=== PATIENT | female | born 1960 | race Caucasian/White ===

== ENCOUNTER 2017-03-23 20:26 | Emergency (ER) | payer MEDICARE, OTHER ==
[2017-03-23 23:05] LABS: Bilirubin Negative (Negative); Blood, Urine Large (Negative); Glucose, Urine (Dipstick) Negative (Negative); Ketone, Urine Negative (Negative); Nitrite Negative (Negative); Protein, Urine (Dipstick) > or equal to 300 mg/dL (Neg-Trace); Urobilinogen 0.2 mg/dL (0.2-1.0)
[2017-03-23 23:08] LABS: Bacteria/HPF Rare-Few HPF (None Seen); Hyaline Casts/LPF 4-6 HYALINE CAST LPF (0-3 Hyaline)
[2017-03-23] MEDS ORDERED: Ciprofloxacin 500 MG TAB ONE (23:39)
== END 2017-03-23 23:46 | disposition home or self-care (01) ==
LOC: ERS 20:26
DX: N39.0 Urinary tract infection, site not specified (principal); E11.40 Type 2 diabetes mellitus with diabetic neuropathy, unspecified; I25.10 Atherosclerotic heart disease of native coronary artery without angina pectoris; I11.0 Hypertensive heart disease with heart failure; I50.9 Heart failure, unspecified; J44.9 Chronic obstructive pulmonary disease, unspecified; F32.9 Major depressive disorder, single episode, unspecified; F17.210 Nicotine dependence, cigarettes, uncomplicated; I25.2 Old myocardial infarction; Z79.899 Other long term (current) drug therapy; Z86.73 Personal history of transient ischemic attack (TIA), and cerebral infarction without residual deficits; Z79.4 Long term (current) use of insulin
CPT/HCPCS: 81003; 81015; 87086; 94760

== ENCOUNTER 2017-04-16 19:21 | Observation (INO) | payer MEDICARE, MEDICAID ==
[2017-04-16 19:55] LABS: #Basophils 0.1 thou/uL (0.0-0.2); #Eosinphils 0.2 thou/uL (0.0-0.7); #Lymphocytes 1.8 thou/uL (1.20-3.40); #Monocytes 0.6 thou/uL (0.11-0.59); #Neutrophils 7.4 thou/uL (1.40-6.50); %Basophils 0.8 % (0.0-1.0); %Eosinophils 2.3 % (0.0-10.0); %Lymphocytes 17.8 % (21.0-51.0); Hematocrit 38.9 % (36.0-47.0); Mean Platelet Volume 7.8 fL (7.4-10.4); Red Blood Cell (RBC) Count 4.17 mill/uL (4.20-5.40); White Blood Cell (WBC) Count 10.1 thou/uL (4.8-10.8)
[2017-04-16 20:02] LABS: PTT 32.1 SEC (22.9-36.1); Prothrombin Time 13.4 SEC (12.0-14.7)
[2017-04-16 20:11] LABS: ALT (SGPT) 18 U/L (8-55); AST (SGOT) 16 U/L (5-34); Alkaline Phosphatase 68 U/L (40-150); Anion Gap 15 mmol/L (10-20); BUN (Urea Nitrogen) 13 mg/dL (9.8-20.1); Calc. Creatinine Clearance 0 mL/min (70-130); Calcium 9.3 mg/dL (7.8-10.44); Carbon Dioxide 24 mmol/L (22-29); Chloride 103 mmol/L (98-107); Estimated GFR-MDRD 58; Globulin 3.4 g/dL (2.4-3.5); Lipase 6 U/L (8-78)
[2017-04-16 20:16] LABS: Troponin I Less than 0.010 ng/mL (< 0.028)
[2017-04-16] MEDS ORDERED: Nitroglycerin 2% Ointment 1 INCH/1 GM Packet ONE (20:29)
[2017-04-16] MEDS ORDERED: Morphine 10 MG/ML VIAL ONE (20:29)
--- NOTE | 2017-04-16 20:34 | RAD ---
UPRIGHT PORTABLE CHEST ONE VIEW: History: 57-year-old female with chest pain for two hours. Comparison: 03-06-17 FINDINGS: Monitor leads overlie the chest. Heart size is within normal limits. The lungs are clear of acute pr ocess. IMPRESSION: No acute intrathoracic disease. POS: [facility]
[2017-04-16 23:52] LABS: Troponin I Less than 0.010 ng/mL (< 0.028)
[2017-04-17] MEDS ORDERED: Ondansetron HCl/PF 4 MG/2 ML Vial IVP PRN (00:16)
[2017-04-17] MEDS ORDERED: Ondansetron ODT 4 MG TAB SL PRN (00:16)
[2017-04-17] MEDS ORDERED: Acetaminophen 325 MG TAB PO PRN (00:16)
[2017-04-17] MEDS ORDERED: HYDROcodone/Acetaminophen 5/325 mg Tablet PO PRN ×2 (01:02)
[2017-04-17] MEDS ORDERED: Nitroglycerin 0.4 MG TAB (25 Tab Bottle) SL PRN (01:03)
[2017-04-17] MEDS ORDERED: tiZANidine HCl 4 MG TAB PO PRN (01:08)
[2017-04-17] MEDS ORDERED: Amlodipine 10 MG TAB PO SCH ×2 (01:45→09:00)
[2017-04-17] MEDS ORDERED: Gabapentin 400 MG CAP PO SCH ×2 (01:45→09:00)
[2017-04-17] MEDS ORDERED: Pravastatin Sodium 40 MG TAB PO SCH ×2 (01:45→09:00)
[2017-04-17] MEDS ORDERED: Lorazepam 1 MG TAB PO SCH ×2 (01:45→09:00)
[2017-04-17] MEDS ORDERED: Metoprolol Tartrate 25 MG TAB PO SCH ×2 (01:45→09:00)
[2017-04-17 02:48] LABS: Troponin I Less than 0.010 ng/mL (< 0.028)
[2017-04-17] MEDS ORDERED: Dextrose 5% in Water 1,000 ML IV PRN (04:15)
[2017-04-17] MEDS ORDERED: Dextrose 50% Abboject 50 ML SYRINGE SLOW IVP PRN (04:15)
[2017-04-17] MEDS ORDERED: HumaLOG 300 UNITS/3 ML VIAL SC PRN ×2 (04:15)
[2017-04-17] MEDS ORDERED: Levothyroxine Sodium 125 MCG TAB PO SCH (06:00)
[2017-04-17] MEDS ORDERED: Nitroglycerin 2% Ointment 1 INCH/1 GM Packet TOP SCH (06:00)
[2017-04-17] MEDS ORDERED: Mometasone/Formoterol 120 PUFF INHALER INH SCH (06:30)
[2017-04-17] MEDS ORDERED: HYDROcodone/Acetaminophen 10/325 mg Tablet PO PRN (07:38)
[2017-04-17] MEDS ORDERED: Ondansetron ODT 4 MG TAB PO PRN (07:38)
[2017-04-17] MEDS ORDERED: Promethazine HCl 25 MG/ML VIAL IM/IV PRN (07:46)
[2017-04-17] MEDS ORDERED: HumaLOG 300 UNITS/3 ML VIAL SC SCH (08:00)
[2017-04-17 08:39] VITALS: BP 137/60; TEMP 97.6
[2017-04-17] MEDS ORDERED: FLU VACC QS2017-18 36 mo. & older 0.5 ML SYRINGE IM ONE (09:00)
[2017-04-17] MEDS ORDERED: Baclofen 10 MG TAB PO SCH (09:00)
[2017-04-17] MEDS ORDERED: Nitroglycerin 0.4mg/Hour PATCH TD SCH (09:00)
[2017-04-17] MEDS ORDERED: Insulin Detemir 100 UNITS/ML 40 UNITS in Pre-Filled Syringe 1 EACH SC SCH ×2 (09:00→21:00)
--- NOTE | 2017-04-17 09:41 | HP ---
PRIMARY CARE PHYSICIAN: Dr. Valdemar Adames, though she has not really seen him. CHIEF COMPLAINT: Chest pain. HISTORY OF PRESENT ILLNESS: This is a 57-year-old white female with an extensive past medical histo ry of coronary artery disease and severe COPD who has actually been on hospice for the last 6 months , but had been transitioned off of it per her report. She was in her baseline state of health at [facility], which includes chronic shortness of breath on home oxygen and chronic nausea when she developed severe left-sided sternum chest pain, feeling like that there was a large rock sitting on her there. This was present for a couple of hours before she came into the emergency room last night. She di d take multiple doses of nitroglycerin at home and was given aspirin on the way to the emergency [facility]. In the ER, she was given morphine 10 mg IV in the emergency room along with Nitro-Bid transderma l and has had complete resolution of her chest pain; however, she did developed severe nausea and vo miting ever since the dose of morphine in the emergency room and she has vomited continuously on the floor even after the dose of Zofran. Otherwise, patient is back to her baseline state of health. PAST MEDICAL HISTORY: 1. Coronary artery disease. 2. Hypertension. 3. Hyperlipidemia. 4. Viera's esophagitis. 5. Peripheral neuropathy. 6. Diabetes mellitus type 2, insulin-dependent. 7. Chronic obstructive pulmonary disease. 8. Hypothyroidism. 9. Congestive heart failure. PAST SURGICAL HISTORY: Angiography multiple times with 2 stents placed in the past. ALLERGIES: She is allergic to SULFA and NSAIDs. FAMILY HISTORY: Positive for heart disease and diabetes. SOCIAL HISTORY: Patient smokes 1/4 pack a day and has smoked for more than 30 years, drinks occasio nal alcohol, no illicit drugs. She is disabled, is a and has 2 children. MEDICATIONS: 1. Tizanidine 4 mg 3 times a day as needed. 2. Humalog 30 units subcutaneously t.i.d. with meals. 3. Advair Diskus 250/50 two inhalations twice a day. 4. Baclofen 10 mg daily. 5. Lantus 70 units subcutaneously twice a day. 6. Hydrocodone 10/325 mg 2 tablets every 6 hours as needed for pain. 7. Gabapentin 1600 mg twice a day. 8. Metoprolol tartrate 25 mg twice a day. 9. Levothyroxine 125 mcg daily. 10. Lorazepam 1 mg twice a day. 11. Pravastatin 40 mg twice a day. 12. Nitroglycerin spray every 5 minutes as needed. 13. Amlodipine 10 mg twice a day. 14. Seroquel 100 mg at night. 15. Zofran ODT 4 mg every 6 hours as needed for nausea and vomiting. 16. Omeprazole 40 mg daily. 17. Nitroglycerin patch 0.4 mg transdermal daily. REVIEW OF SYSTEMS: Constitutional: No fevers, no chills, no weight changes. Eyes: No double visi on or blurred vision. ENT: No congestion, drainage or sore throat. Cardiovascular: See HPI. No palpitations or racing heart. Pulmonary: Chronic cough and shortness of breath. Gastrointestinal: See HPI. No diarrhea or constipation. Genitourinary: No dysuria or hematuria. Musculoskeletal: No muscle aches or joint pains. Neurologic: No numbness, tingling or focal weak ness besides her chronic peripheral neuropathy, numbness in her lower extremities. Skin: No rashes or other lesions. PHYSICAL EXAMINATION: VITAL SIGNS: Blood pressure 137/60, temperature 97.6, pulse 76, respirations 18-24, O2 saturation 9 4% on room air. GENERAL: This is a well-developed, obese white female who is in moderate distress from recurrent vo miting and vomited is a yellowish green without any blood in it. HEENT: Eyes: Pupils are equal, round, and reactive to light. Oropharynx clear without lesions, er ythema or exudate. NECK: Supple, no lymphadenopathy, no thyroid nodules or enlargement, no JVD. HEART: Regular rate and rhythm, no murmurs, rubs or gallops. LUNGS: Bilateral mild occasional wheezing and some coarse breath sounds bilaterally, but decent air movement throughout. ABDOMEN: Soft, nontender to palpation, normoactive bowel sounds, no organomegaly. EXTREMITIES: She has 3+ pitting edema in bilateral lower extremities, moves all extremities with go od strength. SKIN: No rashes or other lesions noted. NEUROLOGIC: She has no facial droop. She has intact deep tendon reflexes throughout and strength i s normal bilaterally. LABORATORY DATA AND IMAGING: CBC within normal limits. Coagulation profile normal. CMP is normal except for glucose of 151, her lipase was negative at 6. Troponins negative x3. Chest x-ray: I di d review the chest x-ray done in the emergency room along with the radiologist's report. There is n o acute cardiopulmonary process visualized and has a normal heart border. EKG: I did review the EK G done in the emergency room, it does show normal sinus rhythm with a right bundle branch block. ASSESSMENT AND PLAN: 1. Chest pain with known coronary artery disease. Chest pain is now resolved. Cardiac marker sets are all negative. This is possibly angina versus pulmonary in origin. Given the patient's history of being on hospice, I did talk with her about her and desires concerning workup for this versus co ntinuing on outpatient hospice. She said that she has actually had stopped being on hospice and wou ld like this worked up. As a result, we will have Cardiology come and evaluate her. She states she has had adverse reaction to a stress test in the past, so we will not attempt and at this time, she may need either inpatient or outpatient follow up angiography. For now, we will continue her on as pirin and nitroglycerin and we will control her blood pressure. 2. Hypertension. We will continue home medications and will monitor closely. 3. Chronic nausea now with vomiting after morphine administration. This is likely related to diabe tic gastroparesis. We will give her some Phenergan and avoid further opiates during this hospitaliz ation. 4. Diabetes mellitus type 2, insulin-dependent. The patient is currently n.p.o., so we will cut he r Lantus to 40 units twice a day and will put her on a sliding scale and we will monitor her blood s ugars q.a.c. and at bedtime. 5. Chronic obstructive pulmonary disease. We will resume patient's home oxygen and give her nebs a s needed. 6. Gastrointestinal prophylaxis. Put the patient on Pepcid while she is in the hospital. 7. Deep venous thrombosis prophylaxis. We will put the patient on prophylactic dose of Lovenox. 8. CODE STATUS: The patient is a do not resuscitate.
--- NOTE | 2017-04-17 13:52 | PDOC.EVN ---
Event Note - Event Note Event Note: Patient decided to leave AMA due to not wanting to use the emesis basin. Nursing warned her about risks involved in leaving AMA. Patient had left the floor by the time I arrived to speak with her.
--- NOTE | 2017-04-21 15:46 | EKG ---
Test Reason : STAT Blood Pressure : / mmHG Vent. Rate : 071 BPM Atrial Rate : 071 BPM P-R Int : 222 ms QRS Dur : 142 ms QT Int : 468 ms P-R-T Axes : 060 052 003 degrees QTc Int : 508 ms Sinus rhythm with 1st degree A-V block Right bundle branch block Abnormal ECG When compared with ECG of 16-MAY-2016 14:45, Right bundle branch block is now Present Confirmed by DR. Sarath REY ([id number]) on 04/21/2017 3:46:22 PM Referred By: [facility] Confirmed By:DR. Sarath REY
== END 2017-04-17 09:50 | disposition left against medical advice (07) ==
LOC: ERS 19:21 → 2SW 22:45
PROVIDERS: ADMIT Internal Medicine; ATTEND Internal Medicine
DX: R07.89 Other chest pain (principal); I25.10 Atherosclerotic heart disease of native coronary artery without angina pectoris; E78.5 Hyperlipidemia, unspecified; E11.42 Type 2 diabetes mellitus with diabetic polyneuropathy; I11.0 Hypertensive heart disease with heart failure; I50.9 Heart failure, unspecified; J44.9 Chronic obstructive pulmonary disease, unspecified; E03.9 Hypothyroidism, unspecified; F17.210 Nicotine dependence, cigarettes, uncomplicated; Z88.2 Allergy status to sulfonamides; Z88.6 Allergy status to analgesic agent; Z95.5 Presence of coronary angioplasty implant and graft; Z79.4 Long term (current) use of insulin; Z79.899 Other long term (current) drug therapy; Z98.890 Other specified postprocedural states
CPT/HCPCS: 71010; 80053; 82553; 82962; 83690; 84484 ×3; 85025; 85610; 85730; 93005 ×2; 94760; 96374; 99285; G0378; 36415; 36416; 93010; J1815; J2270; Q0162

== ENCOUNTER 2017-05-03 14:37 | Emergency (ER) | payer MEDICARE, MEDICAID ==
[2017-05-03] MEDS ORDERED: Nitroglycerin 0.4 MG TAB (25 Tab Bottle) ONE (15:05)
[2017-05-03 15:23] LABS: #Basophils 0.1 thou/uL (0.0-0.2); #Eosinphils 0.2 thou/uL (0.0-0.7); #Lymphocytes 1.5 thou/uL (1.20-3.40); #Monocytes 0.6 thou/uL (0.11-0.59); #Neutrophils 7.9 thou/uL (1.40-6.50); %Basophils 0.6 % (0.0-1.0); %Eosinophils 2.3 % (0.0-10.0); %Lymphocytes 14.9 % (21.0-51.0); %Monocytes 5.4 % (0.0-10.0); Hematocrit 38.7 % (36.0-47.0); Mean Platelet Volume 7.6 fL (7.4-10.4); Red Blood Cell (RBC) Count 4.23 mill/uL (4.20-5.40); White Blood Cell (WBC) Count 10.2 thou/uL (4.8-10.8)
[2017-05-03 15:47] LABS: Troponin I Less than 0.010 ng/mL (< 0.028)
[2017-05-03 15:49] LABS: ALT (SGPT) 16 U/L (8-55); AST (SGOT) 14 U/L (5-34); Alkaline Phosphatase 73 U/L (40-150); Anion Gap 13 mmol/L (10-20); BUN (Urea Nitrogen) 11 mg/dL (9.8-20.1); Bilirubin, Total 0.8 mg/dL (0.2-1.2); Calc. Creatinine Clearance 0 mL/min (70-130); Calcium 9.4 mg/dL (7.8-10.44); Carbon Dioxide 27 mmol/L (22-29); Chloride 102 mmol/L (98-107); Estimated GFR-MDRD 63; Globulin 3.1 g/dL (2.4-3.5); Lipase 8 U/L (8-78); Protein, Total 6.7 g/dL (6.0-8.3)
--- NOTE | 2017-05-03 17:11 | RAD ---
PORTABLE UPRIGHT FRONTAL CHEST RADIOGRAPH 05/03/17 COMPARISON: 04/16/17 HISTORY: Cough, shortness of breath and hypoxia. FINDINGS: There is increased linear interstitial density noted bilaterally, stable. No pneumothorax or pleural fluid. No lobar consolidation or alveolar edema. IMPRESSION: Perihilar and medial basilar interstitial prominence, nonspecific and unchanged. POS: [facility]
== END 2017-05-03 17:15 | disposition home or self-care (01) ==
LOC: ERS 14:37
DX: R07.89 Other chest pain (principal); I11.0 Hypertensive heart disease with heart failure; I50.9 Heart failure, unspecified; I25.2 Old myocardial infarction; I25.10 Atherosclerotic heart disease of native coronary artery without angina pectoris; E11.40 Type 2 diabetes mellitus with diabetic neuropathy, unspecified; I69.354 Hemiplegia and hemiparesis following cerebral infarction affecting left non-dominant side; J44.9 Chronic obstructive pulmonary disease, unspecified; F32.9 Major depressive disorder, single episode, unspecified; F17.210 Nicotine dependence, cigarettes, uncomplicated; Z85.118 Personal history of other malignant neoplasm of bronchus and lung; Z92.21 Personal history of antineoplastic chemotherapy; Z92.3 Personal history of irradiation; Z79.899 Other long term (current) drug therapy; Z79.4 Long term (current) use of insulin
CPT/HCPCS: 71010; 80053; 82553; 83690; 83880; 84484; 85025; 93005

== ENCOUNTER 2017-06-10 15:57 | Emergency (ER) | payer MEDICARE, MEDICAID ==
[2017-06-10] MEDS ORDERED: Lidocaine Viscous Sol 2% 15 ml UD Cup ONE (16:46)
[2017-06-10] MEDS ORDERED: Lidocaine 2% Jelly 5 ML TUBE ONE ×2 (16:47→17:33)
[2017-06-10] MEDS ORDERED: Bisacodyl 10 MG SUPP ONE (17:02)
[2017-06-10] MEDS ORDERED: Magnesium Citrate 300 ML BOT ONE (17:41)
== END 2017-06-10 18:20 | disposition home or self-care (01) ==
LOC: ERS 15:57
DX: K59.00 Constipation, unspecified (principal); E11.40 Type 2 diabetes mellitus with diabetic neuropathy, unspecified; I11.0 Hypertensive heart disease with heart failure; I50.9 Heart failure, unspecified; I25.2 Old myocardial infarction; J44.9 Chronic obstructive pulmonary disease, unspecified; F32.9 Major depressive disorder, single episode, unspecified; F17.210 Nicotine dependence, cigarettes, uncomplicated; Z79.899 Other long term (current) drug therapy; Z79.4 Long term (current) use of insulin
CPT/HCPCS: 99406

== ENCOUNTER 2017-07-13 15:22 | Inpatient (IN) | payer MEDICARE, MEDICAID ==
[~2017-07-13 15:22] MED LIST: ISOVUE-370 76%-LOCM 1 ML ONE
[2017-07-13] MEDS ORDERED: Ondansetron HCl/PF 4 MG/2 ML Vial ONE (16:33)
[2017-07-13 17:11] LABS: #Basophils 0.1 thou/uL (0.0-0.2); #Eosinphils 0.4 thou/uL (0.0-0.7); #Lymphocytes 1.6 thou/uL (1.20-3.40); #Monocytes 0.6 thou/uL (0.11-0.59); #Neutrophils 7.4 thou/uL (1.40-6.50); %Basophils 0.7 % (0.0-1.0); %Eosinophils 3.6 % (0.0-10.0); %Lymphocytes 15.7 % (21.0-51.0); %Monocytes 6.3 % (0.0-10.0); %Neutrophils 73.7 % (42.0-75.0); Hemoglobin 14.3 g/dL (12.0-16.0); Mean Corpuscular HGB CONC 34.8 g/dL (32.0-36.0); Mean Corpuscular Hemoglobin 30.5 pg (27.0-31.0); Mean Corpuscular Volume 87.6 fl (81.0-99.0); Mean Platelet Volume 8.3 fL (7.4-10.4); Platelet Count 220 thou/uL (130-400); RBC Distribution Width 12.9 % (11.5-14.5); Red Blood Cell (RBC) Count 4.68 mill/uL (4.20-5.40)
[2017-07-13 17:34] LABS: ALT (SGPT) 17 U/L (8-55); AST (SGOT) 15 U/L (5-34); Albumin 3.8 g/dL (3.5-5.0); Alkaline Phosphatase 73 U/L (40-150); Anion Gap 15 mmol/L (10-20); BUN (Urea Nitrogen) 13 mg/dL (9.8-20.1); Bilirubin, Total 1.1 mg/dL (0.2-1.2); Calc. Creatinine Clearance 0 mL/min (70-130); Calcium 9.3 mg/dL (7.8-10.44); Carbon Dioxide 26 mmol/L (22-29); Chloride 100 mmol/L (98-107); Estimated GFR-MDRD 53; Globulin 3.1 g/dL (2.4-3.5); Glucose 137 mg/dL (70-105); Lipase 14 U/L (8-78); Potassium 3.8 mmol/L (3.5-5.1); Protein, Total 6.9 g/dL (6.0-8.3); Sodium 137 mmol/L (136-145)
[2017-07-13 17:38] LABS: CKMB 3.8 ng/mL (0-6.6); Troponin I Less than 0.010 ng/mL (< 0.028)
[2017-07-13] MEDS ORDERED: Nitroglycerin 2% Ointment 1 INCH/1 GM Packet ONE (18:21)
--- NOTE | 2017-07-13 19:03 | RAD ---
PORTABLE CHEST 07/13/17 PROVIDED CLINICAL HISTORY: Chest pain. FINDINGS: Evaluation is limited by patient body habitus. Increased density at the right lung base could be on t he basis of superimposed tissues or infiltrate. Cardiac silhouette remains enlarged. No pleural fluid or pneumothorax is definitely apparent. IMPRESSION: Limited study with possible right basilar air space disease. Followup is recommended. POS: [facility]
[2017-07-13] MEDS ORDERED: Acetaminophen 325 MG TAB PO PRN ×2 (20:45→21:53)
[2017-07-13] MEDS ORDERED: Ondansetron ODT 4 MG TAB SL PRN (20:45)
[2017-07-13] MEDS ORDERED: Ondansetron HCl/PF 4 MG/2 ML Vial IVP PRN ×2 (20:45→21:53)
[2017-07-13] MEDS ORDERED: HYDROcodone/Acetaminophen 5/325 mg Tablet PO PRN ×3 (20:45→21:53)
--- NOTE | 2017-07-13 20:49 | CT ---
CT PULMONARY ANGIOGRAM WITH IV CONTRAST AND 3D MIP RECONSTRUCTIONS 07/13/17 PROVIDED CLINICAL HISTORY: Cough, shortness of breath. FINDINGS: Comparison is made with the examination dated 10/23/15. The heart, pericardium and great vessels demonstrate an unremarkable CT appearance with the exception of vascular calcifications including coronary calcium. There is no evidence for central or segmental pulmonary embolus. There are moderate right and small left pleural effusions. There is adjacent passive atelectasis at e ach lung base. Lungs appear otherwise clear. Airway appears patent and of normal caliber. No evidence for thoracic lymph node enlargement. No evidence for pneumothorax. The visualized portions of the upper abdomen demonstrate no acute abnormality. IMPRESSION: 1. No evidence for central or segmental pulmonary embolus. 2. Moderate right and small left pleural effusions with adjacent passive atelectasis. POS: [facility]
[2017-07-13] MEDS ORDERED: Diabetic Tussin 200 MG/10 ML UDCUP PO PRN (21:53)
[2017-07-13] MEDS ORDERED: Nitroglycerin 0.4 MG TAB (25 Tab Bottle) SL PRN (21:53)
[2017-07-13] MEDS ORDERED: Dextrose 5% in Water 1,000 ML IV PRN (21:53)
[2017-07-13] MEDS ORDERED: Loratadine 10 MG TAB PO PRN (21:53)
[2017-07-13] MEDS ORDERED: HumaLOG 300 UNITS/3 ML VIAL SC PRN (21:53)
[2017-07-13] MEDS ORDERED: Milk Of Magnesia 30 ML UDCUP PO PRN (21:53)
[2017-07-13] MEDS ORDERED: Artificial Tears 18 DROP/0.9 ML EA EYE PRN (21:53)
[2017-07-13] MEDS ORDERED: Eucerin (Mineral Oil/Petrolatum,White) 30 gm Jar TOP PRN (21:53)
[2017-07-13] MEDS ORDERED: Ondansetron ODT 4 MG TAB PO PRN (21:53)
[2017-07-13] MEDS ORDERED: Meclizine HCl 25 MG TAB PO PRN (21:53)
[2017-07-13] MEDS ORDERED: Chloraseptic Spray 180 ml Bottle PO PRN (21:53)
[2017-07-13] MEDS ORDERED: hydrALAZINE 20 MG/ML VIAL SLOW IVP PRN (21:53)
[2017-07-13] MEDS ORDERED: Mag-Al 1200 mg/1200 mg/30 ML UDCUP PO PRN (21:53)
[2017-07-13] MEDS ORDERED: Zolpidem Tartrate 5 MG TAB PO PRN (21:53)
[2017-07-13] MEDS ORDERED: HYDROcodone/Acetaminophen 10/325 mg Tablet PO PRN (21:53)
[2017-07-13] MEDS ORDERED: Dextrose 50% Abboject 50 ML SYRINGE SLOW IVP PRN (21:53)
[2017-07-13] MEDS ORDERED: Diphenoxylate HCl/Atropine Tablet PO PRN (21:53)
[2017-07-13] MEDS ORDERED: Loperamide HCl 2 MG CAP PO PRN (21:53)
[2017-07-13] MEDS ORDERED: Sodium Chloride 0.65% Nasal 44 ML BOT EA NARE PRN (21:53)
[2017-07-13] MEDS ORDERED: Senokot 8.6 MG TAB PO PRN (21:53)
[2017-07-13] MEDS ORDERED: Baclofen 10 MG TAB PO SCH (22:15)
[2017-07-13] MEDS ORDERED: tiZANidine HCl 4 MG TAB PO SCH (22:30)
[2017-07-13] MEDS ORDERED: Metoprolol Tartrate 25 MG TAB PO SCH (22:30)
[2017-07-13] MEDS ORDERED: Gabapentin 400 MG CAP PO SCH (22:30)
[2017-07-13] MEDS ORDERED: hydrOXYzine 25 MG TAB PO SCH (22:30)
[2017-07-13] MEDS ORDERED: Insulin Detemir 100 UNITS/ML 70 UNITS in Pre-Filled Syringe 1 EACH SC SCH (22:30)
[2017-07-13] MEDS ORDERED: Pravastatin Sodium 40 MG TAB PO SCH (22:30)
[2017-07-13] MEDS ORDERED: Lisinopril 20 MG TAB PO SCH (22:30)
[2017-07-13 22:52] VITALS: BMI 43.9
--- NOTE | 2017-07-13 23:10 | HP ---
PRIMARY CARE PHYSICIAN: Dr. Valdemar Adames. REASON FOR ADMISSION: Acute on chronic hypoxic respiratory failure, chronic obstructive pulmonary disease, and CHF exacerbation. HISTORY OF PRESENT ILLNESS: A 57-year-old female who has multiple medical problems who came to emergency room with complaint of increasing shortness of breath. Patient reports that she is sick since Blue. She was experiencing cough and each time, she has a productive cough of yellowish sputum without any blood. She has increasing shortness of breath. Patient reports that she was given a course of antibiotic by her primary care physician with azithromycin without any significant relief. She did not get rid of upper respiratory symptoms. She reports she has nasal congestion, cough, shortness of breath, chest wall pain associated with cough, headache, body ache. She was also experiencing increasing shortness of breath, wheezing. She noticed increasing bilateral lower extremity edema. She was not able to lie down flat. She was having dyspnea on exertion. Her routine capacity was decreasing. She was trying all her nebulizer treatment, inhalers without any significant relief and that is why she came to the emergency room for evaluation. In the emergency room, this patient was appeared to be slightly hypoxic and she was wheezing in all over her lung field. She had a slightly elevated D-dimer and that is why CT angio was done which showed moderate right and small left pleural effusion and atelectasis. She also had a slightly elevated BNP and there was concern of both CHF and COPD exacerbation. Number simmons, patient was appeared to be stable and that is why she was kept here on the telemetry floor for observation. REVIEW OF SYSTEMS: The following complete review of systems was negative, unless otherwise mentioned in the HPI or below: Constitutional: Weight loss or gain, ability to conduct usual activities. Skin: Rash, itching. Eyes: Double vision, pain. ENT/Mouth: Nose bleeding, neck stiffness, pain, tenderness. Cardiovascular: Palpitations, dyspnea on exertion, orthopnea. Respiratory: Shortness of breath, wheezing, cough, hemoptysis, fever or night sweats. Gastrointestinal: Poor appetite, abdominal pain, heartburn, nausea, vomiting, constipation, or diarrhea. Genitourinary: Urgency, frequency, dysuria, nocturia. Musculoskeletal: Pain, swelling. Neurologic/Psychiatric: Anxiety, depression. Allergy/Immunologic: Skin rash, bleeding tendency. Please see my HPI for pertinent positives and negatives. All other review of systems reviewed and negative except as mentioned in the HPI. ALLERGIES: SULFA DRUGS. CURRENT HOME MEDICATIONS: Amlodipine 10 mg p.o. b.i.d., baclofen 10 mg p.o. at bedtime, Tessalon 100 mg p.o. b.i.d., Lomotil 2 tablets p.o. q.i.d. p.r.n., Advair 2 inhalations b.i.d., Lasix 40 mg p.o. b.i.d., gabapentin 1600 mg p.o. b.i.d., Humalog insulin 30 units subcu t.i.d. and 30 units at bedtime, [place] 10 one tablet q.4 hourly p.r.n., Atarax 25 mg p.o. b.i.d., Lantus 70 units subcutaneously b.i.d., DuoNeb twice daily, Synthroid 25 mcg p.o. daily, lisinopril 40 mg p.o. b.i.d., Ativan 1 mg p.o. daily, Antivert 25 mg p.o. b.i.d. p.r.n., metformin 500 mg p.o. daily, Lopressor 25 mg p.o. b.i.d., nitroglycerin patch daily p.r.n., nitroglycerin p.r.n., omeprazole 40 mg p.o. daily, Zofran 4 mg q.6. hourly p.r.n., pravastatin 40 mg p.o. b.i.d., prochlorperazine 10 mg p.o. b.i.d., Seroquel 100 mg p.o. at bedtime, Spiriva 18 mcg inhalation b.i.d., Zanaflex 4 mg p.o. at bedtime. PAST MEDICAL HISTORY: Coronary artery disease with a stent, hypertension, diabetes type 2 on insulin, dyslipidemia, Viera's esophagitis, peripheral neuropathy due to diabetes, COPD, chronic respiratory failure on home oxygen, hypothyroidism, chronic diastolic congestive heart failure, morbid obesity, gastroesophageal reflux disease, history of lung cancer treated with chemotherapy and radiation, history of cerebrovascular accident. PAST SURGICAL HISTORY: Cardiac catheterization with 2 stents placement, carpal tunnel repair, tubal ligation. PAST PSYCHIATRIC HISTORY: Anxiety and depression. SOCIAL HISTORY: Patient is still smoking about half pack per day. She smoked more than 30 years in her life. She drinks alcohol socially. She denies any other illicit drug abuse. She lives at home. She has home oxygen. She uses oxygen via nasal cannula 2-3 liters at home. FAMILY HISTORY: Diabetes, hypertension, heart disease runs among several family members. PHYSICAL EXAMINATION: VITAL SIGNS: On arrival, blood pressure 145/74, pulse 74, respiratory rate 18, temperature 98.2, saturation 93% on room air, weight 120 kilograms. GENERAL: Patient is currently alert, awake, no obvious acute distress. HEENT: Normocephalic, atraumatic. Eyes: Pupils round, reactive to light. Extraocular muscles intact. ENT: Oropharynx within normal limits. Moist mucous membranes. No pharyngeal erythema, no exudates. NECK: Supple, no JVD, no thyromegaly, no carotid bruit. LUNGS: Bilateral diffuse wheezing and rhonchi heard. No rales noted. Air entry reduced on both bases. CARDIAC: S1, S2 regular, systolic murmur present. No gallop, no rub. ABDOMEN: Morbid obesity limiting examination. Patient does have vague epigastric discomfort. No Eason's sign, no suprapubic tenderness. No peritoneal signs, no distention. Bowel sounds present, no organomegaly. BACK: Unremarkable, no CVA tenderness. EXTREMITIES: Upper extremity, passive movement of all joints are normal. Lower extremity, bilateral +3 pitting edema noted. SKIN: No skin rash. HEMATOLOGICAL: No lymphadenopathy. PSYCHIATRIC: Normal affect. NEUROLOGIC: Nonfocal examination. SIGNIFICANT LABS: Chest x-ray showing pleural effusion. CT angio showing bilateral pleural effusion, moderate right effusion and small left pleural effusion and atelectasis, no evidence of PE. CBC: WBC 10.0, hemoglobin 14.3, platelet 220. D-dimer 1.11. BMP shows sodium 137, potassium 3.8, chloride 100 , carbon dioxide 26, BUN 13, creatinine 1.06, glucose 137, calcium 9.3. LFT: AST 15, ALT 17, alkaline phosphatase 73, albumin 3.8, lipase 14. CK-MB 3.8, troponin I less than 0.010. BNP 159.7. ASSESSMENT AND PLAN: 1. Acute on chronic respiratory failure with hypoxia, likely due to underlying chronic obstructive pulmonary disease and congestive heart failure exacerbation. We will monitor oxygen saturation while in hospital and continue oxygen to keep saturation above 92%. 2. Chronic obstructive pulmonary disease exacerbation. The patient has bilateral wheezing and she has ongoing smoking history. At this point, the patient will be treated with DuoNeb every 4 hourly, Dulera 2 puffs inhalation b.i.d., empiric antibiotic therapy with Levaquin and Mucinex 600 mg twice daily. We will avoid steroids at this point because of her diabetes history. 3. Acute on chronic congestive heart failure exacerbation, likely diastolic. We will confirm EF with echocardiography during this admission. We will give her Lasix 40 mg IV b.i.d. We will also prescribe Zaroxolyn 5 mg p.o. daily. This patient has classic signs of congestive heart failure. She has pleural effusion. She has bilateral lower extremity pitting edema as well as elevated BNP. 4. Hypertension. Currently, not well controlled. We will resume amlodipine 10 mg p.o. daily, Lasix 40 mg IV b.i.d., Zaroxolyn 5 mg p.o. daily, lisinopril 40 mg p.o. b.i.d., Lopressor 25 mg p.o. b.i.d. We will adjust blood pressure medication during this admission. 5. Tobacco abuse disorder. Smoking cessation counseling given. We will offer nicotine patch if needed. 6. Diabetes type 2. We will resume Humalog insulin as per sliding scale per protocol. The patient is taking Humalog 30 units subcutaneously t.i.d. and bedtime which we will continue as per home dosage. We will also continue Lantus 70 units subcu b.i.d. along with metformin 500 mg p.o. daily. We will monitor Accu-Cheks. 7. Dyslipidemia. Continue pravastatin 40 mg p.o. b.i.d. 8. Gastroesophageal reflux disease with a history of Viera's esophagus. Continue Protonix 40 mg p.o. daily. 9. Anxiety and depression. Continue Seroquel 100 mg p.o. at bedtime, lorazepam 1 mg p.o. daily. 10. Hypothyroidism. We will continue Synthroid 25 mcg p.o. daily. 11. Morbid obesity. Dietary education given, weight loss education given. Healthy lifestyle measures discussed with the patient. 12. Deep venous thrombosis prophylaxis with Lovenox 40 mg subcu daily. 13. Gastrointestinal prophylaxis, Protonix 40 mg p.o. daily. CODE STATUS: The patient is FULL CODE. Patient does not have any surrogate decision maker. DISPOSITION AND PLAN: At this point, we are suspecting that this patient, though her number looks normal, but looking at her condition, she may need more than 2 midnights and that is why we will keep her as a full admission rather than observation and I doubt this patient will get better in hours. Plan of care discussed with the patient in detail. MTDD
[2017-07-14 05:11] LABS: #Eosinphils 0.2 thou/uL (0.0-0.7); #Lymphocytes 1.2 thou/uL (1.20-3.40); #Monocytes 0.5 thou/uL (0.11-0.59); #Neutrophils 6.3 thou/uL (1.40-6.50); %Basophils 0.5 % (0.0-1.0); %Eosinophils 2.6 % (0.0-10.0); %Lymphocytes 14.8 % (21.0-51.0); %Monocytes 5.9 % (0.0-10.0); %Neutrophils 76.3 % (42.0-75.0); Hemoglobin 11.9 g/dL (12.0-16.0); Mean Corpuscular Volume 88.3 fl (81.0-99.0); Mean Platelet Volume 8.2 fL (7.4-10.4); Platelet Count 176 thou/uL (130-400); Red Blood Cell (RBC) Count 3.95 mill/uL (4.20-5.40); White Blood Cell (WBC) Count 8.2 thou/uL (4.8-10.8)
[2017-07-14 05:24] LABS: ALT (SGPT) 14 U/L (8-55); AST (SGOT) 11 U/L (5-34); Albumin 3.2 g/dL (3.5-5.0); Alkaline Phosphatase 60 U/L (40-150); Anion Gap 12 mmol/L (10-20); BUN (Urea Nitrogen) 13 mg/dL (9.8-20.1); Bilirubin, Total 0.6 mg/dL (0.2-1.2); Calc. Creatinine Clearance 108 mL/min (70-130); Calcium 8.6 mg/dL (7.8-10.44); Carbon Dioxide 27 mmol/L (22-29); Chloride 101 mmol/L (98-107); Estimated GFR-MDRD 50; Globulin 2.6 g/dL (2.4-3.5); Glucose 218 mg/dL (70-105); Potassium 3.8 mmol/L (3.5-5.1); Protein, Total 5.8 g/dL (6.0-8.3); Sodium 136 mmol/L (136-145); Uric Acid 9.3 mg/dL (2.6-6.0)
[2017-07-14] MEDS: Furosemide 40 MG/4 ML VIAL SLOW IVP SCH ×2 (06:10→14:27)
[2017-07-14] MEDS: Levothyroxine Sodium 25 MCG TAB PO SCH (06:10)
[2017-07-14] MEDS ORDERED: Lorazepam 1 MG TAB PO SCH (09:00)
[2017-07-14] MEDS ORDERED: Gabapentin 400 MG CAP PO SCH (09:00)
[2017-07-14] MEDS ORDERED: hydrOXYzine 25 MG TAB PO SCH (09:00)
[2017-07-14] MEDS ORDERED: FLU VACC QS2017-18 36 mo. & older 0.5 ML SYRINGE IM ONE (09:00)
[2017-07-14] MEDS ORDERED: Non-Formulary Item 1 EACH (Insulin Glargine,Hum.Rec.Anlog 70 UNIT) SQ SCH (09:00)
[2017-07-14] MEDS ORDERED: Lisinopril 20 MG TAB PO SCH (09:00)
[2017-07-14] MEDS: Enoxaparin Sodium 40 MG/0.4 ML SYRINGE SC SCH (09:58)
[2017-07-14] MEDS: Metolazone 5 MG TAB PO SCH (09:58)
[2017-07-14] MEDS: metFORMIN 500 MG TAB PO SCH (09:58)
[2017-07-14] MEDS: Amlodipine 10 MG TAB PO SCH (09:58)
[2017-07-14] MEDS: HumaLOG 300 UNITS/3 ML VIAL SC SCH ×4 (09:58→20:01)
[2017-07-14] MEDS: guaiFENesin ER 600 MG TAB PO SCH ×2 (09:59→20:00)
[2017-07-14] MEDS: Pravastatin Sodium 40 MG TAB PO SCH ×2 (10:00→20:00)
[2017-07-14] MEDS: Metoprolol Tartrate 25 MG TAB PO SCH ×2 (10:00→20:00)
[2017-07-14] MEDS: Insulin Detemir 100 UNITS/ML 70 UNITS in Pre-Filled Syringe 1 EACH SC SCH ×2 (10:02→20:01)
[2017-07-14] MEDS: Mometasone/Formoterol 120 PUFF INHALER INH SCH ×2 (11:21→18:38)
--- NOTE | 2017-07-14 14:49 | PDOC.PN ---
- Subjective Encounter Start Date: 07/14/17 Encounter Start Time: 10:15 Subjective: breathing better, a bit lethargic from meds and disturbed sleep - Objective Resuscitation Status: Resuscitation Status FULL:Full Resuscitation MAR Reviewed: Yes Vital Signs & Weight: Vital Signs (12 hours) Temp Pulse Pulse Pulse Resp BP BP 07/14/17 12:18 98.1 F 66 20 07/14/17 11:21 57 L 16 07/14/17 11:12 07/14/17 11:09 57 L 16 07/14/17 10:11 58 L 64 134/84 144/77 H 07/14/17 08:10 98.8 F 59 L 20 07/14/17 08:05 98.8 F 59 L 20 07/14/17 04:00 98.6 F 82 20 BP Pulse Ox Pulse Ox Pulse Ox 07/14/17 12:18 149/69 H 94 L 07/14/17 11:21 07/14/17 11:12 95 07/14/17 11:09 07/14/17 10:11 93 L 96 07/14/17 08:10 92 L 07/14/17 08:05 136/69 92 L 07/14/17 04:00 133/70 93 L Weight Weight 269 lb I&O: 07/13/17 07/14/17 07/15/17 06:59 06:59 06:59 Intake Total 240 Balance 240 Result Diagrams: 07/14/17 04:29 07/14/17 04:29 Additional Labs: Accuchecks 07/14/17 07/14/17 07/13/17 11:42 06:29 20:51 POC Glucose 134 H 230 H 183 H Phys Exam - Physical Examination HEENT: PERRLA, moist MMs Neck: no JVD, supple Respiratory: no wheezing, no rales Cardiovascular: RRR, no significant murmur Gastrointestinal: soft, non-tender, positive bowel sounds Musculoskeletal: no edema, pulses present Neurological: non-focal, moves all 4 limbs Psychiatric: A&O x 3 Dx/Plan (1) COPD with exacerbation Code(s): J44.1 - CHRONIC OBSTRUCTIVE PULMONARY DISEASE W (ACUTE) EXACERBATION Status: Acute (2) Acute exacerbation of CHF (congestive heart failure) Code(s): I50.9 - HEART FAILURE, UNSPECIFIED Status: Acute Qualifiers: Congestive heart failure type: diastolic Qualified Code(s): I50.33 - Acute on chronic diastolic (congestive) heart failure (3) DM type 2 (diabetes mellitus, type 2) Status: Chronic Qualifiers: Diabetes mellitus complication status: with neurologic complications Diabetes mellitus complication detail: with polyneuropathy Diabetes mellitus termite treater helper insulin use: with skilled nursing use Qualified Code(s): E11.42 - Type 2 diabetes mellitus with diabetic polyneuropathy; Z79.4 - termination clerk (current) use of insulin; Z79.4 - termination clerk (current) use of insulin; Z79.4 - shelter ( current) use of insulin; Z79.4 - shelter (current) use of insulin (4) CAD (coronary artery disease) Code(s): I25.10 - ATHSCL HEART DISEASE OF [place] CORONARY ARTERY W/O ANG PCTRS Status: Chronic Qualifiers: Coronary Disease-Associated Artery/Lesion type: [place] artery [place] vs. transplanted heart: [place] heart Associated angina: without angina Qualified Code(s): I25.10 - Atherosclerotic heart disease of [place] coronary artery without angina pectoris (5) GERD (gastroesophageal reflux disease) Code(s): K21.9 - GASTRO-ESOPHAGEAL REFLUX DISEASE WITHOUT ESOPHAGITIS Status: Chronic (6) Hypertension Code(s): I10 - ESSENTIAL (PRIMARY) HYPERTENSION Status: Chronic Qualifiers: Hypertension type: essential hypertension (7) Morbid obesity with BMI of 40.0-44.9, adult Code(s): E66.01 - MORBID (SEVERE) OBESITY DUE TO EXCESS CALORIES; Z68.41 - BODY MASS INDEX (BMI) 40.0-44.9, ADULT Status: Chronic - Plan is on lasix and metolazone -: echo for lv function -: nebs, empiric levaquin, no steroids -: is on very high dose insulins with metformin -: dc baclofen, norco and other sedatives for now, tx to med floor * . Review of Systems - Medications/Allergies Allergies/Adverse Reactions: Allergies Allergy/AdvReac Type Severity Reaction Status Date / Time Sulfa (Sulfonamide Allergy PT NOT Verified 07/13/17 22:25 Antibiotics) SURE OF REACTION STATED HAPPENED CHILD Medications: Current Medications Acetaminophen (Tylenol) 650 mg PO Q4H PRN PRN Reason: Headache/Fever or Pain Al Hydroxide/Mg Hydroxide (Maalox) 30 ml PO Q6H PRN PRN Reason: Heartburn or Indigestion Albuterol/Ipratropium (Duoneb) 3 ml NEB [id number] [facility] Last Admin: 07/14/17 14:46 Dose: 3 ml Amlodipine Besylate (Norvasc) 10 mg PO DAILY [facility] Last Admin: 07/14/17 09:58 Dose: 10 mg Artificial Tears (Tears Naturale) 0 drop EA EYE PRN PRN PRN Reason: Dry Eyes Benzonatate (Tessalon) 100 mg PO Q4H PRN PRN Reason: Cough Dextrose/Water (Dextrose 50%) 25 gm SLOW IVP PRN PRN PRN Reason: Hypoglycemia Diphenoxylate HCl/Atropine (Lomotil) 2 tab PO QID PRN PRN Reason: Diarrhea/Loose Stools Enoxaparin Sodium (Lovenox) 40 mg SC 0900 [facility] Last Admin: 07/14/17 09:58 Dose: 40 mg Furosemide (Lasix) 40 mg SLOW IVP 0600,1400 [facility] Last Admin: 07/14/17 14:27 Dose: 40 mg Glucagon (Glucagon) 1 mg IM PRN PRN PRN Reason: Hypoglycemia Guaifenesin (Robitussin Sf) 200 mg PO Q4H PRN PRN Reason: Cough Guaifenesin (Mucinex) 600 mg PO Q12HR [facility] Last Admin: 07/14/17 09:59 Dose: 600 mg Hydralazine HCl (Apresoline) 10 mg SLOW IVP Q4H PRN PRN Reason: Systolic BP > 180 Dextrose/Water (D5w) 1,000 mls @ 0 mls/hr IV .Q0M PRN; As Directed PRN Reason: Hypoglycemia Levofloxacin 750 mg/ Device 150 mls @ 100 mls/hr IVPB Q24HR [facility] Last Admin: 07/13/17 23:09 Dose: 150 mls Insulin Detemir 70 units/ (Miscellaneous Medication) 0.7 mls @ 0 mls/hr SC BID [facility] Last Admin: 07/14/17 10:02 Dose: 0.7 mls Insulin Human Lispro (Humalog) 0 units SC .MODERATE SLIDING SC PRN PRN Reason: Moderate Correctional Scale Insulin Human Lispro (Humalog) 0 units SC .BEDTIME SLIDING SC PRN PRN Reason: Bedtime Correctional Scale Insulin Human Lispro (Humalog) 30 units SC HS [facility] Insulin Human Lispro (Humalog) 30 units SC T[facility] Last Admin: 07/14/17 12:26 Dose: 30 unit Levothyroxine Sodium (Synthroid) 25 mcg PO 0600 [facility] Last Admin: 07/14/17 06:10 Dose: 25 mcg Loperamide HCl (Imodium) 2 mg PO PRN PRN PRN Reason: Diarrhea/Loose Stools Loratadine (Claritin) 10 mg PO DAILYPRN PRN PRN Reason: Sinus Symptoms Magnesium Hydroxide (Milk Of Magnesium) 30 ml PO DAILYPRN PRN PRN Reason: Constipation Meclizine HCl (Antivert) 25 mg PO BID PRN PRN Reason: Dizziness Metformin HCl (Glucophage) 500 mg PO QAM-[facility] Last Admin: 07/14/17 09:58 Dose: Not Given Metolazone (Zaroxolyn) 5 mg PO 0830 [facility] Last Admin: 07/14/17 09:58 Dose: 5 mg Metoprolol Tartrate (Lopressor) 25 mg PO BID [facility] Last Admin: 07/14/17 10:00 Dose: 25 mg Mineral Oil/White Petrolatum (Eucerin Cream) 0 gm TOP BIDPRN PRN PRN Reason: Dry Skin Mometasone Furoate/Formoterol Fumar (Dulera 200 Mcg/5 Mcg Inhaler) 2 puff INH BID-RT [facility] Last Admin: 07/14/17 11:21 Dose: 2 puff Nitroglycerin (Nitrostat) 0.4 mg SL Q5MIN PRN PRN Reason: Chest Pain Ondansetron HCl (Zofran Odt) 4 mg PO Q6H PRN PRN Reason: Nausea/Vomiting Ondansetron HCl (Zofran) 4 mg IVP Q6H PRN PRN Reason: Nausea/Vomiting Pantoprazole Sodium (Protonix) 40 mg PO DAILY [facility] Last Admin: 07/14/17 10:00 Dose: 40 mg Phenol (Chloraseptic [place] 180 Ml Bot) 0 ml PO PRN PRN PRN Reason: Sore Throat Pravastatin Sodium (Pravachol) 40 mg PO BID [facility] Last Admin: 07/14/17 10:00 Dose: 40 mg Quetiapine Fumarate (Seroquel) 100 mg PO [facility] Senna (Senokot) 2 tab PO HSPRN PRN PRN Reason: Constipation Sodium Chloride ([place] Nasal [place] 0.65%) 0 ml EA NARE QIDPRN PRN PRN Reason: Nasal Congestion Tizanidine HCl (Zanaflex) 4 mg PO HS [facility] Zolpidem Tartrate (Ambien) 5 mg PO HSPRN PRN PRN Reason: Insomnia
[2017-07-14] MEDS: HYDROcodone/Acetaminophen 5/325 mg Tablet PO PRN (19:45)
[2017-07-14] MEDS: tiZANidine HCl 4 MG TAB PO SCH (20:01)
[2017-07-14] MEDS ORDERED: Gabapentin 300 MG CAP PO SCH (21:00)
[2017-07-14] MEDS ORDERED: Baclofen 10 MG TAB PO SCH (21:00)
[2017-07-14] MEDS: Gabapentin 400 MG CAP PO SCH (21:11)
[2017-07-14] MEDS: Baclofen 10 MG TAB PO SCH (21:11)
[2017-07-14] MEDS: Ondansetron ODT 4 MG TAB PO PRN (21:11)
[2017-07-15] MEDS: Mometasone/Formoterol 120 PUFF INHALER INH SCH ×2 (05:42→18:18)
[2017-07-15] MEDS: Furosemide 40 MG/4 ML VIAL SLOW IVP SCH ×2 (05:53→14:12)
[2017-07-15] MEDS: Levothyroxine Sodium 25 MCG TAB PO SCH (05:53)
[2017-07-15] MEDS: Metolazone 5 MG TAB PO SCH (08:25)
[2017-07-15] MEDS: Amlodipine 10 MG TAB PO SCH (08:26)
[2017-07-15] MEDS: Metoprolol Tartrate 25 MG TAB PO SCH ×2 (08:26→20:12)
[2017-07-15] MEDS: Gabapentin 400 MG CAP PO SCH ×2 (08:26→21:08)
[2017-07-15] MEDS: Pravastatin Sodium 40 MG TAB PO SCH ×2 (08:27→21:07)
[2017-07-15] MEDS: guaiFENesin ER 600 MG TAB PO SCH ×2 (08:27→21:07)
[2017-07-15] MEDS: metFORMIN 500 MG TAB PO SCH (08:27)
[2017-07-15] MEDS: Enoxaparin Sodium 40 MG/0.4 ML SYRINGE SC SCH (08:28)
[2017-07-15] MEDS: Insulin Detemir 100 UNITS/ML 70 UNITS in Pre-Filled Syringe 1 EACH SC SCH ×2 (08:28→20:15)
[2017-07-15] MEDS: HumaLOG 300 UNITS/3 ML VIAL SC SCH ×4 (08:29→20:15)
[2017-07-15] MEDS: HYDROcodone/Acetaminophen 5/325 mg Tablet PO PRN (08:35)
--- NOTE | 2017-07-15 11:08 | PDOC.PN ---
- Subjective Encounter Start Date: 07/15/17 Encounter Start Time: 08:20 Subjective: breathing better, is sitting on bed -: slept better last night - Objective Resuscitation Status: Resuscitation Status FULL:Full Resuscitation MAR Reviewed: Yes Vital Signs & Weight: Vital Signs (12 hours) Temp Pulse Resp BP BP Pulse Ox 07/15/17 09:31 69 16 95 07/15/17 08:26 67 133/76 07/15/17 08:05 98 F 67 16 93 L 07/15/17 07:35 98 F 67 16 133/76 93 L 07/15/17 05:42 68 18 94 L 07/15/17 05:38 68 18 94 L 07/15/17 04:00 98.4 F 70 20 156/75 H 92 L 07/15/17 02:27 16 07/15/17 00:00 98.6 F 71 20 102/68 92 L 07/14/17 23:32 71 16 94 L Weight Weight 271 lb 3 oz I&O: 07/14/17 07/15/17 07/16/17 06:59 06:59 06:59 Intake Total 240 870 Balance 240 870 Result Diagrams: 07/14/17 04:29 07/14/17 04:29 Additional Labs: Accuchecks 07/15/17 07/14/17 07/14/17 04:50 19:35 16:01 POC Glucose 177 H 97 77 07/14/17 11:42 POC Glucose 134 H Phys Exam - Physical Examination HEENT: PERRLA, moist MMs Neck: no JVD, supple Respiratory: no wheezing, no rales rhonchi+ Cardiovascular: RRR, no significant murmur Gastrointestinal: soft, non-tender, positive bowel sounds Musculoskeletal: pulses present, edema present Neurological: non-focal, moves all 4 limbs Psychiatric: A&O x 3 Dx/Plan (1) COPD with exacerbation Code(s): J44.1 - CHRONIC OBSTRUCTIVE PULMONARY DISEASE W (ACUTE) EXACERBATION Status: Acute (2) Acute exacerbation of CHF (congestive heart failure) Code(s): I50.9 - HEART FAILURE, UNSPECIFIED Status: Acute Qualifiers: Congestive heart failure type: diastolic Qualified Code(s): I50.33 - Acute on chronic diastolic (congestive) heart failure (3) DM type 2 (diabetes mellitus, type 2) Status: Chronic Qualifiers: Diabetes mellitus complication status: with neurologic complications Diabetes mellitus complication detail: with polyneuropathy Diabetes mellitus nursing home insulin use: with hvac sheet metal installer use Qualified Code(s): E11.42 - Type 2 diabetes mellitus with diabetic polyneuropathy; Z79.4 - air table operator (current) use of insulin; Z79.4 - air table operator (current) use of insulin; Z79.4 - air table operator ( current) use of insulin; Z79.4 - custodial (current) use of insulin (4) CAD (coronary artery disease) Code(s): I25.10 - ATHSCL HEART DISEASE OF [place] CORONARY ARTERY W/O ANG PCTRS Status: Chronic Qualifiers: Coronary Disease-Associated Artery/Lesion type: [place] artery [place] vs. transplanted heart: [place] heart Associated angina: without angina Qualified Code(s): I25.10 - Atherosclerotic heart disease of [place] coronary artery without angina pectoris (5) GERD (gastroesophageal reflux disease) Code(s): K21.9 - GASTRO-ESOPHAGEAL REFLUX DISEASE WITHOUT ESOPHAGITIS Status: Chronic (6) Hypertension Code(s): I10 - ESSENTIAL (PRIMARY) HYPERTENSION Status: Chronic Qualifiers: Hypertension type: essential hypertension (7) Morbid obesity with BMI of 40.0-44.9, adult Code(s): E66.01 - [place]BID (SEVERE) OBESITY DUE TO EXCESS CALORIES; Z68.41 - BODY MASS INDEX (BMI) 40.0-44.9, ADULT Status: Chronic - Plan is on iv lasix q12h, watch for electrolytes -: on levaquin, nebs -: is back of baclofen with pain meds, watch for resp depression/lethargy -: to ambulate in hallway with rw, oob to chair, [place] to LE edema -: will need another 24hrs of iv diuresis * . Review of Systems - Medications/Allergies Allergies/Adverse Reactions: Allergies Allergy/AdvReac Type Severity Reaction Status Date / Time Sulfa (Sulfonamide Allergy PT NOT Verified 07/13/17 22:25 Antibiotics) SURE OF REACTION STATED HAPPENED CHILD Medications: Current Medications Acetaminophen (Tylenol) 650 mg PO Q4H PRN PRN Reason: Headache/Fever or Pain Hydrocodone Bitart/Acetaminophen ([place] 5/325) 1 tab PO Q4H PRN PRN Reason: Pain Last Admin: 07/15/17 08:35 Dose: 1 tab Al Hydroxide/Mg Hydroxide (Maalox) 30 ml PO Q6H PRN PRN Reason: Heartburn or Indigestion Albuterol/Ipratropium (Duoneb) 3 ml NEB [id number] [facility] Last Admin: 07/15/17 09:31 Dose: 3 ml Amlodipine Besylate (Norvasc) 10 mg PO DAILY [facility] Last Admin: 07/15/17 08:26 Dose: 10 mg Artificial Tears (Tears Naturale) 0 drop EA EYE PRN PRN PRN Reason: Dry Eyes Baclofen (Lioresal) 10 mg PO HS [facility] Last Admin: 07/14/17 21:11 Dose: 10 mg Benzonatate (Tessalon) 100 mg PO Q4H PRN PRN Reason: Cough Dextrose/Water (Dextrose 50%) 25 gm SLOW IVP PRN PRN PRN Reason: Hypoglycemia Diphenoxylate HCl/Atropine (Lomotil) 2 tab PO QID PRN PRN Reason: Diarrhea/Loose Stools Enoxaparin Sodium (Lovenox) 40 mg SC 0900 [facility] Last Admin: 07/15/17 08:28 Dose: 40 mg Furosemide (Lasix) 40 mg SLOW IVP 0600,1400 [facility] Last Admin: 07/15/17 05:53 Dose: 40 mg Gabapentin (Neurontin) 1,600 mg PO BID [facility] Last Admin: 07/15/17 08:26 Dose: 1,600 mg Glucagon (Glucagon) 1 mg IM PRN PRN PRN Reason: Hypoglycemia Guaifenesin (Robitussin Sf) 200 mg PO Q4H PRN PRN Reason: Cough Guaifenesin (Mucinex) 600 mg PO Q12HR [facility] Last Admin: 07/15/17 08:27 Dose: 600 mg Hydralazine HCl (Apresoline) 10 mg SLOW IVP Q4H PRN PRN Reason: Systolic BP > 180 Dextrose/Water (D5w) 1,000 mls @ 0 mls/hr IV .Q0M PRN; As Directed PRN Reason: Hypoglycemia Levofloxacin 750 mg/ Device 150 mls @ 100 mls/hr IVPB Q24HR [facility] Last Admin: 07/14/17 23:10 Dose: 150 mls Insulin Detemir 70 units/ (Miscellaneous Medication) 0.7 mls @ 0 mls/hr SC BID [facility] Last Admin: 07/15/17 08:28 Dose: 0.7 mls Insulin Human Lispro (Humalog) 0 units SC .MODERATE SLIDING SC PRN PRN Reason: Moderate Correctional Scale Insulin Human Lispro (Humalog) 0 units SC .BEDTIME SLIDING SC PRN PRN Reason: Bedtime Correctional Scale Insulin Human Lispro (Humalog) [address] [facility] Last Admin: 07/14/17 20:01 Dose: Not Given Insulin Human Lispro (Humalog) 30 units SC TID[facility] Last Admin: 07/15/17 08:29 Dose: 30 unit Levothyroxine Sodium (Synthroid) 25 mcg PO 0600 [facility] Last Admin: 07/15/17 05:53 Dose: 25 mcg Loperamide HCl (Imodium) 2 mg PO PRN PRN PRN Reason: Diarrhea/Loose Stools Loratadine (Claritin) 10 mg PO DAILYPRN PRN PRN Reason: Sinus Symptoms Magnesium Hydroxide (Milk Of Magnesium) 30 ml PO DAILYPRN PRN PRN Reason: Constipation Meclizine HCl (Antivert) 25 mg PO BID PRN PRN Reason: Dizziness Metformin HCl (Glucophage) 500 mg PO QAM-[facility] Last Admin: 07/15/17 08:27 Dose: Not Given Metolazone (Zaroxolyn) 5 mg PO 0830 [facility] Last Admin: 07/15/17 08:25 Dose: 5 mg Metoprolol Tartrate (Lopressor) 25 mg PO BID [facility] Last Admin: 07/15/17 08:26 Dose: 25 mg Mineral Oil/White Petrolatum (Eucerin Cream) 0 gm TOP BIDPRN PRN PRN Reason: Dry Skin Mometasone Furoate/Formoterol Fumar (Dulera 200 Mcg/5 Mcg Inhaler) 2 puff INH BID-RT [facility] Last Admin: 07/15/17 05:42 Dose: 2 puff Nitroglycerin (Nitrostat) 0.4 mg SL Q5MIN PRN PRN Reason: Chest Pain Ondansetron HCl (Zofran Odt) 4 mg PO Q6H PRN PRN Reason: Nausea/Vomiting Last Admin: 07/14/17 21:11 Dose: 4 mg Ondansetron HCl (Zofran) 4 mg IVP Q6H PRN PRN Reason: Nausea/Vomiting Pantoprazole Sodium (Protonix) 40 mg PO DAILY [facility] Last Admin: 07/15/17 08:25 Dose: 40 mg Phenol (Chloraseptic [place] 180 Ml Bot) 0 ml PO PRN PRN PRN Reason: Sore Throat Pravastatin Sodium (Pravachol) 40 mg PO BID [facility] Last Admin: 07/15/17 08:27 Dose: 40 mg Quetiapine Fumarate (Seroquel) 100 mg PO HS [facility] Last Admin: 07/14/17 20:01 Dose: 100 mg Senna (Senokot) 2 tab PO HSPRN PRN PRN Reason: Constipation Sodium Chloride ([place] Nasal [place] 0.65%) 0 ml EA NARE QIDPRN PRN PRN Reason: Nasal Congestion Tizanidine HCl (Zanaflex) [address] [facility] Last Admin: 07/14/17 20:01 Dose: 4 mg
[2017-07-15] MEDS: Baclofen 10 MG TAB PO SCH (21:07)
[2017-07-15] MEDS: tiZANidine HCl 4 MG TAB PO SCH (21:07)
[2017-07-16] MEDS: Levothyroxine Sodium 25 MCG TAB PO SCH (05:49)
[2017-07-16] MEDS: Furosemide 40 MG/4 ML VIAL SLOW IVP SCH (05:49)
[2017-07-16] MEDS: Mometasone/Formoterol 120 PUFF INHALER INH SCH ×2 (05:53→18:55)
[2017-07-16] MEDS: Gabapentin 400 MG CAP PO SCH ×2 (07:49→20:09)
[2017-07-16] MEDS: Metolazone 5 MG TAB PO SCH (07:49)
[2017-07-16] MEDS: guaiFENesin ER 600 MG TAB PO SCH ×2 (07:50→20:09)
[2017-07-16] MEDS: Pravastatin Sodium 40 MG TAB PO SCH ×2 (07:50→20:09)
[2017-07-16] MEDS: Metoprolol Tartrate 25 MG TAB PO SCH ×2 (07:50→20:09)
[2017-07-16] MEDS: metFORMIN 500 MG TAB PO SCH (07:51)
[2017-07-16] MEDS: Amlodipine 10 MG TAB PO SCH (07:51)
[2017-07-16] MEDS: Insulin Detemir 100 UNITS/ML 70 UNITS in Pre-Filled Syringe 1 EACH SC SCH ×3 (07:52→20:10)
[2017-07-16] MEDS: HumaLOG 300 UNITS/3 ML VIAL SC SCH ×4 (07:52→20:09)
[2017-07-16] MEDS: Enoxaparin Sodium 40 MG/0.4 ML SYRINGE SC SCH (07:52)
[2017-07-16] MEDS: HYDROcodone/Acetaminophen 5/325 mg Tablet PO PRN ×3 (08:32→20:14)
--- NOTE | 2017-07-16 10:07 | PDOC.PN ---
- Subjective Encounter Start Date: 07/16/17 Encounter Start Time: 10:05 Subjective: still sob, coughing. long hx lung disease and has ci -: ontinued to smoke - Objective Resuscitation Status: Resuscitation Status FULL:Full Resuscitation MAR Reviewed: Yes Vital Signs & Weight: Vital Signs (12 hours) Temp Pulse Resp BP BP Pulse Ox 07/16/17 09:44 68 14 94 L 07/16/17 07:58 98.5 F 69 18 93 L 07/16/17 07:51 69 126/69 07/16/17 07:21 98.5 F 68 16 126/69 93 L 07/16/17 05:53 69 14 93 L 07/16/17 05:50 69 14 93 L 07/16/17 02:43 12 07/15/17 22:30 68 12 92 L Weight Weight 270 lb 9 oz I&O: 07/15/17 07/16/17 07/17/17 06:59 06:59 06:59 Intake Total 870 1680 Output Total 800 Balance 870 880 Result Diagrams: 07/14/17 04:29 07/14/17 04:29 Additional Labs: Accuchecks 07/16/17 07/15/17 07/15/17 04:30 20:05 18:01 POC Glucose 145 H 123 H 79 07/15/17 07/15/17 07/15/17 16:09 15:32 11:36 POC Glucose 79 56 L* 102 Phys Exam - Physical Examination Constitutional: NAD Neck: no JVD decreaesed BS. wheezes, rhonchi bilat lower lung esparza Gastrointestinal: soft, non-tender, positive bowel sounds Musculoskeletal: edema present Dx/Plan (1) DM type 2 (diabetes mellitus, type 2) Status: Chronic Qualifiers: Diabetes mellitus complication status: with neurologic complications Diabetes mellitus complication detail: with polyneuropathy Diabetes mellitus snf insulin use: with tracer clerk use Qualified Code(s): E11.42 - Type 2 diabetes mellitus with diabetic polyneuropathy; Z79.4 - [facility] (current) use of insulin; Z79.4 - cement finisher (current) use of insulin; Z79.4 - [facility] ( current) use of insulin; Z79.4 - cement finisher (current) use of insulin (2) Morbid obesity with BMI of 40.0-44.9, adult Code(s): E66.01 - [place] (SEVERE) OBESITY DUE TO EXCESS CALORIES; Z68.41 - BODY MASS INDEX (BMI) 40.0-44.9, ADULT Status: Chronic (3) COPD with exacerbation Code(s): J44.1 - CHRONIC OBSTRUCTIVE PULMONARY DISEASE W (ACUTE) EXACERBATION Status: Acute (4) CAD (coronary artery disease) Code(s): I25.10 - ATHSCL HEART DISEASE OF [place] CORONARY ARTERY W/O ANG PCTRS Status: Chronic Qualifiers: Coronary Disease-Associated Artery/Lesion type: [place] artery [place] vs. transplanted heart: [place] heart Associated angina: without angina Qualified Code(s): I25.10 - Atherosclerotic heart disease of [place] coronary artery without angina pectoris (5) GERD (gastroesophageal reflux disease) Code(s): K21.9 - GASTRO-ESOPHAGEAL REFLUX DISEASE WITHOUT ESOPHAGITIS Status: Chronic (6) Hypertension Code(s): I10 - ESSENTIAL (PRIMARY) HYPERTENSION Status: Chronic Qualifiers: Hypertension type: essential hypertension Qualified Code(s): I10 - Essential (primary) hypertension - Plan cont nebs, levaquin, O2 , etc. rpt cxr -: cont accu/ss/ long acting insulin * .
--- NOTE | 2017-07-16 12:20 | RAD ---
CHEST 2 VIEWS: Date: 07/16/17 HISTORY: Pneumonia. COMPARISON: Chest 1 view dated 07/13/17. FINDINGS: Right lower lobe air space opacity is present. Small effusion. There is also left basilar air space o pacity. No pneumothorax. Cardiac silhouette is similar appearing. IMPRESSION: Bibasilar air space opacity concerning for infection, as well as a small right pleural effusion. The radiograph underestimates the size of the pleural effusion. POS: [facility]
[2017-07-16] MEDS: Furosemide 40 MG TAB PO SCH (13:52)
[2017-07-16] MEDS: tiZANidine HCl 4 MG TAB PO SCH (20:09)
[2017-07-16] MEDS: Baclofen 10 MG TAB PO SCH (20:09)
[2017-07-17] MEDS: Furosemide 40 MG TAB PO SCH ×2 (05:19→13:15)
[2017-07-17] MEDS: Levothyroxine Sodium 25 MCG TAB PO SCH (05:19)
[2017-07-17] MEDS: HYDROcodone/Acetaminophen 5/325 mg Tablet PO PRN ×3 (05:21→20:38)
[2017-07-17] MEDS: Mometasone/Formoterol 120 PUFF INHALER INH SCH ×2 (06:35→22:29)
[2017-07-17] MEDS: HumaLOG 300 UNITS/3 ML VIAL SC SCH ×4 (08:04→22:26)
[2017-07-17] MEDS: Insulin Detemir 100 UNITS/ML 70 UNITS in Pre-Filled Syringe 1 EACH SC SCH ×2 (08:05→22:26)
[2017-07-17] MEDS: metFORMIN 500 MG TAB PO SCH (08:05)
[2017-07-17] MEDS: Enoxaparin Sodium 40 MG/0.4 ML SYRINGE SC SCH (08:06)
[2017-07-17] MEDS: Gabapentin 400 MG CAP PO SCH ×2 (08:06→20:33)
[2017-07-17] MEDS: guaiFENesin ER 600 MG TAB PO SCH ×2 (08:07→20:33)
[2017-07-17] MEDS: Metoprolol Tartrate 25 MG TAB PO SCH ×2 (08:07→20:34)
[2017-07-17] MEDS: Amlodipine 10 MG TAB PO SCH (08:07)
[2017-07-17] MEDS: Pravastatin Sodium 40 MG TAB PO SCH ×2 (08:07→20:34)
[2017-07-17] MEDS: Metolazone 5 MG TAB PO SCH (09:12)
[2017-07-17] MEDS: Ondansetron ODT 4 MG TAB PO PRN (10:02)
--- NOTE | 2017-07-17 11:25 | PDOC.PN ---
- Subjective Encounter Start Date: 07/17/17 Encounter Start Time: 11:23 Subjective: still tight in chest - Objective Resuscitation Status: Resuscitation Status FULL:Full Resuscitation MAR Reviewed: Yes Vital Signs & Weight: Vital Signs (12 hours) Temp Pulse Resp BP BP Pulse Ox 07/17/17 11:00 97.6 F 70 16 136/78 93 L 07/17/17 10:05 65 16 93 L 07/17/17 08:07 78 130/72 07/17/17 02:27 16 Weight Weight 272 lb 8 oz I&O: 07/16/17 07/17/17 07/18/17 06:59 06:59 06:59 Intake Total 1680 1820 180 Output Total 800 400 Balance 880 1420 180 Result Diagrams: 07/14/17 04:29 07/14/17 04:29 Additional Labs: Accuchecks 07/17/17 07/16/17 07/16/17 04:56 20:01 16:31 POC Glucose 194 H 167 H 109 07/16/17 11:56 POC Glucose 203 H Phys Exam - Physical Examination exp wheezes, poor BS Cardiovascular: RRR, no significant murmur Gastrointestinal: soft, non-tender, positive bowel sounds Musculoskeletal: edema present Dx/Plan (1) DM type 2 (diabetes mellitus, type 2) Status: Chronic Qualifiers: Diabetes mellitus complication status: with neurologic complications Diabetes mellitus complication detail: with polyneuropathy Diabetes mellitus ocean transportation intermediary insulin use: with [facility] use Qualified Code(s): E11.42 - Type 2 diabetes mellitus with diabetic polyneuropathy; Z79.4 - technician terminal and repeater (current) use of insulin; Z79.4 - longterm (current) use of insulin; Z79.4 - technician terminal and repeater ( current) use of insulin; Z79.4 - longterm (current) use of insulin (2) Morbid obesity with BMI of 40.0-44.9, adult Code(s): E66.01 - [place] (SEVERE) OBESITY DUE TO EXCESS CALORIES; Z68.41 - BODY MASS INDEX (BMI) 40.0-44.9, ADULT Status: Chronic (3) COPD with exacerbation Code(s): J44.1 - CHRONIC OBSTRUCTIVE PULMONARY DISEASE W (ACUTE) EXACERBATION Status: Acute (4) CAD (coronary artery disease) Code(s): I25.10 - ATHSCL HEART DISEASE OF [place] CORONARY ARTERY W/O ANG PCTRS Status: Chronic Qualifiers: Coronary Disease-Associated Artery/Lesion type: [place] artery [place] vs. transplanted heart: [place] heart Associated angina: without angina Qualified Code(s): I25.10 - Atherosclerotic heart disease of [place] coronary artery without angina pectoris (5) GERD (gastroesophageal reflux disease) Code(s): K21.9 - GASTRO-ESOPHAGEAL REFLUX DISEASE WITHOUT ESOPHAGITIS Status: Chronic (6) Hypertension Code(s): I10 - ESSENTIAL (PRIMARY) HYPERTENSION Status: Chronic Qualifiers: Hypertension type: essential hypertension Qualified Code(s): I10 - Essential (primary) hypertension - Plan cont iv antibx,steroids, freq nebs -: cont accu/ss/long acting insulin -: again discussed her ongoing tobacco abuse and prognosis * .
[2017-07-17] MEDS: tiZANidine HCl 4 MG TAB PO SCH (20:33)
[2017-07-17] MEDS: Baclofen 10 MG TAB PO SCH (20:33)
[2017-07-18] MEDS: Furosemide 40 MG TAB PO SCH ×2 (05:46→13:09)
[2017-07-18] MEDS: Levothyroxine Sodium 25 MCG TAB PO SCH (05:46)
[2017-07-18] MEDS: HYDROcodone/Acetaminophen 5/325 mg Tablet PO PRN ×2 (05:53→20:30)
[2017-07-18] MEDS: Mometasone/Formoterol 120 PUFF INHALER INH SCH ×2 (06:38→18:40)
[2017-07-18] MEDS: HumaLOG 300 UNITS/3 ML VIAL SC SCH ×4 (07:14→20:32)
[2017-07-18] MEDS: Metolazone 5 MG TAB PO SCH (09:11)
[2017-07-18] MEDS: Enoxaparin Sodium 40 MG/0.4 ML SYRINGE SC SCH (09:13)
[2017-07-18] MEDS: metFORMIN 500 MG TAB PO SCH (09:13)
[2017-07-18] MEDS: Metoprolol Tartrate 25 MG TAB PO SCH ×2 (09:14→20:30)
[2017-07-18] MEDS: guaiFENesin ER 600 MG TAB PO SCH ×2 (09:14→20:30)
[2017-07-18] MEDS: Gabapentin 400 MG CAP PO SCH ×2 (09:14→20:29)
[2017-07-18] MEDS: Pravastatin Sodium 40 MG TAB PO SCH ×2 (09:14→20:30)
[2017-07-18] MEDS: Amlodipine 10 MG TAB PO SCH (09:14)
--- NOTE | 2017-07-18 10:24 | PDOC.PN ---
- Subjective Encounter Start Date: 07/18/17 Encounter Start Time: 10:20 Subjective: states she is weak, needs help to BR. staff states she walked to elevator -: yesterday - Objective Resuscitation Status: Resuscitation Status FULL:Full Resuscitation MAR Reviewed: Yes Vital Signs & Weight: Vital Signs (12 hours) Temp Pulse Resp BP BP Pulse Ox 07/18/17 10:06 79 20 07/18/17 09:14 75 151/78 H 07/18/17 08:00 98.2 F 77 20 151/78 H 94 L 07/18/17 06:36 75 18 94 L 07/18/17 04:49 159/71 H 07/18/17 02:06 63 20 93 L Weight Weight 272 lb 8 oz I&O: 07/17/17 07/18/17 07/19/17 06:59 06:59 06:59 Intake Total 1820 1590 240 Output Total 400 Balance 1420 1590 240 Result Diagrams: 07/14/17 04:29 07/14/17 04:29 Additional Labs: Accuchecks 07/18/17 07/17/17 07/17/17 05:01 20:00 15:56 POC Glucose 120 H 98 80 07/17/17 10:32 POC Glucose 195 H Phys Exam - Physical Examination Constitutional: NAD Neck: no JVD Respiratory: clear to auscultation bilateral Cardiovascular: RRR, no significant murmur Gastrointestinal: soft, non-tender, positive bowel sounds Musculoskeletal: edema present Dx/Plan (1) DM type 2 (diabetes mellitus, type 2) Status: Chronic Qualifiers: Diabetes mellitus complication status: with neurologic complications Diabetes mellitus complication detail: with polyneuropathy Diabetes mellitus termite exterminator insulin use: with termite exterminator use Qualified Code(s): E11.42 - Type 2 diabetes mellitus with diabetic polyneuropathy; Z79.4 - terminal worker (current) use of insulin; Z79.4 - [facility] (current) use of insulin; Z79.4 - terminal worker ( current) use of insulin; Z79.4 - [facility] (current) use of insulin (2) Morbid obesity with BMI of 40.0-44.9, adult Code(s): E66.01 - MORBID (SEVERE) OBESITY DUE TO EXCESS CALORIES; Z68.41 - BODY MASS INDEX (BMI) 40.0-44.9, ADULT Status: Chronic (3) COPD with exacerbation Code(s): J44.1 - CHRONIC OBSTRUCTIVE PULMONARY DISEASE W (ACUTE) EXACERBATION Status: Acute (4) CAD (coronary artery disease) Code(s): I25.10 - ATHSCL HEART DISEASE OF [place] CORONARY ARTERY W/O ANG PCTRS Status: Chronic Qualifiers: Coronary Disease-Associated Artery/Lesion type: [place] artery [place] vs. transplanted heart: [place] heart Associated angina: without angina Qualified Code(s): I25.10 - Atherosclerotic heart disease of [place] coronary artery without angina pectoris (5) GERD (gastroesophageal reflux disease) Code(s): K21.9 - GASTRO-ESOPHAGEAL REFLUX DISEASE WITHOUT ESOPHAGITIS Status: Chronic (6) Hypertension Code(s): I10 - ESSENTIAL (PRIMARY) HYPERTENSION Status: Chronic Qualifiers: Hypertension type: essential hypertension Qualified Code(s): I10 - Essential (primary) hypertension - Plan marked clinical improvement. rpt cxr,cbc, bmp * .
[2017-07-18 10:52] LABS: #Eosinphils 0.1 thou/uL (0.0-0.7); #Monocytes 0.4 thou/uL (0.11-0.59); #Neutrophils 5.9 thou/uL (1.40-6.50); %Basophils 0.2 % (0.0-1.0); %Monocytes 5.3 % (0.0-10.0); %Neutrophils 78.6 % (42.0-75.0); Hemoglobin 13.2 g/dL (12.0-16.0); Mean Corpuscular HGB CONC 33.7 g/dL (32.0-36.0); Mean Corpuscular Hemoglobin 30.2 pg (27.0-31.0); Mean Corpuscular Volume 89.5 fl (81.0-99.0); Mean Platelet Volume 8.5 fL (7.4-10.4); Platelet Count 181 thou/uL (130-400); RBC Distribution Width 12.9 % (11.5-14.5); Red Blood Cell (RBC) Count 4.39 mill/uL (4.20-5.40); White Blood Cell (WBC) Count 7.5 thou/uL (4.8-10.8)
[2017-07-18] MEDS: Insulin Detemir 100 UNITS/ML 70 UNITS in Pre-Filled Syringe 1 EACH SC SCH ×2 (11:06→20:32)
--- NOTE | 2017-07-18 11:13 | RAD ---
TWO VIEW CHEST SERIES: Comparison: 07-16-17 Indication: Pneumonia follow up. FINDINGS: Patchy right basilar opacity has progressed. There is slight progression in small volume right pleura l fluid as well. Left basilar atelectasis is seen. IMPRESSION: Patchy opacity in the right lung base and mild progression of a small right pleural effusion. Finding s favor pneumonia with parapneumonic effusion. Follow up to resolution recommended. POS: [facility]
[2017-07-18 11:34] LABS: Anion Gap 16 mmol/L (10-20); BUN (Urea Nitrogen) 17 mg/dL (9.8-20.1); Calc. Creatinine Clearance 85 mL/min (70-130); Calcium 9.7 mg/dL (7.8-10.44); Carbon Dioxide 30 mmol/L (22-29); Chloride 95 mmol/L (98-107); Estimated GFR-MDRD 38; Glucose 241 mg/dL (70-105); Sodium 137 mmol/L (136-145)
[2017-07-18] MEDS: Baclofen 10 MG TAB PO SCH (20:28)
[2017-07-18] MEDS: tiZANidine HCl 4 MG TAB PO SCH (20:30)
[2017-07-19] MEDS: Furosemide 40 MG TAB PO SCH (04:24)
[2017-07-19] MEDS: Levothyroxine Sodium 25 MCG TAB PO SCH (04:24)
[2017-07-19] MEDS: HumaLOG 300 UNITS/3 ML VIAL SC PRN (04:26)
[2017-07-19] MEDS: Mometasone/Formoterol 120 PUFF INHALER INH SCH ×2 (07:15→18:51)
[2017-07-19] MEDS: HumaLOG 300 UNITS/3 ML VIAL SC SCH ×4 (09:16→20:49)
[2017-07-19] MEDS: Sodium Chloride 0.9% 500 ML IV SCH ×3 (09:18→10:30)
[2017-07-19] MEDS: Amlodipine 10 MG TAB PO SCH (09:31)
[2017-07-19] MEDS: Enoxaparin Sodium 40 MG/0.4 ML SYRINGE SC SCH (09:31)
[2017-07-19] MEDS: Metolazone 5 MG TAB PO SCH (09:31)
[2017-07-19] MEDS: Metoprolol Tartrate 25 MG TAB PO SCH ×2 (09:32→20:49)
[2017-07-19] MEDS: Gabapentin 400 MG CAP PO SCH ×2 (09:32→20:48)
[2017-07-19] MEDS: Insulin Detemir 100 UNITS/ML 70 UNITS in Pre-Filled Syringe 1 EACH SC SCH ×2 (09:32→20:50)
[2017-07-19] MEDS: guaiFENesin ER 600 MG TAB PO SCH ×2 (09:32→20:49)
[2017-07-19] MEDS: Pravastatin Sodium 40 MG TAB PO SCH ×2 (09:33→20:49)
[2017-07-19] MEDS: HYDROcodone/Acetaminophen 5/325 mg Tablet PO PRN ×2 (09:40→15:03)
[2017-07-19] MEDS: metFORMIN 500 MG TAB PO SCH (09:42)
--- NOTE | 2017-07-19 14:16 | PDOC.PN ---
- Subjective Encounter Start Date: 07/19/17 Encounter Start Time: 14:25 Subjective: No acute events overnight -: Feels better today - Objective Resuscitation Status: Resuscitation Status FULL:Full Resuscitation MAR Reviewed: Yes Vital Signs & Weight: Vital Signs (12 hours) Temp Pulse Resp BP Pulse Ox 07/19/17 09:31 70 07/19/17 08:00 97.9 F 70 16 93 L 07/19/17 07:44 97.9 F 70 16 127/68 93 L 07/19/17 07:15 68 16 94 L 07/19/17 07:13 68 16 94 L 07/19/17 04:05 60 18 94 L Weight Weight 255 lb 12.8 oz I&O: 07/18/17 07/19/17 07/20/17 06:59 06:59 06:59 Intake Total 1590 1220 480 Balance 1590 1220 480 Result Diagrams: 07/18/17 10:37 07/18/17 10:37 Additional Labs: Accuchecks 07/19/17 07/19/17 07/18/17 11:32 04:26 19:12 POC Glucose 151 H 197 H 140 H 07/18/17 17:39 POC Glucose 115 H Phys Exam - Physical Examination Constitutional: NAD HEENT: PERRLA, moist MMs, sclera anicteric Neck: supple, full ROM Respiratory: no rales, wheezing present Cardiovascular: RRR, no significant murmur, no rub Gastrointestinal: soft, non-tender, no distention, positive bowel sounds Musculoskeletal: edema present Neurological: non-focal, moves all 4 limbs Psychiatric: normal affect, A&O x 3 Skin: no rash, normal turgor Dx/Plan (1) COPD with exacerbation Code(s): J44.1 - CHRONIC OBSTRUCTIVE PULMONARY DISEASE W (ACUTE) EXACERBATION Status: Acute Comment: Stable. Still wheezing. Uses 3L of supplemental O2 at home. Continue nebs, steroids. (2) Community acquired bacterial pneumonia Code(s): J15.9 - UNSPECIFIED BACTERIAL PNEUMONIA Status: Acute Plan: Levofloxacin, nebs. (3) Hypertension Code(s): I10 - ESSENTIAL (PRIMARY) HYPERTENSION Status: Chronic Qualifiers: Hypertension type: essential hypertension Qualified Code(s): I10 - Essential (primary) hypertension Comment: At goal. Continue current regimen (4) Diabetes type 2, uncontrolled Code(s): E11.65 - TYPE 2 DIABETES MELLITUS WITH HYPERGLYCEMIA Status: Chronic Qualifiers: Diabetes mellitus complication status: with kidney complications Diabetes mellitus penitentiary insulin use: with penitentiary use Chronic kidney disease stage: stage 2 (mild) Comment: Achieving better conrtol. Continue current regimen (5) Acute renal failure Status: Acute Qualifiers: Acute renal failure type: unspecified Qualified Code(s): N17.9 - Acute kidney failure, unspecified Comment: Worsening renal function, likely effect of diuretics. Reduce furosemide to 40 mg daily. Monitor Cr (6) CAD (coronary artery disease) Code(s): I25.10 - ATHSCL HEART DISEASE OF [place] CORONARY ARTERY W/O ANG PCTRS Status: Chronic Qualifiers: Coronary Disease-Associated Artery/Lesion type: [place] artery [place] vs. transplanted heart: [place] heart Associated angina: without angina Qualified Code(s): I25.10 - Atherosclerotic heart disease of [place] coronary artery without angina pectoris Comment: Stable. Chest pain free. (7) DM type 2 (diabetes mellitus, type 2) Status: Chronic Qualifiers: Diabetes mellitus complication status: with neurologic complications Diabetes mellitus complication detail: with polyneuropathy Diabetes mellitus penitentiary insulin use: with moth exterminator use Qualified Code(s): E11.42 - Type 2 diabetes mellitus with diabetic polyneuropathy; Z79.4 - nursing home (current) use of insulin; Z79.4 - moth exterminator (current) use of insulin; Z79.4 - nursing home ( current) use of insulin; Z79.4 - moth exterminator (current) use of insulin (8) Acute exacerbation of CHF (congestive heart failure) Code(s): I50.9 - HEART FAILURE, UNSPECIFIED Status: Acute Qualifiers: Congestive heart failure type: diastolic Qualified Code(s): I50.33 - Acute on chronic diastolic (congestive) heart failure Comment: Doing well on PO diuretics. Reduce Lasix to daily from BID 2/2 REDD - Plan * .
[2017-07-19] MEDS ORDERED: predniSONE 20 MG TAB PO SCH (14:30)
[2017-07-19] MEDS: predniSONE 20 MG TAB PO SCH (15:03)
[2017-07-19] MEDS: Baclofen 10 MG TAB PO SCH (20:47)
[2017-07-19] MEDS: tiZANidine HCl 4 MG TAB PO SCH (20:48)
[2017-07-19] MEDS: Ondansetron ODT 4 MG TAB PO PRN (21:39)
[2017-07-19] MEDS: Benzonatate 100 MG CAP PO PRN (22:43)
[2017-07-20 04:32] LABS: #Lymphocytes 0.6 thou/uL (1.20-3.40); #Monocytes 0.3 thou/uL (0.11-0.59); #Neutrophils 9.6 thou/uL (1.40-6.50); %Basophils 0.2 % (0.0-1.0); %Eosinophils 0.1 % (0.0-10.0); %Lymphocytes 5.4 % (21.0-51.0); %Monocytes 2.7 % (0.0-10.0); %Neutrophils 91.6 % (42.0-75.0); Hemoglobin 12.6 g/dL (12.0-16.0); Mean Corpuscular HGB CONC 34.2 g/dL (32.0-36.0); Mean Corpuscular Hemoglobin 30.1 pg (27.0-31.0); Mean Corpuscular Volume 88.2 fl (81.0-99.0); Mean Platelet Volume 8.8 fL (7.4-10.4); Platelet Count 227 thou/uL (130-400); RBC Distribution Width 12.7 % (11.5-14.5); Red Blood Cell (RBC) Count 4.18 mill/uL (4.20-5.40); White Blood Cell (WBC) Count 10.4 thou/uL (4.8-10.8)
[2017-07-20 04:38] LABS: Anion Gap 15 mmol/L (10-20); BUN (Urea Nitrogen) 23 mg/dL (9.8-20.1); Calc. Creatinine Clearance 72 mL/min (70-130); Calcium 9.4 mg/dL (7.8-10.44); Carbon Dioxide 33 mmol/L (22-29); Chloride 91 mmol/L (98-107); Estimated GFR-MDRD 34; Glucose 302 mg/dL (70-105); Potassium 4.2 mmol/L (3.5-5.1); Sodium 135 mmol/L (136-145)
[2017-07-20] MEDS: Levothyroxine Sodium 25 MCG TAB PO SCH (04:58)
[2017-07-20] MEDS: HumaLOG 300 UNITS/3 ML VIAL SC PRN (05:00)
[2017-07-20] MEDS: Benzonatate 100 MG CAP PO PRN (05:01)
[2017-07-20] MEDS ORDERED: Furosemide 40 MG TAB PO SCH (07:30)
[2017-07-20] MEDS: Mometasone/Formoterol 120 PUFF INHALER INH SCH ×2 (07:39→19:26)
[2017-07-20] MEDS: Gabapentin 400 MG CAP PO SCH ×2 (08:26→21:54)
[2017-07-20] MEDS: Insulin Detemir 100 UNITS/ML 70 UNITS in Pre-Filled Syringe 1 EACH SC SCH ×2 (08:27→21:57)
[2017-07-20] MEDS: guaiFENesin ER 600 MG TAB PO SCH ×2 (08:28→21:55)
[2017-07-20] MEDS: Metolazone 5 MG TAB PO SCH (08:28)
[2017-07-20] MEDS: metFORMIN 500 MG TAB PO SCH (08:29)
[2017-07-20] MEDS: Amlodipine 10 MG TAB PO SCH (08:29)
[2017-07-20] MEDS: Metoprolol Tartrate 25 MG TAB PO SCH ×2 (08:29→21:55)
[2017-07-20] MEDS: Pravastatin Sodium 40 MG TAB PO SCH ×2 (08:29→21:54)
[2017-07-20] MEDS: HumaLOG 300 UNITS/3 ML VIAL SC SCH ×4 (08:30→22:11)
[2017-07-20] MEDS: Enoxaparin Sodium 40 MG/0.4 ML SYRINGE SC SCH (08:33)
--- NOTE | 2017-07-20 12:24 | PDOC.PN ---
- Subjective Encounter Start Date: 07/20/17 Encounter Start Time: 12:28 Subjective: No new complaints. -: No acute events overnight. - Objective Resuscitation Status: Resuscitation Status FULL:Full Resuscitation MAR Reviewed: Yes Vital Signs & Weight: Vital Signs (12 hours) Temp Pulse Resp BP Pulse Ox 07/20/17 08:29 78 07/20/17 08:00 98.2 F 78 16 135/76 92 L 07/20/17 07:39 80 16 07/20/17 07:26 93 L 07/20/17 07:25 80 16 07/20/17 04:00 98.3 F Weight Weight 254 lb I&O: 07/19/17 07/20/17 07/21/17 06:59 06:59 06:59 Intake Total 1220 1920 Balance 1220 1920 Result Diagrams: 07/20/17 03:31 07/20/17 03:31 Additional Labs: Accuchecks 07/20/17 07/20/17 07/19/17 11:58 04:58 20:04 POC Glucose 188 H 311 H 104 07/19/17 16:32 POC Glucose 76 Phys Exam - Physical Examination Constitutional: NAD HEENT: PERRLA, moist MMs, sclera anicteric Neck: supple, full ROM Respiratory: no rales, no rhonchi, wheezing present (minimal), clear to auscultation bilateral Cardiovascular: RRR, no significant murmur, no rub Gastrointestinal: soft, non-tender, no distention, positive bowel sounds Musculoskeletal: pulses present, edema present (trace) Neurological: non-focal, moves all 4 limbs Psychiatric: normal affect, A&O x 3 Skin: no rash, normal turgor Dx/Plan (1) Acute renal failure Status: Acute Qualifiers: Acute renal failure type: unspecified Qualified Code(s): N17.9 - Acute kidney failure, unspecified Comment: Worsening renal function, likely effect of diuretics and metformin. Hold lasix, discontinue metformin. Monitor Cr. WIll discharge once renal function shows improvememt. (2) COPD with exacerbation Code(s): J44.1 - CHRONIC OBSTRUCTIVE PULMONARY DISEASE W (ACUTE) EXACERBATION Status: Resolved Comment: Uses 3L of supplemental O2 at home. Continue nebs, steroids. (3) Community acquired bacterial pneumonia Code(s): J15.9 - UNSPECIFIED BACTERIAL PNEUMONIA Status: Acute Comment: IMproving. COntinue Levofloxacin. (4) Hypertension Code(s): I10 - ESSENTIAL (PRIMARY) HYPERTENSION Status: Chronic Qualifiers: Hypertension type: essential hypertension Qualified Code(s): I10 - Essential (primary) hypertension Comment: At goal. Continue current regimen (5) Diabetes type 2, uncontrolled Code(s): E11.65 - TYPE 2 DIABETES MELLITUS WITH HYPERGLYCEMIA Status: Chronic Qualifiers: Diabetes mellitus complication status: with kidney complications Diabetes mellitus senior biostatistician insulin use: with [facility] use Chronic kidney disease stage: stage 2 (mild) Comment: Achieving better control. Continue insulin regimen. Hold metformin. (6) CAD (coronary artery disease) Code(s): I25.10 - ATHSCL HEART DISEASE OF [place] CORONARY ARTERY W/O ANG PCTRS Status: Chronic Qualifiers: Coronary Disease-Associated Artery/Lesion type: [place] artery [place] vs. transplanted heart: [place] heart Associated angina: without angina Qualified Code(s): I25.10 - Atherosclerotic heart disease of [place] coronary artery without angina pectoris Plan: Continue home meds. Comment: Stable. Chest pain free. (7) Acute exacerbation of CHF (congestive heart failure) Code(s): I50.9 - HEART FAILURE, UNSPECIFIED Status: Acute Qualifiers: Congestive heart failure type: diastolic Qualified Code(s): I50.33 - Acute on chronic diastolic (congestive) heart failure Comment: Not in acute exacerbation. Lasix being held 2/2 acute renal failure. - Plan cont current plan of care, continue antibiotics, respiratory therapy, DVT proph w/lovenox * .
[2017-07-20] MEDS: predniSONE 20 MG TAB PO SCH (16:56)
[2017-07-20] MEDS: tiZANidine HCl 4 MG TAB PO SCH (21:54)
[2017-07-20] MEDS: Baclofen 10 MG TAB PO SCH (21:55)
[2017-07-20] MEDS: HYDROcodone/Acetaminophen 5/325 mg Tablet PO PRN (22:00)
[2017-07-21 04:21] LABS: #Lymphocytes 0.7 thou/uL (1.20-3.40); #Monocytes 0.4 thou/uL (0.11-0.59); #Neutrophils 9.1 thou/uL (1.40-6.50); %Basophils 0.1 % (0.0-1.0); %Eosinophils 0.2 % (0.0-10.0); %Lymphocytes 7.1 % (21.0-51.0); %Monocytes 3.7 % (0.0-10.0); %Neutrophils 88.9 % (42.0-75.0); Hemoglobin 12.6 g/dL (12.0-16.0); Mean Corpuscular HGB CONC 33.4 g/dL (32.0-36.0); Mean Corpuscular Hemoglobin 29.7 pg (27.0-31.0); Mean Corpuscular Volume 88.8 fl (81.0-99.0); Mean Platelet Volume 8.7 fL (7.4-10.4); Platelet Count 232 thou/uL (130-400); RBC Distribution Width 12.7 % (11.5-14.5); Red Blood Cell (RBC) Count 4.23 mill/uL (4.20-5.40); White Blood Cell (WBC) Count 10.3 thou/uL (4.8-10.8)
[2017-07-21 04:36] LABS: Anion Gap 15 mmol/L (10-20); BUN (Urea Nitrogen) 31 mg/dL (9.8-20.1); Calc. Creatinine Clearance 67 mL/min (70-130); Calcium 9.5 mg/dL (7.8-10.44); Carbon Dioxide 33 mmol/L (22-29); Chloride 91 mmol/L (98-107); Estimated GFR-MDRD 32; Glucose 319 mg/dL (70-105); Potassium 4.4 mmol/L (3.5-5.1); Sodium 135 mmol/L (136-145)
[2017-07-21] MEDS: Levothyroxine Sodium 25 MCG TAB PO SCH (06:34)
[2017-07-21] MEDS: HumaLOG 300 UNITS/3 ML VIAL SC PRN (06:34)
[2017-07-21] MEDS: Mometasone/Formoterol 120 PUFF INHALER INH SCH (07:17)
[2017-07-21 07:48] VITALS: BP 170/81; TEMP 98.5
[2017-07-21] MEDS: HumaLOG 300 UNITS/3 ML VIAL SC SCH ×2 (07:54→11:36)
[2017-07-21] MEDS: Insulin Detemir 100 UNITS/ML 70 UNITS in Pre-Filled Syringe 1 EACH SC SCH (07:55)
[2017-07-21] MEDS: Gabapentin 400 MG CAP PO SCH (07:55)
[2017-07-21] MEDS: Amlodipine 10 MG TAB PO SCH (07:56)
[2017-07-21] MEDS: Metoprolol Tartrate 25 MG TAB PO SCH (07:57)
[2017-07-21] MEDS: guaiFENesin ER 600 MG TAB PO SCH (07:57)
[2017-07-21] MEDS: Pravastatin Sodium 40 MG TAB PO SCH (07:57)
[2017-07-21] MEDS: HYDROcodone/Acetaminophen 5/325 mg Tablet PO PRN (08:03)
[2017-07-21] MEDS: Enoxaparin Sodium 40 MG/0.4 ML SYRINGE SC SCH (09:24)
--- NOTE | 2017-07-21 11:22 | PQF ---
DARSHAN RIVAS, ALAN HILLS MD [id number] [id number] CLINICAL DOCUMENTATION IMPROVEMENT CLARIFICATION FORM: ICD-10 Updated PLEASE DO AN ADDENDUM TO THE PROGRESS NOTE WITH ANY DOCUMENTATION UPDATES OR ADDITIONS AND CARRY THROUGH TO DC SUMMARY. THANK YOU. DATE: 07-21-17 ATTN: DR. ARRINGTON Please exercise your independent, professional judgment in responding to the clarification form. Clinical indicators are provided on the bottom of this form for your review PNEUMONIA [ ] Present on admission: [ ] Yes [ ] No [ ] Unable to determine [ x] Other diagnosis: ___no pna Coding guidelines require hospitals to identify whether a diagnosis was present on admission (POA) or not. To accurately assign the appropriate POA indicator, this information must be clearly documented within the medical record. CLINICAL INDICATORS - SIGNS / SYMPTOMS / LABS Documentation of: 07-19 PN: COMMUNITY ACQUIRED BACTERIAL PNA 07-20 PN: COMMUNITY ACQUIRED BACTERIAL PNA 07-13 CXR: LIMITED STUDY W/ POSSIBLE RIGHT BASILAR AIR SPACE DX 07-13 CHEST CTX: MODERATE RIGHT AND SMALL LEFT PLEURAL EFFUSION W/ ADJACENT PASSIVE ATELECTASIS 07-16 CXR: BIBASILAR AIR SPACE OPACITY CONCERNING FOR INFECTION, WELL SMALL RIGHT PLEURAL EFFUSION. 07-18 CXR: PATCHY OPACITY IN RIGHT LUNG BASE AND MILD PROGRESSION OF SMALL RIGHT PLEURAL EFFUSION. FINDINGS FAVOR PNA W/PARAPNEUMONIC EFFUSION RISK FACTORS: H&P: SOB SINCE MACARIO COUGH/PRODUCTIVE YELLOWISH SPUTUM ACUTE ON CHRONIC CHF/ COPD TREATMENT: LEVAQUIN IV 07-13 TO 07-18 LEVAQUIN PO 07-19 TO 2-1 NEBS Q 6HRS THANK YOU, MARIA ALEJANDRA (This form is maintained as a part of the permanent medical record) 2014 [employer]. All Rights Reserved Maria Alejandra Kiser RN, BS [email or web address] [employer] [facility]
--- NOTE | 2017-07-21 14:08 | PDOC.PN ---
- Subjective Encounter Start Date: 07/21/17 Encounter Start Time: 10:25 Subjective: is amb in room, no sob - Objective Resuscitation Status: Resuscitation Status FULL:Full Resuscitation MAR Reviewed: Yes Vital Signs & Weight: Vital Signs (12 hours) Temp Pulse Resp BP BP Pulse Ox 07/21/17 07:47 98.5 F 77 16 170/81 H 92 L 07/21/17 07:09 98 F 82 16 07/21/17 04:00 82 16 161/81 H Weight Weight 251 lb 11.2 oz I&O: 07/20/17 07/21/17 07/22/17 06:59 06:59 06:59 Intake Total 1920 1000 Balance 1920 1000 Result Diagrams: 07/21/17 03:45 07/21/17 03:45 Additional Labs: Accuchecks 07/21/17 07/21/17 07/20/17 11:09 04:39 20:42 POC Glucose 258 H 331 H 146 H Phys Exam - Physical Examination HEENT: PERRLA, sclera anicteric Neck: no JVD, supple Respiratory: no wheezing, no rales Cardiovascular: RRR, no significant murmur Gastrointestinal: soft, non-tender, positive bowel sounds Musculoskeletal: no edema, pulses present Neurological: non-focal, moves all 4 limbs Psychiatric: A&O x 3 Dx/Plan (1) COPD with exacerbation Code(s): J44.1 - CHRONIC OBSTRUCTIVE PULMONARY DISEASE W (ACUTE) EXACERBATION Status: Acute Comment: Uses 3L of supplemental O2 at home. Continue nebs, steroids. (2) Acute exacerbation of CHF (congestive heart failure) Code(s): I50.9 - HEART FAILURE, UNSPECIFIED Status: Resolved Qualifiers: Congestive heart failure type: diastolic Qualified Code(s): I50.33 - Acute on chronic diastolic (congestive) heart failure (3) DM type 2 (diabetes mellitus, type 2) Status: Chronic Qualifiers: Diabetes mellitus complication status: with neurologic complications Diabetes mellitus complication detail: with polyneuropathy Diabetes mellitus olive packer insulin use: with olive packer use Qualified Code(s): E11.42 - Type 2 diabetes mellitus with diabetic polyneuropathy; Z79.4 - automobile radio repairer (current) use of insulin; Z79.4 - automobile radio repairer (current) use of insulin; Z79.4 - [facility] ( current) use of insulin; Z79.4 - automobile radio repairer (current) use of insulin (4) CAD (coronary artery disease) Code(s): I25.10 - ATHSCL HEART DISEASE OF [place] CORONARY ARTERY W/O ANG PCTRS Status: Chronic Qualifiers: Coronary Disease-Associated Artery/Lesion type: [place] artery [place] vs. transplanted heart: [place] heart Associated angina: without angina Qualified Code(s): I25.10 - Atherosclerotic heart disease of [place] coronary artery without angina pectoris Comment: Stable. Chest pain free. (5) GERD (gastroesophageal reflux disease) Code(s): K21.9 - GASTRO-ESOPHAGEAL REFLUX DISEASE WITHOUT ESOPHAGITIS Status: Chronic (6) Hypertension Code(s): I10 - ESSENTIAL (PRIMARY) HYPERTENSION Status: Chronic Qualifiers: Hypertension type: essential hypertension Qualified Code(s): I10 - Essential (primary) hypertension Comment: At goal. Continue current regimen (7) Morbid obesity with BMI of 40.0-44.9, adult Code(s): E66.01 - MORBID (SEVERE) OBESITY DUE TO EXCESS CALORIES; Z68.41 - BODY MASS INDEX (BMI) 40.0-44.9, ADULT Status: Chronic - Plan hemostable -: dc pt home -: tapering prednisone -: no zain/arb due to mic * .
--- NOTE | 2017-07-21 21:46 | DIS ---
DATE OF ADMISSION: 07/13/2017 DATE OF DISCHARGE: 07/21/2017 DISCHARGE DISPOSITION: To home. PRIMARY DISCHARGE DIAGNOSES: Acute chronic obstructive pulmonary disease exacerbation, resolving; acute congestive heart failure exacerbation with diastolic dysfunction, resolved; acute kidney injury due to diuresis, stabilizing; diabetes mellitus type 2; obesity; hypertension; gastroesophageal reflux disease; and coronary artery disease. PROCEDURES DONE DURING HOSPITALIZATION: Echo with 2D Doppler done showed ejection fraction of 55% to 60%, there was moderate concentric LVH seen. CT angio chest done on the day of admission showed no evidence of PE, moderate right and small left pleural effusions with adjacent passive atelectasis were seen. Discharge H and H 12 and 37, platelet count 232. Discharge BUN and creatinine is 31 and 1.6. Had a BNP of 159. DISCHARGE MEDICATIONS: Norvasc 10 mg p.o. twice daily, baclofen 10 mg p.o. at bedtime, Advair Diskus daily 2 puffs, Lasix 40 mg daily, gabapentin 1600 mg p.o. twice daily, Humalog 30 units subcutaneously 3 times daily before meals, Lantus 70 units subcutaneously twice daily, DuoNebs q.6 hourly p.r.n., Levaquin 500 mg p.o. daily for another 3 days, levothyroxine 25 mcg p.o. daily, metformin 500 mg p.o. daily, Lopressor 25 mg twice daily, omeprazole 20 mg daily , Pravachol 40 mg daily, prednisone tapering dose to continue at 5 mg daily for another 5 days and to discontinue, Compazine 10 mg p.o. twice daily, Seroquel 100 mg p.o. at bedtime, Spiriva inhaler daily, tizanidine 4 mg p.o. at bedtime. ALLERGIES: Allergic to SULFA. DISCHARGE PLAN: The patient to follow up with primary care physician in 1 week. BRIEF COURSE DURING HOSPITALIZATION: The patient initially came to ER with complaints of shortness of breath. She was initially suspected to have both acute on chronic obstructive pulmonary disease and congestive heart failure exacerbation with diastolic dysfunction. The patient was on gentle diuresis along with IV steroids and nebulizers. She was empirically placed on Levaquin. The patient's creatinine started to go up with her being on Lasix and Zaroxolyn, which were both held then on. She is ambulating in the room prior to discharge. The patient's steroid is rapidly tapered at the time of discharge. She is also on very high doses of insulins and has been advised to check her fingerstick glucose twice daily and record on a sheet of paper to follow up with primary care physician. No zain or arb's were given on discharge due to mic. A total of 35 minutes was spent on discharge plan. Please see a face to face documentation for the day of discharge on [facility]. NICK
--- NOTE | 2017-07-22 14:20 | EKG ---
Test Reason : Blood Pressure : / mmHG Vent. Rate : 064 BPM Atrial Rate : 064 BPM P-R Int : 212 ms QRS Dur : 136 ms QT Int : 482 ms P-R-T Axes : 039 041 -04 degrees QTc Int : 497 ms Sinus rhythm with 1st degree A-V block Right bundle branch block Abnormal ECG Confirmed by INOCENTE WILLINGHAM, SHEILA ([id number]), book or script editor CASI VASQUEZ ([id number]) on 07/22/2017 2:20:08 PM Referred By: YUMIKO Confirmed By:SHEILA BROWER MD
== END 2017-07-21 12:52 | disposition home health service (06) | DRG 291 ==
LOC: ERS 15:22 → OBSVTOIN 20:36 → 2SW 20:36 → 2NO 23:36 → T4-A 07-14 18:00
PROVIDERS: ADMIT Emergency Medicine; ATTEND Emergency Medicine
DX: I13.0 Hypertensive heart and chronic kidney disease with heart failure and stage 1 through stage 4 chronic kidney disease, or unspecified chronic kidney disease (principal); J96.21 Acute and chronic respiratory failure with hypoxia; N17.9 Acute kidney failure, unspecified; I50.33 Acute on chronic diastolic (congestive) heart failure; J44.1 Chronic obstructive pulmonary disease with (acute) exacerbation; J98.11 Atelectasis; Z68.41 Body mass index [BMI] 40.0-44.9, adult; E11.22 Type 2 diabetes mellitus with diabetic chronic kidney disease; E11.42 Type 2 diabetes mellitus with diabetic polyneuropathy; E66.01 Morbid (severe) obesity due to excess calories; K21.9 Gastro-esophageal reflux disease without esophagitis; I25.10 Atherosclerotic heart disease of native coronary artery without angina pectoris; Z86.73 Personal history of transient ischemic attack (TIA), and cerebral infarction without residual deficits; F17.210 Nicotine dependence, cigarettes, uncomplicated; E78.5 Hyperlipidemia, unspecified; K22.70 Barrett's esophagus without dysplasia; F41.8 Other specified anxiety disorders; E03.9 Hypothyroidism, unspecified; Z99.81 Dependence on supplemental oxygen; Z79.4 Long term (current) use of insulin; Z85.118 Personal history of other malignant neoplasm of bronchus and lung; Z98.51 Tubal ligation status; I25.2 Old myocardial infarction; N18.2 Chronic kidney disease, stage 2 (mild)
CPT/HCPCS: 36415; 36416; 71045; 71046; 71275; 80048; 80053; 82553; 83690; 83880; 84484; 84550; 85025; 85379; 90471; 90682; 90732; 93005; 93306; 93798; 94640; 94664; 94760; 96374; A4216; G0008; G0009; J1650; J1815; J1940; J1956; J2405; J7506; J7620; Q0162; Q2036

== ENCOUNTER 2017-08-30 11:07 | Emergency (ER) | payer MEDICARE, MEDICAID ==
[2017-08-30] MEDS ORDERED: Albuterol Sulfate 2.5 mg/0.5 ml Neb ONE (11:34)
[2017-08-30] MEDS ORDERED: Albuterol Sulfate 2.5 mg/3 ml Neb ONE (11:35)
[2017-08-30] MEDS ORDERED: methylPREDNISolone Sod Succ/PF 125 MG/2 ML VIAL ONE (11:36)
[2017-08-30 11:56] LABS: #Eosinphils 0.2 thou/uL (0.0-0.7); #Lymphocytes 1.3 thou/uL (1.20-3.40); #Monocytes 0.5 thou/uL (0.11-0.59); #Neutrophils 7.9 thou/uL (1.40-6.50); %Basophils 0.3 % (0.0-1.0); %Eosinophils 2.4 % (0.0-10.0); %Lymphocytes 12.7 % (21.0-51.0); %Monocytes 5.3 % (0.0-10.0); %Neutrophils 79.3 % (42.0-75.0); Hemoglobin 12.8 g/dL (12.0-16.0); Mean Corpuscular HGB CONC 33.1 g/dL (32.0-36.0); Mean Corpuscular Hemoglobin 29.2 pg (27.0-31.0); Mean Corpuscular Volume 88.3 fl (81.0-99.0); Mean Platelet Volume 8.4 fL (7.4-10.4); Platelet Count 214 thou/uL (130-400); RBC Distribution Width 13.4 % (11.5-14.5); Red Blood Cell (RBC) Count 4.37 mill/uL (4.20-5.40)
[2017-08-30 12:22] LABS: CKMB 4.7 ng/mL (0-6.6); Troponin I Less than 0.010 ng/mL (< 0.028)
[2017-08-30 12:24] LABS: ALT (SGPT) 22 U/L (8-55); AST (SGOT) 20 U/L (5-34); Albumin 3.5 g/dL (3.5-5.0); Alkaline Phosphatase 76 U/L (40-150); Anion Gap 15 mmol/L (10-20); BUN (Urea Nitrogen) 27 mg/dL (9.8-20.1); Bilirubin, Total 0.6 mg/dL (0.2-1.2); Calc. Creatinine Clearance 0 mL/min (70-130); Calcium 9.1 mg/dL (7.8-10.44); Carbon Dioxide 23 mmol/L (22-29); Chloride 101 mmol/L (98-107); Estimated GFR-MDRD 50; Globulin 3.4 g/dL (2.4-3.5); Glucose 273 mg/dL (70-105); Lipase 20 U/L (8-78); Magnesium 2.4 mg/dL (1.6-2.6); Potassium 4.6 mmol/L (3.5-5.1); Protein, Total 6.9 g/dL (6.0-8.3); Sodium 134 mmol/L (136-145)
--- NOTE | 2017-08-30 13:31 | RAD ---
PA AND LATERAL CHEST: History: Cough. FINDINGS/IMPRESSION: Comparison is made with exam of 07-18-17. The heart size is normal. The lungs are well expanded without lobar consolidation, pneumothoraces or pleural effusions. Mild residual infiltrate is seen in the right medial lung base. POS: [facility]
[2017-08-30] MEDS ORDERED: ISOVUE-370 76%-LOCM 1 ML ONE (16:33)
--- NOTE | 2017-08-30 18:48 | CT ---
CT PULMONARY ANGIO OF CHEST WITH CONTRAST: 08/30/17 Multiple axial tomograms obtained through the chest following pulmonary angio protocol with multiplan ar reconstructions and 3D postprocessing. HISTORY: Nausea, vomiting. Shortness of breath. Discharge from hospital two weeks ago for treatment of pneumon ia. FINDINGS: Pulmonary arteries have suboptimal opacification. The opacification is adequate to assess the proxima l pulmonary arteries to the segmental level. No evidence of pulmonary embolus identified. The lungs show no evidence of focal infiltrate. Tiny right effusion. Mild bibasilar atelectasis. Medi astinum unremarkable. Mild cardiomegaly. IMPRESSION: 1. No evidence of pulmonary embolus. 2. No evidence of lung infiltrate. Tiny right effusion and mild atelectasis. POS: [facility]
== END 2017-08-30 18:35 | disposition home or self-care (01) ==
LOC: ERS 11:07
DX: J45.901 Unspecified asthma with (acute) exacerbation (principal); I25.10 Atherosclerotic heart disease of native coronary artery without angina pectoris; I25.2 Old myocardial infarction; I11.0 Hypertensive heart disease with heart failure; I50.9 Heart failure, unspecified; E11.40 Type 2 diabetes mellitus with diabetic neuropathy, unspecified; Z86.73 Personal history of transient ischemic attack (TIA), and cerebral infarction without residual deficits; F32.9 Major depressive disorder, single episode, unspecified; F17.210 Nicotine dependence, cigarettes, uncomplicated; Z79.899 Other long term (current) drug therapy; Z79.4 Long term (current) use of insulin
CPT/HCPCS: 71046; 71275; 80053; 82553; 83690; 83735; 83880; 84484; 85025; 85379; 93005; 94644; 96374; 99406; J2930; J7611; J7620

== ENCOUNTER 2017-08-31 01:16 | Emergency (ER) | payer MEDICARE, OTHER ==
[2017-08-31] MEDS ORDERED: Insulin Regular 300 UNITS/3 ML VIAL ONE ×2 (01:53→07:25)
[2017-08-31 02:37] LABS: Anion Gap 19 mmol/L (10-20); BUN (Urea Nitrogen) 35 mg/dL (9.8-20.1); Calc. Creatinine Clearance 0 mL/min (70-130); Calcium 9.5 mg/dL (7.8-10.44); Carbon Dioxide 20 mmol/L (22-29); Chloride 95 mmol/L (98-107); Estimated GFR-MDRD 32; Glucose 698 mg/dL (70-105); Potassium 5.4 mmol/L (3.5-5.1); Sodium 129 mmol/L (136-145)
[2017-08-31 04:35] LABS: Anion Gap 17 mmol/L (10-20); BUN (Urea Nitrogen) 34 mg/dL (9.8-20.1); Calc. Creatinine Clearance 0 mL/min (70-130); Carbon Dioxide 19 mmol/L (22-29); Chloride 98 mmol/L (98-107); Estimated GFR-MDRD 37; Sodium 129 mmol/L (136-145)
[2017-08-31 04:46] LABS: Glucose 555 mg/dL (70-105)
[2017-08-31 07:01] LABS: Anion Gap 17 mmol/L (10-20); BUN (Urea Nitrogen) 35 mg/dL (9.8-20.1); Calc. Creatinine Clearance 0 mL/min (70-130); Carbon Dioxide 20 mmol/L (22-29); Chloride 98 mmol/L (98-107); Estimated GFR-MDRD 36; Glucose 514 mg/dL (70-105); Sodium 130 mmol/L (136-145)
== END 2017-08-31 09:11 | disposition home or self-care (01) ==
LOC: ERS 01:16
DX: E11.65 Type 2 diabetes mellitus with hyperglycemia (principal); E11.40 Type 2 diabetes mellitus with diabetic neuropathy, unspecified; I11.0 Hypertensive heart disease with heart failure; I50.9 Heart failure, unspecified; I25.2 Old myocardial infarction; J44.9 Chronic obstructive pulmonary disease, unspecified; Z71.6 Tobacco abuse counseling; F17.210 Nicotine dependence, cigarettes, uncomplicated; Z79.899 Other long term (current) drug therapy; Z79.4 Long term (current) use of insulin
CPT/HCPCS: 36415; 36416; 80048; 94640; 96361; 96374; 96376; 99406; J1815; J7620

== ENCOUNTER 2017-09-27 19:44 | Emergency (ER) | payer MEDICARE, MEDICAID ==
[2017-09-27 21:49] LABS: #Eosinphils 0.3 thou/uL (0.0-0.7); #Lymphocytes 1.6 thou/uL (1.20-3.40); #Monocytes 0.6 thou/uL (0.11-0.59); #Neutrophils 6.4 thou/uL (1.40-6.50); %Basophils 0.5 % (0.0-1.0); %Eosinophils 3.3 % (0.0-10.0); %Lymphocytes 17.8 % (21.0-51.0); %Monocytes 6.5 % (0.0-10.0); Hemoglobin 13.3 g/dL (12.0-16.0); Mean Corpuscular HGB CONC 33.8 g/dL (32.0-36.0); Mean Corpuscular Hemoglobin 29.5 pg (27.0-31.0); Mean Corpuscular Volume 87.4 fl (81.0-99.0); Mean Platelet Volume 7.9 fL (7.4-10.4); Platelet Count 209 thou/uL (130-400); RBC Distribution Width 13.6 % (11.5-14.5); White Blood Cell (WBC) Count 8.9 thou/uL (4.8-10.8)
[2017-09-27 22:06] LABS: ALT (SGPT) 16 U/L (8-55); AST (SGOT) 17 U/L (5-34); Albumin 3.7 g/dL (3.5-5.0); Alkaline Phosphatase 66 U/L (40-150); Anion Gap 13 mmol/L (10-20); BUN (Urea Nitrogen) 21 mg/dL (9.8-20.1); Bilirubin, Total 0.8 mg/dL (0.2-1.2); Calc. Creatinine Clearance 0 mL/min (70-130); Calcium 9.1 mg/dL (7.8-10.44); Carbon Dioxide 27 mmol/L (22-29); Chloride 102 mmol/L (98-107); Estimated GFR-MDRD 53; Globulin 2.8 g/dL (2.4-3.5); Glucose 140 mg/dL (70-105); Potassium 3.6 mmol/L (3.5-5.1); Protein, Total 6.5 g/dL (6.0-8.3); Sodium 138 mmol/L (136-145)
[2017-09-27] MEDS ORDERED: Furosemide 40 MG/4 ML VIAL ONE (22:09)
[2017-09-27] MEDS ORDERED: Nitroglycerin 2% Ointment 1 INCH/1 GM Packet ONE (22:09)
--- NOTE | 2017-09-27 22:10 | RAD ---
FRONTAL VIEW CHEST: 09/27/17 COMPARISON: 08/30/17 CLINICAL HISTORY: Dyspnea. FINDINGS: There are patchy opacities of the inferior lung zones, more notable on the right. Cardiac silhouette and pulmonary vasculature are prominent. Pleural based density seen at the inferior right hemithorax. IMPRESSION: Findings which most likely relate to pulmonary edema. Superimposed pneumonia of the right lower lung zone not excluded. There is probable, associated right pleural fluid. Recommend continued imaging fol lowup. POS: [facility]
[2017-09-27] MEDS ORDERED: Albuterol Sulfate 2.5 mg/3 ml Neb ONE (22:16)
== END 2017-09-27 23:56 | disposition home or self-care (01) ==
LOC: ERS 19:44
DX: J44.9 Chronic obstructive pulmonary disease, unspecified (principal); R60.0 Localized edema; I25.10 Atherosclerotic heart disease of native coronary artery without angina pectoris; I25.2 Old myocardial infarction; E11.40 Type 2 diabetes mellitus with diabetic neuropathy, unspecified; F17.210 Nicotine dependence, cigarettes, uncomplicated; I11.0 Hypertensive heart disease with heart failure; I50.9 Heart failure, unspecified; Z86.73 Personal history of transient ischemic attack (TIA), and cerebral infarction without residual deficits
CPT/HCPCS: 71045; 80053; 83880; 85025; 93005; 94644; 96374; J1940; J7611

== ENCOUNTER 2017-10-04 16:29 | Inpatient (IN) | payer MEDICARE, MEDICAID ==
[2017-10-04 17:07] LABS: Bilirubin Negative (Negative); Blood, Urine Large (Negative); Clarity CLOUDY (Clear); Glucose, Urine (Dipstick) Negative (Negative); Leukocyte Small (Negative); Nitrite Negative (Negative); Protein, Urine (Dipstick) 300 mg/dL (Neg-Trace); Specific Gravity, Urine 1.011 (1.002-1.036); pH, Urine 6.5 (5.0-9.0)
[2017-10-04 17:09] LABS: Bacteria/HPF None Seen HPF (None Seen); Hyaline Casts/LPF 7-10 HYALINE CAST LPF (0-3 Hyaline); Pathc Cast-AUWi Flag 2.03 (0-2.49); RBC/HPF GREATER THAN 50-TNTC HPF (0-3); Squamous Epithelial 0-3 HPF (0-3)
[2017-10-04 18:58] LABS: #Basophils 0.1 thou/uL (0.0-0.2); #Eosinphils 0.3 thou/uL (0.0-0.7); #Lymphocytes 1.6 thou/uL (1.20-3.40); #Monocytes 0.6 thou/uL (0.11-0.59); %Basophils 0.5 % (0.0-1.0); %Eosinophils 2.6 % (0.0-10.0); %Lymphocytes 15.6 % (21.0-51.0); %Monocytes 5.6 % (0.0-10.0); %Neutrophils 75.7 % (42.0-75.0); Hemoglobin 14.5 g/dL (12.0-16.0); Mean Corpuscular HGB CONC 34.2 g/dL (32.0-36.0); Mean Corpuscular Hemoglobin 29.8 pg (27.0-31.0); Mean Platelet Volume 7.7 fL (7.4-10.4); Platelet Count 206 thou/uL (130-400); RBC Distribution Width 13.6 % (11.5-14.5); Red Blood Cell (RBC) Count 4.86 mill/uL (4.20-5.40); White Blood Cell (WBC) Count 10.5 thou/uL (4.8-10.8)
--- NOTE | 2017-10-04 19:14 | RAD ---
AP VIEW OF THE CHEST: 10/04/17 INDICATION: Emergency exam, shortness of breath. COMPARISON: Prior exam dated 09/27/17. FINDINGS: There is patchy air space opacity in the right lower lobe and there are slightly more prominent than a prior dated 09/27/17. The left lung is clear. No acute osseous abnormality identified,. IMPRESSION: Worsening air space opacity of the right lower lobe may reflect worsening pneumonia. Recommend correl ation. Recommend radiographic followup to resolution. POS: [facility]
[2017-10-04 19:20] LABS: ALT (SGPT) 12 U/L (8-55); AST (SGOT) 16 U/L (5-34); Albumin 3.8 g/dL (3.5-5.0); Alkaline Phosphatase 68 U/L (40-150); Anion Gap 14 mmol/L (10-20); BUN (Urea Nitrogen) 14 mg/dL (9.8-20.1); Bilirubin, Total 0.9 mg/dL (0.2-1.2); Calc. Creatinine Clearance 0 mL/min (70-130); Calcium 8.8 mg/dL (7.8-10.44); Carbon Dioxide 27 mmol/L (22-29); Chloride 103 mmol/L (98-107); Estimated GFR-MDRD 54; Globulin 2.5 g/dL (2.4-3.5); Glucose 143 mg/dL (70-105); Magnesium 2.3 mg/dL (1.6-2.6); Potassium 3.7 mmol/L (3.5-5.1); Protein, Total 6.3 g/dL (6.0-8.3); Sodium 140 mmol/L (136-145)
[2017-10-04 19:25] LABS: CKMB 2.2 ng/mL (0-6.6); Troponin I Less than 0.010 ng/mL (< 0.028)
[2017-10-04] MEDS ORDERED: Azithromycin 500 MG VIAL ONE (20:56)
[2017-10-05] MEDS ORDERED: Ondansetron HCl/PF 4 MG/2 ML Vial IVP PRN (00:14)
[2017-10-05] MEDS ORDERED: Ondansetron ODT 4 MG TAB SL PRN (00:14)
[2017-10-05] MEDS ORDERED: Acetaminophen 325 MG TAB PO PRN ×2 (00:14→00:57)
[2017-10-05] MEDS ORDERED: Milk Of Magnesia 30 ML UDCUP PO PRN (00:57)
[2017-10-05] MEDS ORDERED: Calcium Carbonate 500 MG ChewTAB PO PRN (00:57)
[2017-10-05] MEDS ORDERED: Dextrose 50% Abboject 50 ML SYRINGE SLOW IVP PRN (00:57)
[2017-10-05] MEDS ORDERED: Insulin Regular 300 UNITS/3 ML VIAL SC PRN ×2 (00:57)
[2017-10-05] MEDS ORDERED: Dextrose 5% in Water 1,000 ML IV PRN (00:57)
[2017-10-05] MEDS ORDERED: Senokot 8.6 MG TAB PO PRN (00:57)
[2017-10-05] MEDS ORDERED: Nitroglycerin 0.4 MG TAB (25 Tab Bottle) PO PRN (01:00)
[2017-10-05] MEDS ORDERED: hydrALAZINE 20 MG/ML VIAL SLOW IVP PRN (01:04)
--- NOTE | 2017-10-05 01:09 | PDOC.PN ---
- Subjective Encounter Start Date: 09/26/17 Encounter Start Time: 22:00 Patient seen and examined on 10/04 - Objective Resuscitation Status: Resuscitation Status FULL:Full Resuscitation MAR Reviewed: Yes Result Diagrams: 10/04/17 18:53 10/04/17 18:53 Additional Labs: Accuchecks 10/04/17 22:55 POC Glucose 125 H Radiology Reviewed by me: Yes (CXR - Pneumonia) EKG Reviewed by me: Yes (SR) Phys Exam - Physical Examination Pt in mild resp distress HEENT: PERRLA, moist MMs, sclera anicteric Neck: no nodes, supple ?JVD elevated Respiratory: no wheezing Rales at Right base, Scat rhonchi, Symmetrical, Accessory muscle use Cardiovascular: RRR, no rub no heaves/pulsation Gastrointestinal: soft, non-tender, no distention, positive bowel sounds Musculoskeletal: pulses present, edema present (4+ B/L) Neurological: non-focal, normal sensation, moves all 4 limbs Psychiatric: A&O x 3 Skin: no rash Dx/Plan - Plan * Please see H&P Review of Systems - Review of Systems Constitutional: negative: fever, chills, sweats, weakness, malaise, other Eyes: negative: Pain, Vision Change, Conjunctivae Inflammation, Eyelid Inflammation, Redness, Other ENT: negative: Ear Pain, Ear Discharge, Nose Pain, Nose Discharge, Nose Congestion, Mouth Pain, Mouth Swelling, Throat Pain, Throat Swelling, Other Respiratory: SOB with Excertion. negative: Cough, Dry, Shortness of Breath, Hemoptysis, Pleuritic Pain, Sputum, Wheezing Cardiovascular: edema. negative: chest pain, palpitations, orthopnea, paroxysmal nocturnal dyspnea, light headedness, other Gastrointestinal: negative: Nausea, Vomiting, Abdominal Pain, Diarrhea, Constipation, Melena, Hematochezia, Other Genitourinary: Other (valdez from home). negative: Dysuria, Frequency, Incontinence, Hematuria, Retention Musculoskeletal: negative: Neck Pain, Shoulder Pain, Arm Pain, Back Pain, Hand Pain, Leg Pain, Foot Pain, Other Skin: negative: Rash, Lesions, Jamie, Bruising, Other Neurological: negative: Weakness, Numbness, Incoordination, Change in Speech, Confusion, Seizures, Other - Medications/Allergies Allergies/Adverse Reactions: Allergies Allergy/AdvReac Type Severity Reaction Status Date / Time Sulfa (Sulfonamide Allergy PT NOT Verified 07/13/17 22:25 Antibiotics) SURE OF REACTION STATED HAPPENED CHILD Medications: Current Medications Acetaminophen (Tylenol) 650 mg PO Q4H PRN PRN Reason: Headache/Fever or Pain Aspirin (Ecotrin) 81 mg PO DAILY VALE Calcium Carbonate (Tums) 1,000 mg PO Q4H PRN PRN Reason: Heartburn or Indigestion Dextrose/Water (Dextrose 50%) 25 gm SLOW IVP PRN PRN PRN Reason: Hypoglycemia Docusate Sodium (Colace) 100 mg PO BID VALE Enoxaparin Sodium (Lovenox) 40 mg SC 0900 VALE Famotidine (Pepcid) 20 mg PO BID VALE Furosemide (Lasix) 40 mg SLOW IVP Q8H VALE Glucagon (Glucagon) 1 mg IM PRN PRN PRN Reason: Hypoglycemia Dextrose/Water (D5w) 1,000 mls @ 0 mls/hr IV .Q0M PRN; As Directed PRN Reason: Hypoglycemia Insulin Human Regular (Humulin R) 0 units SC .BEDTIME SLIDING SC PRN PRN Reason: Bedtime Correctional Scale Insulin Human Regular (Humulin R) 0 units SC .AGGRESSIVE SLIDING PRN PRN Reason: Aggressive Sliding Scale Magnesium Hydroxide (Milk Of Magnesium) 30 ml PO DAILYPRN PRN PRN Reason: Constipation Nitroglycerin (Nitrostat) 0.4 mg PO Q5MIN PRN PRN Reason: Chest Pain Ondansetron HCl (Zofran) 4 mg IVP Q6H PRN PRN Reason: Nausea/Vomiting Stop: 10/05/17 09:26 Ondansetron HCl (Zofran Odt) 4 mg SL Q6H PRN PRN Reason: Nausea/Vomiting Stop: 10/05/17 09:26 Potassium Chloride (K-Dur) 20 meq PO BID-WM VALE Senna (Senokot) 2 tab PO HSPRN PRN PRN Reason: Constipation Sodium Chloride (Flush - Normal Saline) 10 ml IVF Q12HR VALE Sodium Chloride (Flush - Normal Saline) 10 ml IVF PRN PRN PRN Reason: Saline Flush
--- NOTE | 2017-10-05 01:24 | HP ---
DATE OF ADMISSION: 10/04/2017 The patient was seen and examined on 10/04/2017. PRIMARY CARE PHYSICIAN: Valdemar Adames M.D. CHIEF COMPLAINT: Shortness of breath with worsening bilateral lower extremity swelling of two weeks' duration. HISTORY OF PRESENT ILLNESS: The patient is a 57-year-old female with chronic diastolic heart failure, diabetes mellitus type 2, hypertension, and chronic obstructive pulmonary disease, presented to the emergency room with shortness of breath. The patient is currently followed by [facility]. She has indwelling Smith catheter that was placed for accurate input and output monitoring. Despite this, the patient has gained approximately 30 pounds over the last month or so per patient report. The patient denies any excessive fluid intake. She also had shortness of breath on mild exertion. She also has persistent cough that is more or less nonproductive. She denies any chest pain , palpitations, lightheadedness, dizziness, or syncope. No recent immobilization, travel reported. In the emergency room, initial vital signs showed temperature 98.1, respiration of 24, pulse rate of 76 with blood pressure of 135/56 with O2 saturation 93% on room air. Her EKG showed sinus rhythm with right bundle branch block. Chest x- ray showed pulmonary vascular congestion with possible pneumonia in the right lower lobe. She received Rocephin, azithromycin, DuoNebs in the emergency room. A 40 mg IV Lasix was ordered. I am unable to find whether this dose was administered or not. PAST MEDICAL HISTORY: 1. Chronic obstructive pulmonary disease. 2. Chronic diastolic heart failure. 3. Coronary artery disease, status post stent placement. 4. Hypertension. 5. Diabetes mellitus type 2. 6. Dyslipidemia. 7. Viera's esophagus. 8. Diabetic neuropathy. 9. Morbid obesity. 10. Gastroesophageal reflux disease. 11. History of lung cancer treated with chemotherapy and radiation. 12. History of cerebrovascular accident. 13. Anxiety. 14. Depression. 15. Chronic respiratory failure on home oxygen. PAST SURGICAL HISTORY: 1. Tubal ligation. 2. Carpal tunnel repair. 3. Cardiac catheterization with stent placement. ALLERGIES: The patient is allergic to SULFA. CURRENT HOME MEDICATIONS: The patient does not remember any of her home medications. She states that she takes Lasix 80 mg twice a day. SOCIAL HISTORY: The patient currently lives at home, has chronic indwelling Smith catheter. She is currently on home oxygen 2 to 3 liters. She continues to smoke up to half pack a day on the daily basis. She drinks alcohol socially. Denies any drug use. FAMILY HISTORY: Positive for diabetes, hypertension, and heart disease in several family members. REVIEW OF SYSTEMS: The following complete review of systems was negative, unless otherwise mentioned in the HPI or below: Constitutional: Weight loss or gain, ability to conduct usual activities. Skin: Rash, itching. Eyes: Double vision, pain. ENT/Mouth: Nose bleeding, neck stiffness, pain, tenderness. Cardiovascular: Palpitations, dyspnea on exertion, orthopnea. Respiratory: Shortness of breath, wheezing, cough, hemoptysis, fever or night sweats. Gastrointestinal: Poor appetite, abdominal pain, heartburn, nausea, vomiting, constipation, or diarrhea. Genitourinary: Urgency, frequency, dysuria, nocturia. Musculoskeletal: Pain, swelling. Neurologic/Psychiatric: Anxiety, depression. Allergy/Immunologic: Skin rash, bleeding tendency. PHYSICAL EXAMINATION: Please refer to my progress note. LABORATORY FINDINGS: Please refer to my progress note. IMPRESSION: 1. Acute on chronic diastolic heart failure exacerbation. 2. Community-acquired pneumonia, suspected pneumococcal. 3. Chronic obstructive pulmonary disease. 4. Hypertension. 5. Ongoing tobacco abuse. 6. Diabetes mellitus type 2. 7. Dyslipidemia. 8. Gastroesophageal reflux disease with Viera's esophagus. 9. Anxiety and depression. 10. Hypothyroidism. 11. Morbid obesity. 12. Chronic respiratory failure, on home oxygen. 13. Elevated troponins due to demand ischemia. 14. Chronic kidney disease stage 3. 15. Chronic indwelling Smith catheter that was placed by home health care for accurate input and output. 16. Hypertensive heart disease. PLAN: The patient will be monitored on the telemetry unit. The patient will require 2 to 3 days for stabilization. We will continue diuretics along with antibiotics. Blood cultures have been sent. Nebulizer treatment as needed. We will add fluid restriction. Her troponins were negative. We will monitor electrolytes closely. Plan of care was discussed with the patient in detail, she stated understanding. NICK
[2017-10-05] MEDS: Furosemide 40 MG/4 ML VIAL SLOW IVP SCH ×2 (02:11→11:05)
[2017-10-05 05:14] LABS: #Eosinphils 0.3 thou/uL (0.0-0.7); #Lymphocytes 1.3 thou/uL (1.20-3.40); #Monocytes 0.5 thou/uL (0.11-0.59); #Neutrophils 7.7 thou/uL (1.40-6.50); %Basophils 0.4 % (0.0-1.0); %Eosinophils 2.6 % (0.0-10.0); %Lymphocytes 13.3 % (21.0-51.0); %Monocytes 5.1 % (0.0-10.0); %Neutrophils 78.6 % (42.0-75.0); Hemoglobin 13.3 g/dL (12.0-16.0); Mean Corpuscular HGB CONC 34.1 g/dL (32.0-36.0); Mean Corpuscular Hemoglobin 29.5 pg (27.0-31.0); Mean Corpuscular Volume 86.6 fl (81.0-99.0); Mean Platelet Volume 7.4 fL (7.4-10.4); Platelet Count 191 thou/uL (130-400); RBC Distribution Width 13.4 % (11.5-14.5); White Blood Cell (WBC) Count 9.8 thou/uL (4.8-10.8)
[2017-10-05 05:27] LABS: Albumin 3.5 g/dL (3.5-5.0); Anion Gap 7 mmol/L (10-20); BUN (Urea Nitrogen) 13 mg/dL (9.8-20.1); BUN/Creatinine Ratio 14.29; Calc. Creatinine Clearance 138 mL/min (70-130); Carbon Dioxide 30 mmol/L (22-29); Chloride 105 mmol/L (98-107); Estimated GFR-MDRD 63; Glucose 110 mg/dL (70-105); Magnesium 2.2 mg/dL (1.6-2.6); Phosphorus 4.1 mg/dL (2.3-4.7); Potassium 3.4 mmol/L (3.5-5.1); Sodium 139 mmol/L (136-145)
[2017-10-05] MEDS: Potassium Chloride 20 MEQ TAB PO SCH ×2 (08:41→16:47)
[2017-10-05] MEDS: Docusate 100 MG CAP PO SCH ×2 (08:56→20:40)
[2017-10-05] MEDS: Aspirin 81 mg Enteric Coated Tablet PO SCH (08:56)
[2017-10-05] MEDS: Famotidine 20 MG TAB PO SCH ×2 (08:57→20:38)
[2017-10-05] MEDS: Enoxaparin Sodium 40 MG/0.4 ML SYRINGE SC SCH ×2 (08:57→11:05)
[2017-10-05] MEDS ORDERED: Insulin Detemir 100 UNITS/ML 60 UNITS in Pre-Filled Syringe 1 EACH SC SCH (11:45)
[2017-10-05] MEDS ORDERED: Gabapentin 400 MG CAP PO SCH ×2 (12:30→21:00)
[2017-10-05] MEDS ORDERED: Amlodipine 10 MG TAB PO SCH ×2 (12:30→21:00)
[2017-10-05] MEDS ORDERED: Metoprolol Tartrate 25 MG TAB PO SCH ×2 (12:30→21:00)
--- NOTE | 2017-10-05 14:12 | PQF ---
DATE: 10-05-17 ATTN: DR. BROOKLYNN VARGAS Please exercise your independent, professional judgment in responding to the clarification form. Clinical indicators are provided on the bottom of this form for your review Please check appropriate box(s): [ ] UTI please specify if due to or related to (as applicable): [ ] Indwelling catheter [ ] Unable to determine etiology [ x ] Contaminated urine specimen without UTI [ ] Other diagnosis [ ] Unable to determine In addition, please specify: Present on Admission (POA): [ x ] Yes [ ] No [ ] Unable to determine For continuity of documentation, please document condition throughout progress notes and discharge summary. Thank You. CLINICAL INDICATORS - SIGNS / SYMPTOMS / LABS ER DIAGNOSIS: PNEUMONIA, CHF EXACERBATION, UTI URINE: 10-04-17: URINE PROTEIN: 300 H URINE BLOOD: LARGE H UR LEUKOCYTE ESTERASE: SMALL H URINE RBC: GREATER THAN 50 TNTC H URINE WBC: 11-20 H HYALINE CASTS: 7-10 HYALINE CAST H RISK FACTORS: H&P: CHRONIC INDWELLING MEIER CATHETER THAT WAS PLACED BY HOME HEALTH CARE FOR ACCURATE INPUT AND OUTPUT. TREATMENT: (MAR) ZITHROMAX, (ER) ROCEPHIN/AZITHROMYCIN (This form is maintained as a part of the permanent medical record) 2014 [employer]. All Rights Reserved [email or web address] Office: [phone] [facility]
[2017-10-05] MEDS: HYDROcodone/Acetaminophen 10/325 mg Tablet PO PRN (16:50)
[2017-10-05] MEDS ORDERED: Nitroglycerin 0.4mg/Hour PATCH TD PRN (17:03)
[2017-10-05] MEDS ORDERED: HYDROcodone/Acetaminophen 10/325 mg Tablet PO PRN (17:03)
--- NOTE | 2017-10-05 17:06 | PDOC.PN ---
- Subjective Encounter Start Date: 10/05/17 Encounter Start Time: 16:45 Subjective: f/u for dyspnea of unclear etiology thought to be pneumonia. Receiving -: Zithromax and Rocephin but no fever and leukocytosis. Last PNA in 03/05 -: current on Flu/Pneumo vax. Weight up since 08/06 while on Prednisone. - Objective Resuscitation Status: Resuscitation Status FULL:Full Resuscitation MAR Reviewed: Yes Vital Signs & Weight: Vital Signs (12 hours) Temp Pulse Resp BP BP Pulse Ox 10/05/17 12:43 73 163/73 H 10/05/17 11:50 98.0 F 75 18 194/91 H 92 L 10/05/17 08:40 98.0 F 73 18 93 L 10/05/17 08:00 98.0 F 73 18 177/79 H 93 L Weight Admit Weight 285 lb Weight 284 lb 1.6 oz I&O: 10/04/17 10/05/17 10/06/17 06:59 06:59 06:59 Intake Total 150 1000 Output Total 1250 1200 Balance -1100 -200 Result Diagrams: 10/05/17 05:01 10/05/17 05:01 Additional Labs: Accuchecks 10/05/17 10/05/17 10/05/17 10:41 06:22 02:00 POC Glucose 129 H 104 122 H 10/04/17 22:55 POC Glucose 125 H Microbiology 10/04/17 19:40 Venous blood - Left Arm Blood Culture - Preliminary Specimen has been received and culture in progress. No Growth to date. 10/04/17 18:53 Venous blood - Left Arm Blood Culture - Preliminary Specimen has been received and culture in progress. No Growth to date. 10/04/17 16:55 Urine valdez catheter Urine Culture - Preliminary NO GROWTH AT 12 HOURS Laboratory Tests 10/04/17 10/04/17 10/05/17 18:53 18:53 05:01 Potassium 3.7 Creatinine 1.05 Estimated GFR (MDRD) 54 Phosphorus 4.1 Magnesium 2.2 B-Natriuretic Peptide 76.4 Radiology Reviewed by me: Yes (PCXR - ? RLL assymmetric edema vs infiltrate) EKG Reviewed by me: Yes (Tele - SR) Phys Exam - Physical Examination Constitutional: NAD alert, responsive HEENT: PERRLA, moist MMs, sclera anicteric, oral pharynx no lesions Neck: no nodes, no JVD, supple scatttered coarse sounds, exp wheezes diminished in bases distant heart sounds Cardiovascular: RRR, no significant murmur, no rub, gallop obese Gastrointestinal: soft, non-tender, no distention, positive bowel sounds bilat LE edema, appears chronic Musculoskeletal: pulses present Neurological: non-focal, normal sensation, moves all 4 limbs Psychiatric: normal affect, A&O x 3 Skin: no rash, normal turgor, cap refill <2 seconds Deviation from normal: Valdez catheter with merari urine Dx/Plan (1) Dyspnea Code(s): R06.00 - DYSPNEA, UNSPECIFIED Status: Chronic Comment: Multifactorial with ? component of Pneumonia, continue supportive mgmt, Duonebs , O2 prn (2) Community acquired pneumonia Code(s): J18.9 - PNEUMONIA, UNSPECIFIED ORGANISM Status: Acute Qualifiers: Laterality: right Lung location: lower lobe of lung Qualified Code(s): J18.1 - Lobar pneumonia, unspecified organism Comment: Suspected, continue Zithromax and Rocephin and monitor clinical response, Duonebs, Pneumovax current (3) Lower extremity edema Code(s): R60.0 - LOCALIZED EDEMA Status: Chronic Comment: Suspect secondary to Norvasc, d/c Norvasc, no current evidence of CHF exacerbation (4) Diabetes type 2, uncontrolled Code(s): E11.65 - TYPE 2 DIABETES MELLITUS WITH HYPERGLYCEMIA Status: Chronic Qualifiers: Diabetes mellitus half-way insulin use: with half-way use Diabetes mellitus complication status: with kidney complications Chronic kidney disease stage: stage 2 (mild) Comment: Detemir 60u sc BID, ISS, ADA (5) Hypertension Code(s): I10 - ESSENTIAL (PRIMARY) HYPERTENSION Status: Chronic Qualifiers: Hypertension type: essential hypertension Qualified Code(s): I10 - Essential (primary) hypertension Comment: Resume home BP regimen, d/c Norvasc, start Hydralazine 25mg TID (6) Morbid obesity with BMI of 40.0-44.9, adult Code(s): E66.01 - MORBID (SEVERE) OBESITY DUE TO EXCESS CALORIES; Z68.41 - BODY MASS INDEX (BMI) 40.0-44.9, ADULT Status: Chronic Comment: Dietitian consult - Plan continue antibiotics, PT/OT, social services specialist, out of bed/ambulate Stable overall -: Continue Rocephin and Zithromax -: D/C Norvasc due to LE edema -: Start Hydralazine 25mg TID -: PT for functional assessment * AM lab: BMP, CBC, Mg++
[2017-10-05] MEDS ORDERED: Lorazepam 0.5 MG TAB PO SCH (17:15)
[2017-10-05] MEDS: Prochlorperazine Maleate 5 MG TAB PO SCH (20:37)
[2017-10-05] MEDS: tiZANidine HCl 4 MG TAB PO SCH (20:37)
[2017-10-05] MEDS: hydrALAZINE 25 MG TAB PO SCH (20:38)
[2017-10-05] MEDS: Ondansetron ODT 4 MG TAB PO PRN (20:38)
[2017-10-05] MEDS: Baclofen 10 MG TAB PO SCH (20:38)
[2017-10-05] MEDS: Benzonatate 100 MG CAP PO SCH (20:38)
[2017-10-05] MEDS: Metoprolol Tartrate 25 MG TAB PO SCH (20:39)
[2017-10-05] MEDS: Furosemide 40 MG TAB PO SCH (20:39)
[2017-10-05] MEDS: Gabapentin 400 MG CAP PO SCH (20:39)
[2017-10-05] MEDS: Nystatin Cream 30 GM TUBE TOP SCH (20:41)
[2017-10-05] MEDS: Insulin Detemir 100 UNITS/ML 60 UNITS in Pre-Filled Syringe 1 EACH SC SCH (20:45)
[2017-10-05] MEDS ORDERED: Benzonatate 100 MG CAP PO SCH (21:00)
[2017-10-05] MEDS ORDERED: cefTRIAXone\\ROCEPHIN 1 GM in Sterile Water 10 ML IVPB SCH (21:00)
[2017-10-05] MEDS ORDERED: Spiriva 18 MCG CAP (Box of 5 Caps) INH SCH (21:00)
[2017-10-05] MEDS ORDERED: Baclofen 10 MG TAB PO SCH (21:00)
[2017-10-05] MEDS ORDERED: tiZANidine HCl 4 MG TAB PO SCH (21:00)
[2017-10-05] MEDS ORDERED: Azithromycin 500 MG in Sodium Chloride 0.9% 250 ML 250 ML IVPB SCH (22:00)
[2017-10-06] MEDS: Levothyroxine Sodium 25 MCG TAB PO SCH (05:05)
[2017-10-06 05:26] LABS: #Basophils 0.1 thou/uL (0.0-0.2); #Eosinphils 0.2 thou/uL (0.0-0.7); #Lymphocytes 1.3 thou/uL (1.20-3.40); #Monocytes 0.5 thou/uL (0.11-0.59); #Neutrophils 4.8 thou/uL (1.40-6.50); %Eosinophils 3.5 % (0.0-10.0); %Monocytes 6.6 % (0.0-10.0); %Neutrophils 69.8 % (42.0-75.0); Hemoglobin 12.8 g/dL (12.0-16.0); Mean Corpuscular HGB CONC 33.7 g/dL (32.0-36.0); Mean Corpuscular Hemoglobin 29.4 pg (27.0-31.0); Mean Corpuscular Volume 87.1 fl (81.0-99.0); Mean Platelet Volume 7.7 fL (7.4-10.4); Platelet Count 178 thou/uL (130-400); RBC Distribution Width 13.3 % (11.5-14.5); Red Blood Cell (RBC) Count 4.34 mill/uL (4.20-5.40); White Blood Cell (WBC) Count 6.9 thou/uL (4.8-10.8)
[2017-10-06 05:41] LABS: Albumin 3.3 g/dL (3.5-5.0); Anion Gap 9 mmol/L (10-20); BUN (Urea Nitrogen) 15 mg/dL (9.8-20.1); BUN/Creatinine Ratio 15.46; Calc. Creatinine Clearance 127 mL/min (70-130); Calcium 8.7 mg/dL (7.8-10.44); Carbon Dioxide 28 mmol/L (22-29); Chloride 105 mmol/L (98-107); Estimated GFR-MDRD 59; Glucose 145 mg/dL (70-105); Magnesium 2.3 mg/dL (1.6-2.6); Phosphorus 4.1 mg/dL (2.3-4.7); Potassium 3.9 mmol/L (3.5-5.1); Sodium 138 mmol/L (136-145)
[2017-10-06] MEDS ORDERED: Levothyroxine Sodium 25 MCG TAB PO SCH (06:00)
[2017-10-06] MEDS: Enoxaparin Sodium 40 MG/0.4 ML SYRINGE SC SCH (08:08)
[2017-10-06] MEDS: Insulin Detemir 100 UNITS/ML 60 UNITS in Pre-Filled Syringe 1 EACH SC SCH ×2 (08:08→20:18)
[2017-10-06] MEDS: Gabapentin 400 MG CAP PO SCH ×2 (08:09→20:05)
[2017-10-06] MEDS: Potassium Chloride 20 MEQ TAB PO SCH ×2 (08:09→15:59)
[2017-10-06] MEDS: Atorvastatin Calcium 10 MG TAB PO SCH (08:09)
[2017-10-06] MEDS: Metoprolol Tartrate 25 MG TAB PO SCH ×2 (08:10→20:06)
[2017-10-06] MEDS: Furosemide 40 MG TAB PO SCH (08:10)
[2017-10-06] MEDS: Prochlorperazine Maleate 5 MG TAB PO SCH ×2 (08:10→20:06)
[2017-10-06] MEDS: Aspirin 81 mg Enteric Coated Tablet PO SCH (08:10)
[2017-10-06] MEDS: hydrALAZINE 25 MG TAB PO SCH ×3 (08:11→20:06)
[2017-10-06] MEDS: Famotidine 20 MG TAB PO SCH ×2 (08:11→20:05)
[2017-10-06] MEDS: Docusate 100 MG CAP PO SCH ×2 (09:10→20:06)
[2017-10-06] MEDS: Benzonatate 100 MG CAP PO SCH ×2 (09:10→20:16)
[2017-10-06] MEDS: Nystatin Cream 30 GM TUBE TOP SCH ×2 (09:12→20:07)
[2017-10-06] MEDS: Insulin Regular 300 UNITS/3 ML VIAL SC PRN ×2 (10:59→17:48)
[2017-10-06 12:12] VITALS: BMI 44.0
--- NOTE | 2017-10-06 16:48 | PDOC.PN ---
- Subjective Encounter Start Date: 10/06/17 Encounter Start Time: 16:40 Subjective: f/u for dyspnea and initially thought PNA on Zithromax and Rocephin. -: SOB improved and no fever. Swelling LE's decreased. Weight down -: 4-5lbs since admit. - Objective Resuscitation Status: Resuscitation Status FULL:Full Resuscitation MAR Reviewed: Yes Vital Signs & Weight: Vital Signs (12 hours) Temp Pulse Pulse Pulse Resp BP BP 10/06/17 16:25 98.2 F 66 16 10/06/17 15:59 68 183/77 H 10/06/17 12:00 97.4 F L 60 18 10/06/17 08:45 68 65 188/89 H 10/06/17 08:11 61 175/83 H 10/06/17 08:10 98.5 F 61 18 10/06/17 07:54 98.5 F 61 18 10/06/17 04:40 BP BP Pulse Ox Pulse Ox 10/06/17 16:25 183/77 H 94 L 10/06/17 15:59 10/06/17 12:00 170/77 H 93 L 10/06/17 08:45 188/84 H 93 L 10/06/17 08:11 10/06/17 08:10 90 L 10/06/17 07:54 175/83 H 90 L 10/06/17 04:40 92 L Weight Admit Weight 285 lb Weight 281 lb 6.4 oz I&O: 10/05/17 10/06/17 10/07/17 06:59 06:59 06:59 Intake Total 150 1260 750 Output Total 1250 2025 750 Balance -1100 -765 0 Result Diagrams: 10/06/17 05:01 10/06/17 05:01 Additional Labs: Accuchecks 10/06/17 10/06/17 10/06/17 10:48 05:43 01:15 POC Glucose 193 H 129 H 185 H 10/05/17 10/05/17 20:53 17:28 POC Glucose 155 H 132 H Microbiology 10/04/17 16:55 Urine valdez catheter Urine Culture - Final NO GROWTH AT 36 HOURS 10/04/17 19:40 Venous blood - Left Arm Blood Culture - Preliminary Specimen has been received and culture in progress. No Growth to date. 10/04/17 19:40 Venous blood - Left Arm Blood Culture - Preliminary NO GROWTH AT 48 HOURS 10/04/17 18:53 Venous blood - Left Arm Blood Culture - Preliminary Specimen has been received and culture in progress. No Growth to date. 10/04/17 18:53 Venous blood - Left Arm Blood Culture - Preliminary NO GROWTH AT 48 HOURS 10/04/17 16:55 Urine valdez catheter Urine Culture - Preliminary NO GROWTH AT 12 HOURS Laboratory Tests 10/04/17 10/04/17 10/05/17 18:53 18:53 05:01 Potassium 3.7 Creatinine 1.05 Estimated GFR (MDRD) 54 Phosphorus 4.1 Magnesium 2.2 B-Natriuretic Peptide 76.4 EKG Reviewed by me: Yes (Tele - SR) Phys Exam - Physical Examination Constitutional: NAD alert, talkative HEENT: PERRLA, moist MMs, sclera anicteric, oral pharynx no lesions Neck: no nodes, no JVD, supple diminished in bases Respiratory: no rales, no rhonchi, clear to auscultation bilateral Cardiovascular: RRR, no significant murmur, no rub, gallop Gastrointestinal: soft, non-tender, no distention, positive bowel sounds decreased edema in LE's Musculoskeletal: pulses present, edema present Neurological: non-focal, normal sensation, moves all 4 limbs Psychiatric: normal affect, A&O x 3 Skin: no rash, normal turgor, cap refill <2 seconds Deviation from normal: Valdez with merari urine Dx/Plan (1) Dyspnea Code(s): R06.00 - DYSPNEA, UNSPECIFIED Status: Chronic Comment: Multifactorial with ? component of Pneumonia, continue supportive mgmt, Duonebs , O2 prn, improved overall (2) Community acquired pneumonia Code(s): J18.9 - PNEUMONIA, UNSPECIFIED ORGANISM Status: Acute Qualifiers: Laterality: right Lung location: lower lobe of lung Qualified Code(s): J18.1 - Lobar pneumonia, unspecified organism Comment: Suspected but unclear, d/c Rocephin and Zithromax, start Omnicef 300mg BID (3) Lower extremity edema Code(s): R60.0 - LOCALIZED EDEMA Status: Chronic Comment: Suspect secondary to Norvasc, d/c Norvasc, no current evidence of CHF exacerbation (4) Diabetes type 2, uncontrolled Code(s): E11.65 - TYPE 2 DIABETES MELLITUS WITH HYPERGLYCEMIA Status: Chronic Qualifiers: Diabetes mellitus technician terminal and repeater insulin use: with shelter use Diabetes mellitus complication status: with kidney complications Chronic kidney disease stage: stage 2 (mild) Comment: Detemir 60u sc BID, ISS, ADA (5) Hypertension Code(s): I10 - ESSENTIAL (PRIMARY) HYPERTENSION Status: Chronic Qualifiers: Hypertension type: essential hypertension Qualified Code(s): I10 - Essential (primary) hypertension Comment: Resume home BP regimen, d/c Norvasc, labile, increase Hydralazine 50mg TID, continue to monitor trend, titrate to optimal response (6) Morbid obesity with BMI of 40.0-44.9, adult Code(s): E66.01 - MORBID (SEVERE) OBESITY DUE TO EXCESS CALORIES; Z68.41 - BODY MASS INDEX (BMI) 40.0-44.9, ADULT Status: Chronic Comment: Dietitian consult - Plan plan discussed w/ family, continue antibiotics, PT/OT, social science instructor, out of bed/ambulate Stable overall -: D/C Rocephin and Zithromax -: Start Omnicef 300mg BID -: Decrease Lasix 40mg BID -: Avoid Norvasc * OOB/ambulate * AM lab: BMP
[2017-10-06] MEDS ORDERED: hydrALAZINE 25 MG TAB PO SCH (18:00)
[2017-10-06] MEDS ORDERED: Furosemide 40 MG TAB PO SCH ×2 (18:00→21:00)
[2017-10-06] MEDS: Baclofen 10 MG TAB PO SCH (20:05)
[2017-10-06] MEDS: Cefdinir 300 MG CAP PO SCH (20:05)
[2017-10-06] MEDS: tiZANidine HCl 4 MG TAB PO SCH (20:16)
[2017-10-06] MEDS: HYDROcodone/Acetaminophen 10/325 mg Tablet PO PRN (20:17)
[2017-10-07] MEDS: Levothyroxine Sodium 25 MCG TAB PO SCH (04:57)
[2017-10-07 05:16] LABS: Albumin 3.4 g/dL (3.5-5.0); Anion Gap 10 mmol/L (10-20); BUN (Urea Nitrogen) 21 mg/dL (9.8-20.1); Calc. Creatinine Clearance 106 mL/min (70-130); Calcium 8.9 mg/dL (7.8-10.44); Carbon Dioxide 27 mmol/L (22-29); Chloride 105 mmol/L (98-107); Estimated GFR-MDRD 47; Glucose 197 mg/dL (70-105); Phosphorus 4.5 mg/dL (2.3-4.7); Potassium 4.1 mmol/L (3.5-5.1); Sodium 138 mmol/L (136-145)
[2017-10-07] MEDS: Insulin Regular 300 UNITS/3 ML VIAL SC PRN (06:24)
[2017-10-07] MEDS: Enoxaparin Sodium 40 MG/0.4 ML SYRINGE SC SCH (08:04)
[2017-10-07] MEDS: Prochlorperazine Maleate 5 MG TAB PO SCH ×2 (08:05→21:30)
[2017-10-07] MEDS: Nystatin Cream 30 GM TUBE TOP SCH ×2 (08:05→21:31)
[2017-10-07] MEDS: Potassium Chloride 20 MEQ TAB PO SCH ×2 (08:05→17:10)
[2017-10-07] MEDS: Gabapentin 400 MG CAP PO SCH ×2 (08:06→21:27)
[2017-10-07] MEDS: hydrALAZINE 25 MG TAB PO SCH ×3 (08:06→21:28)
[2017-10-07] MEDS: Furosemide 40 MG TAB PO SCH ×2 (08:06→21:29)
[2017-10-07] MEDS: Aspirin 81 mg Enteric Coated Tablet PO SCH (08:07)
[2017-10-07] MEDS: Atorvastatin Calcium 10 MG TAB PO SCH (08:07)
[2017-10-07] MEDS: Cefdinir 300 MG CAP PO SCH ×2 (08:07→21:28)
[2017-10-07] MEDS: Famotidine 20 MG TAB PO SCH ×2 (08:07→21:29)
[2017-10-07] MEDS: Benzonatate 100 MG CAP PO SCH ×2 (08:07→21:28)
[2017-10-07] MEDS: Metoprolol Tartrate 25 MG TAB PO SCH (08:07)
[2017-10-07] MEDS: Insulin Detemir 100 UNITS/ML 60 UNITS in Pre-Filled Syringe 1 EACH SC SCH ×2 (08:49→21:27)
[2017-10-07] MEDS: Docusate 100 MG CAP PO SCH ×2 (08:50→21:30)
--- NOTE | 2017-10-07 16:18 | PDOC.PN ---
- Subjective Encounter Start Date: 10/07/17 Encounter Start Time: 16:05 Subjective: f/u for dyspnea likely multifactorial initially felt to be PNA. Overall -: improved. LE edema persists felt to be related to Norvasc and not HF -: BP still labile. Nsg reports pt continuing to go out to smoke. - Objective Resuscitation Status: Resuscitation Status FULL:Full Resuscitation MAR Reviewed: Yes Vital Signs & Weight: Vital Signs (12 hours) Temp Pulse Resp BP BP BP Pulse Ox 10/07/17 15:37 188/88 H 10/07/17 15:17 98.1 F 66 15 174/79 H 92 L 10/07/17 15:03 67 174/79 H 10/07/17 11:41 98.2 F 67 20 129/67 93 L 10/07/17 08:10 98.7 F 66 20 94 L 10/07/17 08:06 66 173/82 H 10/07/17 07:30 98.7 F 66 20 173/82 H 94 L Weight Admit Weight 285 lb Weight 285 lb 9.6 oz I&O: 10/06/17 10/07/17 10/08/17 06:59 06:59 06:59 Intake Total 1260 1385 Output Total 2025 1550 500 Balance -769 -165 500 Result Diagrams: 10/06/17 05:01 10/07/17 04:44 Additional Labs: Accuchecks 10/07/17 10/07/17 10/06/17 11:20 05:47 21:13 POC Glucose 120 H 245 H 164 H 10/06/17 17:00 POC Glucose 173 H Microbiology 10/04/17 16:55 Urine valdez catheter Urine Culture - Final NO GROWTH AT 36 HOURS 10/04/17 19:40 Venous blood - Left Arm Blood Culture - Preliminary Specimen has been received and culture in progress. No Growth to date. 10/04/17 19:40 Venous blood - Left Arm Blood Culture - Preliminary NO GROWTH AT 48 HOURS 10/04/17 18:53 Venous blood - Left Arm Blood Culture - Preliminary Specimen has been received and culture in progress. No Growth to date. 10/04/17 18:53 Venous blood - Left Arm Blood Culture - Preliminary NO GROWTH AT 48 HOURS 10/04/17 16:55 Urine valdez catheter Urine Culture - Preliminary NO GROWTH AT 12 HOURS Laboratory Tests 10/04/17 10/04/17 10/05/17 18:53 18:53 05:01 Potassium 3.7 Creatinine 1.05 Estimated GFR (MDRD) 54 Phosphorus 4.1 Magnesium 2.2 B-Natriuretic Peptide 76.4 Phys Exam - Physical Examination Constitutional: NAD HEENT: PERRLA, moist MMs, sclera anicteric, oral pharynx no lesions Neck: no nodes, no JVD, supple diminished in bases Respiratory: no wheezing, no rales, no rhonchi Cardiovascular: RRR, no significant murmur, no rub, gallop Gastrointestinal: soft, non-tender, no distention, positive bowel sounds Musculoskeletal: pulses present, edema present Neurological: non-focal, normal sensation, moves all 4 limbs Psychiatric: normal affect, A&O x 3 Skin: no rash, normal turgor, cap refill <2 seconds Dx/Plan (1) Dyspnea Code(s): R06.00 - DYSPNEA, UNSPECIFIED Status: Chronic Comment: Multifactorial with ? component of Pneumonia, continue supportive mgmt, Duonebs , O2 prn, improved overall (2) Lower extremity edema Code(s): R60.0 - LOCALIZED EDEMA Status: Chronic Comment: Suspect secondary to Norvasc, d/c Norvasc, no current evidence of CHF exacerbation (3) Diabetes type 2, uncontrolled Code(s): E11.65 - TYPE 2 DIABETES MELLITUS WITH HYPERGLYCEMIA Status: Chronic Qualifiers: Diabetes mellitus shelter insulin use: with superintendent container terminal use Diabetes mellitus complication status: with kidney complications Chronic kidney disease stage: stage 2 (mild) Comment: Detemir 60u sc BID, ISS, ADA (4) Hypertension Code(s): I10 - ESSENTIAL (PRIMARY) HYPERTENSION Status: Chronic Qualifiers: Hypertension type: essential hypertension Qualified Code(s): I10 - Essential (primary) hypertension Comment: Resume home BP regimen, d/c Norvasc, labile, increase Hydralazine 50mg TID, continue to monitor trend, labile likely due to continued tobacco abuse, increase Metoprolol 50mg BID (5) Community acquired pneumonia Code(s): J18.9 - PNEUMONIA, UNSPECIFIED ORGANISM Status: Acute Qualifiers: Laterality: right Lung location: lower lobe of lung Qualified Code(s): J18.1 - Lobar pneumonia, unspecified organism Comment: Suspected but unclear, d/c Rocephin and Zithromax, start Omnicef 300mg BID, resolving (6) Morbid obesity with BMI of 40.0-44.9, adult Code(s): E66.01 - MORBID (SEVERE) OBESITY DUE TO EXCESS CALORIES; Z68.41 - BODY MASS INDEX (BMI) 40.0-44.9, ADULT Status: Chronic Comment: Dietitian consult (7) Tobacco abuse Code(s): Z72.0 - TOBACCO USE Status: Acute Comment: Tobacco cessation resources - Plan continue antibiotics, PT/OT, social insurance analyst, out of bed/ambulate Stable overall -: Continue Hydralazine 50mg TID -: Increase Metoprolol 50mg BID -: Continue Lasix 40mg po BID -: OOB/ambulate * Likely home in 24 * AM lab: BMP
[2017-10-07] MEDS: tiZANidine HCl 4 MG TAB PO SCH (21:28)
[2017-10-07] MEDS: Metoprolol Tartrate 50 MG TAB PO SCH (21:28)
[2017-10-07] MEDS: Baclofen 10 MG TAB PO SCH (21:29)
[2017-10-07] MEDS: Ondansetron ODT 4 MG TAB PO PRN (21:33)
[2017-10-07] MEDS: HYDROcodone/Acetaminophen 10/325 mg Tablet PO PRN (21:33)
[2017-10-08 05:47] LABS: Albumin 3.4 g/dL (3.5-5.0); Anion Gap 11 mmol/L (10-20); BUN (Urea Nitrogen) 19 mg/dL (9.8-20.1); Calc. Creatinine Clearance 119 mL/min (70-130); Carbon Dioxide 27 mmol/L (22-29); Chloride 105 mmol/L (98-107); Estimated GFR-MDRD 54; Glucose 134 mg/dL (70-105); Phosphorus 4.6 mg/dL (2.3-4.7); Potassium 4.1 mmol/L (3.5-5.1); Sodium 139 mmol/L (136-145)
[2017-10-08] MEDS: Metoprolol Tartrate 50 MG TAB PO SCH ×2 (07:49→20:41)
[2017-10-08] MEDS: hydrALAZINE 25 MG TAB PO SCH ×3 (07:49→20:41)
[2017-10-08] MEDS: Aspirin 81 mg Enteric Coated Tablet PO SCH (07:50)
[2017-10-08] MEDS: Levothyroxine Sodium 25 MCG TAB PO SCH (07:50)
[2017-10-08] MEDS: Atorvastatin Calcium 10 MG TAB PO SCH (07:50)
[2017-10-08] MEDS: Furosemide 40 MG TAB PO SCH ×2 (07:50→20:42)
[2017-10-08] MEDS: Gabapentin 400 MG CAP PO SCH ×2 (07:50→20:42)
[2017-10-08] MEDS: Cefdinir 300 MG CAP PO SCH ×2 (07:50→20:42)
[2017-10-08] MEDS: Famotidine 20 MG TAB PO SCH ×2 (07:50→20:41)
[2017-10-08] MEDS: Benzonatate 100 MG CAP PO SCH ×2 (07:50→20:42)
[2017-10-08] MEDS: Insulin Detemir 100 UNITS/ML 60 UNITS in Pre-Filled Syringe 1 EACH SC SCH ×2 (07:51→20:42)
[2017-10-08] MEDS: Enoxaparin Sodium 40 MG/0.4 ML SYRINGE SC SCH (07:51)
[2017-10-08] MEDS: Docusate 100 MG CAP PO SCH ×2 (08:00→20:43)
[2017-10-08] MEDS: Potassium Chloride 20 MEQ TAB PO SCH ×2 (08:00→15:47)
[2017-10-08] MEDS: Nystatin Cream 30 GM TUBE TOP SCH ×2 (08:00→20:43)
[2017-10-08] MEDS: Prochlorperazine Maleate 5 MG TAB PO SCH ×2 (08:52→20:43)
[2017-10-08] MEDS: HYDROcodone/Acetaminophen 10/325 mg Tablet PO PRN ×3 (08:52→20:50)
--- NOTE | 2017-10-08 15:48 | PDOC.PN ---
- Subjective Encounter Start Date: 10/08/17 Encounter Start Time: 11:15 Subjective: pt walking back to her room after smoking - Objective Resuscitation Status: Resuscitation Status FULL:Full Resuscitation Vital Signs & Weight: Vital Signs (12 hours) Temp Pulse Resp BP Pulse Ox 10/08/17 11:09 98.4 F 59 L 16 170/85 H 89 L 10/08/17 08:04 98.3 F 63 16 132/63 90 L 10/08/17 08:00 98.3 F 63 16 10/08/17 07:49 58 L 10/08/17 04:00 97.3 F L 58 L 24 H 119/87 89 L Weight Admit Weight 285 lb Weight 285 lb 9.6 oz I&O: 10/07/17 10/08/17 10/09/17 06:59 06:59 06:59 Intake Total 1385 750 200 Output Total 1550 2075 650 Balance -971 -0623 -547 Result Diagrams: 10/06/17 05:01 10/08/17 05:05 Additional Labs: Accuchecks 10/08/17 10/08/17 10/07/17 11:12 04:42 20:28 POC Glucose 141 H 150 H 123 H 10/07/17 16:45 POC Glucose 75 Phys Exam - Physical Examination HEENT: PERRLA, moist MMs, sclera anicteric, TM's clear, oral pharynx no lesions , 2+ tonsils Neck: no nodes, no JVD, supple, full ROM Respiratory: no wheezing, no rales, no rhonchi, wheezing present, clear to auscultation bilateral Cardiovascular: RRR, no significant murmur, no rub, gallop, irregular Gastrointestinal: soft, non-tender, no distention, positive bowel sounds Musculoskeletal: edema present mild to lower ext Neurological: non-focal, normal sensation, moves all 4 limbs Dx/Plan - Plan (1) Dyspnea (2) Lower extremity edema (3) Diabetes type 2, uncontrolled (4) Hypertension (5) Community acquired pneumonia (6) Morbid obesity with BMI of 40.0-44.9, adult (7) Tobacco abuse - Plan continue antibiotics, 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 Review of Systems - Review of Systems Eyes: negative: Pain, Vision Change, Conjunctivae Inflammation, Eyelid Inflammation, Redness, Other ENT: negative: Ear Pain, Ear Discharge, Nose Pain, Nose Discharge, Nose Congestion, Mouth Pain, Mouth Swelling, Throat Pain, Throat Swelling, Other Respiratory: negative: Cough, Dry, Shortness of Breath, Hemoptysis, SOB with Excertion, Pleuritic Pain, Sputum, Wheezing Cardiovascular: negative: chest pain, palpitations, orthopnea, paroxysmal nocturnal dyspnea, edema, light headedness, other Gastrointestinal: negative: Nausea, Vomiting, Abdominal Pain, Diarrhea, Constipation, Melena, Hematochezia, Other Genitourinary: negative: Dysuria, Frequency, Incontinence, Hematuria, Retention , Other - Medications/Allergies Allergies/Adverse Reactions: Allergies Allergy/AdvReac Type Severity Reaction Status Date / Time ibuprofen Allergy tongue Verified 10/05/17 01:16 swelling Sulfa (Sulfonamide Allergy PT NOT Verified 07/13/17 22:25 Antibiotics) SURE OF REACTION STATED HAPPENED CHILD Medications: Current Medications Acetaminophen (Tylenol) 650 mg PO Q4H PRN PRN Reason: Headache/Fever or Pain Hydrocodone Bitart/Acetaminophen ([place] 10/325) 1 tab PO Q4H PRN PRN Reason: Pain Last Admin: 10/08/17 15:49 Dose: 1 tab Albuterol/Ipratropium (Duoneb) 3 ml NEB [id number] PRN PRN Reason: SOB &/or Wheezing Aspirin (Ecotrin) 81 mg PO DAILY [facility] Last Admin: 10/08/17 07:50 Dose: 81 mg Atorvastatin Calcium (Lipitor) 10 mg PO DAILY [facility] Last Admin: 10/08/17 07:50 Dose: 10 mg Baclofen (Lioresal) 10 mg PO HS [facility] Last Admin: 10/07/17 21:29 Dose: 10 mg Benzonatate (Tessalon) 100 mg PO BID [facility] Last Admin: 10/08/17 07:50 Dose: 100 mg Calcium Carbonate (Tums) 1,000 mg PO Q4H PRN PRN Reason: Heartburn or Indigestion Cefdinir (Omnicef) 300 mg PO BID [facility] Last Admin: 10/08/17 07:50 Dose: 300 mg Dextrose/Water (Dextrose 50%) 25 gm SLOW IVP PRN PRN PRN Reason: Hypoglycemia Docusate Sodium (Colace) 100 mg PO BID [facility] Last Admin: 10/08/17 08:00 Dose: Not Given Enoxaparin Sodium (Lovenox) 40 mg SC 0900 [facility] Last Admin: 10/08/17 07:51 Dose: 40 mg Famotidine (Pepcid) 20 mg PO BID [facility] Last Admin: 10/08/17 07:50 Dose: 20 mg Furosemide (Lasix) 40 mg PO BID [facility] Last Admin: 10/08/17 07:50 Dose: 40 mg Gabapentin (Neurontin) 800 mg PO BID [facility] Last Admin: 10/08/17 07:50 Dose: 800 mg Glucagon (Glucagon) 1 mg IM PRN PRN PRN Reason: Hypoglycemia Hydralazine HCl (Apresoline) 10 mg SLOW IVP Q4H PRN PRN Reason: SBP Greater Than 180 Hydralazine HCl (Apresoline) 50 mg PO TID [facility] Last Admin: 10/08/17 15:47 Dose: 50 mg Dextrose/Water (D5w) 1,000 mls @ 0 mls/hr IV .Q0M PRN; As Directed PRN Reason: Hypoglycemia Insulin Detemir 60 units/ (Miscellaneous Medication) 0.6 mls @ 0 mls/hr SC BID [facility] PRN Reason: As Directed Last Admin: 10/08/17 07:51 Dose: 0.6 mls Insulin Human Regular (Humulin R) 0 units SC .BEDTIME SLIDING SC PRN PRN Reason: Bedtime Correctional Scale Insulin Human Regular (Humulin R) 0 units SC .AGGRESSIVE SLIDING PRN PRN Reason: Aggressive Sliding Scale Last Admin: 10/07/17 06:24 Dose: 2 unit Levothyroxine Sodium (Synthroid) 25 mcg PO 0600 [facility] Last Admin: 10/08/17 07:50 Dose: 25 mcg Lorazepam (Ativan) 0.5 mg PO ASDIR [facility] Magnesium Hydroxide (Milk Of Magnesium) 30 ml PO DAILYPRN PRN PRN Reason: Constipation Metoprolol Tartrate (Lopressor) 50 mg PO BID [facility] Last Admin: 10/08/17 07:49 Dose: 50 mg Nitroglycerin (Nitrostat) 0.4 mg PO Q5MIN PRN PRN Reason: Chest Pain Nitroglycerin (Nitro-Dur 0.4mg/Hr Patch) 1 patch TD DAILY PRN PRN Reason: Chest Pain Last Admin: 10/07/17 23:34 Dose: 1 patch Nystatin (Mycostatin Cream) 0 gm TOP BID [facility] Last Admin: 10/08/17 08:00 Dose: Not Given Ondansetron HCl (Zofran Odt) 4 mg PO Q6H PRN PRN Reason: Nausea/Vomiting Last Admin: 10/07/17 21:33 Dose: 4 mg Pantoprazole Sodium (Protonix) 40 mg PO DAILY [facility] Last Admin: 10/08/17 07:49 Dose: 40 mg Potassium Chloride (K-Dur) 20 meq PO BID[facility] Last Admin: 10/08/17 15:47 Dose: Not Given Prochlorperazine Maleate (Compazine) 10 mg PO BID [facility] Last Admin: 10/08/17 08:52 Dose: 10 mg Quetiapine Fumarate (Seroquel) 100 mg PO [facility] Last Admin: 10/07/17 21:30 Dose: 100 mg Senna (Senokot) 2 tab PO HSPRN PRN PRN Reason: Constipation Sodium Chloride (Flush - Normal Saline) 10 ml IVF Q12HR [facility] Last Admin: 10/08/17 08:01 Dose: Not Given Sodium Chloride (Flush - Normal Saline) 10 ml IVF PRN PRN PRN Reason: Saline Flush Last Admin: 10/05/17 02:11 Dose: 10 ml Tizanidine HCl (Zanaflex) 4 mg PO [facility] Last Admin: 10/07/17 21:28 Dose: 4 mg
[2017-10-08] MEDS: tiZANidine HCl 4 MG TAB PO SCH (20:41)
[2017-10-08] MEDS: Baclofen 10 MG TAB PO SCH (20:42)
[2017-10-09] MEDS: Levothyroxine Sodium 25 MCG TAB PO SCH (05:14)
[2017-10-09 05:22] VITALS: TEMP 98.4
[2017-10-09 07:52] VITALS: BP 132/66
[2017-10-09] MEDS: Nystatin Cream 30 GM TUBE TOP SCH (09:17)
[2017-10-09] MEDS: Insulin Detemir 100 UNITS/ML 60 UNITS in Pre-Filled Syringe 1 EACH SC SCH (09:17)
[2017-10-09] MEDS: hydrALAZINE 25 MG TAB PO SCH (09:18)
[2017-10-09] MEDS: Famotidine 20 MG TAB PO SCH (09:18)
[2017-10-09] MEDS: Metoprolol Tartrate 50 MG TAB PO SCH (09:18)
[2017-10-09] MEDS: Enoxaparin Sodium 40 MG/0.4 ML SYRINGE SC SCH (09:18)
[2017-10-09] MEDS: Cefdinir 300 MG CAP PO SCH (09:18)
[2017-10-09] MEDS: Benzonatate 100 MG CAP PO SCH (09:19)
[2017-10-09] MEDS: Furosemide 40 MG TAB PO SCH (09:19)
[2017-10-09] MEDS: Gabapentin 400 MG CAP PO SCH (09:19)
[2017-10-09] MEDS: Potassium Chloride 20 MEQ TAB PO SCH (09:19)
[2017-10-09] MEDS: Atorvastatin Calcium 10 MG TAB PO SCH (09:19)
[2017-10-09] MEDS: Aspirin 81 mg Enteric Coated Tablet PO SCH (09:19)
[2017-10-09] MEDS: Prochlorperazine Maleate 5 MG TAB PO SCH (09:19)
[2017-10-09] MEDS: Docusate 100 MG CAP PO SCH (11:18)
--- NOTE | 2017-10-09 17:44 | DIS ---
DATE OF ADMISSION: 10/05/2017 DATE OF DISCHARGE: 10/09/2017 DISCHARGE DIAGNOSES: As of the followin. Shortness of breath most likely multifactorial secondary to pneumonia versus chronic obstructive pulmonary disease exacerbation. 2. Worsening lower extremity edema. 3. Type 2 diabetes. 4. Hypertension. 5. Possible community-acquired pneumonia. 6. Morbid obesity. 7. Tobacco abuse. HOSPITAL COURSE: The patient is a 57-year-old female, who initially presented to the hospital with c omplaints of shortness of breath. The patient also stated that she had worsening lower extremity edilson ma going on for the past 2 weeks. The patient underwent a chest x-ray, which indicated pulmonary vas cular congestion and possible pneumonia of the right lower lobe. Initially, the patient was treated with IV antibiotics and diuretics. The patient's lower extremity edema continued to improve througho ut the hospital stay. The patient continued to go down to smoke. Her antibiotics IV were changed to oral. She received a total of 6 days of antibiotics. She will be discharged home. She will follow up with her PCP. She also will check a BMP since the patient is on diuretics and on potassium medic ations. The patient was advised against smoking, which she understands. However, she states that isak theodore is not ready to quit smoking as of yet. The patient had an echocardiogram in June of this year, which indicated an EF of 50% to 55% with mild to moderate tricuspid regurgitation. DISCHARGE MEDICATIONS: As of the followin. Lorazepam 0.5 mg p.o. at bedtime. 2. Tizanidine 4 mg p.o. at bedtime. 3. Spiriva 18 mcg b.i.d. 4. Seroquel 100 mg p.o. at bedtime. 5. Compazine 100 mg p.o. b.i.d. 6. Pravastatin 40 mg daily. 7. Omeprazole 40 mg daily. 8. Nitroglycerin 0.5 daily p.r.n. 9. Levothyroxine 25 mcg daily. 10. DuoNebs q.4 hours p.r.n. 11. Lantus 70 units b.i.d. 12. Humalog 30 units t.i.d. 13. Gabapentin 1600 mg p.o. b.i.d. 14. Tessalon 100 mg p.o. b.i.d. 15. Baclofen 10 mg p.o. at bedtime. 16. Hydralazine 50 mg p.o. t.i.d. 17. Senokot 2 tablets at bedtime p.r.n. 18. Potassium 20 mEq daily. 19. Metoprolol 50 mg b.i.d. 20. Lasix 40 mg p.o. b.i.d. 21. Aspirin 81 mg p.o. daily. Medication that was discontinued was Norvasc. PHYSICAL EXAMINATION: VITAL SIGNS: Temperature of 98.4, pulse 66, respiratory rate 20, oxygen saturation 94% room air, and blood pressure 135/66. GENERAL: She is awake, alert, oriented x3, does not appear in distress. CARDIOVASCULAR: S1, S2 present. No murmurs, rubs or gallops. ABDOMEN: Soft, nontender. Bowel sounds are present x2. EXTREMITIES: Lower extremity: Mild edema; however, improved. DISCHARGE INSTRUCTIONS: The patient will be discharged home. She will follow up with her PCP. She stated that she will call her PA, Asuncion, who comes to see her at home. The patient will follow up wi th her as an outpatient.
--- NOTE | 2017-10-19 16:29 | PQF ---
DARSHAN RIVAS MALIK MD [id number] [address] [place] [address] [id number] CLINICAL DOCUMENTATION CLARIFICATION FORM: POST DISCHARGE Addendum to original discharge summary date: ____ Late entry note date: __ DATE: 10/19/17 ATTN: Please exercise your independent, professional judgment in responding to the clarification form. Clinical indicators are provided on the bottom of this form for your review Please check appropriate box(s): HEART FAILURE: A. TYPE: [ ] Systolic / HFrEF [ ] Diastolic / HFpEF [ ] Combined Systolic / Diastolic B. ACUITY [ ] Acute [ ] Acute on Chronic [ ] Chronic [ ] Other diagnosis [ ] Unable to determine In addition, please specify: Present on Admission (POA): [ ] Yes [ ] No [ ] Unable to determine For continuity of documentation, please document condition throughout progress notes and discharge summary. Thank You. CLINICAL INDICATORS - SIGNS / SYMPTOMS / LABS Dyspnea, Hypoxia Peripheral edema RISKS: History of CAD/ischemic heart disease CKD Hypertension TREATMENTS: IV diuretics Oxygen Please send this to Dr Banks. Dr Banks discharged her on 10/09. I only saw her on the day of admission 10/05. NICK
--- NOTE | 2017-10-23 21:12 | PQF ---
DARSHAN RIVAS TABITHA VILLATORO [id number] [address] [place] [address] [id number] CLINICAL DOCUMENTATION CLARIFICATION FORM: POST DISCHARGE Addendum to original discharge summary date: ____ Late entry note date: __ DATE: 10/23/17 ATTN: Please exercise your independent, professional judgment in responding to the clarification form. Clinical indicators are provided on the bottom of this form for your review Please check appropriate box(s): HEART FAILURE: A. TYPE: [ ] Systolic / HFrEF [ ] Diastolic / HFpEF [ ] Combined Systolic / Diastolic B. ACUITY [ ] Acute [ ] Acute on Chronic [ ] Chronic [ ] Other diagnosis [ ] Unable to determine In addition, please specify: Present on Admission (POA): [ ] Yes [ ] No [ ] Unable to determine For continuity of documentation, please document condition throughout progress notes and discharge summary. Thank You. CLINICAL INDICATORS - SIGNS / SYMPTOMS / LABS Dyspnea, Hypoxia Orthopnea / SOB / dyspnea RISKS: CKD Hypertension TREATMENTS: IV diuretics MTDD
== END 2017-10-09 11:28 | disposition home or self-care (01) | DRG 190 ==
LOC: ERS 16:29 → 2SE 21:06 → ERS 23:39
PROVIDERS: ADMIT Internal Medicine; ATTEND Internal Medicine
DX: J44.1 Chronic obstructive pulmonary disease with (acute) exacerbation (principal); J18.9 Pneumonia, unspecified organism; J96.10 Chronic respiratory failure, unspecified whether with hypoxia or hypercapnia; I13.0 Hypertensive heart and chronic kidney disease with heart failure and stage 1 through stage 4 chronic kidney disease, or unspecified chronic kidney disease; I24.8 Other forms of acute ischemic heart disease; E11.40 Type 2 diabetes mellitus with diabetic neuropathy, unspecified; E66.01 Morbid (severe) obesity due to excess calories; Z99.81 Dependence on supplemental oxygen; F17.210 Nicotine dependence, cigarettes, uncomplicated; I34.0 Nonrheumatic mitral (valve) insufficiency; I25.10 Atherosclerotic heart disease of native coronary artery without angina pectoris; E78.5 Hyperlipidemia, unspecified; K22.70 Barrett's esophagus without dysplasia; K21.9 Gastro-esophageal reflux disease without esophagitis; Z85.118 Personal history of other malignant neoplasm of bronchus and lung; Z92.3 Personal history of irradiation; Z92.21 Personal history of antineoplastic chemotherapy; F41.9 Anxiety disorder, unspecified; F32.9 Major depressive disorder, single episode, unspecified; Z88.2 Allergy status to sulfonamides; Z79.899 Other long term (current) drug therapy; N18.3 Chronic kidney disease, stage 3 (moderate)
CPT/HCPCS: 36415; 36416; 71045; 80053; 80069; 81003; 81015; 82553; 83735; 83880; 84484; 85025; 87040; 87086; 93005; 93798; 94640; 94760; 96365; 96375; A4216; J0360; J0456; J0696; J1650; J1815; J1940; J7050; J7620; Q0162; Q0164

== ENCOUNTER 2017-10-11 16:56 | Emergency (ER) | payer MEDICARE, MEDICAID ==
[2017-10-11 18:11] LABS: #Basophils 0.1 thou/uL (0.0-0.2); #Eosinphils 0.3 thou/uL (0.0-0.7); #Lymphocytes 1.3 thou/uL (1.20-3.40); #Monocytes 0.7 thou/uL (0.11-0.59); #Neutrophils 7.5 thou/uL (1.40-6.50); %Basophils 0.5 % (0.0-1.0); %Eosinophils 2.9 % (0.0-10.0); %Lymphocytes 13.4 % (21.0-51.0); %Monocytes 7.5 % (0.0-10.0); %Neutrophils 75.7 % (42.0-75.0); Mean Corpuscular HGB CONC 33.6 g/dL (32.0-36.0); Mean Corpuscular Hemoglobin 29.1 pg (27.0-31.0); Mean Corpuscular Volume 86.8 fl (81.0-99.0); Platelet Count 199 thou/uL (130-400); RBC Distribution Width 13.4 % (11.5-14.5); Red Blood Cell (RBC) Count 4.47 mill/uL (4.20-5.40); White Blood Cell (WBC) Count 9.9 thou/uL (4.8-10.8)
--- NOTE | 2017-10-11 18:32 | RAD ---
CHEST ONE VIEW: 10/11/17 HISTORY: Pain. COMPARISON: 10/04/17. FINDINGS: Portable upright chest: Chronic changes in the lung bases. No pneumothorax. No osseous abnormalities. Stable configuration of the cardiac silhouette. IMPRESSION: No significant interval change. POS: [facility]
[2017-10-11 18:33] LABS: CKMB 2.2 ng/mL (0-6.6); Troponin I 0.027 ng/mL (< 0.028)
[2017-10-11] MEDS ORDERED: Furosemide 40 MG/4 ML VIAL ONE (18:33)
[2017-10-11 18:45] LABS: ALT (SGPT) 14 U/L (8-55); AST (SGOT) 13 U/L (5-34); Albumin 3.8 g/dL (3.5-5.0); Alkaline Phosphatase 65 U/L (40-150); Anion Gap 13 mmol/L (10-20); BUN (Urea Nitrogen) 24 mg/dL (9.8-20.1); Bilirubin, Total 0.9 mg/dL (0.2-1.2); CK (CPK) 206 U/L (29-168); Calc. Creatinine Clearance 0 mL/min (70-130); Calcium 9.2 mg/dL (7.8-10.44); Carbon Dioxide 29 mmol/L (22-29); Chloride 102 mmol/L (98-107); Estimated GFR-MDRD 58; Globulin 2.9 g/dL (2.4-3.5); Glucose 164 mg/dL (70-105); Potassium 3.6 mmol/L (3.5-5.1); Protein, Total 6.7 g/dL (6.0-8.3); Sodium 140 mmol/L (136-145)
== END 2017-10-11 20:07 | disposition home or self-care (01) ==
LOC: ERS 16:56
DX: J44.1 Chronic obstructive pulmonary disease with (acute) exacerbation (principal); R60.0 Localized edema; E11.40 Type 2 diabetes mellitus with diabetic neuropathy, unspecified; I11.0 Hypertensive heart disease with heart failure; I50.9 Heart failure, unspecified; Z86.73 Personal history of transient ischemic attack (TIA), and cerebral infarction without residual deficits; K21.9 Gastro-esophageal reflux disease without esophagitis; F17.210 Nicotine dependence, cigarettes, uncomplicated; Z79.4 Long term (current) use of insulin; Z79.899 Other long term (current) drug therapy
CPT/HCPCS: 71045; 80053; 82550; 82553; 83880; 84484; 85025; 93005; 94640; 96374; J1940; J7620

== ENCOUNTER 2017-10-18 11:11 | Emergency (ER) | payer MEDICARE, MEDICAID ==
[2017-10-18] MEDS ORDERED: ISOVUE-370 76%-LOCM 1 ML ONE (11:58)
[2017-10-18 12:41] LABS: #Basophils 0.1 thou/uL (0.0-0.2); #Eosinphils 0.3 thou/uL (0.0-0.7); #Lymphocytes 1.4 thou/uL (1.20-3.40); #Monocytes 0.8 thou/uL (0.11-0.59); #Neutrophils 9.4 thou/uL (1.40-6.50); %Basophils 0.8 % (0.0-1.0); %Eosinophils 2.9 % (0.0-10.0); %Lymphocytes 11.8 % (21.0-51.0); %Monocytes 6.8 % (0.0-10.0); %Neutrophils 77.7 % (42.0-75.0); Hemoglobin 14.8 g/dL (12.0-16.0); Mean Corpuscular HGB CONC 33.9 g/dL (32.0-36.0); Mean Corpuscular Hemoglobin 29.5 pg (27.0-31.0); Mean Platelet Volume 7.6 fL (7.4-10.4); Platelet Count 231 thou/uL (130-400); RBC Distribution Width 13.4 % (11.5-14.5); Red Blood Cell (RBC) Count 5.02 mill/uL (4.20-5.40); White Blood Cell (WBC) Count 12.1 thou/uL (4.8-10.8)
[2017-10-18 13:05] LABS: ALT (SGPT) 17 U/L (8-55); AST (SGOT) 19 U/L (5-34); Albumin 3.7 g/dL (3.5-5.0); Alkaline Phosphatase 70 U/L (40-150); Anion Gap 13 mmol/L (10-20); BUN (Urea Nitrogen) 14 mg/dL (9.8-20.1); Bilirubin, Total 1.1 mg/dL (0.2-1.2); Calc. Creatinine Clearance 0 mL/min (70-130); Calcium 8.9 mg/dL (7.8-10.44); Carbon Dioxide 27 mmol/L (22-29); Chloride 101 mmol/L (98-107); Estimated GFR-MDRD 63; Globulin 3.2 g/dL (2.4-3.5); Glucose 130 mg/dL (70-105); Protein, Total 6.9 g/dL (6.0-8.3); Sodium 137 mmol/L (136-145)
[2017-10-18 13:06] LABS: Prothrombin Time 13.8 SEC (12.0-14.7)
[2017-10-18 13:08] LABS: CKMB 3.2 ng/mL (0-6.6); Troponin I Less than 0.010 ng/mL (< 0.028)
--- NOTE | 2017-10-18 13:10 | CT ---
CT BRAIN WITHOUT CONTRAST: HISTORY: Left arm pain and headache. COMPARISON: 05/16/2016 FINDINGS: No evidence of acute infarct, hemorrhage, midline shift, or abnormal extraaxial fluid collection is s een. The ventricular size is normal, and the basilar cisterns are patent. The bony calvarium is int act. The visualized paranasal sinuses and mastoid air cells are well aerated. IMPRESSION: No CT evidence of acute intracranial process. POS: [facility]
--- NOTE | 2017-10-18 13:11 | RAD ---
PORTABLE CHEST: HISTORY: Chest pain. FINDINGS: The lungs appear clear. No infiltrate or significant effusion. Heart size is within the normal rang e. Vascular markings are normal. IMPRESSION: No acute process identified. POS: [facility]
[2017-10-18 13:52] LABS: Bilirubin Negative (Negative); Blood, Urine Moderate (Negative); Clarity CLEAR (Clear); Glucose, Urine (Dipstick) Negative (Negative); Leukocyte Negative (Negative); Nitrite Negative (Negative); Protein, Urine (Dipstick) 300 mg/dL (Neg-Trace); Specific Gravity, Urine 1.019 (1.002-1.036); Urobilinogen 0.2 mg/dL (0.2-1.0); pH, Urine 7.5 (5.0-9.0)
[2017-10-18 13:54] LABS: Bacteria/HPF None Seen HPF (None Seen); Hyaline Casts/LPF 0-3 HYALINE CAST LPF (0-3 Hyaline); Pathc Cast-AUWi Flag 0.72 (0-2.49); RBC/HPF 21-50 HPF (0-3); Squamous Epithelial 0-3 HPF (0-3); WBC/HPF 0-3 HPF (0-3)
[2017-10-18] MEDS ORDERED: Acetaminophen 500 MG TAB ONE (14:29)
--- NOTE | 2017-10-18 14:43 | CT ---
CT ANGIOGRAM HEAD: CT ANGIOGRAM NECK: CT PERFUSION: HISTORY: Left arm weakness and numbness. Left arm pain and headache. Onset 20 hours ago. COMPARISON: None. TECHNIQUE: A CT angiogram of the head and neck are performed in the axial plane. Three-dimensional reformatted images are submitted for interpretation. CT perfusion imaging is performed in the axial plane. FINDINGS: The visualized brain parenchyma demonstrates preservation of cortical robb white matter differentiati on. The bilateral ocular lenses are appropriately located. Both globes are intact. Retrobulbar fat is preserved. There is symmetric attenuation of the optic nerves and ocular rectus muscles. There is adequate aeration of the paranasal sinuses and mastoid air cells. Nonspecific mild fullness of the adenoid tonsillar soft tissue. Direct visualization should be perfo rmed on a nonemergent basis. The remainder of the aerodigestive tract is patent. No mucosal abnorma lity. Minimal fullness of the Waldeyer's ring. Midline fatty raphe of the tongue is preserved. The epiglottis has a normal caliber. Pre-epiglottic fat is preserved. There is no prevertebral soft ti ssue swelling. Varying degrees of central canal stenosis and foraminal narrowing on the basis of degenerative change . Vertebral body height is maintained. No fracture. Symmetric attenuation of the sternocleidomastoid muscles. Symmetric attenuation of the parotid and s ubmandibular glands. The thyroid gland is unremarkable. There is benign fatty replacement of the pa rotid gland. The upper mediastinum is unremarkable. Patchy, nonspecific, minimal ground glass opacity in the lung apices. CT ANGIOGRAM NECK: There is appropriate enhancement an luminal diameter of the aortic arch. The right carotid artery origin has appropriate enhancement and luminal diameter. The right innomina te artery, common carotid artery, carotid bifurcation, and internal carotid artery have appropriate e nhancement and luminal diameter. The origin of the left carotid artery has appropriate enhancement and luminal diameter. The left com mon carotid artery, carotid bifurcation, and internal carotid artery have appropriate enhancement and luminal diameter. Both cervical vertebral arteries are patent throughout their course in the neck. Both vertebral body origins are unremarkable. The left vertebral artery is slightly more prominent on the contralateral head. CT ANGIOGRAM HEAD: The distal cervical and intracranial internal carotid arteries have appropriate e nhancement and luminal diameter. Minimal atherosclerosis in both cavernous and paraclinoid segments without significant stenosis. ANTERIOR CIRCULATION: There is early trifurcation of the right M1 segment. Irregularity involving t he right M1 segment suggests mild atherosclerotic disease. A focal area of moderate atherosclerosis in the terminus of the right M1 segment is noted. No evidence of occlusion or high grade stenosis. The left M1 segment and the bilateral A2 segments are unremarkable. Symmetric MCA branches. Symmetr ic A2 segments. POSTERIOR CIRCULATION: Both intracranial vertebral arteries are unremarkable. Both PICA origins are normal. The basilar artery has overall appropriate enhancement in luminal diameter. The left and r ight P1 segments have symmetric enhancement and luminal diameter. CT PERFUSION: There is no evidence of increased mean transit time. No evidence of decreased blood f low or blood volume. No evidence of ischemia or penumbra. IMPRESSION: 1. No evidence of thrombus. 2. Atherosclerosis with mild irregularity involving the right M1 segment, and short segment, moderat e stenosis involving the distal M1 segment. 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 3. No evidence of ischemia or penumbra on the perfusion weighted images. The results of the study were discussed with Dr. Haas on 10/18/2016 at 1:17 p.m. CODE CR POS: [facility]
[2017-10-18] MEDS ORDERED: Methocarbamol 500 MG TAB PO SCH (14:45)
[2017-10-18] MEDS ORDERED: diphenhydrAMINE 50 MG/ML VIAL ONE (15:29)
[2017-10-18] MEDS ORDERED: Metoclopramide HCl 10 MG/2 ML VIAL ONE (15:29)
== END 2017-10-18 16:30 | disposition home or self-care (01) ==
LOC: ERS 11:11
DX: M79.602 Pain in left arm (principal); R51 Headache; R05 Cough; E66.9 Obesity, unspecified; I25.10 Atherosclerotic heart disease of native coronary artery without angina pectoris; I11.0 Hypertensive heart disease with heart failure; I50.9 Heart failure, unspecified; I25.2 Old myocardial infarction; E11.40 Type 2 diabetes mellitus with diabetic neuropathy, unspecified; I69.354 Hemiplegia and hemiparesis following cerebral infarction affecting left non-dominant side; J44.9 Chronic obstructive pulmonary disease, unspecified; K21.9 Gastro-esophageal reflux disease without esophagitis; F17.210 Nicotine dependence, cigarettes, uncomplicated
CPT/HCPCS: 0042T; 70450; 70496; 70498; 71045; 80053; 82550; 82553; 83880; 84484; 85025; 85610; 85730; 93005; 96374; 96375; 99285; 81003; 81015; J1200; J2765

== ENCOUNTER 2017-11-22 13:43 | Emergency (ER) | payer MEDICARE, MEDICAID ==
--- NOTE | 2017-11-22 14:41 | RAD ---
4 VIEW RIGHT ELBOW SERIES: Date: 11/22/17 INDICATION: Post-traumatic pain. FINDINGS: Enthesophyte formation at the olecranon is seen. There is no fracture, dislocation, or joint capsular distention. There is mild osteoarthritis. IMPRESSION: No acute osseous abnormality of the right elbow. POS: [facility]
== END 2017-11-22 15:10 | disposition home or self-care (01) ==
LOC: ERS 13:43
DX: S50.01XA Contusion of right elbow, initial encounter (principal); I25.10 Atherosclerotic heart disease of native coronary artery without angina pectoris; I11.0 Hypertensive heart disease with heart failure; I50.9 Heart failure, unspecified; I25.2 Old myocardial infarction; J44.9 Chronic obstructive pulmonary disease, unspecified; F17.210 Nicotine dependence, cigarettes, uncomplicated; K21.9 Gastro-esophageal reflux disease without esophagitis; Z86.73 Personal history of transient ischemic attack (TIA), and cerebral infarction without residual deficits; W01.0XXA Fall on same level from slipping, tripping and stumbling without subsequent striking against object, initial encounter

== ENCOUNTER 2018-03-31 08:40 | Inpatient (IN) | payer MEDICARE, MEDICAID ==
[2018-03-31] MEDS ORDERED: Azithromycin 500 MG VIAL ONE (10:02)
[2018-03-31] MEDS ORDERED: Furosemide 100 MG/10 ML VIAL ONE (10:02)
[2018-03-31] MEDS ORDERED: Sodium Chloride 0.9% 200 ML ONE (10:02)
[2018-03-31] MEDS ORDERED: cefTRIAXone\\ROCEPHIN 2 GM VIAL ONE (10:03)
[2018-03-31 10:06] LABS: #Basophils 0.1 thou/uL (0.0-0.2); #Eosinphils 0.3 thou/uL (0.0-0.7); #Lymphocytes 1.6 thou/uL (1.20-3.40); #Monocytes 0.6 thou/uL (0.11-0.59); #Neutrophils 8.4 thou/uL (1.40-6.50); %Basophils 0.9 % (0.0-1.0); %Eosinophils 2.6 % (0.0-10.0); %Lymphocytes 14.2 % (21.0-51.0); %Monocytes 5.8 % (0.0-10.0); %Neutrophils 76.5 % (42.0-75.0); Hemoglobin 13.5 g/dL (12.0-16.0); Mean Corpuscular HGB CONC 35.4 g/dL (32.0-36.0); Mean Corpuscular Volume 93.3 fL (78.0-98.0); Mean Platelet Volume 8.7 fL (7.4-10.4); Platelet Count 218 thou/uL (130-400); RBC Distribution Width 12.1 % (11.5-14.5)
[2018-03-31] MEDS ORDERED: predniSONE 20 MG TAB ONE ×2 (10:21→10:22)
[2018-03-31 10:24] LABS: ALT (SGPT) 28 U/L (8-55); AST (SGOT) 25 U/L (5-34); Albumin 3.6 g/dL (3.5-5.0); Alkaline Phosphatase 77 U/L (40-150); Anion Gap 17 mmol/L (10-20); BUN (Urea Nitrogen) 49 mg/dL (9.8-20.1); Bilirubin, Total 0.7 mg/dL (0.2-1.2); CK (CPK) 175 U/L (29-168); Calc. Creatinine Clearance 0 mL/min (70-130); Calcium 9.4 mg/dL (7.8-10.44); Carbon Dioxide 29 mmol/L (22-29); Chloride 93 mmol/L (98-107); Estimated GFR-MDRD 29; Globulin 3.6 g/dL (2.4-3.5); Glucose 288 mg/dL (70-105); Lipase 71 U/L (8-78); Potassium 4.5 mmol/L (3.5-5.1); Protein, Total 7.2 g/dL (6.0-8.3); Sodium 134 mmol/L (136-145)
[2018-03-31 10:29] LABS: CKMB 2.6 ng/mL (0-6.6); Troponin I Less than 0.010 ng/mL (< 0.028)
--- NOTE | 2018-03-31 11:32 | RAD ---
RIGHT KNEE 4 VIEWS: Date: 03/31/18 INDICATION: Fall with pain. FINDINGS: No significant joint capsular distention, fracture, or dislocation. There is mild degenerative change . There is a subtle region of sclerosis and subchondral lucency of the medial femoral condyle which c ould relate to a subchondral defect. Vascular calcifications present. IMPRESSION: No acute osseous abnormality of the right knee. POS: [facility]
--- NOTE | 2018-03-31 11:34 | RAD ---
FRONTAL VIEW CHEST: Date: 03/31/18 COMPARISON: 10/18/17. INDICATION: Cough with chest tightness. FINDINGS: There is prominence of the cardiac silhouette. No lobar consolidation, effusion, or pneumothorax. IMPRESSION: Stable chest with prominent cardiac silhouette. Correlate clinically. POS: [facility]
--- NOTE | 2018-03-31 11:34 | RAD ---
4 VIEW LEFT KNEE: Date: 03/31/18 INDICATION: Fall, injury, pain. FINDINGS: There is no fracture or dislocation. No significant joint capsular distention. There is vascular calc ification and mild degenerative change. IMPRESSION: No acute osseous abnormality left knee. POS: [facility]
[2018-03-31 12:56] LABS: Troponin I Less than 0.010 ng/mL (< 0.028)
[2018-03-31] MEDS ORDERED: Acetaminophen 325 MG TAB PO PRN (14:22)
[2018-03-31] MEDS ORDERED: Dextrose 5% in Water 1,000 ML IV PRN (14:22)
[2018-03-31] MEDS ORDERED: Ondansetron ODT 4 MG TAB PO PRN (14:22)
[2018-03-31] MEDS ORDERED: Dextrose 50% Abboject 50 ML SYRINGE SLOW IVP PRN (14:22)
[2018-03-31] MEDS ORDERED: hydrALAZINE 20 MG/ML VIAL SLOW IVP PRN (14:31)
--- NOTE | 2018-03-31 14:50 | HP ---
DATE OF ADMISSION: 03/31/2018 PRIMARY CARE PHYSICIAN: Valdemar Adames M.D. CHIEF COMPLAINT: Shortness of breath. HISTORY OF PRESENT ILLNESS: Patient is a 58-year-old female with COPD, chronic diastolic heart failu re, coronary artery disease, status post stent placement, who presented to the emergency room with ab ove complaints. Over the last week, patient had generalized cough with progressive worsening shortness of breath. Th e shortness of breath was worse on minimal exertion. The patient is wheelchair dependent. She is cu rrently on home oxygen. She also noticed worsening bilateral lower extremity swelling. No chest agnieszka n or palpitations reported. She has also gained 14 pounds in the last 3 days per patient report. Sh e contacted home health care, and the Lasix dose was increased. She is currently on Lasix 80 mg in t he morning, 80 in the evening, and 40 in the afternoon. Despite this, her symptoms did not improve. She denies recent immobilization travel. She felt feverish; however, denies any chills. [facility] her initial vital signs showed temperature 98.2, respirations of 20, pulse rate of 70 wi th a blood pressure of 101/67. O2 saturation was 94% on 3 liters nasal cannula. Her chest x-ray was consistent with pulmonary vascular congestion. Due to history of fall, this morning, she had knee x -rays, which were essentially negative except for degenerative joint disease. Patient denies any los s of consciousness or significant injuries from the fall. PAST MEDICAL HISTORY: 1. Chronic diastolic heart failure. 2. Chronic obstructive pulmonary disease. 3. Coronary artery disease, status post stent placement. 4. Hypertension. 5. Diabetes mellitus, type 2. 6. Dyslipidemia. 7. Diabetic neuropathy. 8. Morbid obesity with a BMI 41.7. 9. Viera's esophagus. 10. Gastroesophageal reflux disease. 11. History of lung cancer, treated with chemotherapy and radiation. 12. History of cerebrovascular accident. 13. Anxiety/depression. 14. Chronic respiratory failure, on home oxygen. 15. Tobacco dependence. PAST SURGICAL HISTORY: 1. Tubal ligation. 2. Carpal tunnel repair. 3. Cardiac catheterization with stent placement. ALLERGIES: Patient is allergic to SULFA and NSAIDs. CURRENT HOME MEDICATIONS: Family to bring accurate list of medication. She is unable to recall any of her medications. SOCIAL HISTORY: Patient currently lives at home. She is currently on home oxygen. She continues to smoke on a daily basis. No alcohol. Denies any drug use. FAMILY HISTORY: Positive for diabetes, hypertension, and heart disease in several family members. REVIEW OF SYSTEMS: The following complete review of systems was negative, unless otherwise mentioned in the HPI or below: Constitutional: Weight loss or gain, ability to conduct usual activities. Sk in: Rash, itching. Eyes: Double vision, pain. ENT/Mouth: Nose bleeding, neck stiffness, pain, te nderness. Cardiovascular: Palpitations, dyspnea on exertion, orthopnea. Respiratory: Shortness of breath, wheezing, cough, hemoptysis, fever, or night sweats. Gastrointestinal: Poor appetite, abdo rina pain, heartburn, nausea, vomiting, constipation, or diarrhea. Genitourinary: Urgency, frequen cy, dysuria, nocturia. Musculoskeletal: Pain, swelling. Neurologic/Psychiatric: Anxiety, depressi on. Allergy/Immunologic: Skin rash, bleeding tendency. PHYSICAL EXAMINATION: VITAL SIGNS: As discussed above. GENERAL: A 58-year-old female in mild respiratory distress, able to complete short phrases. HEENT: Head: Atraumatic, normocephalic. Sclerae are anicteric. Moist mucous membrane, no oral les ion. NECK: Supple, no JVD appreciated due to body habitus. LUNGS: Showed bibasilar crackles. HEART: S1 and S2 present. Regular rate and rhythm. No rubs or gallops appreciated. ABDOMEN: Soft, obese. Bowel sounds present. EXTREMITIES: A 3-4+ edema in bilateral lower extremities. No calf tenderness. SKIN: Warm and dry. LYMPH NODES: No palpable lymph nodes in the neck. PERIPHERAL VASCULAR: Radial pulses palpable bilaterally. MUSCULOSKELETAL: No significant joint swelling or tenderness. SKIN: Warm and dry. LYMPH NODES: No palpable lymph nodes in the neck. PERIPHERAL VASCULAR: Radial pulses palpable bilaterally. LABORATORY AND X-RAY FINDINGS: CBC showed WBC 11 with hemoglobin 13.5, hematocrit 38.3, platelets of 218. Chemistries showed sodium 134, potassium 4.5, chloride 93, bicarbonate 29, BUN 49, creatinine 1.78, glucose of 288. Troponin negative. BNP 32.2. Maximum BNP in the past has been in 150-160. C hest x-ray, by my review, as discussed above. EKG, by my review, showed sinus rhythm with right bund le branch block. No significant ST-T-wave changes. IMPRESSION: 1. Acute on chronic diastolic heart failure exacerbation/chronic obstructive pulmonary disease exace rbation. 2. A 14-pound weight gain in last 3 days. 3. Acute kidney injury on chronic kidney disease, stage 2. 4. Hyponatremia. 5. Generalized weakness with fall this a.m. 6. Morbid obesity with a BMI of 41.7. 7. Coronary artery disease, status post stent placement. 8. Diabetes mellitus, type 2. 9. Hypertension. 10. Dyslipidemia. 11. Gastroesophageal reflux disease. 12. History of lung cancer, treated with chemotherapy and radiation. 13. History of cerebrovascular without significant residual deficit. 14. Anxiety/depression. 15. Chronic respiratory failure, on home oxygen. 16. Tobacco dependence. The patient was counseled. PLAN: The patient will be monitored in the telemetry unit. We will continue diuretics. Daily weigh ts. Fluid restriction. Serial troponins. Nebulizer treatment. BNP is normal, probably due to morb id obesity. We will consult physical therapy or occupational therapy due to generalized weakness. E chocardiogram, in June of this year, showed ejection fraction 55%-60% with moderate concentric lef t ventricular hypertrophy, [id number] tricuspid regurgitation, and mild elevated pulmonary juan carlos ry pressure. Tobacco cessation was also emphasized. The patient will require 3-4 days for stabiliza tion. Plan of care was discussed with the patient in detail and she stated understanding.
[2018-03-31] MEDS: Furosemide 100 MG in Sodium Chloride 0.9% 100 ML IVPB SCH (15:15)
[2018-03-31] MEDS: Lorazepam 0.5 MG TAB PO PRN (15:44)
[2018-03-31 16:15] LABS: Troponin I Less than 0.010 ng/mL (< 0.028)
[2018-03-31] MEDS: tiZANidine HCl 4 MG TAB PO SCH (20:03)
[2018-03-31] MEDS: Atorvastatin Calcium 10 MG TAB PO SCH (20:03)
[2018-03-31] MEDS: Baclofen 10 MG TAB PO SCH (20:03)
[2018-03-31] MEDS: Gabapentin 400 MG CAP PO SCH (20:03)
[2018-03-31] MEDS: Metoprolol Tartrate 50 MG TAB PO SCH (20:03)
[2018-03-31] MEDS: Benzonatate 100 MG CAP PO SCH (20:03)
[2018-03-31] MEDS: Insulin Regular 300 UNITS/3 ML VIAL SC PRN (20:05)
[2018-03-31] MEDS: Nystatin Ointment 15 GM TUBE TOP SCH (20:05)
[2018-03-31] MEDS: HYDROcodone/Acetaminophen 10/325 mg Tablet PO PRN (20:08)
[2018-03-31] MEDS: Ondansetron HCl/PF 4 MG/2 ML Vial IVP PRN (20:09)
[2018-03-31] MEDS ORDERED: Insulin Glargine 50 UNITS in Pre-Filled Syringe 1 EACH SC SCH (21:00)
[2018-03-31] MEDS ORDERED: Spiriva 18 MCG CAP (Box of 5 Caps) INH SCH (21:00)
[2018-03-31] MEDS ORDERED: Metoprolol Tartrate 50 MG TAB PO SCH (21:00)
[2018-04-01] MEDS: Insulin Regular 300 UNITS/3 ML VIAL SC PRN ×5 (00:11→21:26)
[2018-04-01 00:36] LABS: Anion Gap 20 mmol/L (10-20); BUN (Urea Nitrogen) 54 mg/dL (9.8-20.1); Calc. Creatinine Clearance 54 mL/min (70-130); Calcium 8.7 mg/dL (7.8-10.44); Carbon Dioxide 27 mmol/L (22-29); Chloride 87 mmol/L (98-107); Estimated GFR-MDRD 23; Potassium 4.5 mmol/L (3.5-5.1); Sodium 129 mmol/L (136-145)
[2018-04-01 01:07] LABS: Glucose 607 mg/dL (70-105)
[2018-04-01] MEDS: Levothyroxine Sodium 25 MCG TAB PO SCH (05:56)
[2018-04-01 06:15] LABS: Anion Gap 17 mmol/L (10-20); BUN (Urea Nitrogen) 55 mg/dL (9.8-20.1); Calc. Creatinine Clearance 58 mL/min (70-130); Calcium 8.4 mg/dL (7.8-10.44); Carbon Dioxide 29 mmol/L (22-29); Chloride 89 mmol/L (98-107); Estimated GFR-MDRD 26; Glucose 476 mg/dL (70-105); Magnesium 2.3 mg/dL (1.6-2.6); Sodium 131 mmol/L (136-145)
[2018-04-01] MEDS: Baclofen 10 MG TAB PO SCH ×2 (08:32→20:37)
[2018-04-01] MEDS: Gabapentin 400 MG CAP PO SCH ×2 (08:32→20:37)
[2018-04-01] MEDS: Aspirin 81 mg Enteric Coated Tablet PO SCH (08:32)
[2018-04-01] MEDS: Benzonatate 100 MG CAP PO SCH ×2 (08:32→20:38)
[2018-04-01] MEDS: Metoprolol Tartrate 50 MG TAB PO SCH ×2 (08:33→20:38)
[2018-04-01] MEDS: tiZANidine HCl 4 MG TAB PO SCH ×2 (08:33→20:38)
[2018-04-01] MEDS: Nystatin Ointment 15 GM TUBE TOP SCH ×2 (08:34→21:33)
[2018-04-01] MEDS: HYDROcodone/Acetaminophen 10/325 mg Tablet PO PRN (08:40)
[2018-04-01] MEDS ORDERED: Insulin Glargine 50 UNITS in Pre-Filled Syringe 1 EACH SC SCH (09:00)
[2018-04-01] MEDS ORDERED: Enoxaparin Sodium 40 MG/0.4 ML SYRINGE SC SCH (09:00)
[2018-04-01] MEDS: Insulin Glargine 70 UNITS in Pre-Filled Syringe 1 EACH SC SCH ×2 (09:40→21:26)
[2018-04-01] MEDS ORDERED: Metolazone 5 MG TAB PO SCH (11:00)
--- NOTE | 2018-04-01 11:30 | ULT ---
ULTRASOUND WITH DOPPLER DUPLEX VENOUS LOWER EXTREMITY BILATERAL: CPT: 96235 ICD-10-PCS: B54D INDICATION: Edema. TECHNIQUE: Color flow Doppler, spectral waveform analysis of pulsed Doppler, and robb-scale imaging with jeni mekhi and augmentation, were used to evaluate the bilateral common femoral, femoral, popliteal, watch repair technician ior tibial, and superficial femoral, veins; and the proximal portions of the profunda femoral and gre ater saphenous, veins. FINDINGS: There is appropriate compressibility and flow within the imaged deep vein system of each lower extrem ity. IMPRESSION: No deep venous thrombosis. POS: [facility]
[2018-04-01] MEDS: Furosemide 100 MG in Sodium Chloride 0.9% 100 ML IVPB SCH (14:13)
[2018-04-01] MEDS: Atorvastatin Calcium 10 MG TAB PO SCH (20:36)
[2018-04-01] MEDS ORDERED: Senokot 8.6 MG TAB PO PRN (21:37)
--- NOTE | 2018-04-01 21:49 | PDOC.PN ---
- Subjective Encounter Start Date: 04/01/18 Encounter Start Time: 08:00 Patient seen and examined for CHF exacerbation. SOB improving. No CP. No other complaints. No overnight events - Objective Resuscitation Status: Resuscitation Status FULL:Full Resuscitation MAR Reviewed: Yes Vital Signs & Weight: Vital Signs (12 hours) Temp Pulse Pulse Pulse Resp BP BP 04/01/18 21:43 67 18 04/01/18 18:59 70 18 04/01/18 17:05 98.2 F 04/01/18 16:00 04/01/18 15:00 69 18 04/01/18 14:09 80 16 04/01/18 12:11 74 80 109/58 L 110/56 L 04/01/18 11:27 98.1 F 80 18 04/01/18 10:26 75 16 BP Pulse Ox Pulse Ox 04/01/18 21:43 96 04/01/18 18:59 97 04/01/18 17:05 04/01/18 16:00 97 04/01/18 15:00 114/66 97 04/01/18 14:09 85 L 04/01/18 12:11 90 L 04/01/18 11:27 102/51 L 89 L 04/01/18 10:26 92 L Weight Weight 265 lb 8 oz I&O: 03/31/18 04/01/18 04/02/18 06:59 06:59 06:59 Intake Total 887 1468 Output Total 680 100 Balance 207 1368 Result Diagrams: 03/31/18 09:15 04/01/18 05:15 Additional Labs: Accuchecks 04/01/18 04/01/18 04/01/18 20:33 16:44 10:26 POC Glucose 358 H 347 H 389 H 04/01/18 04/01/18 03/31/18 05:54 03:18 23:55 POC Glucose 435 H 490 H Greater than 550 H* Radiology Reviewed by me: Yes (CXR - CHF) EKG Reviewed by me: Yes (Tele SR) Phys Exam - Physical Examination Constitutional: NAD Neck: no JVD Respiratory: no wheezing, no rhonchi Bibasilar rales, Symmetrical Cardiovascular: RRR, no rub No heaves/pulsations Gastrointestinal: soft, positive bowel sounds Musculoskeletal: edema present Neurological: non-focal, moves all 4 limbs Dx/Plan - Plan PT/OT, DVT proph w/lovenox, DVT proph w/SCDs IMPRESSION: 1. Acute on chronic diastolic heart failure exacerbation/ 2. Chronic obstructive pulmonary disease exacerbation. 3. Acute kidney injury on chronic kidney disease, stage 2 - due to Cardiorenal syndrome 4. Hyponatremia. 5. Generalized weakness with fall. 6. Morbid obesity with a BMI of 41.7. 7. Coronary artery disease, status post stent placement. 8. Diabetes mellitus, type 2. 9. Hypertension. 10. Dyslipidemia. 11. Gastroesophageal reflux disease. 12. History of lung cancer, treated with chemotherapy and radiation. 13. History of cerebrovascular without significant residual deficit. 14. Anxiety/depression. 15. Chronic respiratory failure, on home oxygen. 16. Tobacco dependence/Hypothyroidism PLAN: Increase Lantus to 70 BID One dose of Metolazone Cont Lasix drip at 7.5 mg/hr Add Pulmicort AM labs Cont other meds as below Cont Metoprolol/ASA Review of Systems - Review of Systems Constitutional: negative: fever, chills, sweats, weakness, malaise, other Cardiovascular: edema. negative: chest pain, palpitations, orthopnea, paroxysmal nocturnal dyspnea, light headedness, other - Medications/Allergies Allergies/Adverse Reactions: Allergies Allergy/AdvReac Type Severity Reaction Status Date / Time ibuprofen Allergy tongue Verified 10/05/17 01:16 swelling Sulfa (Sulfonamide Allergy PT NOT Verified 07/13/17 22:25 Antibiotics) SURE OF REACTION STATED HAPPENED CHILD Medications: Current Medications Acetaminophen (Tylenol) 650 mg PO Q4H PRN PRN Reason: Headache/Fever/Mild Pain (1-3) Last Admin: 03/31/18 15:44 Dose: 650 mg Hydrocodone Bitart/Acetaminophen (Ryan 10/325) 1 tab PO Q4H PRN PRN Reason: Severe Pain (7-10) Last Admin: 04/01/18 08:40 Dose: 1 tab Albuterol/Ipratropium (Duoneb) 3 ml NEB Q2H PRN PRN Reason: WHEEZING/DYSPNEA Albuterol/Ipratropium (Duoneb) 3 ml NEB [id number] [facility] Last Admin: 04/01/18 21:43 Dose: 3 ml Aspirin (Ecotrin) 81 mg PO DAILY [facility] Last Admin: 04/01/18 08:32 Dose: 81 mg Atorvastatin Calcium (Lipitor) 10 mg PO HS [facility] Last Admin: 04/01/18 20:36 Dose: 10 mg Baclofen (Lioresal) 10 mg PO BID [facility] Last Admin: 04/01/18 20:37 Dose: 10 mg Benzonatate (Tessalon) 100 mg PO BID [facility] Last Admin: 04/01/18 20:38 Dose: 100 mg Dextrose/Water (Dextrose 50%) 25 gm SLOW IVP PRN PRN PRN Reason: Hypoglycemia Enoxaparin Sodium (Lovenox) 40 mg SC 0900 [facility] Last Admin: 04/01/18 08:33 Dose: 40 mg Gabapentin (Neurontin) 1,600 mg PO BID [facility] Last Admin: 04/01/18 20:37 Dose: 1,600 mg Glucagon (Glucagon) 1 mg IM PRN PRN PRN Reason: Hypoglycemia Hydralazine HCl (Apresoline) 10 mg SLOW IVP Q4H PRN PRN Reason: SBP Greater Than 180 Furosemide 100 mg/ Sodium (Chloride) 110 mls @ 8.25 mls/hr IVPB INF [facility] Last Admin: 04/01/18 14:13 Dose: 110 mls Dextrose/Water (D5w) 1,000 mls @ 0 mls/hr IV .Q0M PRN PRN Reason: Hypoglycemia Insulin Glargine 70 units/ (Miscellaneous Medication) 0.7 mls @ 0 mls/hr SC QAM [facility] Last Admin: 04/01/18 09:40 Dose: 0.7 mls Insulin Glargine 70 units/ (Miscellaneous Medication) 0.7 mls @ 0 mls/hr SC [facility] Last Admin: 04/01/18 21:26 Dose: 0.7 mls Insulin Human Regular (Humulin R) 0 units SC .BEDTIME SLIDING SC PRN PRN Reason: Bedtime Correctional Scale Last Admin: 04/01/18 21:26 Dose: 5 unit Insulin Human Regular (Humulin R) 0 units SC .AGGRESSIVE SLIDING PRN PRN Reason: Aggressive Sliding Scale Last Admin: 04/01/18 18:16 Dose: 11 unit Levothyroxine Sodium (Synthroid) 25 mcg PO 0600 [facility] Last Admin: 04/01/18 05:56 Dose: 25 mcg Lorazepam (Ativan) 0.5 mg PO Q8H PRN PRN Reason: Anxiety Last Admin: 03/31/18 15:44 Dose: 0.5 mg Metoprolol Tartrate (Lopressor) 50 mg PO BID [facility] Last Admin: 04/01/18 20:38 Dose: 50 mg Nystatin (Mycostatin Ointment) 0 gm TOP BID [facility] Last Admin: 04/01/18 21:33 Dose: Not Given Ondansetron HCl (Zofran Odt) 4 mg PO Q6H PRN PRN Reason: Nausea/Vomiting Ondansetron HCl (Zofran) 4 mg IVP Q6H PRN PRN Reason: Nausea/Vomiting Last Admin: 03/31/18 20:09 Dose: 4 mg Pantoprazole Sodium (Protonix) 40 mg PO DAILY [facility] Last Admin: 04/01/18 08:33 Dose: 40 mg Quetiapine Fumarate (Seroquel) 100 mg PO BID [facility] Last Admin: 04/01/18 20:38 Dose: 100 mg Senna (Senokot) 2 tab PO BIDPRN PRN PRN Reason: Constipation Tizanidine HCl (Zanaflex) 4 mg PO BID [facility] Last Admin: 04/01/18 20:38 Dose: 4 mg
[2018-04-02] MEDS: Furosemide 100 MG in Sodium Chloride 0.9% 100 ML IVPB SCH (02:32)
[2018-04-02] MEDS: Levothyroxine Sodium 25 MCG TAB PO SCH (06:00)
[2018-04-02 06:29] LABS: Anion Gap 16 mmol/L (10-20); BUN (Urea Nitrogen) 51 mg/dL (9.8-20.1); Calc. Creatinine Clearance 69 mL/min (70-130); Calcium 8.4 mg/dL (7.8-10.44); Carbon Dioxide 29 mmol/L (22-29); Chloride 94 mmol/L (98-107); Estimated GFR-MDRD 32; Glucose 278 mg/dL (70-105); Magnesium 2.5 mg/dL (1.6-2.6); Potassium 3.6 mmol/L (3.5-5.1); Sodium 135 mmol/L (136-145)
[2018-04-02] MEDS: Budesonide 0.5 MG/2 ML NEB INH SCH ×2 (07:29→19:13)
[2018-04-02] MEDS: Enoxaparin Sodium 30 MG/0.3 ML SYRINGE SC SCH (08:38)
[2018-04-02] MEDS: Aspirin 81 mg Enteric Coated Tablet PO SCH (08:38)
[2018-04-02] MEDS: Gabapentin 400 MG CAP PO SCH ×2 (08:38→20:39)
[2018-04-02] MEDS: tiZANidine HCl 4 MG TAB PO SCH ×2 (08:39→20:39)
[2018-04-02] MEDS: Benzonatate 100 MG CAP PO SCH ×2 (08:39→20:39)
[2018-04-02] MEDS: Metoprolol Tartrate 50 MG TAB PO SCH (08:40)
[2018-04-02] MEDS: HYDROcodone/Acetaminophen 10/325 mg Tablet PO PRN ×2 (08:40→20:40)
[2018-04-02] MEDS: Baclofen 10 MG TAB PO SCH ×2 (08:40→20:39)
[2018-04-02] MEDS: Insulin Glargine 70 UNITS in Pre-Filled Syringe 1 EACH SC SCH ×2 (08:42→20:41)
--- NOTE | 2018-04-02 09:33 | PDOC.PN ---
- Subjective Encounter Start Date: 04/02/18 Encounter Start Time: 09:32 Subjective: coughing and swelling - Objective Resuscitation Status: Resuscitation Status FULL:Full Resuscitation Vital Signs & Weight: Vital Signs (12 hours) Temp Pulse Resp BP BP Pulse Ox 04/02/18 08:27 98.4 F 71 19 131/60 95 04/02/18 07:30 96 04/02/18 07:29 68 16 04/02/18 04:22 98.1 F 80 15 140/65 92 L 04/02/18 02:32 77 18 91 L 04/01/18 21:43 67 18 96 Weight Weight 264 lb 9.6 oz I&O: 04/01/18 04/02/18 04/03/18 06:59 06:59 06:59 Intake Total 887 1668 Output Total 680 100 Balance 207 1568 Result Diagrams: 03/31/18 09:15 04/02/18 05:27 Additional Labs: Accuchecks 04/02/18 04/01/18 04/01/18 05:55 20:33 16:44 POC Glucose 286 H 358 H 347 H 04/01/18 03/31/18 10:26 21:14 POC Glucose 389 H Greater than 550 H* Phys Exam - Physical Examination Neck: no JVD diffuse wheezing and rhonchi Cardiovascular: RRR, no significant murmur Gastrointestinal: soft, positive bowel sounds trace edema Dx/Plan (1) CKD (chronic kidney disease) stage 3, GFR 30-59 ml/min Code(s): N18.3 - CHRONIC KIDNEY DISEASE, STAGE 3 (MODERATE) Status: Chronic (2) COPD with exacerbation Code(s): J44.1 - CHRONIC OBSTRUCTIVE PULMONARY DISEASE W (ACUTE) EXACERBATION Status: Acute Comment: Uses 3L of supplemental O2 at home. Continue nebs, steroids. (3) Tobacco abuse Code(s): Z72.0 - TOBACCO USE Status: Acute Comment: Tobacco cessation resources (4) CAD (coronary artery disease) Code(s): I25.10 - ATHSCL HEART DISEASE OF [place] CORONARY ARTERY W/O ANG PCTRS Status: Chronic Qualifiers: Coronary Disease-Associated Artery/Lesion type: [place] artery Elem vs. transplanted heart: [place] heart Associated angina: without angina Qualified Code(s): I25.10 - Atherosclerotic heart disease of [place] coronary artery without angina pectoris Comment: Stable. Chest pain free. (5) Diabetes type 2, uncontrolled Code(s): E11.65 - TYPE 2 DIABETES MELLITUS WITH HYPERGLYCEMIA Status: Chronic Comment: Detemir 60u sc BID, ISS, ADA (6) Hypertension Code(s): I10 - ESSENTIAL (PRIMARY) HYPERTENSION Status: Chronic Qualifiers: Hypertension type: essential hypertension Qualified Code(s): I10 - Essential (primary) hypertension Comment: Resume home BP regimen, d/c Norvasc, labile, increase Hydralazine 50mg TID, continue to monitor trend, labile likely due to continued tobacco abuse, increase Metoprolol 50mg BID (7) Morbid obesity with BMI of 40.0-44.9, adult Code(s): E66.01 - MORBID (SEVERE) OBESITY DUE TO EXCESS CALORIES; Z68.41 - BODY MASS INDEX (BMI) 40.0-44.9, ADULT Status: Chronic Comment: Dietitian consult - Plan cont to go outside to smoke, reeks of tobacco -: cont to eat candy while in hospital. i have explained that we are unable to -: improve her condition as lng as she cont to smoke, etc -: add po prednisone, cont nebs -: cont accu/ss/etc * .
[2018-04-02] MEDS: predniSONE 50 MG TAB PO SCH (10:08)
[2018-04-02] MEDS: Nystatin Ointment 15 GM TUBE TOP SCH ×2 (10:09→20:13)
[2018-04-02] MEDS: Ondansetron HCl/PF 4 MG/2 ML Vial IVP PRN (11:25)
[2018-04-02] MEDS: Insulin Regular 300 UNITS/3 ML VIAL SC PRN ×3 (11:48→20:43)
[2018-04-02 12:46] VITALS: BMI 41.4
[2018-04-02] MEDS: Furosemide 80 MG TAB PO SCH (15:04)
[2018-04-02] MEDS: Carvedilol 6.25 MG TAB PO SCH (16:09)
[2018-04-02] MEDS: Lorazepam 0.5 MG TAB PO PRN (17:52)
--- NOTE | 2018-04-02 17:55 | PDOC.EVN ---
Event Note - Event Note Event Note: there is no evidence for CHF in this patient- no chf on cxr, normal BNP, normal LVeF
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
[2018-04-02] MEDS: Atorvastatin Calcium 10 MG TAB PO SCH (20:40)
[2018-04-02] MEDS ORDERED: Insulin Regular 300 UNITS/3 ML VIAL SC SCH (22:00)
--- NOTE | 2018-04-02 23:01 | CON ---
DATE OF CONSULTATION: 04/02/2015 Please refer the notes dictated by the nurse practitioner, Hanh. INDICATION FOR CONSULTATION: This is a 58-year-old female with chronic obstructive pulmonary disease exacerbation, who has history of coronary artery disease, who complains of intermittent chest discom fort, who continues to smoke. We were asked to see her due to her history of coronary artery disease in the past. HISTORY OF PRESENT ILLNESS: This is a very unfortunate 58-year-old female, who is a very extremely p oor historian, has a history of COPD, but continues to smoke. She has been short of breath. She pre sented to the hospital complaining of shortness of breath and dyspnea. She apparently had a history of stent placements x2 in [place], uncertain of which arteries, uncertain exactly what she had done. At this time, she has had an echocardiogram, which shows a normal ejection fraction performed in [facility] of this year. Apparently, her stents were placed about 3 years ago. She continues to have kim e chest discomfort at times when she exerts herself, but also has significant coughing and shortness of breath. Unfortunately, she has been noncompliant with her stopping smoking and also with her medi cations or with eating incorrectly her diet. She does have a history of diabetes, but continues to e at candy and smoked while she is in the hospital. At this time, she has no chest discomfort. Her ma in concern is that she has weakness in her arms and has a twitching, and her arms drop when she is si tting; and she has no strength and appears almost to be having some type of jerking or seizure-type d isorder when I am seeing her at this time, but mentally still remains intact. PAST MEDICAL HISTORY: Significant for, 1. Congestive heart failure, which has been deemed diastolic in nature. 2. She has COPD. She continues to smoke. 3. She has a history of coronary artery disease. She apparently had stent placement 3 years ago in [place]. We will try to obtain these records. 4. Diabetes type 2. 5. Hypertension. 6. Dyslipidemia. 7. Diabetic neuropathy. 8. She has morbid obesity. 9. She has a history of gastroesophageal reflux disease and Viera's esophagus. 10. She has had a history of lung cancer, which was treated by radiation and chemotherapy. 11. She has a history of CVA in the past. 12. She has a history of chronic respiratory failure. She is on home O2. 13. She has a history of anxiety and depression. PAST SURGICAL HISTORY: She has had a carpal tunnel repair. She has had tubal ligation, and angiopla sty and stent placement. ALLERGIES: She has allergies to NONSTEROIDALS and SULFA. MEDICATIONS: Her medications at this time include insulin; furosemide; ipratropium and albuterol inh aler; aspirin; atorvastatin; baclofen; Tessalon Perles; Pulmicort inhaler; Coreg; Lovenox for DVT pro phylaxis; Lasix 80 mg b.i.d.; gabapentin 1600 mg b.i.d.; levothyroxine and metoprolol, I am not sure that was discontinued. She is on Mycostatin, Protonix. Prednisone has been started and will be on a tapered dose. She is on prednisone 50 mg p.o. q.a.m. She is on quetiapine fumarate, Zanaflex, Tyle nol, and other p.r.n. medications. REVIEW OF SYSTEMS: Difficult to obtain. Mainly, she is focused on the problems with the arms and th e hands dropping and no strength in the upper extremities and the twitching. She does have shortness of breath. She also complains of some chest discomfort occasionally. She complains of her legs erlinda ting, sometimes she hurts all over. She has had some mild lower extremity edema. She denied any GI or complaints. PHYSICAL EXAMINATION: GENERAL: Reveals a middle-aged female who appears actually older than her stated age. VITAL SIGNS: Her blood pressure is 140/79, heart rate is 69 and regular, O2 saturation is 93%, respi ratory rate is 18. HEENT: Shows head to be normocephalic and atraumatic. I did not hear any bruits. There did not harrison ear to be any JVD. Her thyroid is not enlarged. CHEST: Has diffuse wheezing expiratory throughout. Occasional rhonchi noted also in the bases. CARDIOVASCULAR: Reveals a regular rate and rhythm. Heart sounds are somewhat distant. I did not he ar any significant murmurs. ABDOMEN: Morbid obesity with positive bowel sounds. I could not palpate any masses or tenderness. EXTREMITIES: No significant clubbing, cyanosis, or edema. She has trace edema in the lower extremit ies. Pedal pulses are present. NEUROLOGIC: I am uncertain as to what the twitching and the jerking is in the upper extremities, but also the patient sometimes have total body jerking while trying to discuss the physical examination with the patient. SKIN: Warm and dry at this time. Her EKG showed a normal sinus rhythm with a right bundle branch block. Cardiac enzymes are negative for myocardial infarction. Blood sugars were significantly elevated. When she arrived, blood sugar was over 500. Her creatinine is 1.66 with a BUN of 51. Potassium is 3.6. Her present blood sugar t his morning at 11:43 was 412, and obviously, the patient has been noncompliant with her diet while in the hospital. Her hemoglobin is 13.5, WBC of 11. IMPRESSION: 1. History of coronary artery disease. Appears to be stable at this time and no EKG changes to kate tanner ischemia. There is also no indication the patient had suffered a myocardial infarction at this time. We will try to obtain the records from [place], where she said she had 2 stents placed, to se e the significance for her coronary artery disease. Certainly, she was advised to stop smoking as we ll as to control her diabetes in order to decrease the risk of further coronary artery disease. At t his time, she is not a candidate for stress testing or any other intervention. The patient does appe ar to be confused at times and this will need to be evaluated further. 2. History of diabetes. She is noncompliant with her diet. Her blood sugars have been in the 500 r darin still in the hospital. She is noncompliant with the diet. 3. History of tobacco abuse. She was told strictly she absolutely must stop smoking, whether or not she will follow through was a different story. 4. History of cerebrovascular accident in the past. Some of her jerking and mental changes may be d ue to the history of cerebrovascular accident. I would suggest the patient need to have a neurologic al evaluation and she may need to actually have a psychiatric evaluation also. She appears to be kim ewhat focused on her upper extremity problems and is not able to answer questions correctly. She is changing her story from being confused about the coronary artery stents and whether or not these were placed actually in [place] or [place] and whether or not it was 3 years ago or 4-1/2 years ago, and is very inconsistent with her stories about her symptoms. 5. What appears to be chronic kidney disease, most likely due to her diabetes. This will be dealt w ith by the primary care service. 6. What appears to be an acute urinary tract infection. She has been placed on antibiotics. 7. Chronic obstructive pulmonary disease. She has been placed on steroids and this obviously will a ffect her diabetes also and will make the blood sugar go up and one need to be dealt with by giving f urther insulin. We will be more than happy to continue to follow the patient with you, but further i nformation will need to be obtained from [place], and I will strongly encourage the consultation wit h either a neurologist or a psychological evaluation in this patient who does have a strange affect.
[2018-04-03] MEDS: Levothyroxine Sodium 25 MCG TAB PO SCH (05:06)
[2018-04-03] MEDS: Insulin Regular 300 UNITS/3 ML VIAL SC PRN (05:07)
[2018-04-03 05:23] LABS: Anion Gap 14 mmol/L (10-20); BUN (Urea Nitrogen) 54 mg/dL (9.8-20.1); Calc. Creatinine Clearance 64 mL/min (70-130); Calcium 8.8 mg/dL (7.8-10.44); Carbon Dioxide 29 mmol/L (22-29); Chloride 92 mmol/L (98-107); Estimated GFR-MDRD 29; Glucose 388 mg/dL (70-105); Magnesium 2.7 mg/dL (1.6-2.6); Potassium 4.8 mmol/L (3.5-5.1); Sodium 130 mmol/L (136-145)
[2018-04-03] MEDS: Budesonide 0.5 MG/2 ML NEB INH SCH (06:55)
[2018-04-03 07:59] VITALS: BP 131/63; TEMP 97.6
--- NOTE | 2018-04-03 08:12 | PDOC.CTH ---
Cardiology Progress Note - Subjective The pt seen and examined. No overnight events. No cardiac complaints. Again, she went outside smoking this AM. - Objective Vital Signs Temp Pulse Resp BP Pulse Ox 04/03/18 07:54 97.6 F 79 20 131/63 97 04/03/18 06:55 70 12 04/03/18 02:40 93 L 04/02/18 22:18 72 20 92 L Admit Weight 266 lb Weight 264 lb 9.6 oz 04/02/18 04/03/18 04/04/18 06:59 06:59 06:59 Intake Total 1668 480 Output Total 100 Balance 1568 480 - Physical Examination General/Neuro: alert & oriented x3 Neck: no JVD present Lungs: other: (wheezing and severe cough) Heart: RRR Abdomen: soft Extremities: other: (1+ pitting BLE edema) - Labs Result Diagrams: 03/31/18 09:15 04/03/18 04:40 Troponin/CKMB CK-MB (CK-2) 2.6 ng/mL (0-6.6) 03/31/18 09:15 Troponin I Less than 0.010 ng/mL (< 0.028) 03/31/18 15:17 - Assessment/Plan 1. Acute on Chronic Diastolic HF - stable with RA; on BBlocker, but no STEVE/ARB due to hx of CKD 2. CAD with hx of stent placement in 2014 - stable with ASA 81mg qd, bblocker, and statin; 3. COPD exacerbation - stable with RA 4. DM - managed by PCP 5. HTN - stable 6. Hyperlipidemia - on Statin 7. CKD stage 3 - stable 8. Obese - weight management education given to the pt 9. Tobacco abuse - Smoking cessation education given MAR reviewed * Echo in 06/2017 showed EF 55-60%, mod LVH, mild MR, mild-mod TR, mild PAP Review of Systems - Review of Systems Constitutional: reports: no symptoms reported EENTM: reports: no symptoms reported Respiratory: reports: see HPI Cardiac (ROS): reports: no symptoms reported ABD/GI: reports: no symptoms reported : reports: no symptoms reported Musculoskeletal: reports: no symptoms reported Skin: reports: no symptoms reported
[2018-04-03] MEDS: Benzonatate 100 MG CAP PO SCH (08:25)
[2018-04-03] MEDS: Baclofen 10 MG TAB PO SCH (08:25)
[2018-04-03] MEDS: Gabapentin 400 MG CAP PO SCH (08:25)
[2018-04-03] MEDS: tiZANidine HCl 4 MG TAB PO SCH (08:25)
[2018-04-03] MEDS: predniSONE 50 MG TAB PO SCH (08:26)
[2018-04-03] MEDS: Furosemide 80 MG TAB PO SCH (08:26)
[2018-04-03] MEDS: Carvedilol 6.25 MG TAB PO SCH (08:26)
[2018-04-03] MEDS: Aspirin 81 mg Enteric Coated Tablet PO SCH (08:26)
[2018-04-03] MEDS: Enoxaparin Sodium 30 MG/0.3 ML SYRINGE SC SCH (08:26)
[2018-04-03] MEDS: Insulin Glargine 70 UNITS in Pre-Filled Syringe 1 EACH SC SCH (08:28)
[2018-04-03] MEDS: HYDROcodone/Acetaminophen 10/325 mg Tablet PO PRN (08:43)
--- NOTE | 2018-04-03 10:15 | DIS ---
DATE OF ADMISSION: 03/31/2018 DATE OF DISCHARGE: 04/03/2018 PRIMARY CARE PROVIDER: Dr. Valdemar Adames. DISCHARGE DISPOSITION: Discharged home. FINAL DIAGNOSES: Chronic obstructive pulmonary disease, coronary artery disease, diabetes mellitus t ype 2 with hyperglycemia, hypertension. DISCHARGE MEDICATIONS: Gabapentin 1600 mg twice a day, Lasix 80 mg twice a day, Tessalon 100 mg b.i. d., baclofen 10 mg b.i.d., aspirin 81 mg a day, hydrocodone 10/325 one as directed, 72 units of insulin Glargine twice a day, metoprolol 50 mg b.i.d., levothyroxine 25 mcg a day, lorazepam 0.45 mg as directed by primary care doctor, DuoNeb 3 mL nebulizer q.i.d., prednisone 50 mg a day in declining doses, Spiriva 1 inhalation a day, hydralazine 50 mg 3 times a day, tizanid ine 4 mg a day, omeprazole 40 mg a day, potassium chloride 20 mEq a day, pravastatin 40 mg a day, Ser oquel 100 mg t.i.d. ALLERGIES: IBUPROFEN, SULFA DRUGS. DIET: She has been directed on a consistent carbohydrate diet. She does not follow it. CODE STATUS: FULL. PENDING AT THE TIME OF DISCHARGE: Nothing. HOSPITAL COURSE: The patient was admitted to the hospital through [facility] with kezia rtness of breath. She is on home O2, home nebs and many other medicines. O2 saturation was 94% on n bob cannula. Chest x-ray was initially read as pulmonary vascular congestion. This failed to be co nfirmed by radiology or myself. She was initially thought to have heart failure. Her echocardiogram in the past on 07/13/2017 showed 55%-60% with some LVH, does not mention diastolic dysfunction. Her admitting laboratory, white count was 11.0, hemoglobin 13.5, platelet count 218,000. Her BNP was 32 . Sodium 134, potassium 4.5, creatinine 1.78, BUN 40. Blood sugar 288. Cardiac enzymes were normal . She had some peripheral edema and was started on IV Lasix. She does have wheezing, does have rhon chi; however, this lady continues to go down frequently and goes out to side to smoke and even this m orning at 8:00 in the morning, she reeks of tobacco and admits she has been down during the night to smoke. Her chest at this time has no tight wheezes. She has some scattered rhonchi. Her O2 saturat ion is 97% on 2 liters nasal cannula, which she has at home. She has trace edema, although she compl ains that she has massive edema in her legs. She has been downstairs eating candy all day everyday a nd her blood sugars are high. I have discussed with her that we were unable to make any improvement in her lung functions as long as she continues to smoke in the hospital while she is in the hospital. She is currently medically stable. She stated she is ready to go home and I have written her disch arge with follow up with her primary care provider, Dr. Adames in 1 week. This lady is a high risk for frequent re-admissions as she continues to smoke heavily up to 2 packs a day, eats candy all day long. She is on a large dose of insulin. She is on descending doses of oral steroids and nebulizers raised from twice a day to q.i.d. CONSULTATIONS: Dr. Aissatou Lala, Cardiology. PROCEDURES: None.
== END 2018-04-03 11:10 | disposition home or self-care (01) | DRG 291 ==
LOC: ERS 08:40 → 2NO 12:27 → T4-B 04-02 12:25
PROVIDERS: ADMIT Internal Medicine; ATTEND Internal Medicine
DX: I13.0 Hypertensive heart and chronic kidney disease with heart failure and stage 1 through stage 4 chronic kidney disease, or unspecified chronic kidney disease (principal); I50.33 Acute on chronic diastolic (congestive) heart failure; E87.1 Hypo-osmolality and hyponatremia; Z68.41 Body mass index [BMI] 40.0-44.9, adult; J96.10 Chronic respiratory failure, unspecified whether with hypoxia or hypercapnia; J44.9 Chronic obstructive pulmonary disease, unspecified; I25.10 Atherosclerotic heart disease of native coronary artery without angina pectoris; E78.5 Hyperlipidemia, unspecified; E11.21 Type 2 diabetes mellitus with diabetic nephropathy; K22.70 Barrett's esophagus without dysplasia; K21.9 Gastro-esophageal reflux disease without esophagitis; F32.9 Major depressive disorder, single episode, unspecified; F41.9 Anxiety disorder, unspecified; N18.3 Chronic kidney disease, stage 3 (moderate); E66.01 Morbid (severe) obesity due to excess calories; E11.65 Type 2 diabetes mellitus with hyperglycemia; E11.22 Type 2 diabetes mellitus with diabetic chronic kidney disease; F17.210 Nicotine dependence, cigarettes, uncomplicated; Z95.5 Presence of coronary angioplasty implant and graft; Z99.81 Dependence on supplemental oxygen; Z85.118 Personal history of other malignant neoplasm of bronchus and lung; Z92.21 Personal history of antineoplastic chemotherapy; Z92.3 Personal history of irradiation; Z88.2 Allergy status to sulfonamides; Z88.6 Allergy status to analgesic agent; Z86.73 Personal history of transient ischemic attack (TIA), and cerebral infarction without residual deficits
CPT/HCPCS: 36415; 36416; 71045; 80048; 80053; 82550; 82553; 83690; 83735; 83880; 84484; 85025; 93005; 93798; 93970; 94640; 94760; 96365; 96367; 96375; 99406; G8978-GP-CK; G8979-GP-CK; G8980-GP-CK; G8987-GO-CK; G8988-GO-CI; J0456; J0696; J1650; J1815; J1940; J2405; J7050; J7506; J7620; J7626; Q0162

== ENCOUNTER 2018-06-17 20:35 | Inpatient (IN) | payer MEDICARE, MEDICAID ==
[2018-06-17 21:18] LABS: #Basophils 0.1 thou/uL (0.0-0.2); #Eosinphils 0.1 thou/uL (0.0-0.7); #Lymphocytes 1.3 thou/uL (1.20-3.40); #Monocytes 0.5 thou/uL (0.11-0.59); #Neutrophils 6.2 thou/uL (1.40-6.50); %Basophils 0.9 % (0.0-1.0); %Eosinophils 1.8 % (0.0-10.0); %Lymphocytes 15.3 % (21.0-51.0); %Monocytes 5.9 % (0.0-10.0); %Neutrophils 76.1 % (42.0-75.0); Hemoglobin 13.1 g/dL (12.0-16.0); Mean Corpuscular HGB CONC 36.4 g/dL (32.0-36.0); Mean Corpuscular Hemoglobin 33.8 pg (27.0-31.0); Mean Corpuscular Volume 92.9 fL (78.0-98.0); Mean Platelet Volume 8.7 fL (7.4-10.4); Platelet Count 170 thou/uL (130-400); Red Blood Cell (RBC) Count 3.86 mill/uL (4.20-5.40); White Blood Cell (WBC) Count 8.1 thou/uL (4.8-10.8)
[2018-06-17 21:38] LABS: ALT (SGPT) 21 U/L (8-55); AST (SGOT) 15 U/L (5-34); Albumin 3.1 g/dL (3.5-5.0); Alkaline Phosphatase 75 U/L (40-150); Anion Gap 15 mmol/L (10-20); BUN (Urea Nitrogen) 28 mg/dL (9.8-20.1); Bilirubin, Total 0.5 mg/dL (0.2-1.2); CK (CPK) 145 U/L (29-168); Calc. Creatinine Clearance 0 mL/min (70-130); Calcium 8.4 mg/dL (7.8-10.44); Carbon Dioxide 27 mmol/L (22-29); Chloride 91 mmol/L (98-107); Estimated GFR-MDRD 33; Globulin 3.1 g/dL (2.4-3.5); Lipase 52 U/L (8-78); Potassium 3.5 mmol/L (3.5-5.1); Protein, Total 6.2 g/dL (6.0-8.3); Sodium 129 mmol/L (136-145)
[2018-06-17 21:41] LABS: Glucose 635 mg/dL (70-105)
--- NOTE | 2018-06-17 21:59 | RAD ---
ONE VIEW CHEST: History: Pain. Comparison: 03-31-18 FINDINGS: Normal cardiac silhouette. Pulmonary vessels and hilum are normal. Costophrenic angles are clear. No consolidation or mass. No pneumothorax or osseous abnormalities. IMPRESSION: No acute cardiopulmonary process. POS: [facility]
[2018-06-17] MEDS ORDERED: Insulin Regular 300 UNITS/3 ML VIAL ONE (22:03)
[2018-06-17] MEDS ORDERED: Morphine 4 MG/ML VIAL ONE (22:03)
[2018-06-17 22:34] LABS: Base Excess-Venous 4.6 mmol/L (0 (+/- 2.5)); Bicarbonate (HCO3v) 29.1 mmol/L (22.0-29.0); CO2 Tension (PvCO2) 41.5 mmHg (41.0-51.0); Calcium, Ionized 1.02 mmol/L (1.12-1.32); Hemoglobin - Calc 12.5 g/dL (12.0-18.0); O2 Tension (PvO2) 104.6 mmHg (35.0-45.0); Potassium 3.3 mmol/L (3.4-4.7); T. Carbon Dioxide 30.3 mmol/L (1.0-85.0); pH (Venous) 7.453 (7.35-7.45); vO2 Saturation-calc 98.3 % (94-98)
[2018-06-17] MEDS ORDERED: Azithromycin 250 MG TAB ONE (23:34)
[2018-06-17] MEDS ORDERED: cefTRIAXone\\ROCEPHIN 500 MG VIAL ONE (23:34)
--- NOTE | 2018-06-17 23:37 | CT ---
CT ANGIOGRAM CHEST: Comparison: 08-30-17 History: Mid sternal chest pain, radiating to the right side. Technique: CT angiogram of the chest was performed in the axial plane. Reformatted images are submitt ed for interpretation. FINDINGS: Limited evaluation of the pulmonary artery system due to poor timing of contrast bolus. There is adeq uate contrast opacification at the level of the central pulmonary arteries. No filling defect. The lo bar, segmental, and subsegmental arteries cannot be assessed. There are non-enlarged right paratracheal lymph nodes. No mediastinal mass, lymphadenopathy, or hemat ruby. Heart size is within normal limits. No pericardial effusion. There are coronary artery calcifica tions. The thoracic aorta and upper abdominal aorta are unremarkable. The visualized upper abdominal solid organs are also unremarkable. Trachea and central bronchi are patent. There is narrowing of the distal trachea. No suspicious mass or consolidation in the left or right upper lobes. Linear opacities in the middle lobe, lingula and b oth lower lobes due to scar and/or atelectasis. No significant pleural effusion. No lytic or blastic lesions in the osseous structures. IMPRESSION: Limited evaluation of the pulmonary arterial system due to poor timing of contrast bolus. No evidence of a central pulmonary artery embolism. POS: [facility]
[2018-06-18 01:02] VITALS: BMI 43.0
[2018-06-18 01:35] LABS: Troponin I Less than 0.010 ng/mL (< 0.028)
[2018-06-18] MEDS ORDERED: Acetaminophen 650 MG Suppository PR PRN (01:49)
[2018-06-18] MEDS ORDERED: Zolpidem Tartrate 5 MG TAB PO PRN (01:49)
[2018-06-18] MEDS ORDERED: Ondansetron PF 4 MG/2 ML Vial IVP PRN (01:49)
[2018-06-18] MEDS ORDERED: Ondansetron ODT 4 MG TAB PO PRN (01:49)
[2018-06-18] MEDS ORDERED: Dextrose 5% in Water 1,000 ML IV PRN (01:49)
[2018-06-18] MEDS ORDERED: Senokot S 8.6-50 MG TAB PO PRN (01:49)
[2018-06-18] MEDS ORDERED: Calcium Carbonate 500 MG ChewTAB PO PRN (01:49)
[2018-06-18] MEDS ORDERED: HumaLOG 300 UNITS/3 ML VIAL SC PRN ×2 (01:49)
[2018-06-18] MEDS ORDERED: Acetaminophen 325 MG TAB PO PRN (01:49)
[2018-06-18] MEDS ORDERED: Bisacodyl 5 MG TAB PO PRN (01:49)
[2018-06-18] MEDS ORDERED: Dextrose 50% Abboject 50 ML SYRINGE SLOW IVP PRN (01:49)
[2018-06-18] MEDS ORDERED: Nitroglycerin 0.4 MG TAB (25 Tab Bottle) PO PRN (02:03)
[2018-06-18] MEDS ORDERED: HYDROcodone/Acetaminophen 10/325 mg Tablet PO PRN (02:04)
[2018-06-18] MEDS ORDERED: Lorazepam 0.5 MG TAB PO PRN (02:15)
[2018-06-18 03:38] LABS: #Basophils 0.1 thou/uL (0.0-0.2); #Eosinphils 0.2 thou/uL (0.0-0.7); #Lymphocytes 1.5 thou/uL (1.20-3.40); #Monocytes 0.4 thou/uL (0.11-0.59); #Neutrophils 4.7 thou/uL (1.40-6.50); %Eosinophils 2.7 % (0.0-10.0); %Monocytes 6.2 % (0.0-10.0); Hemoglobin 12.6 g/dL (12.0-16.0); Mean Corpuscular HGB CONC 35.4 g/dL (32.0-36.0); Mean Corpuscular Hemoglobin 32.4 pg (27.0-31.0); Mean Corpuscular Volume 91.7 fL (78.0-98.0); Mean Platelet Volume 8.3 fL (7.4-10.4); Platelet Count 159 thou/uL (130-400); RBC Distribution Width 11.9 % (11.5-14.5); Red Blood Cell (RBC) Count 3.88 mill/uL (4.20-5.40)
[2018-06-18 03:54] LABS: Albumin 3.1 g/dL (3.5-5.0); Anion Gap 16 mmol/L (10-20); BUN (Urea Nitrogen) 28 mg/dL (9.8-20.1); BUN/Creatinine Ratio 18.18; Calc. Creatinine Clearance 75 mL/min (70-130); Calcium 8.8 mg/dL (7.8-10.44); Carbon Dioxide 31 mmol/L (22-29); Cardiac Risk 8.6 (Less than 4.5); Chloride 90 mmol/L (98-107); Cholesterol 223 mg/dl (< 200 Desired); Estimated GFR-MDRD 34; Glucose 447 mg/dL (70-105); HDL Cholesterol 26 mg/dL (>60 Neg Risk); Potassium 3.5 mmol/L (3.5-5.1); Sodium 133 mmol/L (136-145); Triglycerides 684 mg/dL (Less than 150)
[2018-06-18 03:57] LABS: Troponin I 0.012 ng/mL (< 0.028)
[2018-06-18] MEDS: Nitroglycerin 2% Ointment 1 INCH/1 GM Packet TOP SCH ×2 (05:05→13:43)
[2018-06-18] MEDS ORDERED: Levothyroxine Sodium 25 MCG TAB PO SCH (06:00)
[2018-06-18] MEDS ORDERED: Levothyroxine Sodium 125 MCG TAB PO SCH (06:00)
[2018-06-18] MEDS ORDERED: Mometasone/Formoterol 120 PUFF INHALER INH SCH (06:30)
[2018-06-18] MEDS ORDERED: Non-Formulary Item 1 EACH (Fluticasone/Salmeterol [Advair Diskus 250/50] 1 INH) IH SCH (09:00)
[2018-06-18] MEDS ORDERED: hydrALAZINE 25 MG TAB PO SCH (09:00)
[2018-06-18] MEDS ORDERED: Famotidine 20 MG TAB PO SCH (09:00)
[2018-06-18] MEDS ORDERED: Baclofen 10 MG TAB PO SCH (09:00)
[2018-06-18] MEDS ORDERED: Aspirin 81 mg Enteric Coated Tablet PO SCH (09:00)
[2018-06-18] MEDS ORDERED: Gabapentin 400 MG CAP PO SCH (09:00)
[2018-06-18] MEDS ORDERED: Metoprolol Tartrate 50 MG TAB PO SCH (09:00)
[2018-06-18] MEDS ORDERED: Famotidine/PF 20 mg/2ml Vial SLOW IVP SCH (09:00)
[2018-06-18 11:10] VITALS: BP 116/55; TEMP 97.8
--- NOTE | 2018-06-18 14:07 | HP ---
REASON FOR ADMISSION: Hyperglycemia, COPD exacerbation, chest pain likely pleuritic pain. HISTORY OF PRESENTING ILLNESS: The patient gives history of having retrosternal chest pain, which was worse on deep breathing. This was 10/10 in intensity. This started yesterday late in the afternoon. The pain was off and on. She had coughing episode with expectoration of green sputum. The patient still smokes 6 to 7 cigarettes a day and has history of emphysema. No complaints of fever. No complaints of palpitation, PND, or orthopnea. The patient normally ambulates in the house. She has providers from 8am to 12 noon, and [facility] nurse comes and checks on her as well. PAST MEDICAL AND SURGICAL HISTORY: Hypertension, chronic pain, diastolic dysfunction, COPD, coronary artery disease with prior stent, hypertension, dyslipidemia, diabetes mellitus type 2, diabetic neuropathy, morbid obesity, Viera esophagus, GERD, history of lung cancer treated with chemotherapy and radiation, history of CVA, anxiety, depression, chronic respiratory failure on home oxygen, tobacco abuse, tubal ligation, carpal tunnel repair, and prior cardiac cath. CURRENT MEDICATIONS: 1. Lasix 80 mg twice daily. 2. Advair Diskus inhaler 2 puffs twice daily. 3. Baclofen 10 mg q.a.m. 4. Gabapentin twice daily. 5. Hydralazine 50 mg twice daily. 6. Lopressor 25 mg twice daily. 7. Seroquel 100 mg p.o. at bedtime. 8. Levothyroxine 125 mcg daily. 9. Nitroglycerin transdermal daily patch. 10. Omeprazole 40 mg daily. 11. Lorazepam 1 mg p.o. daily. 12. Ashford p.r.n. for pain. 13. Lantus 72 units subcu twice daily. 14. Humalog sliding scale 3 times a day. 15. Singulair 10 mg daily. 16. Pravachol 80 mg p.o. at bedtime. 17. Tizanidine 4 mg twice daily. 18. Albuterol nebulizer twice daily. ALLERGIES: MOTRIN AND SULFA. PERSONAL HISTORY: Smokes 6 to 7 cigarettes a day. Does not abuse alcohol or drugs. FAMILY HISTORY: Mother at the age of 78 years, she has had history of diabetes. Father at the age of 82, he has had coronary artery disease, he had cancer of the throat with tracheostomy and multiple medications prior to . The patient stays alone, but has providers come and check on her from 8:00 a.m. to 12 noon daily and [facility] health nurse comes and checks on her as well. Code status is full. REVIEW OF SYSTEMS: CONSTITUTIONAL: Negative for weight loss or gain, ability to conduct usual activities. SKIN: Negative for rash, itching. EYES: Negative for double vision, pain. ENT/MOUTH: Negative for nose bleeding, neck stiffness, pain, tenderness. CARDIOVASCULAR: Negative for palpitations, dyspnea on exertion, orthopnea. RESPIRATORY: Negative for shortness of breath, wheezing, cough, hemoptysis, fever or night sweats. GASTROINTESTINAL: Negative for poor appetite, abdominal pain, heartburn, nausea , vomiting, constipation, or diarrhea. GENITOURINARY: Negative for urgency, frequency, dysuria, nocturia. MUSCULOSKELETAL: Negative for pain, swelling. NEUROLOGIC/PSYCHIATRIC: Negative for anxiety, depression. ALLERGY/IMMUNOLOGIC: Negative for skin rash, bleeding tendency. PHYSICAL EXAMINATION: GENERAL: The patient is a 58-year-old female, who is currently not in any acute distress. VITAL SIGNS: Blood pressure 146/64, pulse 74 per minute, respiratory rate 20 per minute, temperature 98.4 degrees Fahrenheit, and saturating 97% on 4 L nasal cannula on arrival, currently on 2 L nasal cannula. NECK: Supple. No elevated JVD. HEENT: Eyes; extraocular muscles intact. Pupils reacting to light. Oral cavity, mucous membranes are moist. No exudates or congestion. CARDIOVASCULAR SYSTEM: S1 and S2 heard. Regular rhythm. RESPIRATORY SYSTEM: Air entry 1+ bilateral, scattered rhonchi plus bilateral. No rales or wheezes. ABDOMEN: Soft. Bowel sounds heard. No tenderness, rigidity, or guarding. EXTREMITIES: No peripheral edema or calf tenderness. VASCULAR SYSTEM: Peripheral pulses 1+ bilateral. No ischemic ulcerations or gangrene. CENTRAL NERVOUS SYSTEM: No gross focal deficits noted. The patient is alert, awake, and oriented well. PSYCHIATRIC SYSTEM: The patient's mood is euthymic. No hallucinations or delusions. LABORATORY DATA: CT angio chest done shows no evidence of central artery pulmonary embolism. White count of 7, hemoglobin and hematocrit of 12 and 35, platelet count 159 with 68% neutrophils. BUN 28, creatinine 1.54, serum bicarb 31, serum glucose 447. Albumin 3.1, triglyceride 684, total cholesterol 223, and HDL 26. EKG done shows normal sinus rhythm at 72 beats per minute. There are signs of RBBB seen. CLINICAL IMPRESSION AND PLAN: The patient will be shortly discharged home for mild chronic obstructive pulmonary disease exacerbation with a history of smoking and retrosternal chest pain, which is pleuritic in nature. She also has cough with expectoration of greenish phlegm. She will be given prescriptions for Levaquin and DuoNebs q.6 hourly. She is otherwise hemodynamically stable. The patient needs to increase her dose of Lantus to 80 units twice daily. She needs to check her fingerstick glucose twice daily and record for a period of 10 days to follow up with her primary care physician in 1 week. She will be shortly ambulated prior to discharge. Please note this is same-day admit discharge under observation status. Job ID: [id number] [id number]
[2018-06-18] MEDS ORDERED: Pravastatin Sodium 40 MG TAB PO SCH (21:00)
== END 2018-06-18 15:03 | disposition home or self-care (01) | DRG 191 ==
LOC: ERS 20:35 → 2NO 23:02
PROVIDERS: ADMIT Internal Medicine; ATTEND Internal Medicine
DX: J44.1 Chronic obstructive pulmonary disease with (acute) exacerbation (principal); Z68.41 Body mass index [BMI] 40.0-44.9, adult; J96.10 Chronic respiratory failure, unspecified whether with hypoxia or hypercapnia; F17.210 Nicotine dependence, cigarettes, uncomplicated; I25.10 Atherosclerotic heart disease of native coronary artery without angina pectoris; E11.65 Type 2 diabetes mellitus with hyperglycemia; E11.40 Type 2 diabetes mellitus with diabetic neuropathy, unspecified; K21.9 Gastro-esophageal reflux disease without esophagitis; E66.01 Morbid (severe) obesity due to excess calories; Z99.81 Dependence on supplemental oxygen
CPT/HCPCS: 36415; 36416; 71045; 71275; 80053; 80061; 80069; 82330; 82550; 82803; 83690; 83735; 83880; 83930; 84484; 85025; 85379; 93005; 93306; 94760; 96365; 96375; 99406; J0696; J1815; J2270; J7620; S0028

== ENCOUNTER 2018-06-29 20:45 | Observation (INO) | payer MEDICARE, MEDICAID ==
[2018-06-29 21:32] LABS: Analyzer IN Cardio ER; Base Excess (BEa) 4.3 mEq/L (-2.0 to +3.0); CO2 Tension 43.6 mmHg (35.0-45.0); Calcium, Ionized 1.09 mmol/L (1.12-1.30); Carboxyhemoglobin (COHb) 3.7 gm% (0.0-3.0); Hemoglobin (Hb) 13.7 g/dL (12.0-16.0); O2 Tension (PaO2) 82.6 mmHg (80.0-100.0); Potassium - ABG Lab 3.44 mmol/L (3.70-5.30); Puncture Site LRA; pH, Arterial 7.44 (7.35-7.45)
[2018-06-29 21:42] LABS: #Basophils 0.1 thou/uL (0.0-0.2); #Eosinphils 0.3 thou/uL (0.0-0.7); #Lymphocytes 1.7 thou/uL (1.20-3.40); #Monocytes 0.5 thou/uL (0.11-0.59); %Basophils 0.9 % (0.0-1.0); %Eosinophils 3.3 % (0.0-10.0); %Lymphocytes 19.7 % (21.0-51.0); %Monocytes 5.5 % (0.0-10.0); %Neutrophils 70.6 % (42.0-75.0); Hemoglobin 13.5 g/dL (12.0-16.0); Mean Corpuscular HGB CONC 35.1 g/dL (32.0-36.0); Mean Corpuscular Hemoglobin 31.9 pg (27.0-31.0); Mean Corpuscular Volume 90.8 fL (78.0-98.0); Mean Platelet Volume 8.4 fL (7.4-10.4); Platelet Count 202 thou/uL (130-400); RBC Distribution Width 12.1 % (11.5-14.5); Red Blood Cell (RBC) Count 4.24 mill/uL (4.20-5.40); White Blood Cell (WBC) Count 8.5 thou/uL (4.8-10.8)
--- NOTE | 2018-06-29 21:45 | CT ---
BRAIN CT WITHOUT IV CONTRAST: 06/29/18 HISTORY: Altered mental status following a fall. COMPARISON: 10/18/17. FINDINGS: Minimal motion artifact through the skull base region. No focal mass or midline shift. No intra or ex tra-axial hemorrhage. Sinuses and mastoids are clear of acute process. IMPRESSION: No mass, bleed or other acute process. Stable from prior study. POS: [facility]
--- NOTE | 2018-06-29 21:51 | RAD ---
CHEST ONE VIEW PORTABLE: 06/29/18 HISTORY: 58-year-old female with history of altered mental status. COMPARISON: 06/17/18. Stable appearing increased linear and interstitial markings in the lung bases somewhat greater on the right side. Inspiration is less than optimal. Monitor leads overlie the chest. No confluent pneumoni a, overt edema, or other acute process. IMPRESSION: Somewhat less than optimal inspiration. Stable increased linear and interstitial markings in the base s, worse on the right side. No significant new process. POS: [facility]
[2018-06-29 22:01] LABS: ALT (SGPT) 16 U/L (8-55); AST (SGOT) 15 U/L (5-34); Acetaminophen Less than 6.0 mcg/mL (10.0-30.0); Albumin 3.3 g/dL (3.5-5.0); Alcohol Less than 10 mg/dL (Less than 10); Alkaline Phosphatase 73 U/L (40-150); Anion Gap 13 mmol/L (10-20); BUN (Urea Nitrogen) 24 mg/dL (9.8-20.1); Bilirubin, Total 0.6 mg/dL (0.2-1.2); Calc. Creatinine Clearance 0 mL/min (70-130); Carbon Dioxide 30 mmol/L (22-29); Chloride 93 mmol/L (98-107); Estimated GFR-MDRD 33; Globulin 3.1 g/dL (2.4-3.5); Glucose 300 mg/dL (70-105); Lipase 30 U/L (8-78); Potassium 3.4 mmol/L (3.5-5.1); Protein, Total 6.4 g/dL (6.0-8.3); Salicylate Less than 8.0 mg/dL (15.0-30.0); Sodium 133 mmol/L (136-145)
[2018-06-29 23:28] LABS: Bilirubin Negative (Negative); Blood, Urine Negative (Negative); Clarity TURBID (Clear); Glucose, Urine (Dipstick) 500 mg/dL (Negative); Leukocyte Moderate (Negative); Nitrite Negative (Negative); Protein, Urine (Dipstick) 300 mg/dL (Neg-Trace); Specific Gravity, Urine 1.016 (1.002-1.036); Urobilinogen 0.2 mg/dL (0.2-1.0)
[2018-06-29 23:30] LABS: Bacteria/HPF 1+ HPF (None Seen); WBC/HPF 21-50 HPF (0-3)
[2018-06-29 23:43] LABS: Medtox Reader # READER 1; Opiate Screen Detected (NotDetected); Tricyclic Screen Detected (NotDetected)
[2018-06-29 23:44] LABS: Amphetamine Not Detected (NotDetected); Barbiturates Screen Not Detected (NotDetected); Benzodiazepine Screen Not Detected (NotDetected); Cocaine Metabolite Screen Not Detected (NotDetected); Medtox Control Line Valid? VALID (VALID); Methadone Not Detected (NotDetected); Methamphetamine Not Detected (NotDetected); Oxycodone Screen Not Detected (NotDetected); Phencyclidine (PCP) Not Detected (NotDetected); THC/Cannabinoid Screen Not Detected (NotDetected)
[2018-06-29 23:46] LABS: Pathc Cast-AUWi Flag 3.05 (0-2.49); Yeast-AUWi Flag 154.9 (0-25.0)
[2018-06-29 23:47] LABS: RBC/HPF 0-3 HPF (0-3)
[2018-06-29 23:48] LABS: Hyaline Casts/LPF 0-3 HYALINE CAST LPF (0-3 Hyaline); Other Casts/LPF None Seen LPF (0-3 Hyaline); Squamous Epithelial 21-50 HPF (0-3); Yeast-All Forms 1+ HPF (None Seen)
[2018-06-30] MEDS ORDERED: cefTRIAXone\\ROCEPHIN 2 GM VIAL ONE (00:14)
[2018-06-30] MEDS ORDERED: Acetaminophen 500 MG TAB ONE (01:02)
[2018-06-30 02:46] VITALS: BMI 41.3
[2018-06-30] MEDS ORDERED: Sodium Chloride 0.45% 1,000 ML IV SCH (03:00)
[2018-06-30] MEDS ORDERED: Acetaminophen 1,000 MG in Premix Bag 1 BAG IVPB PRN (04:08)
[2018-06-30] MEDS ORDERED: HumaLOG 300 UNITS/3 ML VIAL SC PRN (04:09)
[2018-06-30] MEDS ORDERED: Dextrose 5% in Water 1,000 ML IV PRN (04:09)
[2018-06-30] MEDS ORDERED: Dextrose 50% Abboject 50 ML SYRINGE IVP PRN (04:09)
[2018-06-30] MEDS: Levothyroxine Sodium 125 MCG TAB PO SCH (04:48)
[2018-06-30] MEDS: Sodium Chloride 0.9% 1,000 ML IV SCH ×2 (04:51→16:13)
[2018-06-30] MEDS: HumaLOG 300 UNITS/3 ML VIAL SC PRN ×3 (06:33→17:28)
[2018-06-30] MEDS ORDERED: Lorazepam 0.5 MG TAB PO PRN (07:39)
[2018-06-30] MEDS ORDERED: Ipratropium Oral Inhaler (200 INHALATIONS) INH PRN (07:39)
[2018-06-30] MEDS ORDERED: Nitroglycerin 0.4 MG TAB (25 Tab Bottle) PO PRN (07:44)
[2018-06-30] MEDS ORDERED: Nitroglycerin 2% Ointment 1 INCH/1 GM Packet TOP PRN (07:44)
[2018-06-30] MEDS ORDERED: Calcium Carbonate 500 MG ChewTAB PO PRN (07:46)
[2018-06-30] MEDS ORDERED: Acetaminophen 325 MG TAB PO PRN (07:46)
[2018-06-30] MEDS ORDERED: HYDROcodone/Acetaminophen 10/325 mg Tablet PO PRN (07:46)
[2018-06-30] MEDS ORDERED: Ondansetron ODT 4 MG TAB PO PRN (07:46)
[2018-06-30] MEDS ORDERED: Ondansetron PF 4 MG/2 ML Vial IVP PRN (07:46)
[2018-06-30] MEDS ORDERED: Furosemide 20 MG TAB PO SCH ×2 (08:15→17:00)
[2018-06-30] MEDS: Enoxaparin Sodium 40 MG/0.4 ML SYRINGE SC SCH (08:58)
[2018-06-30] MEDS: Aspirin 81 mg Enteric Coated Tablet PO SCH (08:58)
[2018-06-30] MEDS: hydrALAZINE 25 MG TAB PO SCH ×2 (08:59→20:11)
[2018-06-30] MEDS ORDERED: Baclofen 10 MG TAB PO SCH (09:00)
[2018-06-30] MEDS ORDERED: Non-Formulary Item 1 EACH (Insulin Glargine,Hum.Rec.Anlog [Lantus Solostar] 50 UNIT) SQ SCH (09:00)
[2018-06-30] MEDS ORDERED: Prevnar 13-Val Conj/PF 0.5 ML SYRINGE IM ONE (09:00)
[2018-06-30] MEDS ORDERED: Senokot S 8.6-50 MG TAB PO SCH (09:00)
[2018-06-30] MEDS: Metoprolol Tartrate 50 MG TAB PO SCH ×2 (09:00→20:12)
[2018-06-30] MEDS ORDERED: Non-Formulary Item 1 EACH (Insulin Glargine,Hum.Rec.Anlog [Lantus Solostar] 70 UNIT) SQ SCH (09:00)
[2018-06-30] MEDS: tiZANidine HCl 4 MG TAB PO SCH ×2 (09:02→20:14)
[2018-06-30] MEDS ORDERED: Senokot S 8.6-50 MG TAB PO PRN (09:13)
[2018-06-30] MEDS ORDERED: Furosemide 80 MG TAB PO SCH (09:30)
[2018-06-30] MEDS: INSULIN GLARGINE SC SCH ×2 (09:58→22:02)
[2018-06-30] MEDS: PRE FILLED SC SCH ×2 (09:58→22:02)
[2018-06-30] MEDS: Gabapentin 400 MG CAP PO SCH ×2 (10:33→20:10)
[2018-06-30] MEDS ORDERED: Nicotine 14 MG PATCH TD PRN (13:30)
[2018-06-30] MEDS: Furosemide 20 MG TAB PO SCH (16:22)
[2018-06-30] MEDS ORDERED: Furosemide 40 MG TAB PO SCH (17:00)
[2018-06-30] MEDS: HYDROcodone/Acetaminophen 10/325 mg Tablet PO PRN ×2 (17:33→23:22)
[2018-06-30] MEDS ORDERED: Labetalol HCl 100 MG/20 ML VIAL SLOW IVP PRN (18:07)
[2018-06-30] MEDS ORDERED: cloNIDine 0.1 MG TAB PO PRN (18:07)
[2018-06-30] MEDS ORDERED: hydrALAZINE 20 MG/ML VIAL SLOW IVP PRN (18:07)
--- NOTE | 2018-06-30 18:56 | RAD ---
RIGHT FOREARM TWO VIEWS: 06/30/18 HISTORY: Right forearm pain with questionable fall. There is some arthrosis changes of the elbow joint and the wrist with some heterogeneous mineralizati on in the distal radius, nonspecific. This could be related to degenerative change or could possibly represent residual from an old fracture. No acute fracture or dislocation. IMPRESSION: No acute fracture or dislocation. 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 POS: [facility]
[2018-06-30] MEDS: Mometasone/Formoterol 120 PUFF INHALER INH SCH (19:51)
[2018-06-30] MEDS: Atorvastatin Calcium 20 MG TAB PO SCH (20:10)
--- NOTE | 2018-06-30 22:40 | HP ---
CHIEF COMPLAINT: Burning with urination. HISTORY OF PRESENT ILLNESS: This is a 58-year-old female with past medical history of diabetes mellitus type 2, ME in the past, congestive heart failure, hypothyroidism, GERD, Viera's esophagus, and hyperlipidemia, presenting with burning with urination and status post fall. Per patient, she feels like she has been feeling sick and she has not been feeling like herself for the past 2 days. Patient is not able to really explain what she means by feeling sick, but she states that she has not been feeling well (she has been out of it). Patient basically was going to the bathroom and patient fell. Patient denies any fever, chills, nausea, vomiting, chest pain, or palpitation. Patient is endorsing abdominal pain. REVIEW OF SYSTEMS: Positive for dysuria and generalized weakness. Otherwise, all systems are reviewed and are negative. PAST MEDICAL HISTORY: 1. Diabetes mellitus type 2. 2. Hypothyroidism. 3. GERD. 4. Viera's esophagus. 5. Hyperlipidemia. 6. ME in the past. 7. Hypertension. 8. Degenerative joint disease. 9. CVA with left-sided weakness. 10. COPD. 11. Acute kidney failure. FAMILY HISTORY: Reviewed and noncontributory to this visit. PAST SURGICAL HISTORY: 1. Carpal tunnel surgery. 2. Tubal ligation. 3. Cardiac stents x2. 4. 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 PSYCHIATRIC HISTORY: Depression. SOCIAL HISTORY: Drinks socially. Denies any illicit drug use, and currently smokes a lot of cigarettes. ALLERGIES: PATIENT IS ALLERGIC TO IBUPROFEN AND SULFA. CURRENT MEDICATIONS: Patient takes: 1. Lasix 80 mg b.i.d. 2. Advair Diskus. 3. Baclofen 10 mg. 4. Gabapentin b.i.d. 5. Hydralazine 50 b.i.d. 6. Metoprolol 25 b.i.d. 7. Seroquel 100 mg daily. 8. Levothyroxine 150 mcg. 9. Nitroglycerin 1 patch transdermal daily. 10. Omeprazole. 11. Zofran. 12. Lorazepam. 13. Acme 10 mg/325 mg daily. 14. Lantus 72 units b.i.d. 15. Humalog. 16. Singulair 10 mg. 17. Pravastatin 80 mg. 18. Tizanidine 4 mg. 19. Albuterol sulfate. 20. Atrovent. PHYSICAL EXAMINATION: VITAL SIGNS: Blood pressure is 108/72, pulse of 61, respiratory rate of 22, and temperature of 99.4. GENERAL: Patient is lying in bed, does not appear to be in any acute distress at this time. Patient is able to speak to me in full sentences. Actually, patient is alert and oriented x3. Patient knows place, time, and person. HEENT: Normocephalic and atraumatic. Pupils are equally round and reactive to light. Extraocular movements are intact. No scleral icterus. No conjunctival pallor. Mucous membranes are moist. NECK: Patient has big neck circumference. Obese. Trachea is midline. Full range of motion. No JVD. LUNGS: Clear to auscultation bilaterally. No wheezing, no rales, no rhonchi appreciated. CARDIAC: Positive S1 and S2. Regular rate and rhythm. No murmurs, no gallops, no rubs appreciated. ABDOMEN: Obese abdomen. Soft, nontender, and nondistended. EXTREMITIES: Patient has 5/5 upper extremity strength and 5/5 lower extremity strength. Good pulses bilaterally of the upper and lower extremities. No edema noted. NEUROLOGIC: Cranial nerves 2 through 12 are grossly intact. No neurologic deficits noted at this time. SKIN: Warm, dry, and intact. PSYCH: Patient has normal affect, very pleasant lady. DATA REVIEWED: EKG; a 12-lead EKG shows normal sinus rhythm with a rate of 61. LABORATORY DATA: WBC is 8.5, hemoglobin is 13.5, hematocrit is 38.5, and platelet count is 202. ABGs; pH is 7.4, pCO2 is 43, PO2 is 82, and oxygen saturation is 82. Sodium is 133, potassium is 3.4, chloride is 93, carbon dioxide of 30, anion gap of 13, BUN is 24, creatinine is 1.58, and glucose is 300. TSH is 15.47. ASSESSMENT AND PLAN: 1. This is a 58-year-old female being admitted for urinary tract infection. At this point, patient has been having dysuria. We will start the patient on Rocephin. We have ordered urine cultures. We will follow up on cultures and sensitivities. We will monitor the patient closely. We will follow up on morning labs. 2. Generalized weakness, was likely due to polypharmacy. Patient's medication list has to be adjusted so that patient can benefit from not being too lethargic. At this point, we will monitor the patient. 3. Chronic kidney disease, stage C3. At this time, we will monitor the patient's creatinine and we will follow up on morning labs. 4. Diabetes mellitus type 2, uncontrolled. At this point, patient's blood sugar is in 300. We will adjust patient's insulin and blood sugar medications. 5. Hypothyroidism. At this point, we will continue the patient on home medications. Patient's TSH is currently elevated and T4 is normal, so can be due to subclinical hypothyroidism. We will continue patient on levothyroxine and we will monitor the patient closely in the outpatient settings. 6. Hyperlipidemia. Continue the patient on home medication. 7. Morbid obesity. Advised the patient diet and exercise. 8. Deep venous thrombosis and gastrointestinal prophylaxis. Job ID: [id number]
[2018-06-30] MEDS: cefTRIAXone\\ROCEPHIN 2 GM in Sodium Chloride 0.9% 100 ML IVPB SCH (23:36)
[2018-07-01 05:23] LABS: #Basophils 0.1 thou/uL (0.0-0.2); #Eosinphils 0.2 thou/uL (0.0-0.7); #Lymphocytes 1.1 thou/uL (1.20-3.40); #Monocytes 0.5 thou/uL (0.11-0.59); #Neutrophils 5.3 thou/uL (1.40-6.50); %Basophils 0.8 % (0.0-1.0); %Eosinophils 2.8 % (0.0-10.0); %Lymphocytes 15.2 % (21.0-51.0); %Monocytes 6.3 % (0.0-10.0); %Neutrophils 74.9 % (42.0-75.0); Hemoglobin 12.9 g/dL (12.0-16.0); Mean Corpuscular HGB CONC 34.8 g/dL (32.0-36.0); Mean Corpuscular Volume 92.1 fL (78.0-98.0); Mean Platelet Volume 8.3 fL (7.4-10.4); Platelet Count 189 thou/uL (130-400); Red Blood Cell (RBC) Count 4.02 mill/uL (4.20-5.40); White Blood Cell (WBC) Count 7.1 thou/uL (4.8-10.8)
[2018-07-01 05:56] LABS: ALT (SGPT) 16 U/L (8-55); AST (SGOT) 14 U/L (5-34); Albumin 3.3 g/dL (3.5-5.0); Alkaline Phosphatase 69 U/L (40-150); Anion Gap 16 mmol/L (10-20); BUN (Urea Nitrogen) 19 mg/dL (9.8-20.1); Bilirubin, Total 0.4 mg/dL (0.2-1.2); Calc. Creatinine Clearance 85 mL/min (70-130); Calcium 8.6 mg/dL (7.8-10.44); Carbon Dioxide 28 mmol/L (22-29); Chloride 94 mmol/L (98-107); Estimated GFR-MDRD 40; Globulin 3.1 g/dL (2.4-3.5); Glucose 292 mg/dL (70-105); Magnesium 1.9 mg/dL (1.6-2.6); Potassium 3.3 mmol/L (3.5-5.1); Protein, Total 6.4 g/dL (6.0-8.3); Sodium 135 mmol/L (136-145)
[2018-07-01] MEDS ORDERED: Levothyroxine Sodium 25 MCG TAB PO SCH (06:00)
[2018-07-01 06:25] LABS: Folate (Folic Acid) 5.9 ng/mL (7.0-31.4)
[2018-07-01] MEDS: Mometasone/Formoterol 120 PUFF INHALER INH SCH ×2 (06:25→20:21)
[2018-07-01] MEDS: Furosemide 20 MG TAB PO SCH ×2 (06:28→16:58)
[2018-07-01] MEDS: Levothyroxine Sodium 125 MCG TAB PO SCH (06:29)
[2018-07-01] MEDS: HumaLOG 300 UNITS/3 ML VIAL SC PRN ×3 (06:29→17:31)
[2018-07-01] MEDS: HYDROcodone/Acetaminophen 10/325 mg Tablet PO PRN ×3 (06:33→17:30)
[2018-07-01] MEDS ORDERED: Spironolactone 25 MG TAB PO PRN (07:39)
[2018-07-01] MEDS: Enoxaparin Sodium 40 MG/0.4 ML SYRINGE SC SCH (09:28)
[2018-07-01] MEDS: tiZANidine HCl 4 MG TAB PO SCH ×2 (09:29→20:18)
[2018-07-01] MEDS: Gabapentin 400 MG CAP PO SCH ×2 (09:30→20:23)
[2018-07-01] MEDS: hydrALAZINE 25 MG TAB PO SCH ×2 (09:30→20:18)
[2018-07-01] MEDS: Aspirin 81 mg Enteric Coated Tablet PO SCH (09:30)
[2018-07-01] MEDS: Metoprolol Tartrate 50 MG TAB PO SCH ×2 (09:30→20:20)
[2018-07-01] MEDS: PRE FILLED SC SCH ×2 (09:31→20:21)
[2018-07-01] MEDS: INSULIN GLARGINE SC SCH ×2 (09:31→20:21)
--- NOTE | 2018-07-01 19:16 | PDOC.PN ---
- Subjective Encounter Start Date: 07/01/18 Encounter Start Time: 19:05 Subjective: f/u for fall and AMS likely due to polypharmacy and deconditioining. -: Feels ok overall. Ambulated short distance in [place] today. - Objective Resuscitation Status - Order Detail: 06/30/18 07:44 Resuscitation Status Routine Resuscitation Status: FULL: Full Resuscitation MAR Reviewed: Yes Vital Signs & Weight: Vital Signs (12 hours) Temp Pulse Pulse Resp BP BP BP 07/01/18 16:00 98.2 F 70 18 138/73 07/01/18 12:03 73 165/69 H 07/01/18 12:00 98.6 F 75 20 177/72 H 07/01/18 10:22 89 16 07/01/18 09:30 76 193/81 H 07/01/18 08:00 97.7 F 76 18 163/73 H BP BP Pulse Ox Pulse Ox 07/01/18 16:00 92 L 07/01/18 12:03 92 L 07/01/18 12:00 92 L 07/01/18 10:22 93 L 07/01/18 09:30 07/01/18 08:00 193/81 H 172/52 H 94 L Weight Weight 256 lb 1 oz I&O: 06/30/18 07/01/18 07/02/18 06:59 06:59 06:59 Intake Total 30 1220 1000 Balance 30 1220 1000 Result Diagrams: 07/01/18 04:18 07/01/18 04:18 Additional Labs: Accuchecks 07/01/18 07/01/18 06/30/18 11:36 05:37 20:57 POC Glucose 256 H 319 H 316 H Laboratory Tests 06/18/18 06/29/18 06/29/18 03:25 21:27 21:27 Potassium 3.4 L Creatinine 1.54 H 1.58 H Vitamin B12 Folate Free T4 TSH 3rd Generation 15.4796 H Urine Opiates Screen Ur Tricyclics Screen Plasma Alcohol Less than 10 06/29/18 06/29/18 07/01/18 21:27 23:15 04:18 Potassium Creatinine Vitamin B12 350 Folate 5.90 L Free T4 0.75 TSH 3rd Generation Urine Opiates Screen Detected H Ur Tricyclics Screen Detected H Plasma Alcohol Radiology Reviewed by me: Yes (CT Brain - negative) Phys Exam - Physical Examination Constitutional: NAD HEENT: PERRLA, sclera anicteric, oral pharynx no lesions Neck: no nodes, no JVD, supple, full ROM Respiratory: no wheezing, no rales, no rhonchi, clear to auscultation bilateral S1, S2 Cardiovascular: RRR, no significant murmur, no rub, gallop obese Gastrointestinal: soft, non-tender, no distention, positive bowel sounds Musculoskeletal: pulses present, edema present Neurological: normal sensation, moves all 4 limbs Psychiatric: A&O x 3 Skin: normal turgor, cap refill <2 seconds Dx/Plan (1) Acute metabolic encephalopathy Code(s): G93.41 - METABOLIC ENCEPHALOPATHY Status: Acute Comment: Improved, Likely due to polypharmacy, improved, will need titration of outpt rx with PCP (2) Polypharmacy Code(s): Z79.899 - OTHER PHARMACISTS (CURRENT) DRUG THERAPY Status: Chronic Comment: See #1 (3) Fall Code(s): W19.XXXA - UNSPECIFIED FALL, INITIAL ENCOUNTER Status: Acute Comment: Multifactorial, PT for mobilization, HH with PT (4) CKD (chronic kidney disease) stage 3, GFR 30-59 ml/min Code(s): N18.3 - CHRONIC KIDNEY DISEASE, STAGE 3 (MODERATE) Status: Chronic Comment: Stable, avoid nephrotoxic meds and limit contrast (5) UTI (urinary tract infection) Status: Acute Comment: Suspected, await final Ucx results, continue Rocephin another 24h - Plan 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
[2018-07-01] MEDS ORDERED: Potassium Chloride 20 MEQ TAB PO SCH (19:30)
[2018-07-01] MEDS: Atorvastatin Calcium 20 MG TAB PO SCH (20:20)
[2018-07-02] MEDS: cefTRIAXone\\ROCEPHIN 2 GM in Sodium Chloride 0.9% 100 ML IVPB SCH (00:33)
[2018-07-02] MEDS: HYDROcodone/Acetaminophen 10/325 mg Tablet PO PRN ×2 (00:34→09:05)
[2018-07-02 04:45] VITALS: TEMP 98
[2018-07-02 05:12] LABS: Anion Gap 15 mmol/L (10-20); BUN (Urea Nitrogen) 23 mg/dL (9.8-20.1); Calc. Creatinine Clearance 63 mL/min (70-130); Calcium 8.7 mg/dL (7.8-10.44); Carbon Dioxide 31 mmol/L (22-29); Chloride 95 mmol/L (98-107); Estimated GFR-MDRD 30; Glucose 201 mg/dL (70-105); Potassium 4.3 mmol/L (3.5-5.1); Sodium 137 mmol/L (136-145)
[2018-07-02] MEDS: Furosemide 20 MG TAB PO SCH (05:41)
[2018-07-02] MEDS: Levothyroxine Sodium 125 MCG TAB PO SCH (05:41)
[2018-07-02] MEDS: Mometasone/Formoterol 120 PUFF INHALER INH SCH (07:00)
[2018-07-02] MEDS ORDERED: Potassium Chloride 20 MEQ TAB PO SCH (08:00)
[2018-07-02] MEDS: INSULIN GLARGINE SC SCH (08:56)
[2018-07-02] MEDS: Enoxaparin Sodium 40 MG/0.4 ML SYRINGE SC SCH (08:56)
[2018-07-02] MEDS: PRE FILLED SC SCH (08:56)
[2018-07-02] MEDS: tiZANidine HCl 4 MG TAB PO SCH (08:56)
[2018-07-02] MEDS: Gabapentin 400 MG CAP PO SCH (08:56)
[2018-07-02] MEDS: Metoprolol Tartrate 50 MG TAB PO SCH (08:57)
[2018-07-02] MEDS: Aspirin 81 mg Enteric Coated Tablet PO SCH (08:57)
[2018-07-02] MEDS: hydrALAZINE 25 MG TAB PO SCH (08:57)
[2018-07-02 08:59] VITALS: BP 160/74
--- NOTE | 2018-07-02 13:00 | DIS ---
DATE OF ADMISSION: 06/30/2018 DATE OF DISCHARGE: 07/02/2018 DISCHARGE DIAGNOSES: 1. Acute metabolic encephalopathy, multifactorial including polypharmacy. 2. Polypharmacy. 3. Status post mechanical fall. 4. Chronic kidney disease, stage 3, stable. 5. Diabetes mellitus, type 2, insulin requiring. 6. Hypothyroidism, stable. 7. Deconditioning. 8. Tobacco abuse. CONSULTATIONS: None. PERTINENT LABORATORY AND X-RAY FINDINGS: Creatinine ranged between 1.35 to 1.76. Estimated GFR ranged between 30 to 40. Potassium ranged between 3.3 to 4.3. Magnesium level 1.9. Troponin I negative x1. BNP 49. Vitamin B12 level 350. Folate level 5.9. TSH 15.5, free T4 level of 0.75. CBC within normal limits. Urine drug screen dated 06/29/2018, positive for opiates and tricyclics. Influenza A and B antigen dated 06/29/2018, negative. CT of the brain without contrast dated 06/29/2018, showed no acute intracranial process. Portable chest x-ray dated 06/29/2018, showed poor inspiratory film. Chronic changes in bilateral lung esparza noted. Right forearm x-ray with 2 views, dated 06/30/2018, showed no evidence for fracture or dislocation. HOSPITAL COURSE: The patient was initially admitted after presenting status post mechanical fall. The patient with altered mentation and deconditioning, undergoing neuroimaging as well as comprehensive metabolic workup. The patient was noted with mild metabolic derangements including hypokalemia as well as confirmation of chronic kidney disease. The patient was initially placed on Rocephin after concern for urinary tract infection; however, urine culture was not performed on the sample. The patient received Rocephin for approximately 48 hours without evidence for worsening symptoms. The patient received IV fluids and general supportive management. The patient also underwent evaluation by the Physical Therapy Service due to recent fall and deconditioning. The patient ambulated with the use of a rolling walker with recommendations per Physical Therapy to continue Outpatient Physical Therapy through Home Health Services. The patient's presentation concerning for polypharmacy given multiple sedating medications as well as muscle relaxants and pain medications, likely contributing to altered mental status. The patient clinically stabilized with modification to her current regimen and will need ongoing supervision and likely further modification to her extensive medication regimen. Overall, the patient remained clinically stable, tolerating regular oral intake with stable vital signs. I have examined the patient at the time of discharge and discussed followup instructions, at which point, the patient verbalized understanding and in agreement. The patient ready for discharge on 07/02/2018. DISCHARGE MEDICATIONS: 1. Advair Diskus 250/50 one inhalation b.i.d. 2. Lasix 80 mg p.o. b.i.d. 3. Gabapentin 800 mg p.o. b.i.d. 4. Humalog sliding scale t.i.d. with meals. 5. Hydralazine 50 mg p.o. b.i.d. 6. Reading 10/325 mg 1 to 2 tablets p.o. q.6 hours p.r.n. pain. 7. Ipratropium HFA 2 puffs inhaled daily p.r.n. 8. Levothyroxine 125 mcg p.o. daily. 9. Lorazepam 0.5 mg p.o. q.6 hours p.r.n. anxiety. 10. Metoprolol tartrate 25 mg p.o. b.i.d. 11. Nitroglycerin 0.4 mg transdermally at bedtime. 12. Omeprazole 40 mg p.o. b.i.d. 13. Pravachol 80 mg p.o. at bedtime. 14. Seroquel 100 mg p.o. daily and 200 mg p.o. at bedtime. 15. Senokot 8.6 mg one tablet p.o. at bedtime p.r.n. constipation. 16. Spironolactone 25 mg p.o. daily p.r.n. 17. Tizanidine 4 mg p.o. b.i.d. p.r.n. 18. Enteric-coated aspirin 81 mg p.o. daily. 19. Glargine insulin 80 units subcutaneously b.i.d. 20. DuoNeb 3 mL nebulized q.i.d. p.r.n. FOLLOWUP: The patient may follow up with her primary care provider, Dr. Valdemar Adames within 7 days of discharge. CONDITION ON DISCHARGE: Fair. ACTIVITY: Ad keyana, rolling walker with standby/contact guard assistance with fall risk precautions. DIET: ADA and heart healthy. CODE STATUS: Full. DISPOSITION: Discharged home on 07/02/2018 with [facility] including Physical Therapy. TIME SPENT: Total time preparing and coordinating discharge is 33 minutes. Job ID: [id number]
[2018-07-02] MEDS: HumaLOG 300 UNITS/3 ML VIAL SC PRN (13:02)
--- NOTE | 2018-07-07 13:04 | EKG ---
Test Reason : Blood Pressure : / mmHG Vent. Rate : 061 BPM Atrial Rate : 061 BPM P-R Int : 228 ms QRS Dur : 142 ms QT Int : 464 ms P-R-T Axes : 027 036 -02 degrees QTc Int : 467 ms Sinus rhythm with 1st degree A-V block Right bundle branch block Septal infarct , age undetermined Abnormal ECG Confirmed by JUAN F TAYLOR ([id number]), material expeditor CASI VASQUEZ ([id number]) on 07/07/2018 1:04:08 PM Referred By: Confirmed By:JUAN F TAYLOR
== END 2018-07-02 13:15 | disposition home health service (06) ==
LOC: ERS 20:45 → ONC 06-30 01:58
PROVIDERS: ADMIT Internal Medicine; ATTEND Internal Medicine
DX: G93.41 Metabolic encephalopathy (principal); N39.0 Urinary tract infection, site not specified; I12.9 Hypertensive chronic kidney disease with stage 1 through stage 4 chronic kidney disease, or unspecified chronic kidney disease; E11.22 Type 2 diabetes mellitus with diabetic chronic kidney disease; N18.3 Chronic kidney disease, stage 3 (moderate); N17.9 Acute kidney failure, unspecified; E03.9 Hypothyroidism, unspecified; I25.2 Old myocardial infarction; I69.954 Hemiplegia and hemiparesis following unspecified cerebrovascular disease affecting left non-dominant side; K21.9 Gastro-esophageal reflux disease without esophagitis; K22.70 Barrett's esophagus without dysplasia; E78.5 Hyperlipidemia, unspecified; M19.90 Unspecified osteoarthritis, unspecified site; F32.9 Major depressive disorder, single episode, unspecified; J44.9 Chronic obstructive pulmonary disease, unspecified; E66.01 Morbid (severe) obesity due to excess calories; Z68.41 Body mass index [BMI] 40.0-44.9, adult; F17.210 Nicotine dependence, cigarettes, uncomplicated; Z98.51 Tubal ligation status; Z95.5 Presence of coronary angioplasty implant and graft; Z91.81 History of falling; Z88.2 Allergy status to sulfonamides; Z88.6 Allergy status to analgesic agent; Z79.4 Long term (current) use of insulin; Z79.51 Long term (current) use of inhaled steroids; Z79.899 Other long term (current) drug therapy; Z98.890 Other specified postprocedural states
CPT/HCPCS: 70450; 71045; 73090; 80048; 80053; 80306; 80307; 82607; 82746; 82805; 82962 ×3; 83690; 83735; 83880; 84439; 84484; 85025; 87804 ×2; 90670; 93005; 94640 ×7; 94664; 96365; 96366 ×2; 96372 ×3; 96375; 97139 ×3; 99285; G0009; G0378 ×3; 36415; 36416; 81003; 81015; 84443; 90471; J0696; J1650; J7050; J7620; Q0162

== ENCOUNTER 2018-07-08 20:57 | Emergency (ER) | payer MEDICARE, MEDICAID ==
--- NOTE | 2018-07-08 22:06 | CT ---
CT CERVICAL SPINE NONCONTRAST: 07/08/2018 HISTORY: Fall from standing position. Hit right side of neck on a night stand. The patient feels as if her h ead wants to fall off. Right arm is tingling. COMPARISON: 10/23/2015 TECHNIQUE: Contiguous axial CT images are obtained through the cervical spine, from the skull base to the T1-T2 level. Sagittal and coronal reformatted images are provided. FINDINGS: There is straightening of the normal cervical lordotic curvature, which may be related to muscle spas m or positioning. Multilevel degenerative changes are again seen throughout the cervical spine, with narrowing of the intervertebral disk spaces at multiple levels and multilevel osteophytes again seen . The vertebral body heights are within normal limits. No fracture or subluxation is seen. The pat ient's head is slightly rotated to the right. There is severe right-sided neural foraminal narrowing at the C4-C5 level due to prominent osteophyte formation and uncinate process hypertrophy. There is mild left-sided neural foraminal narrowing at this level. There is mild right and moderate left-sided neural foraminal narrowing at the C5-C6 leve l, again related to posterior osteophyte formation and uncinate process hypertrophy. There is efface ment of the ventral subarachnoid spaces. Again, degenerative changes are overall similar to the stud y in 2016. The prevertebral soft tissues are within normal limits. There is a lobulated appearance of each of the thyroid gland, with suggestion of increased density, s ubcentimeter nodules in each lobe of the thyroid gland. The lungs apices are clear. Prevertebral soft tissues are within normal limits. IMPRESSION: Multilevel degenerative changes in the cervical spine. No fracture or subluxation is seen. POS: ROLAND
== END 2018-07-08 22:37 | disposition home or self-care (01) ==
LOC: ERS 20:57
DX: M54.2 Cervicalgia (principal); G89.29 Other chronic pain; E03.9 Hypothyroidism, unspecified; E78.5 Hyperlipidemia, unspecified; I11.0 Hypertensive heart disease with heart failure; I50.9 Heart failure, unspecified; I25.2 Old myocardial infarction; F32.9 Major depressive disorder, single episode, unspecified; E11.40 Type 2 diabetes mellitus with diabetic neuropathy, unspecified; K21.9 Gastro-esophageal reflux disease without esophagitis; I25.10 Atherosclerotic heart disease of native coronary artery without angina pectoris; J44.9 Chronic obstructive pulmonary disease, unspecified; F17.210 Nicotine dependence, cigarettes, uncomplicated; Z86.73 Personal history of transient ischemic attack (TIA), and cerebral infarction without residual deficits; Z79.899 Other long term (current) drug therapy; Z79.891 Long term (current) use of opiate analgesic; Z79.4 Long term (current) use of insulin; Z79.51 Long term (current) use of inhaled steroids; W18.30XA Fall on same level, unspecified, initial encounter
CPT/HCPCS: 72125

== ENCOUNTER 2018-07-26 16:23 | Emergency (ER) | payer MEDICARE, MEDICAID ==
[2018-07-26 17:05] LABS: #Eosinphils 0.2 thou/uL (0.0-0.7); #Lymphocytes 1.4 thou/uL (1.20-3.40); #Monocytes 0.4 thou/uL (0.11-0.59); #Neutrophils 6.5 thou/uL (1.40-6.50); %Basophils 0.5 % (0.0-1.0); %Eosinophils 2.3 % (0.0-10.0); %Lymphocytes 16.6 % (21.0-51.0); %Monocytes 4.5 % (0.0-10.0); %Neutrophils 76.1 % (42.0-75.0); Hemoglobin 13.9 g/dL (12.0-16.0); Mean Corpuscular Hemoglobin 32.8 pg (27.0-31.0); Mean Corpuscular Volume 93.6 fL (78.0-98.0); Mean Platelet Volume 8.1 fL (7.4-10.4); Platelet Count 213 thou/uL (130-400); RBC Distribution Width 12.5 % (11.5-14.5); Red Blood Cell (RBC) Count 4.23 mill/uL (4.20-5.40); White Blood Cell (WBC) Count 8.6 thou/uL (4.8-10.8)
[2018-07-26 17:22] LABS: Acetaminophen Less than 6.0 mcg/mL (10.0-30.0); Alcohol Less than 10 mg/dL (Less than 10); Salicylate Less than 8.0 mg/dL (15.0-30.0)
[2018-07-26 17:23] LABS: ALT (SGPT) 26 U/L (8-55); AST (SGOT) 24 U/L (5-34); Albumin 3.6 g/dL (3.5-5.0); Alcohol Less than 10 mg/dL (Less than 10); Alkaline Phosphatase 79 U/L (40-150); Anion Gap 18 mmol/L (10-20); BUN (Urea Nitrogen) 36 mg/dL (9.8-20.1); Bilirubin, Total 0.7 mg/dL (0.2-1.2); CK (CPK) 143 U/L (29-168); Calc. Creatinine Clearance 0 mL/min (70-130); Calcium 9.3 mg/dL (7.8-10.44); Carbon Dioxide 25 mmol/L (22-29); Chloride 96 mmol/L (98-107); Estimated GFR-MDRD 27; Globulin 3.7 g/dL (2.4-3.5); Glucose 282 mg/dL (70-105); Potassium 4.3 mmol/L (3.5-5.1); Protein, Total 7.3 g/dL (6.0-8.3); Sodium 135 mmol/L (136-145)
[2018-07-26] MEDS ORDERED: Lorazepam 1 MG TAB ONE (18:36)
[2018-07-26 21:55] LABS: Bilirubin Negative (Negative); Blood, Urine Small (Negative); Glucose, Urine (Dipstick) 100 mg/dL (Negative); Leukocyte Trace (Negative); Nitrite Negative (Negative); Protein, Urine (Dipstick) 100 mg/dL (Neg-Trace); Specific Gravity, Urine 1.025 (1.005-1.030); Urobilinogen 0.2 mg/dL (0.2-1.0)
[2018-07-26 22:02] LABS: Clarity Cloudy (Clear)
[2018-07-26 22:12] LABS: Bacteria/HPF 1+ HPF (None Seen); Hyaline Casts/LPF 0-3 HYALINE CAST LPF (0-3 Hyaline); RBC/HPF 0-3 HPF (0-3); WBC/HPF 0-3 HPF (0-3)
[2018-07-26 22:15] LABS: Amphetamine Not Detected (NotDetected); Barbiturates Screen Not Detected (NotDetected); Benzodiazepine Screen Not Detected (NotDetected); Cocaine Metabolite Screen Not Detected (NotDetected); Medtox Control Line Valid? VALID (VALID); Medtox Reader # READER 1; Methadone Not Detected (NotDetected); Methamphetamine Not Detected (NotDetected); Opiate Screen Not Detected (NotDetected); Oxycodone Screen Not Detected (NotDetected); Phencyclidine (PCP) Not Detected (NotDetected); THC/Cannabinoid Screen Not Detected (NotDetected); Tricyclic Screen Detected (NotDetected)
== END 2018-07-26 23:27 ==
LOC: ERS 16:23
DX: F23 Brief psychotic disorder (principal); I25.2 Old myocardial infarction; E11.40 Type 2 diabetes mellitus with diabetic neuropathy, unspecified; E03.9 Hypothyroidism, unspecified; K21.9 Gastro-esophageal reflux disease without esophagitis; E78.5 Hyperlipidemia, unspecified; I10 Essential (primary) hypertension; Z86.73 Personal history of transient ischemic attack (TIA), and cerebral infarction without residual deficits; J44.9 Chronic obstructive pulmonary disease, unspecified; F32.9 Major depressive disorder, single episode, unspecified; F17.210 Nicotine dependence, cigarettes, uncomplicated; Z79.899 Other long term (current) drug therapy; Z79.4 Long term (current) use of insulin; Z79.51 Long term (current) use of inhaled steroids
CPT/HCPCS: 36415; 80053; 80306; 80307; 81003; 81015; 82550; 84443; 85025; 93005

== ENCOUNTER 2018-07-27 05:12 | Observation (INO) | payer MEDICARE, MEDICAID ==
[2018-07-27 08:00] LABS: #Eosinphils 0.1 thou/uL (0.0-0.7); #Lymphocytes 0.9 thou/uL (1.20-3.40); #Monocytes 0.7 thou/uL (0.11-0.59); #Neutrophils 12.8 thou/uL (1.40-6.50); %Basophils 0.3 % (0.0-1.0); %Eosinophils 0.5 % (0.0-10.0); %Lymphocytes 6.2 % (21.0-51.0); Hemoglobin 13.5 g/dL (12.0-16.0); Mean Corpuscular HGB CONC 35.4 g/dL (32.0-36.0); Mean Corpuscular Hemoglobin 32.8 pg (27.0-31.0); Mean Corpuscular Volume 92.6 fL (78.0-98.0); Platelet Count 216 thou/uL (130-400); RBC Distribution Width 12.4 % (11.5-14.5); Red Blood Cell (RBC) Count 4.11 mill/uL (4.20-5.40); White Blood Cell (WBC) Count 14.6 thou/uL (4.8-10.8)
--- NOTE | 2018-07-27 08:51 | RAD ---
RADIOGRAPH CHEST 1 VIEW: HISTORY: 58-year-old female with chest pain. FINDINGS: There are no air space densities, pulmonary edema, pneumothorax, or cardiomegaly. The lateral costop hrenic angles are sharp. IMPRESSION: No acute cardiopulmonary findings. jn POS: CET
[2018-07-27] MEDS ORDERED: Nitroglycerin 2% Ointment 1 INCH/1 GM Packet ONE (09:17)
[2018-07-27] MEDS ORDERED: Aspirin Chewable 81 MG TAB ONE (09:17)
[2018-07-27 09:19] LABS: CKMB 12.8 ng/mL (0-6.6)
[2018-07-27 09:21] LABS: ALT (SGPT) 29 U/L (8-55); AST (SGOT) 30 U/L (5-34); Albumin 3.7 g/dL (3.5-5.0); Alkaline Phosphatase 80 U/L (40-150); Anion Gap 19 mmol/L (10-20); BUN (Urea Nitrogen) 37 mg/dL (9.8-20.1); Bilirubin, Total 1.3 mg/dL (0.2-1.2); Calc. Creatinine Clearance 0 mL/min (70-130); Calcium 9.1 mg/dL (7.8-10.44); Carbon Dioxide 25 mmol/L (22-29); Chloride 93 mmol/L (98-107); Estimated GFR-MDRD 28; Globulin 3.5 g/dL (2.4-3.5); Glucose 379 mg/dL (70-105); Potassium 3.9 mmol/L (3.5-5.1); Protein, Total 7.2 g/dL (6.0-8.3); Sodium 133 mmol/L (136-145)
[2018-07-27 11:36] LABS: Troponin I 0.036 ng/mL (< 0.028)
[2018-07-27 12:54] VITALS: BMI 39.7
[2018-07-27 12:56] VITALS: BP 159/71; TEMP 98
[2018-07-27] MEDS ORDERED: Ondansetron ODT 4 MG TAB PO PRN ×2 (13:10→13:36)
[2018-07-27] MEDS ORDERED: Ondansetron PF 4 MG/2 ML Vial IVP PRN (13:10)
[2018-07-27] MEDS ORDERED: Ipratropium Oral Inhaler (200 INHALATIONS) INH PRN (13:36)
[2018-07-27] MEDS ORDERED: Furosemide 80 MG TAB PO SCH (14:00)
[2018-07-27 15:10] LABS: Troponin I 0.027 ng/mL (< 0.028)
--- NOTE | 2018-07-27 16:01 | HP ---
PRIMARY CARE PHYSICIAN: Valdemar Adamse MD CHIEF COMPLAINT: Chest pain. HISTORY OF PRESENT ILLNESS: Ms. Rodriguez is a pleasant 58-year-old female with past medical history of CAD with stents x2, diabetes mellitus type 2, history of KS, diastolic heart failure, hypothyroidism, gastroesophageal reflux disease. Viera's esophagus, hyperlipidemia, hypertension, who had presented to [facility]. Due to her chest pain, she states that this chest pain has been ongoing for the last 2 days. She was recently seen in the emergency department and was discharged yesterday to transfer to [facility]. However, upon arriving to [facility], she had reported her chest pain, which she had failed to mention during her ER visit. Therefore, she was transferred back to [facility] for further evaluation of her chest pain. Upon arriving back to the ER, troponins were obtained and found to be indeterminate 0.035. CK-MB elevated at 12.8. EKG shows normal sinus rhythm with right bundle branch block, this was also seen in her hospital visit back in March of 2018. 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 Glucose elevated at 379. She states early this morning, she had to give herself 25 units of Humalog due to her blood sugar being over 500. She also reports that she is noncompliant with a diabetic diet. White count elevated at 14.6, however, denies any fever or chills, any shortness of breath, more than her baseline with COPD or any other urinary symptoms. She was admitted in the hospital roughly one month ago for UTI symptoms, she was treated with antibiotics and later discharged home with close outpatient followup. She states that the symptoms had resolved prior to her current symptoms. She reports that she was supposed to have a followup with her pot pusher, Dr. Lala, this 07/30/2018. She reports a history of CAD with two stents placed. Based off her history and current clinical findings, Cardiology Services, Dr. Mar will be consulted and she will be admitted under observation for further workup and evaluation of her current symptoms. REVIEW OF SYSTEMS: All other systems reviewed and found to be negative unless mentioned in the HPI. PAST MEDICAL HISTORY: CAD with stent placement x2, previous KS, chronic diastolic heart failure, diabetes mellitus type 2, hypertension, hypothyroidism, gastroesophageal reflux disease, Viera's esophagus, hyperlipidemia, COPD, chronic kidney disease stage 3, and past history of CVA with left-sided weakness. 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 FAMILY HISTORY: Reviewed and noncontributory to cardiac history. PSYCHIATRIC HISTORY: Positive for anxiety and depression, was recently transferred to [facility] for further evaluation of psychosis with delusions. However, due to current chest pain, she was transferred back. She will likely return to [facility] once medically stable. SOCIAL HISTORY: Drinks socially, denies any illicit drug use, however, does report smoking 12 cigarettes per day. ALLERGIES: IBUPROFEN AND SULFA. CURRENT HOME MEDICATIONS: 1. Furosemide 80 mg p.o. b.i.d. 2. Gabapentin 800 mg p.o. b.i.d. 3. Hydralazine 50 mg p.o. b.i.d. 4. Lantus 72 units subcu b.i.d. 5. Atrovent HFA two puff inhalation every 4 hours p.r.n. shortness of breath. 6. DuoNeb 3 mL nebulizer every 4 hours as needed for shortness of breath. 7. Levothyroxine 125 mcg p.o. daily. 8. Lorazepam 1 mg p.o. q.a.m. 9. Metoprolol 25 mg p.o. b.i.d. 10. Montelukast 10 mg p.o. daily. 11. Omeprazole 40 mg p.o. daily. 12. Zofran 4 mg p.o. every 6 hours as needed for nausea. 13. Pravastatin 80 mg p.o. at bedtime. 14. Seroquel 100 mg p.o. at bedtime. 15. Tizanidine 4 mg p.o. b.i.d. 16. Advair Diskus 250/50 one inhalation b.i.d. 17. Baclofen 10 mg p.o. daily. PHYSICAL EXAMINATION: VITAL SIGNS: BP 159/71, pulse 81, respirations 18, temperature 98, O2 saturations 94% on room air. GENERAL: The patient is awake, alert, and oriented x3. No acute distress noted. HEENT: Head is atraumatic, normocephalic. Pupils round and reactive to light. Extraocular muscles intact. Moist mucous membranes noted. NECK: Soft, supple, and nontender. No JVD noted. CARDIOVASCULAR: Positive S1 and S2. Regular rate and rhythm. No murmur, gallop, or rubs noted. LUNGS: Clear to auscultation bilaterally. No wheezes, no rales, no rhonchi appreciated. ABDOMEN: Obese, soft, nontender, and nondistended. Bowel sounds present. EXTREMITIES: 5+ strength upper and lower extremities. Good pulses bilaterally upper and lower extremities. No edema noted. NEUROLOGIC: Cranial nerves 2 through 12 grossly intact. No focal deficits noted. SKIN: Warm, dry, and intact. No lesions. No ulcerations. PSYCH: The patient appears to be in good mood and affect. LABORATORY DATA: WBC 14.6, RBC 4.11, hemoglobin 13.5, platelet 216. Sodium 133, potassium 3.9, chloride 93, carbon dioxide 25, anion gap 19, BUN 37, creatinine 1.83, estimated GFR 28, glucose 379, CK-MB 12.8, troponin 0.035, 0.036. DIAGNOSTIC IMAGING: Chest x-ray showed no acute cardiopulmonary findings. ASSESSMENT AND PLAN: 1. Chest pain, consult Cardiology Services due to the patient's history of coronary artery disease and diastolic heart failure. Last echocardiogram showed an EF of 60% to 65% with grade 2 diastolic dysfunction. Continue on home medications. Trend serial troponins. Currently, troponin indeterminate at 0.036. 2. Chronic diastolic heart failure, as above. Consult Cardiology Services and await further recommendations. Continue on the patient's home regimen at this time. 3. Hypertension. Continue on the patient's home regimen. BP currently 159/71. 4. Hypothyroidism. Continue on home regimen. Check TSH. 5. History of delusions and psychosis within the last 2 days, check drug screen. The patient will likely be re-evaluated by [facility] when she is medically stable with possible transfer back to [facility] when stable. 6. Leukocytosis, the patient currently not displaying any further symptoms of an infectious process, she was recently treated for UTI, we will check a UA to rule out UTI at this time. We will recheck CBC and BMP in the a.m. 7. Deep venous thrombosis and gastrointestinal prophylaxis. CODE STATUS: Full code. DISPOSITION: Pending further workup and clinical findings. Job ID: [id number]
[2018-07-27] MEDS ORDERED: Mometasone/Formoterol 120 PUFF INHALER INH SCH (18:30)
[2018-07-27] MEDS ORDERED: hydrALAZINE 25 MG TAB PO SCH (21:00)
[2018-07-27] MEDS ORDERED: Metoprolol Tartrate 50 MG TAB PO SCH (21:00)
[2018-07-27] MEDS ORDERED: INSULIN GLARGINE SC SCH (21:00)
[2018-07-27] MEDS ORDERED: Non-Formulary Item 1 EACH (Fluticasone/Salmeterol [Advair Diskus 250/50] 1 INH) IH SCH (21:00)
[2018-07-27] MEDS ORDERED: Atorvastatin Calcium 20 MG TAB PO SCH (21:00)
[2018-07-27] MEDS ORDERED: Non-Formulary Item 1 EACH (Tizanidine Hcl [Tizanidine Hcl] 4 MG) PO SCH (21:00)
[2018-07-27] MEDS ORDERED: tiZANidine HCl 4 MG TAB PO SCH (21:00)
[2018-07-27] MEDS ORDERED: INSULIN GLARGINE HUM REC ANLOG 72 UNIT SQ SCH (21:00)
[2018-07-27] MEDS ORDERED: PRE FILLED SC SCH (21:00)
[2018-07-27] MEDS ORDERED: Non-Formulary Item 1 EACH (Pravastatin Sodium [Pravastatin Sodium] 80 MG) PO SCH (21:00)
[2018-07-27] MEDS ORDERED: Metoprolol Tartrate 25 MG TAB PO SCH (21:00)
[2018-07-27] MEDS ORDERED: Non-Formulary Item 1 EACH (Gabapentin [Gabapentin] 800 MG) PO SCH (21:00)
[2018-07-27] MEDS ORDERED: Gabapentin 400 MG CAP PO SCH (21:00)
[2018-07-27] MEDS ORDERED: Furosemide 40 MG TAB PO SCH (21:00)
[2018-07-28] MEDS ORDERED: Levothyroxine Sodium 125 MCG TAB PO SCH (06:00)
[2018-07-28] MEDS ORDERED: Montelukast Sodium 10 mg Tablet PO SCH (09:00)
[2018-07-28] MEDS ORDERED: Lorazepam 0.5 MG TAB PO SCH (09:00)
[2018-07-28] MEDS ORDERED: Baclofen 10 MG TAB PO SCH (09:00)
[2018-07-28] MEDS ORDERED: Levothyroxine Sodium 25 MCG TAB PO SCH (09:00)
[2018-07-28] MEDS ORDERED: Non-Formulary Item 1 EACH (Omeprazole [Omeprazole] 40 MG) PO SCH (09:00)
== END 2018-07-27 14:57 | disposition left against medical advice (07) ==
LOC: ERS 05:12 → ERHOLD 09:55 → 2SW 12:49
PROVIDERS: ADMIT Internal Medicine; ATTEND Internal Medicine
DX: R07.9 Chest pain, unspecified (principal); I13.2 Hypertensive heart and chronic kidney disease with heart failure and with stage 5 chronic kidney disease, or end stage renal disease; E11.22 Type 2 diabetes mellitus with diabetic chronic kidney disease; N18.3 Chronic kidney disease, stage 3 (moderate); I50.32 Chronic diastolic (congestive) heart failure; I25.2 Old myocardial infarction; I25.10 Atherosclerotic heart disease of native coronary artery without angina pectoris; E03.9 Hypothyroidism, unspecified; K21.9 Gastro-esophageal reflux disease without esophagitis; K22.70 Barrett's esophagus without dysplasia; E78.5 Hyperlipidemia, unspecified; I69.354 Hemiplegia and hemiparesis following cerebral infarction affecting left non-dominant side; F17.210 Nicotine dependence, cigarettes, uncomplicated; F41.9 Anxiety disorder, unspecified; F32.9 Major depressive disorder, single episode, unspecified; Z79.4 Long term (current) use of insulin; Z79.899 Other long term (current) drug therapy; Z88.2 Allergy status to sulfonamides; Z88.8 Allergy status to other drugs, medicaments and biological substances; Z95.5 Presence of coronary angioplasty implant and graft
CPT/HCPCS: 36415; 71045; 80053; 82553; 84484; 85025; 93005; J1825

== ENCOUNTER 2018-09-13 12:10 | Emergency (ER) | payer MEDICARE, OTHER | END 2018-09-13 14:20 | disposition home or self-care (01) | LOC: ERS 12:10 | DX: M54.5 Low back pain (principal); G89.29 Other chronic pain; I25.2 Old myocardial infarction; E11.40 Type 2 diabetes mellitus with diabetic neuropathy, unspecified; E03.9 Hypothyroidism, unspecified; K21.9 Gastro-esophageal reflux disease without esophagitis; E78.5 Hyperlipidemia, unspecified; I10 Essential (primary) hypertension; Z86.73 Personal history of transient ischemic attack (TIA), and cerebral infarction without residual deficits; J44.9 Chronic obstructive pulmonary disease, unspecified; F17.210 Nicotine dependence, cigarettes, uncomplicated; Z79.899 Other long term (current) drug therapy; Z79.51 Long term (current) use of inhaled steroids ==

== ENCOUNTER 2019-08-12 11:19 | Inpatient (IN) | payer MEDICARE, MEDICAID ==
--- NOTE | 2019-08-12 11:32 | CT ---
CT BRAIN NONCONTRAST: DATE: 08/12/2019 HISTORY: 59-year-old female with acute dysarthria and acute left upper extremity weakness. This level 1 stroke protocol report was called by Dr. Montilla to Dr. Flynn of the ER at 11:29 AM on 08/12 FINDINGS: There is no evidence of acute intra-axial or extra-axial hemorrhage. There is no midline shift or any other mass effect. There is no extra-axial fluid collection. There is no evidence of obstructive hydrocephalus. Calvarium is intact. IMPRESSION: No acute intracranial findings.
[2019-08-12 11:48] LABS: #Basophils 0.1 thou/uL (0.0-0.2); #Eosinphils 0.2 thou/uL (0.0-0.7); #Lymphocytes 1.9 thou/uL (1.20-3.40); #Monocytes 0.6 thou/uL (0.11-0.59); #Neutrophils 11.2 thou/uL (1.40-6.50); %Basophils 0.8 % (0.0-1.0); %Eosinophils 1.4 % (0.0-10.0); %Lymphocytes 13.4 % (21.0-51.0); %Neutrophils 80.5 % (42.0-75.0); Hemoglobin 13.8 g/dL (12.0-16.0); Mean Corpuscular HGB CONC 34.7 g/dL (32.0-36.0); Mean Corpuscular Hemoglobin 30.8 pg (27.0-31.0); Mean Corpuscular Volume 88.9 fL (78.0-98.0); Mean Platelet Volume 8.5 fL (7.4-10.4); Platelet Count 257 thou/uL (130-400); RBC Distribution Width 12.3 % (11.5-14.5); Red Blood Cell (RBC) Count 4.49 mill/uL (4.20-5.40); White Blood Cell (WBC) Count 13.9 thou/uL (4.8-10.8)
--- NOTE | 2019-08-12 11:54 | RAD ---
RADIOGRAPH CHEST 1 VIEW: DATE: 08/12/2019 HISTORY: 59-year-old female with acute stroke symptoms. Concern for aspiration. FINDINGS: There are no airspace densities, pulmonary edema, pneumothorax, or cardiomegaly. The lateral costophr enic angles are sharp. IMPRESSION: No acute cardiopulmonary findings.
[2019-08-12 12:11] LABS: ALT (SGPT) 10 U/L (8-55); AST (SGOT) 8 U/L (5-34); Alkaline Phosphatase 87 U/L (40-110); Anion Gap 14 mmol/L (10-20); BUN (Urea Nitrogen) 34 mg/dL (9.8-20.1); Bilirubin, Total 1.2 mg/dL (0.2-1.2); Calc. Creatinine Clearance 0 mL/min (70-130); Calcium 8.1 mg/dL (7.8-10.44); Carbon Dioxide 21 mmol/L (22-29); Chloride 97 mmol/L (98-107); Estimated GFR-MDRD 32; Glucose 429 mg/dL (70-105); Potassium 3.7 mmol/L (3.5-5.1); Sodium 128 mmol/L (136-145)
[2019-08-12 12:35] LABS: Bilirubin Negative (Negative); Blood, Urine Moderate (Negative); Glucose, Urine (Dipstick) >=1000 mg/dL (Negative); Leukocyte Small (Negative); Nitrite Negative (Negative); Protein, Urine (Dipstick) > or equal to 300 mg/dL (Neg-Trace); Urobilinogen 0.2 mg/dL (Less than 2)
[2019-08-12 12:38] LABS: Clarity Cloudy (Clear)
[2019-08-12 12:47] LABS: Bacteria/HPF 4+ HPF (None Seen); WBC/HPF Greater Than 50 HPF (0-3)
[2019-08-12] MEDS ORDERED: cefTRIAXone\\ROCEPHIN 2 GM in Sodium Chloride 0.9% 100 ML IVPB SCH (13:15)
[2019-08-12] MEDS ORDERED: Ondansetron ODT 4 MG TAB PO PRN (13:25)
[2019-08-12] MEDS ORDERED: HumaLOG 300 UNITS/3 ML VIAL SC PRN (13:27)
[2019-08-12] MEDS ORDERED: Dextrose 5% in Water 1,000 ML IV PRN (13:27)
[2019-08-12] MEDS ORDERED: Dextrose 50% Abboject 50 ML SYRINGE SLOW IVP PRN (13:27)
[2019-08-12] MEDS ORDERED: Labetalol HCl 100 MG/20 ML VIAL SLOW IVP PRN (13:28)
[2019-08-12] MEDS ORDERED: diphenhydrAMINE 25 MG CAP PO PRN (13:28)
[2019-08-12] MEDS ORDERED: Melatonin 3 MG TAB PO PRN (13:28)
[2019-08-12] MEDS ORDERED: Docusate 100 MG CAP PO PRN (13:28)
[2019-08-12] MEDS ORDERED: Benzonatate 100 MG CAP PO PRN (13:28)
[2019-08-12] MEDS ORDERED: Calcium Carbonate 500 MG ChewTAB PO PRN (13:29)
[2019-08-12] MEDS ORDERED: Bisacodyl 10 MG SUPP PR PRN (13:29)
[2019-08-12] MEDS ORDERED: Acetaminophen 325 MG TAB PO PRN (13:29)
[2019-08-12] MEDS ORDERED: HYDROcodone/Acetaminophen 5/325 mg Tablet PO PRN (13:29)
[2019-08-12] MEDS ORDERED: Loperamide HCl 2 MG CAP PO PRN (13:29)
[2019-08-12] MEDS ORDERED: cefTRIAXone Sodium 2,000 MG in Syringe 0 ML IVPB SCH (13:30)
[2019-08-12] MEDS ORDERED: Aspirin 325 MG TAB ONE (13:38)
--- NOTE | 2019-08-12 15:35 | PDOC.HHP ---
Hospitalist HPI - History of Present Illness CVA symptoms and UTI History of Present Illness: 59-year-old female with past medical history of coronary artery disease with stent placement times two, insulin-dependent diabetes mellitus uncontrolled, hypertension, hyperlipidemia, diastolic congestive heart failure, hypothyroidism , GERD, Viera's esophagus, elevated body mass index who does not walk at baseline was sent in by home healthcare for concerns of stroke. I find the patient in the emergency department and she is laying in bed comfortably no apparent distress. Patient states that she has had two days of worsening slurred speech and weakness on her left side. Patient does have some dysarthria and it is noticeable, though her speech is understandable and her content of words is intelligent. Patient does state that she is having weakness on the left side that is worse than her baseline, though I do not appreciate this and she is a globally week without focal neurologic deficits. I do not appreciate any focal facial asymmetries. Patient was found have urinary tract infection, dehydration with acute kidney injury, and blood sugars greater than 450. Patient not a TPA candidate secondary to out of the TPA window timing. Patient admitted to the stroke unit for further evaluation and treatment. Hospitalist ROS - Review of Systems All other systems reviewed; all pertinent +/- noted in HPI/Subj Hospitalist History - Past Medical History Source: patient, old records Cardiac: reports: CAD, CHF, HTN, Hyperlipidemia Pulmonary: reports: CVA/TIA/stroke, congestive heart failure, high cholesterol Gastrointestinal: reports: GERD Musculoskeletal: reports: Osteoarthritis Endocrine: reports: Diabetes, Hypothyroidism - Past Surgical History Past Surgical History: reports: Other (cardiac cath) - Family History Family History: reports: diabetes mellitus, hypertension - Social History Smoking Status: Current every day smoker Tobacco Type: cigarettes Alcohol: reports: Rare Drugs: reports: none Living Situation: Roommate Domestic Violence: Negative Activity level: wheelchair bound - Exam General Appearance: NAD, awake alert Eye: PERRL ENT: normocephalic atraumatic, moist mucosa Neck: supple, symmetric, no lymphadenopathy Heart: no murmur, no gallops, no rubs Respiratory: CTAB, no wheezes, no rales, no ronchi, normal chest expansion, no tachypnea Gastrointestinal: soft, non-tender, non-distended, no guarding, no rigidity Extremities: 2+ LE edema Skin: no lesions, no rashes Neurological: cranial nerve grossly intact, no focal deficits, speech deficit Musculoskeletal: generalized weakness (global weak without appreciable focal deficits) Psychiatric: normal behavior, A&O x 3, flat affect Hospitalist Results - Labs Result Diagrams: 08/12/19 11:30 08/12/19 11:30 Lab results: WBC 13.9 thou/uL (4.8-10.8) H 08/12/19 11:30 Hgb 13.8 g/dL (12.0-16.0) 08/12/19 11:30 Hct 39.9 % (36.0-47.0) 08/12/19 11:30 MCV 88.9 fL (78.0-98.0) 08/12/19 11:30 Plt Count 257 thou/uL (130-400) 08/12/19 11:30 Neutrophils % 80.5 % (42.0-75.0) H 08/12/19 11:30 Sodium 128 mmol/L (136-145) L 08/12/19 11:30 Potassium 3.7 mmol/L (3.5-5.1) 08/12/19 11:30 Chloride 97 mmol/L (98-107) L 08/12/19 11:30 Carbon Dioxide 21 mmol/L (22-29) L 08/12/19 11:30 BUN 34 mg/dL (9.8-20.1) H 08/12/19 11:30 Creatinine 1.64 mg/dL (0.6-1.1) H 08/12/19 11:30 Glucose 429 mg/dL (70-105) H 08/12/19 11:30 Lactic Acid 4.1 mmol/L (0.5-2.2) H* 08/12/19 11:30 Calcium 8.1 mg/dL (7.8-10.44) 08/12/19 11:30 Total Bilirubin 1.2 mg/dL (0.2-1.2) 08/12/19 11:30 AST 8 U/L (5-34) 08/12/19 11:30 ALT 10 U/L (8-55) 08/12/19 11:30 Alkaline Phosphatase 87 U/L (40-110) 08/12/19 11:30 Troponin I Less than 0.010 ng/mL (< 0.028) 08/12/19 11:30 Serum Total Protein 6.0 g/dL (6.0-8.3) 08/12/19 11:30 Albumin 3.0 g/dL (3.5-5.0) L 08/12/19 11:30 Urine Ketones Trace mg/dL (Negative) A 08/12/19 12:19 Urine Blood Moderate (Negative) A 08/12/19 12:19 Urine Nitrite Negative (Negative) 08/12/19 12:19 Ur Leukocyte Esterase Small (Negative) H 08/12/19 12:19 Urine RBC 4-6 HPF (0-3) A 08/12/19 12:19 Urine WBC Greater Than 50 HPF (0-3) A 08/12/19 12:19 Ur Squamous Epith Cells 4-6 HPF (0-3) A 08/12/19 12:19 Urine Bacteria 4+ HPF (None Seen) A 08/12/19 12:19 - Radiology Interpretation CT scan - head Status: image reviewed by ma Hospitalist H&P A/P - Problem (1) CVA (cerebral vascular accident) Code(s): I63.9 - CEREBRAL INFARCTION, UNSPECIFIED Status: Acute (2) UTI (urinary tract infection) Status: Acute (3) Sepsis Code(s): A41.9 - SEPSIS, UNSPECIFIED ORGANISM Status: Acute (4) REDD (acute kidney injury) Code(s): N17.9 - ACUTE KIDNEY FAILURE, UNSPECIFIED Status: Acute (5) COPD without exacerbation Code(s): J44.9 - CHRONIC OBSTRUCTIVE PULMONARY DISEASE, UNSPECIFIED Status: Acute (6) Tobacco abuse Code(s): Z72.0 - TOBACCO USE Status: Acute (7) CAD (coronary artery disease) Code(s): I25.10 - ATHSCL HEART DISEASE OF [place] CORONARY ARTERY W/O ANG PCTRS Status: Chronic Qualifiers: Coronary Disease-Associated Artery/Lesion type: [place] artery [place] vs. transplanted heart: [place] heart Associated angina: without angina Qualified Code(s): I25.10 - Atherosclerotic heart disease of [place] coronary artery without angina pectoris (8) CKD (chronic kidney disease) stage 3, GFR 30-59 ml/min Code(s): N18.3 - CHRONIC KIDNEY DISEASE, STAGE 3 (MODERATE) Status: Chronic (9) DM type 2 (diabetes mellitus, type 2) Status: Chronic Qualifiers: Diabetes mellitus new car get ready mechanic insulin use: with intermediate use Diabetes mellitus complication status: with neurologic complications Diabetes mellitus complication detail: with polyneuropathy Qualified Code(s): E11.42 - Type 2 diabetes mellitus with diabetic polyneuropathy; Z79.4 - deadener (current) use of insulin; Z79.4 - assisted (current) use of insulin; Z79.4 - assisted ( current) use of insulin; Z79.4 - assisted (current) use of insulin (10) Dyspnea Code(s): R06.00 - DYSPNEA, UNSPECIFIED Status: Chronic (11) GERD (gastroesophageal reflux disease) Code(s): K21.9 - GASTRO-ESOPHAGEAL REFLUX DISEASE WITHOUT ESOPHAGITIS Status: Chronic (12) Hypertension Code(s): I10 - ESSENTIAL (PRIMARY) HYPERTENSION Status: Chronic Qualifiers: Hypertension type: essential hypertension Qualified Code(s): I10 - Essential (primary) hypertension (13) Lower extremity edema Code(s): R60.0 - LOCALIZED EDEMA Status: Chronic (14) Morbid obesity with BMI of 40.0-44.9, adult Code(s): E66.01 - MORBID (SEVERE) OBESITY DUE TO EXCESS CALORIES; Z68.41 - BODY MASS INDEX (BMI) 40.0-44.9, ADULT Status: Chronic - Plan Plan: Plan: admit to medical unit with telemetry, stroke unit MRI brain ultrasound of the carotid arteries echocardiogram consider neurology consultation pending above workup patient not a TPA candidate secondary to being out of the TPA window timing I do not appreciate any focal neurologic deficits, though the patient does have dysarthria which she states has been worsening for two days IV antibiotics for urinary tract infection IV fluid resuscitation for sepsis caution with over fluid resuscitation in the setting of congestive heart failure history of coronary artery disease and COPD baseline debility, does not walk continue other home medications as able long and short acting insulin for glucose control blood pressure control G.I. prophylaxis DVT prophylaxis
[2019-08-12 15:47] LABS: Lactic Acid 2.8 mmol/L (0.5-2.2)
[2019-08-12 16:15] LABS: Troponin I 0.019 ng/mL (< 0.028)
[2019-08-12 19:02] LABS: Troponin I Less than 0.010 ng/mL (< 0.028)
[2019-08-12] MEDS ORDERED: Sodium Chloride 0.9% 1,000 ML IV SCH (19:04)
[2019-08-12 20:54] VITALS: BMI 32.1
[2019-08-12] MEDS ORDERED: INSULIN GLARGINE HUM REC ANLOG 72 UNIT SQ SCH (21:00)
[2019-08-12] MEDS: Metoprolol Tartrate 25 MG TAB PO SCH (21:01)
[2019-08-12] MEDS: hydrALAZINE 25 MG TAB PO SCH (21:01)
[2019-08-12] MEDS: Atorvastatin Calcium 20 MG TAB PO SCH (21:01)
[2019-08-12] MEDS: Heparin 5,000 UNITS/ML VIAL SC SCH ×2 (21:02→22:00)
[2019-08-12] MEDS: HYDROcodone/Acetaminophen 7.5/325 mg Tablet PO PRN (21:07)
[2019-08-12] MEDS: HumaLOG 300 UNITS/3 ML VIAL SC PRN (21:29)
[2019-08-12] MEDS ORDERED: HumaLOG 300 UNITS/3 ML VIAL SC SCH ×2 (21:30)
[2019-08-12] MEDS: Mometasone/Formoterol 120 PUFF INHALER INH SCH (21:58)
[2019-08-12] MEDS: PRE FILLED SC SCH (22:00)
[2019-08-12] MEDS: INSULIN GLARGINE SC SCH (22:00)
[2019-08-13 04:34] LABS: #Basophils 0.1 thou/uL (0.0-0.2); #Eosinphils 0.2 thou/uL (0.0-0.7); #Lymphocytes 1.9 thou/uL (1.20-3.40); #Monocytes 0.8 thou/uL (0.11-0.59); #Neutrophils 8.8 thou/uL (1.40-6.50); %Basophils 0.7 % (0.0-1.0); %Eosinophils 1.8 % (0.0-10.0); %Lymphocytes 16.3 % (21.0-51.0); %Monocytes 7.1 % (0.0-10.0); %Neutrophils 74.1 % (42.0-75.0); Hemoglobin 12.4 g/dL (12.0-16.0); Mean Corpuscular HGB CONC 33.3 g/dL (32.0-36.0); Mean Corpuscular Hemoglobin 29.3 pg (27.0-31.0); Mean Platelet Volume 8.6 fL (7.4-10.4); Platelet Count 245 thou/uL (130-400); RBC Distribution Width 12.2 % (11.5-14.5); Red Blood Cell (RBC) Count 4.22 mill/uL (4.20-5.40); White Blood Cell (WBC) Count 11.9 thou/uL (4.8-10.8)
[2019-08-13 04:58] LABS: Anion Gap 10 mmol/L (10-20); BUN (Urea Nitrogen) 32 mg/dL (9.8-20.1); Calc. Creatinine Clearance 82 mL/min (70-130); Calcium 7.6 mg/dL (7.8-10.44); Carbon Dioxide 24 mmol/L (22-29); Chloride 102 mmol/L (98-107); Cholesterol 131 mg/dl (< 200 Desired); Estimated GFR-MDRD 54; Glucose 101 mg/dL (70-105); HDL Cholesterol 26 mg/dL (>60 Neg Risk); LDL Cholesterol, Calculated 59 mg/dL; Potassium 3.6 mmol/L (3.5-5.1); Sodium 132 mmol/L (136-145); Triglycerides 229 mg/dL (Less than 150)
[2019-08-13] MEDS: Levothyroxine Sodium 125 MCG TAB PO SCH (05:38)
[2019-08-13] MEDS: Mometasone/Formoterol 120 PUFF INHALER INH SCH ×2 (07:11→19:07)
[2019-08-13] MEDS ORDERED: FLU VACC QS2019-20(6MOS UP)/PF 60 MCG/0.5 ML SYRINGE IM ONE (09:00)
--- NOTE | 2019-08-13 09:36 | PDOC.HOSPP ---
- Subjective Encounter Date: 08/13/19 Encounter Time: 11:40 Subjective: Patient weak all over. No trouble speaking currently. No chest pain/SOB. No abdominal pain. No dysuria. No nausea/vomiting. - Objective Vital Signs & Weight: Vital Signs (12 hours) Temp Pulse Resp BP Pulse Ox 08/13/19 07:13 97 08/13/19 07:11 63 16 97 08/13/19 03:00 97.8 F 65 18 132/63 100 Weight Weight 203 lb I&O: 08/12/19 08/13/19 08/14/19 06:59 06:59 06:59 Intake Total 1200 Output Total 850 Balance 350 Result Diagrams: 08/13/19 04:08 08/13/19 04:08 Additional Labs: Accuchecks 08/13/19 08/13/19 08/12/19 05:29 00:04 20:34 POC Glucose 119 H 271 H 459 H 08/12/19 11:25 POC Glucose 420 H Hospitalist ROS - Review of Systems Constitutional: denies: fever, chills Respiratory: denies: cough, shortness of breath Cardiovascular: denies: chest pain, palpitations Gastrointestinal: denies: nausea, vomiting, abdominal pain Genitourinary: denies: dysuria Neurological: reports: weakness - Medication Medications: Active Medications Generic Name Dose Route Start Last Admin Trade Name Freq PRN Reason Stop Dose Admin Hydrocodone Bitart/Acetaminophen 1 tab 08/12/19 13:29 08/12/19 21:07 [place] 7.5/325 PO 1 tab Q4H PRN Administration Severe Pain (7-10) Atorvastatin Calcium 20 mg 08/12/19 21:00 08/12/19 21:01 Lipitor PO 20 mg HS VALE Administration Heparin Sodium (Porcine) 5,000 units 08/12/19 15:00 08/12/19 22:00 Heparin SC 5,000 units TID VALE Administration Hydralazine HCl 50 mg 08/12/19 21:00 08/12/19 21:01 Apresoline PO 50 mg BID VALE Administration Insulin Glargine 72 units/ 0.72 mls @ 0 mls/hr 08/12/19 21:00 08/12/19 22:00 Miscellaneous Medication SC 0.72 mls BID VALE Administration Insulin Human Lispro 0 units 08/12/19 13:27 08/12/19 21:29 Humalog SC 5 unit .AGGRESSIVE SLIDING PRN Administration Aggressive Correctional Scale Levothyroxine Sodium 125 mcg 08/13/19 06:00 08/13/19 05:38 Synthroid PO 125 mcg 0600 VALE Administration Metoprolol Tartrate 25 mg 08/12/19 21:00 08/12/19 21:01 Lopressor PO 25 mg BID VALE Administration Mometasone Furoate/Formoterol Fumar 2 puff 08/12/19 18:30 08/13/19 07:11 Dulera 200 Mcg/5 Mcg Inhaler INH 2 puff BID-RT VALE Administration Quetiapine Fumarate 100 mg 08/12/19 21:00 08/12/19 21:01 Seroquel PO 100 mg HS VALE Administration Sodium Chloride 10 ml 08/12/19 21:00 08/12/19 21:24 Flush - Normal Saline IVF 10 ml Q12HR VALE Administration - Exam General Appearance: NAD, awake alert Eye: PERRL ENT: moist mucosa Heart: RRR, no murmur, no gallops, no rubs Respiratory: CTAB, no wheezes, no rales, no ronchi Gastrointestinal: soft, non-tender, non-distended, normal bowel sounds Neurological: cranial nerve grossly intact Psychiatric: normal affect, normal behavior, A&O x 3 Hosp A/P (1) CVA (cerebral vascular accident) Code(s): I63.9 - CEREBRAL INFARCTION, UNSPECIFIED Status: Suspected (2) Sepsis Code(s): A41.9 - SEPSIS, UNSPECIFIED ORGANISM Status: Acute (3) UTI (urinary tract infection) Status: Acute (4) Acute renal failure superimposed on stage 3 chronic kidney disease Code(s): N17.9 - ACUTE KIDNEY FAILURE, UNSPECIFIED; N18.3 - CHRONIC KIDNEY DISEASE, STAGE 3 (MODERATE) Status: Acute (5) CAD (coronary artery disease) Code(s): I25.10 - ATHSCL HEART DISEASE OF [place] CORONARY ARTERY W/O ANG PCTRS Status: Chronic Qualifiers: Coronary Disease-Associated Artery/Lesion type: [place] artery [place] vs. transplanted heart: [place] heart Associated angina: without angina Qualified Code(s): I25.10 - Atherosclerotic heart disease of [place] coronary artery without angina pectoris (6) DM type 2 (diabetes mellitus, type 2) Status: Chronic Qualifiers: Diabetes mellitus ferry terminal supervisor insulin use: with ferry terminal supervisor use Diabetes mellitus complication status: with neurologic complications Diabetes mellitus complication detail: with polyneuropathy Qualified Code(s): E11.42 - Type 2 diabetes mellitus with diabetic polyneuropathy; Z79.4 - USP (current) use of insulin; Z79.4 - USP (current) use of insulin; Z79.4 - USP ( current) use of insulin; Z79.4 - USP (current) use of insulin (7) Hypertension Code(s): I10 - ESSENTIAL (PRIMARY) HYPERTENSION Status: Chronic Qualifiers: Hypertension type: essential hypertension Qualified Code(s): I10 - Essential (primary) hypertension (8) Lower extremity edema Code(s): R60.0 - LOCALIZED EDEMA Status: Chronic (9) Morbid obesity with BMI of 40.0-44.9, adult Code(s): E66.01 - MORBID (SEVERE) OBESITY DUE TO EXCESS CALORIES; Z68.41 - BODY MASS INDEX (BMI) 40.0-44.9, ADULT Status: Chronic - Plan Volume status improved with fluid resuscitation, hold further fluids due to CHF Kidneys actually look better than baseline now, watch closely for need to diurese E.coli growing in urine, on IV abx MRI brain pending, if neg all weakness and trouble speaking likely due to sepsis
[2019-08-13] MEDS: Heparin 5,000 UNITS/ML VIAL SC SCH ×3 (09:47→20:18)
[2019-08-13] MEDS: Metoprolol Tartrate 25 MG TAB PO SCH ×2 (09:48→20:18)
[2019-08-13] MEDS: hydrALAZINE 25 MG TAB PO SCH ×2 (09:48→20:18)
[2019-08-13] MEDS: Montelukast Sodium 10 mg Tablet PO SCH (09:48)
[2019-08-13] MEDS: PRE FILLED SC SCH ×2 (09:50→20:18)
[2019-08-13] MEDS: INSULIN GLARGINE SC SCH ×2 (09:50→20:18)
--- NOTE | 2019-08-13 09:55 | ULT ---
BILATERAL CAROTID DUPLEX ULTRASOUND INCLUDING COLOR AND SPECTRAL DOPPLER IMAGING: DATE: 08/13/2019 HISTORY: CVA. FINDINGS: Minimal visual plaque in the origin of the left ICA. PSV Right ICA: 53 cm/sec EDV: 14 cm/sec ICA/CCA Ratio: 0.6 PSV Left ICA: 50 cm/sec EDV: 9 cm/sec ICA/CCA Ratio: 0.5 Vertebral flow is antegrade. IMPRESSION: 1. No hemodynamically significant stenosis. 2. Evidence for visible plaque in the proximal left ICA. 3. Evidence for carotid artery atherosclerotic arteriovascular disease. POS: TPC
[2019-08-13] MEDS ORDERED: cefTRIAXone\\ROCEPHIN 2 GM in Sodium Chloride 0.9% 100 ML IVPB SCH (13:00)
--- NOTE | 2019-08-13 14:59 | MRI ---
MRI brain noncontrast HISTORY: CVA. FINDINGS: Centered within the posterior aspect of the left caudate head, an oval 0.4 cm focus of rest ricted diffusion extends to the ependymal surface. Corresponding defect on the ADC mapping images. No other areas of acute intracranial hemorrhage or infarct evident. Mild chronic ischemic small vesse l disease within the periventricular white matter. No mass effect or shift of midline structures. IMPRESSION: Tiny focus of of acute ischemia involving the left caudate head. No large vascular distri bution insult is evident.
[2019-08-13] MEDS ORDERED: Aspirin 81 mg Enteric Coated Tablet PO SCH (16:00)
[2019-08-13] MEDS: HumaLOG 300 UNITS/3 ML VIAL SC PRN (17:27)
[2019-08-13] MEDS: Gabapentin 400 MG CAP PO SCH (20:18)
[2019-08-13] MEDS: Atorvastatin Calcium 20 MG TAB PO SCH (20:18)
[2019-08-13] MEDS: HYDROcodone/Acetaminophen 7.5/325 mg Tablet PO PRN (20:20)
--- NOTE | 2019-08-14 00:26 | CON ---
DATE OF CONSULTATION: 08/13/2019 CONSULTING PHYSICIAN: Hospitalist Service. IMPRESSION: 1. Lacunar stroke in the left caudate head. 2. Diabetes. 3. Hypertension. 4. Hyperlipidemia. PLAN: 1. Continue aspirin and statin. 2. Rehab screening. 3. Echocardiogram. 4. Consider anticoagulation if her ejection fraction is less than 35%. HISTORY OF PRESENT ILLNESS: Ms. Rodriguez is a 59-year-old woman, who reportedly lives with several other people here in town. She has no transportation. She does not really take care of her medical conditions due to this complaint. She presented with right-sided weakness. She has a past history of some left-sided weakness several years ago. She does not report any headache, nausea, vomiting, vertigo, or confusion. Her MRI of the brain showed new ischemic area of 0.4 cm in the left caudate head. Her carotid Doppler does not show any stenosis. Laboratory studies were remarkable for blood glucoses over 400 when she presented. Her blood pressures have been reasonably well controlled and she has been afebrile. She reports the right side has improved though she is still unable to walk independently. She refused to walk with physical therapy here later today. EKG shows sinus rhythm. PAST MEDICAL HISTORY: As listed above. ALLERGIES: IBUPROFEN, SULFA. SOCIAL HISTORY: Positive for tobacco. FAMILY HISTORY: Noncontributory. REVIEW OF SYSTEMS: Ten-system review of systems is otherwise negative. PHYSICAL EXAMINATION: VITAL SIGNS: Blood pressure 171/72, pulse 63, respirations 15, and temperature 98. HEENT: Pupils equal and reactive. Conjunctivae clear. Oropharynx clear. Cranium, normocephalic and atraumatic. NECK: Supple. EXTREMITIES: No cyanosis or edema. NEUROLOGIC: She was alert and cooperative. Her speech is fluent and clear. Cranial nerves 2 through 12 are intact. Motor exam showed good strength in both upper extremities without any asymmetry. She had some antigravity strength at the right leg, but reports that she cannot stand on it. Sensation is intact to light touch. No abnormal movements were seen. SUMMARY: This is a middle-aged woman with a lacunar infarct on the left and improving right-sided weakness. She may need some inpatient rehab. I agree with your current management. I would complete her workup with an echocardiogram given her reported history of congestive heart failure. Job ID: [id number]
[2019-08-14] MEDS: Levothyroxine Sodium 125 MCG TAB PO SCH (06:17)
[2019-08-14] MEDS: HumaLOG 300 UNITS/3 ML VIAL SC PRN (06:48)
[2019-08-14] MEDS: Mometasone/Formoterol 120 PUFF INHALER INH SCH ×2 (07:01→18:27)
--- NOTE | 2019-08-14 07:51 | PDOC.HOSPP ---
- Subjective Encounter Date: 08/14/19 Encounter Time: 12:00 Subjective: Patient just got up first time today, did ok with PT but still unsteady. Absolutely refuses to go to rehab but won't mind if she has to stay here for one more day. Then demanding to go home. No pain. No SOB. - Objective Vital Signs & Weight: Vital Signs (12 hours) Temp Pulse Resp BP Pulse Ox 08/14/19 07:17 98.2 F 64 18 141/84 H 96 08/14/19 04:00 98.1 F 58 L 16 172/84 H 96 08/14/19 00:00 98.1 F 63 16 149/70 H 98 08/13/19 20:18 65 08/13/19 20:00 96 Weight Weight 203 lb I&O: 08/13/19 08/14/19 08/15/19 06:59 06:59 06:59 Intake Total 1200 480 Output Total 850 250 Balance 350 230 Result Diagrams: 08/13/19 04:08 08/13/19 04:08 Additional Labs: Accuchecks 08/14/19 08/13/19 08/13/19 06:01 20:20 17:07 POC Glucose 155 H 296 H 239 H 08/13/19 14:16 POC Glucose 179 H Hospitalist ROS - Review of Systems Constitutional: denies: fever, chills Respiratory: denies: cough, dry, shortness of breath Cardiovascular: denies: chest pain, palpitations, orthopnea Gastrointestinal: denies: nausea, vomiting, abdominal pain Neurological: reports: weakness - Medication Medications: Active Medications Generic Name Dose Route Start Last Admin Trade Name Freq PRN Reason Stop Dose Admin Hydrocodone Bitart/Acetaminophen 1 tab 08/12/19 13:29 08/13/19 20:20 [place] 7.5/325 PO 1 tab Q4H PRN Administration Severe Pain (7-10) Atorvastatin Calcium 20 mg 08/12/19 21:00 08/13/19 20:18 Lipitor PO 20 mg HS VLAE Administration Gabapentin 800 mg 08/13/19 21:00 08/13/19 20:18 Neurontin PO 800 mg BID VALE Administration Heparin Sodium (Porcine) 5,000 units 08/12/19 15:00 08/13/19 20:18 Heparin SC 5,000 units TID VALE Administration Hydralazine HCl 50 mg 08/12/19 21:00 08/13/19 20:18 Apresoline PO 50 mg BID VALE Administration Insulin Glargine 72 units/ 0.72 mls @ 0 mls/hr 08/12/19 21:00 08/13/19 20:18 Miscellaneous Medication SC 0.72 mls BID VALE Administration Insulin Human Lispro 0 units 08/12/19 13:27 08/14/19 06:48 Humalog SC 3 unit .AGGRESSIVE SLIDING PRN Administration Aggressive Correctional Scale Levothyroxine Sodium 125 mcg 08/13/19 06:00 08/14/19 06:17 Synthroid PO 125 mcg 0600 VALE Administration Metoprolol Tartrate 25 mg 08/12/19 21:00 08/13/19 20:18 Lopressor PO 25 mg BID VALE Administration Mometasone Furoate/Formoterol Fumar 2 puff 08/12/19 18:30 08/14/19 07:01 Dulera 200 Mcg/5 Mcg Inhaler INH 2 puff BID-RT VALE Administration Montelukast Sodium 10 mg 08/13/19 09:00 08/13/19 09:48 Singulair PO 10 mg DAILY VALE Administration Ondansetron HCl 4 mg 08/12/19 13:25 08/13/19 14:09 Zofran Odt PO 4 mg Q6H PRN Administration Nausea/Vomiting Pantoprazole Sodium 40 mg 08/13/19 09:00 08/13/19 09:48 Protonix PO 40 mg DAILY VALE Administration Quetiapine Fumarate 100 mg 08/12/19 21:00 08/13/19 20:18 Seroquel PO 100 mg HS VALE Administration Sodium Chloride 10 ml 08/12/19 21:00 08/13/19 20:19 Flush - Normal Saline IVF 10 ml Q12HR VALE Administration - Exam General Appearance: NAD, awake alert ENT: moist mucosa Heart: RRR, no murmur, no gallops, no rubs Respiratory: CTAB, no wheezes, no rales, no ronchi Gastrointestinal: soft, non-tender, non-distended, normal bowel sounds Psychiatric: normal affect, normal behavior, A&O x 3 Hosp A/P (1) CVA (cerebral vascular accident) Code(s): I63.9 - CEREBRAL INFARCTION, UNSPECIFIED Status: Suspected (2) Sepsis Code(s): A41.9 - SEPSIS, UNSPECIFIED ORGANISM Status: Resolved (3) UTI (urinary tract infection) Status: Acute Qualifiers: Urinary tract infection type: acute cystitis (4) Acute renal failure superimposed on stage 3 chronic kidney disease Code(s): N17.9 - ACUTE KIDNEY FAILURE, UNSPECIFIED; N18.3 - CHRONIC KIDNEY DISEASE, STAGE 3 (MODERATE) Status: Acute (5) CAD (coronary artery disease) Code(s): I25.10 - ATHSCL HEART DISEASE OF [place] CORONARY ARTERY W/O ANG PCTRS Status: Chronic Qualifiers: Coronary Disease-Associated Artery/Lesion type: [place] artery [place] vs. transplanted heart: [place] heart Associated angina: without angina Qualified Code(s): I25.10 - Atherosclerotic heart disease of [place] coronary artery without angina pectoris (6) DM type 2 (diabetes mellitus, type 2) Status: Chronic Qualifiers: Diabetes mellitus adjunct faculty for medical terminology insulin use: with nursing home use Diabetes mellitus complication status: with neurologic complications Diabetes mellitus complication detail: with polyneuropathy Qualified Code(s): E11.42 - Type 2 diabetes mellitus with diabetic polyneuropathy; Z79.4 - terminal operations supervisor (current) use of insulin; Z79.4 - terminal operations supervisor (current) use of insulin; Z79.4 - [facility] ( current) use of insulin; Z79.4 - terminal operations supervisor (current) use of insulin (7) Hypertension Code(s): I10 - ESSENTIAL (PRIMARY) HYPERTENSION Status: Chronic Qualifiers: Hypertension type: essential hypertension Qualified Code(s): I10 - Essential (primary) hypertension (8) Lower extremity edema Code(s): R60.0 - LOCALIZED EDEMA Status: Chronic (9) Morbid obesity with BMI of 40.0-44.9, adult Code(s): E66.01 - MORBID (SEVERE) OBESITY DUE TO EXCESS CALORIES; Z68.41 - BODY MASS INDEX (BMI) 40.0-44.9, ADULT Status: Chronic - Plan Volume status improved with fluid resuscitation, hold further fluids due to CHF Kidneys actually look better than baseline now, watch closely for need to diurese E.coli growing in urine, pansensitive, will switch to oral Levaquin MRI brain with small stroke, neuro consult, ASA and Statin, likely home tomorrow with HH PT/OT
[2019-08-14] MEDS: HYDROcodone/Acetaminophen 7.5/325 mg Tablet PO PRN ×3 (08:01→20:35)
[2019-08-14] MEDS: PRE FILLED SC SCH ×2 (08:20→20:34)
[2019-08-14] MEDS: INSULIN GLARGINE SC SCH ×2 (08:20→20:34)
[2019-08-14] MEDS: Heparin 5,000 UNITS/ML VIAL SC SCH ×3 (08:21→20:32)
[2019-08-14] MEDS: Aspirin 81 mg Enteric Coated Tablet PO SCH (08:22)
[2019-08-14] MEDS: hydrALAZINE 25 MG TAB PO SCH ×2 (08:22→20:40)
[2019-08-14] MEDS: Gabapentin 400 MG CAP PO SCH ×2 (08:23→20:33)
[2019-08-14] MEDS: Baclofen 10 MG TAB PO SCH (08:24)
[2019-08-14] MEDS: Montelukast Sodium 10 mg Tablet PO SCH (08:24)
[2019-08-14] MEDS: Metoprolol Tartrate 25 MG TAB PO SCH ×2 (08:24→20:34)
[2019-08-14] MEDS: Ondansetron PF 4 MG/2 ML Vial IVP PRN ×3 (09:37→23:42)
[2019-08-14] MEDS: Atorvastatin Calcium 20 MG TAB PO SCH (20:30)
[2019-08-15] MEDS: Levothyroxine Sodium 125 MCG TAB PO SCH (05:05)
[2019-08-15] MEDS: Mometasone/Formoterol 120 PUFF INHALER INH SCH (06:53)
--- NOTE | 2019-08-15 07:19 | PDOC.HOSPP ---
- Subjective Encounter Date: 08/15/19 Encounter Time: 09:30 Subjective: Patient feeling stronger today. Still adamantly refusing to go to rehab. No complaints. - Objective Vital Signs & Weight: Vital Signs (12 hours) Temp Pulse Resp BP BP Pulse Ox 08/15/19 03:45 98.1 F 54 L 16 158/85 H 97 08/14/19 23:38 97.4 F L 59 L 16 169/80 H 97 08/14/19 20:40 62 166/78 H 08/14/19 20:30 97 08/14/19 19:30 98.2 F 62 16 166/78 H 97 Weight Weight 206 lb 6.4 oz I&O: 08/14/19 08/15/19 08/16/19 06:59 06:59 06:59 Intake Total 800 1604 Output Total 600 275 Balance 200 1329 Result Diagrams: 08/13/19 04:08 08/13/19 04:08 Additional Labs: Accuchecks 08/15/19 08/14/19 08/14/19 05:43 20:32 16:58 POC Glucose 110 179 H 209 H 08/14/19 10:58 POC Glucose 142 H Hospitalist ROS - Review of Systems Constitutional: denies: fever, chills Respiratory: denies: cough, shortness of breath Cardiovascular: denies: chest pain, palpitations, orthopnea Gastrointestinal: denies: nausea, vomiting, abdominal pain - Medication Medications: Active Medications Generic Name Dose Route Start Last Admin Trade Name Freq PRN Reason Stop Dose Admin Hydrocodone Bitart/Acetaminophen 1 tab 08/12/19 13:29 08/14/19 20:35 Moro 7.5/325 PO 1 tab Q4H PRN Administration Severe Pain (7-10) Aspirin 81 mg 08/14/19 09:00 08/14/19 08:22 Ecotrin PO 81 mg DAILY VALE Administration Atorvastatin Calcium 20 mg 08/12/19 21:00 08/14/19 20:30 Lipitor PO 20 mg HS VALE Administration Baclofen 10 mg 08/14/19 09:00 08/14/19 08:24 Lioresal PO 10 mg DAILY VALE Administration Gabapentin 800 mg 08/13/19 21:00 08/14/19 20:33 Neurontin PO 800 mg BID VALE Administration Heparin Sodium (Porcine) 5,000 units 08/12/19 15:00 08/14/19 20:32 Heparin SC 5,000 units TID VALE Administration Hydralazine HCl 50 mg 08/12/19 21:00 08/14/19 20:40 Apresoline PO 50 mg BID VALE Administration Insulin Glargine 72 units/ 0.72 mls @ 0 mls/hr 08/12/19 21:00 08/14/19 20:34 Miscellaneous Medication SC 0.72 mls BID VALE Administration Insulin Human Lispro 0 units 08/12/19 13:27 08/14/19 06:48 Humalog SC 3 unit .AGGRESSIVE SLIDING PRN Administration Aggressive Correctional Scale Levofloxacin 750 mg 08/14/19 09:00 08/14/19 08:24 Levaquin PO 750 mg DAILY VALE Administration Levothyroxine Sodium 125 mcg 08/13/19 06:00 08/15/19 05:05 Synthroid PO 125 mcg 0600 VALE Administration Metoprolol Tartrate 25 mg 08/12/19 21:00 08/14/19 20:34 Lopressor PO 25 mg BID VALE Administration Mometasone Furoate/Formoterol Fumar 2 puff 08/12/19 18:30 08/15/19 06:53 Dulera 200 Mcg/5 Mcg Inhaler INH 2 puff BID-RT VALE Administration Montelukast Sodium 10 mg 08/13/19 09:00 08/14/19 08:24 Singulair PO 10 mg DAILY VALE Administration Ondansetron HCl 4 mg 08/12/19 13:25 08/13/19 14:09 Zofran Odt PO 4 mg Q6H PRN Administration Nausea/Vomiting Ondansetron HCl 4 mg 08/12/19 13:29 08/14/19 23:42 Zofran IVP 4 mg Q6H PRN Administration Nausea/Vomiting Pantoprazole Sodium 40 mg 08/13/19 09:00 08/14/19 08:24 Protonix PO 40 mg DAILY VALE Administration Quetiapine Fumarate 100 mg 08/12/19 21:00 08/14/19 20:35 Seroquel PO 100 mg HS VALE Administration Sodium Chloride 10 ml 08/12/19 21:00 08/14/19 20:35 Flush - Normal Saline IVF 10 ml Q12HR VALE Administration - Exam General Appearance: NAD, awake alert ENT: moist mucosa Heart: RRR, no murmur, no gallops, no rubs Respiratory: CTAB, no wheezes, no rales, no ronchi Gastrointestinal: soft, non-tender, non-distended, normal bowel sounds Extremities: no edema Neurological: cranial nerve grossly intact, no focal deficits Psychiatric: normal affect, normal behavior, A&O x 3 Hosp A/P (1) CVA (cerebral vascular accident) Code(s): I63.9 - CEREBRAL INFARCTION, UNSPECIFIED Status: Acute Qualifiers: Laterality of affected vessel: left Plan: Caudate head (2) Sepsis Code(s): A41.9 - SEPSIS, UNSPECIFIED ORGANISM Status: Resolved (3) UTI (urinary tract infection) Status: Acute Qualifiers: Urinary tract infection type: acute cystitis (4) Acute renal failure superimposed on stage 3 chronic kidney disease Code(s): N17.9 - ACUTE KIDNEY FAILURE, UNSPECIFIED; N18.3 - CHRONIC KIDNEY DISEASE, STAGE 3 (MODERATE) Status: Acute (5) CAD (coronary artery disease) Code(s): I25.10 - ATHSCL HEART DISEASE OF [place] CORONARY ARTERY W/O ANG PCTRS Status: Chronic Qualifiers: Coronary Disease-Associated Artery/Lesion type: [place] artery [place] vs. transplanted heart: [place] heart Associated angina: without angina Qualified Code(s): I25.10 - Atherosclerotic heart disease of [place] coronary artery without angina pectoris (6) DM type 2 (diabetes mellitus, type 2) Status: Chronic Qualifiers: Diabetes mellitus termite treater insulin use: with snf use Diabetes mellitus complication status: with neurologic complications Diabetes mellitus complication detail: with polyneuropathy Qualified Code(s): E11.42 - Type 2 diabetes mellitus with diabetic polyneuropathy; Z79.4 - rat exterminator (current) use of insulin; Z79.4 - rat exterminator (current) use of insulin; Z79.4 - assisted ( current) use of insulin; Z79.4 - assisted (current) use of insulin (7) Hypertension Code(s): I10 - ESSENTIAL (PRIMARY) HYPERTENSION Status: Chronic Qualifiers: Hypertension type: essential hypertension Qualified Code(s): I10 - Essential (primary) hypertension (8) Lower extremity edema Code(s): R60.0 - LOCALIZED EDEMA Status: Chronic (9) Morbid obesity with BMI of 40.0-44.9, adult Code(s): E66.01 - MORBID (SEVERE) OBESITY DUE TO EXCESS CALORIES; Z68.41 - BODY MASS INDEX (BMI) 40.0-44.9, ADULT Status: Chronic - Plan Volume status improved with fluid resuscitation, can resume home lasix E.coli growing in urine, pansensitive, switched to oral Levaquin, 4 more days abx MRI brain with small stroke, neuro consult, ASA and Statin. I did strenuously recommend rehab but patient refused. PT will work with her today and if she is back to her typical debilitated functional status I will d/ c her home with PT/OT.
[2019-08-15] MEDS: Gabapentin 400 MG CAP PO SCH (08:22)
[2019-08-15] MEDS: Ondansetron PF 4 MG/2 ML Vial IVP PRN (08:22)
[2019-08-15] MEDS: Heparin 5,000 UNITS/ML VIAL SC SCH ×2 (08:22→14:53)
[2019-08-15] MEDS: INSULIN GLARGINE SC SCH (08:22)
[2019-08-15] MEDS: PRE FILLED SC SCH (08:22)
[2019-08-15] MEDS: Metoprolol Tartrate 25 MG TAB PO SCH (08:23)
[2019-08-15] MEDS: hydrALAZINE 25 MG TAB PO SCH (08:23)
[2019-08-15] MEDS: Aspirin 81 mg Enteric Coated Tablet PO SCH (08:23)
[2019-08-15] MEDS: Baclofen 10 MG TAB PO SCH (08:23)
[2019-08-15] MEDS: HYDROcodone/Acetaminophen 7.5/325 mg Tablet PO PRN (08:24)
[2019-08-15] MEDS: Montelukast Sodium 10 mg Tablet PO SCH (08:24)
[2019-08-15 11:45] VITALS: TEMP 97.4
[2019-08-15 14:54] VITALS: BP 132/96
--- NOTE | 2019-08-15 18:11 | DIS ---
DATE OF ADMISSION: 08/12/2019 DATE OF DISCHARGE: 08/15/2019 PRIMARY CARE PHYSICIAN: Dr. Adames. REASON FOR ADMISSION: UTI and possible stroke. DIAGNOSES AT DISCHARGE: 1. Acute ischemic stroke of the left caudate head. 2. Sepsis, resolved. 3. Urinary tract infection secondary to Escherichia coli. 4. Acute on chronic kidney disease stage 3, resolved. 5. Coronary artery disease. 6. Diabetes mellitus type 2. 7. Hypertension. 8. Lower extremity edema. 9. Morbid obesity. 10. Chronic diastolic congestive heart failure without exacerbation. PROCEDURES: 1. CT scan of the brain showing no acute intracranial findings. 2. MRI of the brain showing a tiny focus of acute ischemia involving the left caudate head. 3. Bilateral carotid ultrasounds showing evidence for visible plaque and atherosclerosis, but no hemodynamically significant stenosis. 4. Echocardiogram showing an ejection fraction of 55% to 60% with diastolic dysfunction. CONSULTATIONS: Neurology, Dr. Portillo. PERTINENT LABORATORY: Urine culture with greater than 100,000 colony-forming units of E coli pansensitive. SUMMARY OF HOSPITAL COURSE: This is a 59-year-old white female with a history of coronary artery disease with previous stents, diastolic congestive heart failure, insulin-dependent diabetes, and chronic kidney disease, who is fairly debilitated at home. She just basically gets from her bed to her bathroom to a chair, has a walker and grab bars in her house already. She presented to the emergency room with complaints of 2 days of slurred speech and weakness on her left side, some dysarthria. She was found to have urinary tract infection and acute kidney injury with criteria for sepsis. She was given IV fluids, IV antibiotics, and she was admitted to the hospital. She also had an MRI of the brain, which shows the acute stroke. The patient was put on aspirin and statin. She was also put on IV antibiotics. Her urine grew back E coli and she was switched to Levaquin. The patient was doing much better at time of discharge. She was up and ambulating with physical therapy. She was still fairly debilitated and had some unsteadiness with her walker and was recommended that she go to rehab; however, the patient adamantly refused. She did improve during her hospitalization and was moving around probably better than she usually does at home and so she is being sent home with home health for physical therapy. DISCHARGE MANAGEMENT: Discharged home with Home Health. ACTIVITY: As tolerated. DIET: Diabetic fluid-restricted low-sodium diet. THERAPY: Home Health for occupational and physical therapy. FOLLOWUP: Follow up with Dr. Adames in 7 days. DISCHARGE MEDICATIONS: 1. Aspirin 81 mg daily, 30 tablets dispensed. 2. Levofloxacin 750 mg daily for 4 more days. 3. Baclofen 10 mg daily. 4. Advair Diskus one inhalation twice a day. 5. Gabapentin 800 mg twice a day. 6. Hydralazine 50 mg twice a day. 7. Levothyroxine 125 mcg daily. 8. Metoprolol tartrate 25 mg twice a day. 9. Singulair 10 mg daily. 10. Omeprazole 40 mg daily. 11. Zofran as needed. 12. Pravastatin 80 mg at night. 13. Seroquel 200 mg at night. 14. Furosemide 80 mg twice a day. 15. Lantus 72 units subcu twice a day. 16. Atrovent 2 puffs as needed. 17. DuoNeb q.4 hours as needed. 18. Lorazepam 1 mg each morning as needed. 19. Tizanidine 4 mg twice a day as needed. TIME SPENT: Arranging the details of this discharge took 35 minutes. Job ID: [id number]
== END 2019-08-15 15:59 | disposition home health service (06) | DRG 64 ==
LOC: ERS 11:19 → 2NO 19:22 → 2SE 08-13 18:18
PROVIDERS: ADMIT Internal Medicine; ATTEND Emergency Medicine
DX: I63.81 Other cerebral infarction due to occlusion or stenosis of small artery (principal); A41.51 Sepsis due to Escherichia coli [E. coli]; N39.0 Urinary tract infection, site not specified; N17.9 Acute kidney failure, unspecified; I13.0 Hypertensive heart and chronic kidney disease with heart failure and stage 1 through stage 4 chronic kidney disease, or unspecified chronic kidney disease; I50.32 Chronic diastolic (congestive) heart failure; G81.91 Hemiplegia, unspecified affecting right dominant side; N18.3 Chronic kidney disease, stage 3 (moderate); I25.10 Atherosclerotic heart disease of native coronary artery without angina pectoris; E11.22 Type 2 diabetes mellitus with diabetic chronic kidney disease; E66.01 Morbid (severe) obesity due to excess calories; E11.65 Type 2 diabetes mellitus with hyperglycemia; K21.9 Gastro-esophageal reflux disease without esophagitis; E03.9 Hypothyroidism, unspecified; K22.70 Barrett's esophagus without dysplasia; E78.00 Pure hypercholesterolemia, unspecified; F17.210 Nicotine dependence, cigarettes, uncomplicated; J44.9 Chronic obstructive pulmonary disease, unspecified; R47.1 Dysarthria and anarthria; R29.701 NIHSS score 1; R40.2362 Coma scale, best motor response, obeys commands, at arrival to emergency department; R40.2142 Coma scale, eyes open, spontaneous, at arrival to emergency department; R40.2252 Coma scale, best verbal response, oriented, at arrival to emergency department; E11.42 Type 2 diabetes mellitus with diabetic polyneuropathy; Z68.33 Body mass index [BMI] 33.0-33.9, adult; Z95.5 Presence of coronary angioplasty implant and graft; Z88.6 Allergy status to analgesic agent; Z88.2 Allergy status to sulfonamides
CPT/HCPCS: 36415; 36416; 70450; 70551; 71045; 80048; 80053; 80061; 81003; 81015; 83605; 84484; 85025; 87077; 87086; 87186; 90471; 90686; 93005; 93306; 93880; 94760; A4353; G0008; J0696; J1644; J1815; J2405; J3370; J3490; Q0162

== ENCOUNTER 2019-08-31 19:24 | Inpatient (IN) | payer MEDICARE, MEDICAID ==
[~2019-08-31 19:24] MED LIST changes: -ISOVUE-370 76%-LOCM 1 ML ONE; +Iopamidol 370 76% 100 ML VIAL ONE
[2019-08-31 20:54] LABS: #Eosinphils 0.1 thou/uL (0.0-0.7); #Lymphocytes 1.2 thou/uL (1.20-3.40); #Monocytes 0.6 thou/uL (0.11-0.59); #Neutrophils 6.9 thou/uL (1.40-6.50); %Basophils 0.5 % (0.0-1.0); %Eosinophils 1.2 % (0.0-10.0); %Lymphocytes 13.4 % (21.0-51.0); %Monocytes 6.5 % (0.0-10.0); %Neutrophils 78.3 % (42.0-75.0); Hemoglobin 12.7 g/dL (12.0-16.0); Mean Corpuscular HGB CONC 35.5 g/dL (32.0-36.0); Mean Corpuscular Hemoglobin 31.7 pg (27.0-31.0); Mean Corpuscular Volume 89.3 fL (78.0-98.0); Mean Platelet Volume 8.6 fL (7.4-10.4); Platelet Count 218 thou/uL (130-400); RBC Distribution Width 12.7 % (11.5-14.5); White Blood Cell (WBC) Count 8.8 thou/uL (4.8-10.8)
[2019-08-31 21:11] LABS: ALT (SGPT) 8 U/L (8-55); AST (SGOT) 11 U/L (5-34); Albumin 3.5 g/dL (3.5-5.0); Alkaline Phosphatase 76 U/L (40-110); Anion Gap 15 mmol/L (10-20); BUN (Urea Nitrogen) 30 mg/dL (9.8-20.1); Bilirubin, Total 1.2 mg/dL (0.2-1.2); Calc. Creatinine Clearance 0 mL/min (70-130); Calcium 9.3 mg/dL (7.8-10.44); Carbon Dioxide 25 mmol/L (22-29); Chloride 95 mmol/L (98-107); Estimated GFR-MDRD 32; Globulin 3.2 g/dL (2.4-3.5); Glucose 214 mg/dL (70-105); Lipase 8 U/L (8-78); Potassium 3.5 mmol/L (3.5-5.1); Protein, Total 6.7 g/dL (6.0-8.3); Sodium 131 mmol/L (136-145)
--- NOTE | 2019-08-31 21:26 | RAD ---
Portable frontal chest radiograph: 08/31/2019 COMPARISON: 08/12/2019 HISTORY: Dyspnea FINDINGS: Lungs are clear. Heart and mediastinal contours appear within normal limits. Stable thoraci c spine osteophyte formation laterally on the right. Mild atherosclerotic calcification of the aortic arch noted. IMPRESSION: No acute findings.
--- NOTE | 2019-08-31 21:53 | CT ---
CT of abdomen and pelvis: 08/31/2019 HISTORY: Diarrhea and abdominal pain TECHNIQUE: Axial CT imaging at 5 mm intervals from lung bases through pubic symphysis with IV contras t. Coronal and sagittal reformatted imaging obtained. FINDINGS: Imaged lung bases appear unremarkable. No free intraperitoneal air. Liver, gallbladder, spleen, pancreas, and adrenal glands demonstrate no acute findings. There is a sm all nonobstructing stone in the midpole of the right kidney measuring 5 mm. Left kidney appears grossly unremarkable. There is nonspecific gas within the vagina. The rectum is expanded and filled with stool. There is associated wall thickening of the rectum and a ssociated fluid within the presacral space. Findings are concerning for stercoral colitis. No evidence for bowel obstruction. The appendix appears unremarkable. There is scattered atherosclerotic calcification of the abdominal aorta and its branches. No retroper itoneal or pelvic lymphadenopathy. Review of the osseous structures demonstrates multilevel spinal degenerative change, most prominent w ithin the lower lumbar spine affecting the facet joints. Lower lumbar spine bilateral laminectomy at L4 and L5 noted. No worrisome lytic or blastic bone lesion. IMPRESSION: The rectum is expanded and filled with stool suggesting fecal impaction. There is [place] wall thickening of the rectum and fluid within the presacral space concerning for associated stercoral colitis.
[2019-08-31] MEDS ORDERED: metroNIDAZOLE 500 MG/100 ML BAG ONE (22:34)
[2019-08-31] MEDS ORDERED: Aspirin Chewable 81 MG TAB ONE (22:34)
[2019-09-01 00:31] LABS: Troponin I 0.036 ng/mL (< 0.028)
[2019-09-01] MEDS: Sodium Chloride 0.9% 1,000 ML IV SCH ×2 (01:55→21:30)
[2019-09-01] MEDS: cefTRIAXone\\ROCEPHIN 1 GM in Sodium Chloride 0.9% 100 ML IVPB SCH ×2 (01:55→23:25)
[2019-09-01 02:34] LABS: #Eosinphils 0.2 thou/uL (0.0-0.7); #Lymphocytes 1.5 thou/uL (1.20-3.40); #Monocytes 0.5 thou/uL (0.11-0.59); #Neutrophils 5.3 thou/uL (1.40-6.50); %Basophils 0.6 % (0.0-1.0); %Eosinophils 2.1 % (0.0-10.0); %Lymphocytes 19.8 % (21.0-51.0); %Monocytes 7.1 % (0.0-10.0); %Neutrophils 70.4 % (42.0-75.0); Hemoglobin 11.3 g/dL (12.0-16.0); Mean Corpuscular HGB CONC 35.3 g/dL (32.0-36.0); Mean Corpuscular Hemoglobin 31.4 pg (27.0-31.0); Mean Corpuscular Volume 88.9 fL (78.0-98.0); Mean Platelet Volume 8.5 fL (7.4-10.4); Platelet Count 221 thou/uL (130-400); RBC Distribution Width 12.7 % (11.5-14.5); Red Blood Cell (RBC) Count 3.61 mill/uL (4.20-5.40); White Blood Cell (WBC) Count 7.5 thou/uL (4.8-10.8)
[2019-09-01 02:58] LABS: Troponin I 0.012 ng/mL (< 0.028)
[2019-09-01 03:04] LABS: Anion Gap 15 mmol/L (10-20); BUN (Urea Nitrogen) 30 mg/dL (9.8-20.1); Calc. Creatinine Clearance 55 mL/min (70-130); Calcium 8.9 mg/dL (7.8-10.44); Carbon Dioxide 25 mmol/L (22-29); Chloride 98 mmol/L (98-107); Estimated GFR-MDRD 36; Glucose 207 mg/dL (70-105); Sodium 134 mmol/L (136-145)
--- NOTE | 2019-09-01 05:05 | HP ---
CHIEF COMPLAINT: Abdominal pain and diarrhea. HISTORY OF PRESENT ILLNESS: Ms. Rodriguez is a 59-year-old female with past medical history of congestive heart failure, diabetes, myocardial infarction, hypothyroidism, gastrointestinal reflux disease, Viera's esophagus, hyperlipidemia, hypertension, degenerative joint disease, ischemic CVA, left-sided weakness, COPD on home oxygen, among others presented to the emergency room with abdominal pain and diarrhea for the last 2 weeks. The patient was recently admitted to the hospital for sepsis, CHF, UTI and possible CVA and was discharged on Levaquin. Workup in the emergency room; the patient appears to be dehydrated, elevated creatinine at 1.64, hyponatremic with a sodium of 131, CT of abdomen and pelvis showed possible ? colitis. Troponin is indeterminate. The patient is being admitted to hospital for further management. PAST MEDICAL HISTORY: As mentioned above in history of present illness. PAST SURGICAL HISTORY: 1. Carpal tunnel surgery. 2. Tubal ligation. 3. Cardiac stent. 4. 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 SOCIAL HISTORY: The patient smokes cigarettes daily. Denies alcohol drinking. HOME MEDICATIONS: Please see home medication reconciliation form for updated medications. ALLERGIES: ALLERGIC TO IBUPROFEN AND SULFA. REVIEW OF SYSTEMS: Review of 14 systems negative except what is mentioned in history of present illness. PHYSICAL EXAMINATION: GENERAL: The patient is awake, alert, in moderate distress. VITAL SIGNS: Blood pressure is 148/72, pulse is 83, temperature is 98.2, pulse oximetry is 98% on room air. HEAD AND NECK: Normocephalic, atraumatic. Neck is supple. No JVD. CHEST: Fair bilateral air entry. HEART: S1, S2. Regular. ABDOMEN: Soft, diffusely tender. Bowel sounds present. NEUROLOGIC: Awake, alert, oriented x3. PSYCHIATRIC: Normal mood. EXTREMITIES: No clubbing or cyanosis. LABORATORY DATA: CT of abdomen and pelvis as mentioned above in the history of present illness. Labs as mentioned above in the history of present illness. ASSESSMENT: 1. Acute colitis. 2. Acute abdominal pain. 3. Acute on chronic renal failure. 4. Congestive heart failure history. 5. Coronary artery disease. 6. History of cerebrovascular accident. PLAN: 1. Admit. 2. IV fluid hydration, cautious, reassess in a.m. 3. IV antibiotics. 4. Monitor kidney function and urine output. 5. Reconcile home medications. 6. DVT prophylaxis as appropriate. 7. Expected length of stay 2 midnights or more. Job ID: [id number]
[2019-09-01] MEDS: metroNIDAZOLE 500 MG in Premix Bag 1 BAG IVPB SCH ×3 (05:36→21:31)
[2019-09-01] MEDS: Ondansetron ODT 4 MG TAB PO PRN (09:37)
[2019-09-01] MEDS: Famotidine/PF 20 mg/2ml Vial SLOW IVP SCH ×2 (09:37→21:30)
[2019-09-01] MEDS: Heparin 5,000 UNITS/ML VIAL SC SCH ×2 (09:37→21:30)
[2019-09-01] MEDS: Ondansetron PF 4 MG/2 ML Vial IVP PRN (18:08)
--- NOTE | 2019-09-01 19:46 | PDOC.EVN ---
Event Note - Event Note Event Note: Texted by nurse Sarkar at 7:11pm that patient is miserable and needs something for her impaction, and that only physician can do disimpaction. Currently postcall and not located in hospital. Replied that I will discuss with CN in order to find a solution. Nurse replied that CN can assist and that I can put the order in. In case additional barriers arise, can discuss with search engine optimization strategist physician.
[2019-09-01] MEDS ORDERED: Mineral Oil ENEMA PR SCH (20:00)
--- NOTE | 2019-09-01 21:25 | PDOC.HOSPP ---
- Subjective Encounter Date: 09/01/19 Encounter Time: 13:00 Subjective: Overnight, continues to have abdominal pain. - Objective Vital Signs & Weight: Vital Signs (12 hours) Temp Pulse Resp BP BP Pulse Ox 09/01/19 19:16 97.5 F L 70 20 156/72 H 97 09/01/19 12:00 97.4 F L 72 18 165/79 H Weight Weight 191 lb 11.2 oz I&O: 08/31/19 09/01/19 09/02/19 06:59 06:59 06:59 Intake Total 0 Output Total 0 Balance 0 Result Diagrams: 09/01/19 02:25 09/01/19 02:25 Additional Labs: Accuchecks 09/01/19 09/01/19 09/01/19 16:42 10:57 05:53 POC Glucose 257 H 222 H 235 H Hospitalist ROS - Review of Systems Constitutional: denies: fever, chills, sweats, weakness, malaise, other Respiratory: denies: cough, dry, shortness of breath, hemoptysis, SOB with excertion, pleuritic pain, sputum, wheezing, other Cardiovascular: denies: chest pain, palpitations, orthopnea, paroxysmal noc. dyspnea, edema, light headedness, other Gastrointestinal: reports: nausea, abdominal pain. denies: melena, hematochezia Genitourinary: denies: dysuria, frequency, incontinence, hematuria, retention, other - Medication Medications: Active Medications Generic Name Dose Route Start Last Admin Trade Name Freq PRN Reason Stop Dose Admin Famotidine 20 mg 09/01/19 09:00 09/01/19 09:37 Pepcid SLOW IVP 20 mg Q12HR VALE Administration Heparin Sodium (Porcine) 5,000 units 09/01/19 09:00 09/01/19 09:37 Heparin SC 5,000 units BID VALE Administration Metronidazole 500 mg/ Device 100 mls @ 100 mls/hr 09/01/19 06:00 09/01/19 14: 27 IVPB 100 mls Q8HR VALE Administration Ceftriaxone Sodium 1 gm/ 100 mls @ 200 mls/hr 08/31/19 23:59 09/01/19 01:55 Sodium Chloride IVPB 100 mls Q24HR VALE Administration Sodium Chloride 1,000 mls @ 70 mls/hr 08/31/19 23:45 09/01/19 01:55 Normal Saline 0.9% IV 1,000 mls .[id number] VALE Administration Ondansetron HCl 4 mg 09/01/19 02:06 09/01/19 18:08 Zofran IVP 4 mg Q6H PRN Administration Nausea/Vomiting - Exam General Appearance: awake alert General - other findings: in moderate distress ENT: normocephalic atraumatic, no oropharyngeal lesions Heart: RRR, no murmur, no gallops, no rubs, normal peripheral pulses Respiratory: CTAB, no wheezes, no rales, no ronchi, normal chest expansion, no tachypnea, normal percussion Gastrointestinal - other findings: diffusely tender, mostly suprapubic area Psychiatric: normal affect, normal behavior, A&O x 3 Hosp A/P - Plan #stercoral colitis -will stop antibiotics -clear liquids -ondansetron PRN nausea -will likely require disimpaction/enema #REDD on CKD baseline Cr ~ 1.0; currently 1.5 hold lasix for now continue to follow rest of management unchanged full code
[2019-09-01] MEDS ORDERED: Ondansetron ODT 4 MG TAB PO PRN (21:36)
[2019-09-02] MEDS: Ondansetron PF 4 MG/2 ML Vial IVP PRN (01:32)
[2019-09-02] MEDS: Ondansetron ODT 4 MG TAB PO PRN (02:25)
[2019-09-02] MEDS: Levothyroxine Sodium 125 MCG TAB PO SCH (05:09)
[2019-09-02] MEDS: Sodium Chloride 0.9% 1,000 ML IV SCH ×2 (05:41→18:34)
[2019-09-02] MEDS ORDERED: Polyethylene Glycol 3350 17 GM Packet PO PRN (08:15)
[2019-09-02] MEDS: metroNIDAZOLE 500 MG in Premix Bag 1 BAG IVPB SCH (08:16)
[2019-09-02] MEDS: Insulin Glargine 50 UNITS in Pre-Filled Syringe 1 EACH SC SCH ×2 (08:59→15:54)
[2019-09-02] MEDS: Aspirin 81 mg Enteric Coated Tablet PO SCH (09:00)
[2019-09-02] MEDS: Gabapentin 400 MG CAP PO SCH ×2 (09:00→20:11)
[2019-09-02] MEDS: Senokot S 8.6-50 MG TAB PO SCH ×2 (09:00→20:11)
[2019-09-02] MEDS ORDERED: Non-Formulary Item 1 EACH (Fluticasone/Salmeterol [Advair Diskus 250/50] 1 INH) IH SCH (09:00)
[2019-09-02] MEDS: Baclofen 10 MG TAB PO SCH (09:00)
[2019-09-02] MEDS ORDERED: INSULIN GLARGINE HUM REC ANLOG 100 UNIT SQ SCH (09:00)
[2019-09-02] MEDS: Montelukast Sodium 10 mg Tablet PO SCH (09:00)
[2019-09-02] MEDS: hydrALAZINE 25 MG TAB PO SCH ×2 (09:00→20:12)
[2019-09-02] MEDS: Lorazepam 1 MG TAB PO SCH (09:00)
[2019-09-02] MEDS ORDERED: Non-Formulary Item 1 EACH (Insulin Glargine,Hum.Rec.Anlog [Lantus Solostar] 50 UNIT) SQ SCH (09:00)
[2019-09-02] MEDS: Heparin 5,000 UNITS/ML VIAL SC SCH ×2 (09:01→20:10)
[2019-09-02] MEDS: Famotidine/PF 20 mg/2ml Vial SLOW IVP SCH ×2 (09:01→20:13)
[2019-09-02] MEDS: Metoprolol Tartrate 25 MG TAB PO SCH ×2 (09:01→20:11)
[2019-09-02] MEDS: Atorvastatin Calcium 20 MG TAB PO SCH (20:11)
[2019-09-02] MEDS ORDERED: Dextrose 5% in Water 1,000 ML IV PRN (20:21)
[2019-09-02] MEDS ORDERED: Dextrose 50% Abboject 50 ML SYRINGE SLOW IVP PRN (20:21)
--- NOTE | 2019-09-02 20:24 | PDOC.HOSPP ---
- Subjective Encounter Date: 09/02/19 Encounter Time: 07:30 Subjective: Overnight, had disimpaction, enema, and large bowel movement. This morning, feels better though diffuse abdominal pain persists. Has no other complaints. - Objective Vital Signs & Weight: Vital Signs (12 hours) Temp Pulse Resp BP BP BP Pulse Ox 09/02/19 19:26 97.7 F 55 L 20 110/59 L 97 09/02/19 15:00 97.4 F L 65 18 102/63 97 09/02/19 11:32 97 09/02/19 11:00 97.8 F 63 18 148/70 H 97 09/02/19 09:03 96 09/02/19 08:55 98.3 F 73 14 177/78 H 96 Weight Weight 191 lb 11.2 oz I&O: 09/01/19 09/02/19 09/03/19 06:59 06:59 06:59 Intake Total 0 Output Total 0 Balance 0 Result Diagrams: 09/01/19 02:25 09/01/19 02:25 Additional Labs: Accuchecks 09/02/19 09/02/19 09/02/19 17:50 17:03 11:41 POC Glucose 73 42 L* 177 H 09/02/19 09/01/19 05:50 20:32 POC Glucose 263 H 218 H Hospitalist ROS - Review of Systems Constitutional: denies: fever, chills, sweats, weakness, malaise, other Respiratory: denies: cough, dry, shortness of breath, hemoptysis, SOB with excertion, pleuritic pain, sputum, wheezing, other Cardiovascular: denies: chest pain, palpitations, orthopnea, paroxysmal noc. dyspnea, edema, light headedness, other Gastrointestinal: reports: nausea, abdominal pain, constipation. denies: vomiting, diarrhea, melena, hematochezia Genitourinary: denies: dysuria, frequency, incontinence, hematuria, retention, other - Medication Medications: Active Medications Generic Name Dose Route Start Last Admin Trade Name Freq PRN Reason Stop Dose Admin Aspirin 81 mg 09/02/19 09:00 09/02/19 09:00 Ecotrin PO 81 mg DAILY VALE Administration Baclofen 10 mg 09/02/19 09:00 09/02/19 09:00 Lioresal PO 10 mg DAILY VALE Administration Famotidine 20 mg 09/01/19 09:00 09/02/19 09:01 Pepcid SLOW IVP Not Given Q12HR VALE Gabapentin 1,600 mg 09/02/19 09:00 09/02/19 09:00 Neurontin PO 1,600 mg BID VALE Administration Heparin Sodium (Porcine) 5,000 units 09/01/19 09:00 09/02/19 09:01 Heparin SC 5,000 units BID VALE Administration Hydralazine HCl 50 mg 09/02/19 09:00 09/02/19 09:00 Apresoline PO 50 mg BID VALE Administration Sodium Chloride 1,000 mls @ 70 mls/hr 08/31/19 23:45 09/02/19 18:34 Normal Saline 0.9% IV Not Given .[id number] VALE Insulin Glargine 50 units/ 0.5 mls @ 0 mls/hr 09/02/19 09:00 09/02/19 15:54 Miscellaneous Medication SC Not Given TID VALE As Directed Levothyroxine Sodium 125 mcg 09/02/19 06:00 09/02/19 05:09 Synthroid PO Not Given 0600 VALE Lorazepam 1 mg 09/02/19 09:00 09/02/19 09:00 Ativan PO 1 mg QAM VALE Administration Metoprolol Tartrate 25 mg 09/02/19 09:00 09/02/19 09:01 Lopressor PO 25 mg BID VALE Administration Montelukast Sodium 10 mg 09/02/19 09:00 09/02/19 09:00 Singulair PO 10 mg DAILY VALE Administration Ondansetron HCl 4 mg 09/01/19 02:06 09/02/19 02:25 Zofran Odt PO 4 mg Q6H PRN Administration Nausea/Vomiting Ondansetron HCl 4 mg 09/01/19 02:06 09/02/19 01:32 Zofran IVP 4 mg Q6H PRN Administration Nausea/Vomiting Senna/Docusate Sodium 1 tab 09/02/19 09:00 09/02/19 09:00 Senokot S PO 1 tab BID VALE Administration - Exam General Appearance: awake alert General - other findings: mild distress ENT: moist mucosa Neck: no JVD Heart: RRR, no murmur, no gallops, no rubs, normal peripheral pulses Respiratory: CTAB, no wheezes, no rales, no ronchi, normal chest expansion Gastrointestinal: soft, non-distended Gastrointestinal - other findings: diffusely tender, hyperactive bowel sounds Extremities: no edema Musculoskeletal: normal tone, normal strength Psychiatric: normal affect, normal behavior, A&O x 3 Hosp A/P - Plan #stercoral colitis -had large bowel movements s/p disimpaction and enema -started PO bowel regimen; hold if > 2 BMs #REDD on CKD baseline Cr ~ 1.0; currently 1.5 hold lasix for now continue to follow rest of management unchanged full code expected discharge 09/02
[2019-09-03] MEDS: Levothyroxine Sodium 125 MCG TAB PO SCH (05:25)
[2019-09-03 06:01] LABS: Hemoglobin 11.7 g/dL (12.0-16.0)
[2019-09-03 06:23] LABS: Anion Gap 11 mmol/L (10-20); BUN (Urea Nitrogen) 20 mg/dL (9.8-20.1); Calc. Creatinine Clearance 70 mL/min (70-130); Calcium 8.2 mg/dL (7.8-10.44); Carbon Dioxide 29 mmol/L (22-29); Chloride 102 mmol/L (98-107); Estimated GFR-MDRD 47; Magnesium 2.1 mg/dL (1.6-2.6); Potassium 3.2 mmol/L (3.5-5.1); Sodium 139 mmol/L (136-145)
[2019-09-03 06:26] LABS: Glucose 48 mg/dL (70-105)
[2019-09-03] MEDS: Aspirin 81 mg Enteric Coated Tablet PO SCH (09:04)
[2019-09-03] MEDS: Baclofen 10 MG TAB PO SCH (09:04)
[2019-09-03] MEDS: Gabapentin 400 MG CAP PO SCH ×2 (09:04→22:36)
[2019-09-03] MEDS: Metoprolol Tartrate 25 MG TAB PO SCH ×2 (09:05→22:38)
[2019-09-03] MEDS: Montelukast Sodium 10 mg Tablet PO SCH (09:05)
[2019-09-03] MEDS: Heparin 5,000 UNITS/ML VIAL SC SCH ×2 (09:05→22:42)
[2019-09-03] MEDS: hydrALAZINE 25 MG TAB PO SCH ×2 (09:05→22:36)
[2019-09-03] MEDS: Senokot S 8.6-50 MG TAB PO SCH ×2 (09:05→22:38)
[2019-09-03] MEDS: Famotidine/PF 20 mg/2ml Vial SLOW IVP SCH ×2 (09:06→22:39)
[2019-09-03] MEDS: Potassium Chloride 20 MEQ TAB PO SCH ×2 (09:17→11:54)
[2019-09-03] MEDS: Lorazepam 1 MG TAB PO SCH (09:17)
[2019-09-03] MEDS: Dextrose 5 % And 0.9 % NaCl 1,000 ML IV SCH ×2 (10:33→22:39)
--- NOTE | 2019-09-03 11:10 | RAD ---
KUB: HISTORY: Stercoral colitis. Abdominal pain. COMPARISON: A CT examination of 08/31/2019. FINDINGS: The bowel gas pattern is nonobstructive. There is a moderate amount of stool within the colon. The amount in the rectosigmoid region appears improved as compared to the prior CT study. There is resid ual contrast within the bladder from the previous CT. There are marked arthritic changes of the spin e and postop change. IMPRESSION: A moderate amount of stool throughout the colon. The fecal burden in the rectosigmoid region has imp roved as compared to that previous CT study. POS: [facility]
[2019-09-03] MEDS ORDERED: Mineral Oil ENEMA PR SCH (12:45)
--- NOTE | 2019-09-03 21:27 | PDOC.HOSPP ---
- Subjective Encounter Date: 09/03/19 Encounter Time: 10:00 Subjective: overnight, patient agitated, non cooperative, abusive. This morning, endorses having no bowel movements. - Objective Vital Signs & Weight: Vital Signs (12 hours) Temp Pulse Resp BP Pulse Ox 09/03/19 16:00 97.3 F L 57 L 20 110/64 93 L 09/03/19 12:25 98.1 F 57 L 18 120/64 95 Weight Weight 191 lb 11.2 oz Result Diagrams: 09/03/19 05:30 09/03/19 05:30 Additional Labs: Accuchecks 09/03/19 09/03/19 09/03/19 16:21 11:24 08:17 POC Glucose 224 H 103 69 L 09/03/19 09/03/19 06:08 04:32 POC Glucose 71 66 L Hospitalist ROS - Review of Systems Constitutional: denies: fever, chills, sweats, weakness, malaise, other Cardiovascular: denies: chest pain, palpitations, orthopnea, paroxysmal noc. dyspnea, edema, light headedness, other Gastrointestinal: reports: abdominal pain, constipation. denies: nausea, vomiting, diarrhea, melena, hematochezia Genitourinary: denies: dysuria, frequency, incontinence, hematuria, retention - Medication Medications: Active Medications Generic Name Dose Route Start Last Admin Trade Name Freq PRN Reason Stop Dose Admin Aspirin 81 mg 09/02/19 09:00 09/03/19 09:04 Ecotrin PO 81 mg DAILY VALE Administration Atorvastatin Calcium 20 mg 09/02/19 21:00 09/02/19 20:11 Lipitor PO 20 mg HS VALE Administration Baclofen 10 mg 09/02/19 09:00 09/03/19 09:04 Lioresal PO 10 mg DAILY VALE Administration Famotidine 20 mg 09/01/19 09:00 09/03/19 09:06 Pepcid SLOW IVP Not Given Q12HR VALE Gabapentin 1,600 mg 09/02/19 09:00 09/03/19 09:04 Neurontin PO 1,600 mg BID VALE Administration Haloperidol 0.5 mg 09/03/19 14:41 09/03/19 17:40 Haldol PO 09/03/19 23:59 0.5 mg ONE PRN Administration Agitation Heparin Sodium (Porcine) 5,000 units 09/01/19 09:00 09/03/19 09:05 Heparin SC 5,000 units BID VALE Administration Hydralazine HCl 50 mg 09/02/19 09:00 09/03/19 09:05 Apresoline PO 50 mg BID VALE Administration Insulin Glargine 50 units/ 0.5 mls @ 0 mls/hr 09/02/19 09:00 09/02/19 15:54 Miscellaneous Medication SC Not Given TID VALE As Directed Dextrose/Sodium Chloride 1,000 mls @ 75 mls/hr 09/03/19 06:45 09/03/19 10:33 D5 0.9% Ns IV Not Given .[id number] VALE Levothyroxine Sodium 125 mcg 09/02/19 06:00 09/03/19 05:25 Synthroid PO 125 mcg 0600 VALE Administration Metoprolol Tartrate 25 mg 09/02/19 09:00 09/03/19 09:05 Lopressor PO 25 mg BID VALE Administration Montelukast Sodium 10 mg 09/02/19 09:00 09/03/19 09:05 Singulair PO 10 mg DAILY VALE Administration Ondansetron HCl 4 mg 09/01/19 02:06 09/02/19 02:25 Zofran Odt PO 4 mg Q6H PRN Administration Nausea/Vomiting Ondansetron HCl 4 mg 09/01/19 02:06 09/02/19 01:32 Zofran IVP 4 mg Q6H PRN Administration Nausea/Vomiting Quetiapine Fumarate 100 mg 09/02/19 21:00 09/02/19 20:11 Seroquel PO 100 mg HS VALE Administration Senna/Docusate Sodium 1 tab 09/02/19 09:00 09/03/19 09:05 Senokot S PO 1 tab BID VALE Administration - Exam General Appearance: NAD, awake alert General - other findings: agitated, verbally abusive to nurses Heart: RRR, no murmur, no gallops Respiratory: CTAB, no wheezes, no rales, no ronchi Gastrointestinal: soft, non-distended, normal bowel sounds Gastrointestinal - other findings: mildly diffusely tender Extremities: no edema Psychiatric: A&O x 3 Psychiatric - other findings: agitated, noncooperative Hosp A/P - Plan #stercoral colitis -reportedly had large bowel movements s/p disimpaction and enema (08/31); however , patient denies having bowel movements -AXR (09/02) showing improved fecal stasis however impaction remains -disimpact and mineral oil -continue oral regimen #REDD (resolved) baseline Cr ~ 1.0; currently 1.2 hold lasix for now patient unable to care for self; agrees to be placed in inpatient rehab full code expected discharge 09/04
[2019-09-03] MEDS: Atorvastatin Calcium 20 MG TAB PO SCH (22:38)
[2019-09-04] MEDS: Levothyroxine Sodium 125 MCG TAB PO SCH (05:52)
[2019-09-04 06:56] LABS: Anion Gap 12 mmol/L (10-20); BUN (Urea Nitrogen) 18 mg/dL (9.8-20.1); Calc. Creatinine Clearance 66 mL/min (70-130); Calcium 8.5 mg/dL (7.8-10.44); Carbon Dioxide 25 mmol/L (22-29); Chloride 103 mmol/L (98-107); Estimated GFR-MDRD 44; Glucose 163 mg/dL (70-105); Magnesium 2.2 mg/dL (1.6-2.6); Potassium 4.5 mmol/L (3.5-5.1); Sodium 135 mmol/L (136-145)
[2019-09-04] MEDS: Gabapentin 400 MG CAP PO SCH ×2 (08:54→22:26)
[2019-09-04] MEDS: Montelukast Sodium 10 mg Tablet PO SCH (08:55)
[2019-09-04] MEDS: Senokot S 8.6-50 MG TAB PO SCH ×2 (08:55→22:28)
[2019-09-04] MEDS: Aspirin 81 mg Enteric Coated Tablet PO SCH (08:55)
[2019-09-04] MEDS: Baclofen 10 MG TAB PO SCH (08:55)
[2019-09-04] MEDS: Heparin 5,000 UNITS/ML VIAL SC SCH ×2 (08:56→22:28)
[2019-09-04] MEDS: Metoprolol Tartrate 25 MG TAB PO SCH ×2 (08:56→22:27)
[2019-09-04] MEDS: Famotidine/PF 20 mg/2ml Vial SLOW IVP SCH ×2 (08:58→22:28)
[2019-09-04] MEDS: hydrALAZINE 25 MG TAB PO SCH ×2 (09:00→22:27)
[2019-09-04] MEDS: Polyethylene Glycol 3350 17 GM Packet PO SCH (09:06)
[2019-09-04] MEDS: HumaLOG 300 UNITS/3 ML VIAL SC PRN ×2 (12:34→17:11)
[2019-09-04] MEDS: Dextrose 5 % And 0.9 % NaCl 1,000 ML IV SCH (13:19)
--- NOTE | 2019-09-04 14:26 | PQF ---
DATE: 09-04-19 ATTN: DR. MICHAEL JAEGER Please exercise your independent, professional judgment in responding to the clarification form. Clinical indicators are provided on the bottom of this form for your review Please check appropriate box(s): [ ] Chronic Respiratory Failure only [ ] with Hypoxia [ ] with Hypercapnia [ ] Hypoxia [x ] Other diagnosis __no respiratory failure [ ] Unable to determine In addition, please specify: Present on Admission (POA): [ ] Yes [ x ] No [ ] Unable to determine For continuity of documentation, please document condition throughout progress notes and discharge summary. Thank You. CLINICAL INDICATORS - SIGNS / SYMPTOMS / LABS / RESULTS AND LOCATION IN MR: ER NOTES 08-31-19: PT ALSO REPORTS SHORTNESS OF BREATH FOR THE PAST FEW WEEKS, COPD, ON HOME O2 ER DX 08-31-19: COLITIS RULE OUT C DIFF, REDD, DYSPNEA, ELEVATED TROPONIN H&P 08-31-19: COPD ON HOME O2 CXR 08-31-19: HX: DYSPNEA RISK FACTORS / RESULTS AND LOCATION IN MR: ER NOTES 08-31-19: PT ALSO REPORTS SHORTNESS OF BREATH FOR THE PAST FEW WEEKS, COPD, ON HOME O2, CURRENTLY USES TOBACCO, SMOKES 1 PACK DAY TREATMENTS / RESULTS AND LOCATION IN MR: ER NOTES 08-31-19: CIPRO IV, FLAGYL IV Acute Respiratory Failure: ABG pH < 7.35 or > 7.45; Decreased oxygen saturation (<90% room air or < 95% on oxygen); PCO2 > 50 mm Hg; PO2 < 60 mm Hg; Labored or rapid respirations ARDS: Dx Criteria [[place] ARDS]: Respiratory symptoms within one week of a known clinical insult (e.g. shock, infection, surgery, trauma) Bilateral opacities in CXR/Chest CT not due to CHF or fluid (This form is maintained as a part of the permanent medical record) 2014 [employer]. All Rights Reserved [email or web address] Office: [phone] NICK
--- NOTE | 2019-09-04 14:39 | PQF ---
DATE: 09-04-19 ATTN: DR. MICHAEL JAEGER Please exercise your independent, professional judgment in responding to the clarification form. Clinical indicators are provided on the bottom of this form for your review Please check appropriate box(s): [ x ] Hyponatremia please specify etiology, if known ___contraction alkalosis_ [ ] Insignificant Lab Values [ ] Other diagnosis [ ] Unable to determine In addition, please specify: Present on Admission (POA): [ x ] Yes [ ] No [ ] Unable to determine CLINICAL INDICATORS - SIGNS / SYMPTOMS / LABS / RESULTS AND LOCATION IN EMR: H&P 08-31-19: HYPONATREMIC WITH SODIUM OF 131 SODIUM LEVEL: 08-31-19: 131 09-01-19: 134 09-03-19: 139 09-04-19: 135 RISK FACTORS / RESULTS AND LOCATION IN EMR: ER DX: 08-31-19: REDD, DYSPNEA, ELEVATED TROPONIN H&P 08-31-19: PATIENT APPEARS TO BE DEHYDRATED, HX DIABETES TREATMENTS / RESULTS AND LOCATION IN EMR: H&P 08-31-19: IV FLUID HYDRATION, CAUTIOUS, REASSESS IN AM, SODIUM LEVELS 08-31-19 TO 09-06-19 (This form is maintained as a part of the permanent medical record) 2014 [employer]. All Rights Reserved [email or web address] Office: [phone] [facility]
--- NOTE | 2019-09-04 15:44 | RAD ---
Single contrast Gastrografin enema INDICATION: History of constipation with attempted disimpaction TECHNIQUE: The rectal tube was placed. Preprocedure tire and lube technician images were performed verifying adequate po sitioning of the rectal tube. There is prominent amount retained stool within the lower rectal vault. Upon retrograde administration Gastrografin contrast the patient evacuated both the rectal tub e and the impacted stool ball in the region of the rectal vault. The patient was then cleansed and a rectal tube was replaced within the rectal vault. Again with retrograde administration of Gastrogra fin contrast, the patient evacuated the inflated rectal tube with very little opacification of the colon. A few scattered colonic diverticula are present in the sigmoid colon. Total fluoroscopic time was 1.1 minutes. Total exposure was 35.562 Gy*cm2.. IMPRESSION: Incomplete Gastrografin enema. The patient could not hold the rectal tube within the rectum due to a patulous anal sphincter. The patient did evacuate the large stool ball present within the rectum with retrograde administration of Gastrografin contrast. Contrast only opacified the mid to proximal sigmoid colon. Transcribed Date/Time: 09/04/2019 3:48 PM
[2019-09-04] MEDS: Acetaminophen 325 MG TAB PO PRN (15:47)
--- NOTE | 2019-09-04 18:59 | PDOC.HOSPP ---
- Subjective Encounter Date: 09/04/19 Encounter Time: 09:00 Subjective: overnight, attempted an additional disimpaction and several additional enemas. Third disimpaction so far. Feels overall better but can't spontaneously defecate. - Objective Vital Signs & Weight: Vital Signs (12 hours) Temp Pulse Resp BP Pulse Ox 09/04/19 16:00 98.2 F 64 20 159/81 H 97 09/04/19 09:00 65 95 09/04/19 07:22 98.2 F 65 20 143/64 H 95 Weight Weight 191 lb 11.2 oz Result Diagrams: 09/03/19 05:30 09/04/19 05:40 Additional Labs: Accuchecks 09/04/19 09/04/19 09/04/19 16:23 11:44 05:44 POC Glucose 282 H 342 H 190 H 09/03/19 22:38 POC Glucose 226 H Hospitalist ROS - Review of Systems Constitutional: denies: fever, chills, sweats, weakness, malaise, other Respiratory: denies: cough, dry, shortness of breath, hemoptysis, SOB with excertion, pleuritic pain, sputum, wheezing, other Cardiovascular: denies: chest pain, palpitations, orthopnea, paroxysmal noc. dyspnea, edema, light headedness, other Gastrointestinal: denies: nausea, vomiting, abdominal pain, diarrhea, constipation, melena, hematochezia, other Genitourinary: denies: dysuria, frequency, incontinence, hematuria, retention, other - Medication Medications: Active Medications Generic Name Dose Route Start Last Admin Trade Name Cruzq PRN Reason Stop Dose Admin Acetaminophen 650 mg 08/31/19 23:21 09/04/19 15:47 Tylenol PO 650 mg Q4H PRN Administration Headache/Fever/Mild Pain (1-3) Aspirin 81 mg 09/02/19 09:00 09/04/19 08:55 Ecotrin PO 81 mg DAILY VALE Administration Atorvastatin Calcium 20 mg 09/02/19 21:00 09/03/19 22:38 Lipitor PO 20 mg HS VALE Administration Baclofen 10 mg 09/02/19 09:00 09/04/19 08:55 Lioresal PO 10 mg DAILY VALE Administration Famotidine 20 mg 09/01/19 09:00 09/04/19 08:58 Pepcid SLOW IVP Not Given Q12HR [facility] Gabapentin 1,600 mg 09/02/19 09:00 09/04/19 08:54 Neurontin PO 1,600 mg BID VALE Administration Heparin Sodium (Porcine) 5,000 units 09/01/19 09:00 09/04/19 08:56 Heparin SC 5,000 units BID VALE Administration Hydralazine HCl 50 mg 09/02/19 09:00 09/04/19 09:00 Apresoline PO 50 mg BID VALE Administration Insulin Glargine 50 units/ 0.5 mls @ 0 mls/hr 09/02/19 09:00 09/02/19 15:54 Miscellaneous Medication SC Not Given TID VALE As Directed Dextrose/Sodium Chloride 1,000 mls @ 75 mls/hr 09/03/19 06:45 09/04/19 13:19 D5 0.9% Ns IV Not Given .[id number] [facility] Insulin Human Lispro 0 units 09/02/19 20:21 09/04/19 17:11 Humalog SC 4 unit .MILD SLIDING SCALE PRN Administration Mild Correctional Scale Levothyroxine Sodium 125 mcg 09/02/19 06:00 09/04/19 05:52 Synthroid PO 125 mcg 0600 [facility] Administration Metoprolol Tartrate 25 mg 09/02/19 09:00 09/04/19 08:56 Lopressor PO 25 mg BID [facility] Administration Montelukast Sodium 10 mg 09/02/19 09:00 09/04/19 08:55 Singulair PO 10 mg DAILY [facility] Administration Ondansetron HCl 4 mg 09/01/19 02:06 09/02/19 02:25 Zofran Odt PO 4 mg Q6H PRN Administration Nausea/Vomiting Ondansetron HCl 4 mg 09/01/19 02:06 09/02/19 01:32 Zofran IVP 4 mg Q6H PRN Administration Nausea/Vomiting Polyethylene Glycol 17 gm 09/04/19 09:00 09/04/19 09:06 Miralax PO 17 gm DAILY [facility] Administration Quetiapine Fumarate 100 mg 09/02/19 21:00 09/03/19 22:39 Seroquel PO 100 mg HS VALE Administration Senna/Docusate Sodium 1 tab 09/02/19 09:00 09/04/19 08:55 Senokot S PO 1 tab BID VALE Administration - Exam General Appearance: NAD, awake alert General - other findings: more cooperative Neck: no JVD Heart: RRR, no murmur, no gallops, no rubs, normal peripheral pulses Respiratory: CTAB, no wheezes, no rales, no ronchi, normal chest expansion, no tachypnea, normal percussion Gastrointestinal: soft, non-tender, non-distended, normal bowel sounds, no palpable masses, no hepatomegaly, no splenomegaly, no bruit Extremities: no edema Psychiatric: normal behavior, A&O x 3 Psychiatric - other findings: labile affect Hosp A/P - Plan #stercoral colitis -reportedly had large bowel movements s/p disimpaction and enema (08/31); however , patient denies having bowel movements -AXR (09/02) showing improved fecal stasis however impaction remains -several additional enemas, another disimpaction; still hard stool in vault -gastrografin disimpaction and enema -continue oral regimen #REDD (resolved) baseline Cr ~ 1.0; currently 1.2 hold lasix for now patient unable to care for self; agrees to be placed in inpatient rehab full code expected discharge 09/04
[2019-09-04] MEDS: Atorvastatin Calcium 20 MG TAB PO SCH (22:27)
[2019-09-04] MEDS: Insulin Glargine 50 UNITS in Pre-Filled Syringe 1 EACH SC SCH (22:28)
[2019-09-05] MEDS: Levothyroxine Sodium 125 MCG TAB PO SCH (05:00)
[2019-09-05] MEDS: Acetaminophen 325 MG TAB PO PRN (05:01)
[2019-09-05 05:55] LABS: Anion Gap 11 mmol/L (10-20); BUN (Urea Nitrogen) 19 mg/dL (9.8-20.1); Calc. Creatinine Clearance 76 mL/min (70-130); Calcium 8.1 mg/dL (7.8-10.44); Carbon Dioxide 27 mmol/L (22-29); Chloride 103 mmol/L (98-107); Estimated GFR-MDRD 52; Glucose 104 mg/dL (70-105); Magnesium 2.3 mg/dL (1.6-2.6); Potassium 4.2 mmol/L (3.5-5.1); Sodium 137 mmol/L (136-145)
[2019-09-05] MEDS: Baclofen 10 MG TAB PO SCH (08:49)
[2019-09-05] MEDS: Senokot S 8.6-50 MG TAB PO SCH (08:49)
[2019-09-05] MEDS: Montelukast Sodium 10 mg Tablet PO SCH (08:49)
[2019-09-05] MEDS: Metoprolol Tartrate 25 MG TAB PO SCH (08:49)
[2019-09-05] MEDS: Aspirin 81 mg Enteric Coated Tablet PO SCH (08:49)
[2019-09-05] MEDS: hydrALAZINE 25 MG TAB PO SCH (08:49)
[2019-09-05] MEDS: Gabapentin 400 MG CAP PO SCH (08:50)
[2019-09-05] MEDS: Polyethylene Glycol 3350 17 GM Packet PO SCH (08:50)
[2019-09-05] MEDS: Heparin 5,000 UNITS/ML VIAL SC SCH (08:50)
[2019-09-05] MEDS: Famotidine/PF 20 mg/2ml Vial SLOW IVP SCH (08:51)
[2019-09-05] MEDS: Insulin Glargine 50 UNITS in Pre-Filled Syringe 1 EACH SC SCH (09:33)
[2019-09-05 11:57] VITALS: BP 118/71; TEMP 98
[2019-09-05] MEDS: HumaLOG 300 UNITS/3 ML VIAL SC PRN (12:04)
--- NOTE | 2019-09-06 13:43 | DIS ---
DATE OF ADMISSION: 08/31/2019 DATE OF DISCHARGE: 09/05/2019 HISTORY OF PRESENT ILLNESS: Ms. Rodriguez is a 59-year-old female with a medical history of CHF, diabetes, [place], hypothyroidism, GERD and Viera's esophagus who presented with abdominal pain and reported diarrhea for 2 weeks. The patient was diagnosed with severe constipation and rectal impaction. 1. Constipation and rectal impaction. 2. The patient had a ball of hard feces in her rectum. 3. Several attempts at disimpaction and enemas were not successful throughout 3 days. 4. The patient required a barium enema and disimpaction after which a large impaction was discharged. 5. The patient was started on maintenance, laxatives medication as well as MiraLAX in order to avoid further such occurrences. 6. The patient should be followed up by her primary care physician regarding management of hypothyroidism as well as constipation. 7. Prior to discharge, the patient was educated regarding proper preventive measures including fluid intake in order to avoid having constipation. 8. REDD, the presented with acute kidney injury likely due to reduced p.o. intake as a result of her nausea and vomiting. 9. The patient's creatinine progressively improved and returned to baseline prior to discharge. 10. Psychosis and agitation. 11. The patient exhibited confusion and hallucinations as well as severe agitation throughout her inpatient stay. She was abusive towards medical staff. 12. The patient was continued on her home medications. 13. It should be further evaluated by Psychiatry to manage her psychosis. 14. The patient initially agreed to be sent to inpatient rehab, however, on the day of discharge, she changed her mind and requests to go home. 15. The patient was explained her medical issues as well as the consequences of treating and not treated treating them and exhibited understanding and capacity to make a decision. 16. The patient was discharged home with home health and physical therapy. 17. On the day of discharge, the patient was hemodynamically stable and had a spontaneous bowel movement with her oral bowel regimen. PHYSICAL EXAMINATION: VITAL SIGNS: Unremarkable. GENERAL: On exam, the patient was in no apparent distress, awake and alert, more cooperative. NECK: No JVD. HEART: Regular rate and rhythm. No murmur. No gallop. No rubs. Normal peripheral pulses. RESPIRATORY: Clear to auscultation bilaterally. No wheezes. No rales. No rhonchi. No tachypnea. GI: Soft, nontender, nondistended. Normal bowel sounds. EXTREMITY: No edema. PSYCHIATRIC: Labile affect. Normal behavior. Alert and oriented x3. The patient was discharged on her home medication with the exception of 2 new medications senna and docusate scheduled b.i.d. and MiraLAX scheduled. However, if the patient continues to have regular bowel movements, the MiraLAX can be changed to p.r.n. Should be followed by her primary care physician. Job ID: [id number]
--- NOTE | 2019-09-07 09:49 | EKG ---
Test Reason : EMERGENCY EXAM Blood Pressure : / mmHG Vent. Rate : 066 BPM Atrial Rate : 066 BPM P-R Int : 196 ms QRS Dur : 140 ms QT Int : 478 ms P-R-T Axes : 061 039 023 degrees QTc Int : 501 ms Sinus rhythm with Premature supraventricular complexes Right bundle branch block Abnormal ECG Confirmed by SITA WHITE ([id number]), research editor CASI VASQUEZ ([id number]) on 09/07/2019 9:49:40 AM Referred By: Confirmed By:SITA WHITE
== END 2019-09-05 12:49 | disposition home health service (06) | DRG 389 ==
LOC: ERS 19:24 → 2NO 23:09 → T4-A 09-02 10:56
PROVIDERS: ADMIT Internal Medicine; ATTEND Internal Medicine
DX: K56.49 Other impaction of intestine (principal); I69.354 Hemiplegia and hemiparesis following cerebral infarction affecting left non-dominant side; N17.9 Acute kidney failure, unspecified; I13.0 Hypertensive heart and chronic kidney disease with heart failure and stage 1 through stage 4 chronic kidney disease, or unspecified chronic kidney disease; E87.1 Hypo-osmolality and hyponatremia; K59.09 Other constipation; K52.89 Other specified noninfective gastroenteritis and colitis; E11.40 Type 2 diabetes mellitus with diabetic neuropathy, unspecified; E78.5 Hyperlipidemia, unspecified; E78.00 Pure hypercholesterolemia, unspecified; I50.9 Heart failure, unspecified; F17.210 Nicotine dependence, cigarettes, uncomplicated; E03.9 Hypothyroidism, unspecified; K21.9 Gastro-esophageal reflux disease without esophagitis; M19.90 Unspecified osteoarthritis, unspecified site; E86.0 Dehydration; N18.9 Chronic kidney disease, unspecified; I25.10 Atherosclerotic heart disease of native coronary artery without angina pectoris; F29 Unspecified psychosis not due to a substance or known physiological condition; I25.2 Old myocardial infarction; Z99.81 Dependence on supplemental oxygen; Z88.2 Allergy status to sulfonamides
CPT/HCPCS: 36415; 36416; 71045; 74018; 74177; 74280; 80048; 80053; 82553; 83690; 83735; 83880; 84484; 85014; 85018; 85025; 87040; 93005; J0696; J1644; J1815; J2405; J3490; Q0162; Q9967; S0028

== ENCOUNTER 2019-09-20 15:58 | Inpatient (IN) | payer MEDICARE, MEDICAID ==
[~2019-09-20 15:58] MED LIST changes: -Iopamidol 370 76% 100 ML VIAL ONE; +Iopamidol-370 76% 500 ML 1 ML ONE
[2019-09-20] MEDS ORDERED: Ondansetron PF 4 MG/2 ML Vial ONE (17:29)
[2019-09-20] MEDS ORDERED: Morphine 4 MG/ML VIAL ONE (17:29)
[2019-09-20 17:50] LABS: #Basophils 0.1 thou/uL (0.0-0.2); #Eosinphils 0.1 thou/uL (0.0-0.7); #Lymphocytes 1.2 thou/uL (1.20-3.40); #Monocytes 0.7 thou/uL (0.11-0.59); #Neutrophils 6.8 thou/uL (1.40-6.50); %Basophils 0.7 % (0.0-1.0); %Eosinophils 1.6 % (0.0-10.0); %Monocytes 7.4 % (0.0-10.0); %Neutrophils 76.3 % (42.0-75.0); Hemoglobin 11.5 g/dL (12.0-16.0); Mean Corpuscular HGB CONC 35.7 g/dL (32.0-36.0); Mean Corpuscular Volume 89.7 fL (78.0-98.0); Mean Platelet Volume 8.7 fL (7.4-10.4); Platelet Count 226 thou/uL (130-400); RBC Distribution Width 12.5 % (11.5-14.5); Red Blood Cell (RBC) Count 3.58 mill/uL (4.20-5.40); White Blood Cell (WBC) Count 8.9 thou/uL (4.8-10.8)
[2019-09-20 18:11] LABS: ALT (SGPT) 7 U/L (8-55); AST (SGOT) 7 U/L (5-34); Albumin 3.4 g/dL (3.5-5.0); Alkaline Phosphatase 71 U/L (40-110); Anion Gap 16 mmol/L (10-20); BUN (Urea Nitrogen) 54 mg/dL (9.8-20.1); Bilirubin, Total 0.8 mg/dL (0.2-1.2); Calc. Creatinine Clearance 0 mL/min (70-130); Calcium 9.1 mg/dL (7.8-10.44); Carbon Dioxide 30 mmol/L (22-29); Chloride 89 mmol/L (98-107); Estimated GFR-MDRD 30; Globulin 3.3 g/dL (2.4-3.5); Glucose 418 mg/dL (70-105); Potassium 3.9 mmol/L (3.5-5.1); Protein, Total 6.7 g/dL (6.0-8.3); Sodium 131 mmol/L (136-145)
[2019-09-20 18:14] LABS: Bacteria/HPF 2+ HPF (None Seen); Bilirubin Negative (Negative); Blood, Urine 1+ (Negative); Clarity Turbid (Clear); Glucose, Urine (Dipstick) >=1000 mg/dL (Negative); Leukocyte 500 Leu/uL (Negative); Nitrite Negative (Negative); Protein, Urine (Dipstick) 50 mg/dL (Neg-Trace); RBC/HPF 0-3 HPF (0-3); Squamous Epithelial 0-3 HPF (0-3); Urobilinogen Normal mg/dL (Less than 2); WBC/HPF Greater than 50 HPF (0-3)
[2019-09-20 18:21] LABS: Yeast-Budding 1+ HPF (None Seen)
--- NOTE | 2019-09-20 19:02 | CT ---
CT ABDOMEN AND PELVIS PERFORMED WITH CONTRAST ENHANCEMENT: 09/20/19 HISTORY: Abdominal pain x3 days with nausea and vomiting. COMPARISON: 08/31/19 exam. The lung bases are clear of any infiltrative process. Some changes in the dependent portion of both l rashida bases appears to represent some scar. The liver and spleen show no focal abnormalities. The splee n measures 13.3 cm in length. Pancreas and gallbladder regions appear unremarkable. Right and left adrenal glands are normal. Right and left kidneys are normal in size. A nonobstructing punctate mid pole right renal calculus is seen. No ureteral calculi. No significant periaortic or me senteric adenopathy. CT OF PELVIS PERFORMED WITH CONTRAST ENHANCEMENT: There is a moderate amount of stool in the rectum. The rectal wall appears thickened. There is citlaly lonic fat stranding with similar appearance to the previous exam. The rectum is less distended with s tool. Arthritic changes of the spine and hips are present. The appendix is normal. IMPRESSION: 1. Mild amount of stool in the rectum with rectal wall thickening and pericolic fat stranding kaur ggesting a stercoral colitis. This has been present on the previous 08/31/19 exam. 2. Punctate nonobstructing right renal calculus. 3. Borderline spleen size. POS: [facility] [place]
[2019-09-20] MEDS ORDERED: Acetaminophen 325 MG TAB PO PRN (20:58)
[2019-09-20] MEDS ORDERED: Ondansetron ODT 4 MG TAB PO PRN (20:58)
[2019-09-20] MEDS ORDERED: Nicotine 21 MG PATCH TD SCH (21:00)
[2019-09-20] MEDS ORDERED: HumaLOG 300 UNITS/3 ML VIAL SC PRN ×2 (21:04)
[2019-09-20] MEDS ORDERED: Dextrose 50% Abboject 50 ML SYRINGE SLOW IVP PRN (21:04)
[2019-09-20] MEDS ORDERED: Dextrose 5% in Water 1,000 ML IV PRN (21:04)
--- NOTE | 2019-09-20 21:29 | PDOC.HHP ---
Hospitalist HPI - History of Present Illness Abdominal pain History of Present Illness: PCP: Dr. Adames The patient was discharged from the hospital on 09/05/2019 for severe constipation, rectal impaction and REDD. At that stay she was on IV antibiotics and was discharged home. The patient is a 59/F with PMH signicant for colitis, CHF, CAD, COPD (home O2) and DMII that presents to the ER for the above complaint. The patient reports generalized abdominal pain for approximately 2 weeks, describes as aching, twisting pain, exacerbated by nothing and relieved by stooling. She has associated diarrhea, approximately 10 episodes per day, denies any blood or mucous in stools. Reports nausea, denies vomiting. Denies any fever or chills. Has been hospitalized and on IV antibiotics recently. Denies any travel or ingestion of uncooked foods. She also reports some dysuria and urinary frequency. Denies any hematuria or flank pain. Denies any fever or chills. Denies any chest pain, SOB, or orthopnea. ED Course: CT abdomen and pelvis showed mild amount of stool in rectum, rectal wall thickening with pericolic fat stranding suggesting stercoral colitis. WBC WNL UA + bacteria, WBCs, leukocytes Given morphine, zofran and 1L NS Hospitalist ROS - Review of Systems Constitutional: denies: fever, chills, sweats, weakness, malaise, other Eyes: denies: pain, vision change, conjunctivae inflammation, eyelid inflammation, redness, other ENT: denies: ear pain, ear discharge, nose pain, nose discharge, nose congestion , mouth pain, mouth swelling, throat pain, throat swelling, other Respiratory: denies: cough, dry, shortness of breath, hemoptysis, SOB with excertion, pleuritic pain, sputum, wheezing, other Cardiovascular: denies: chest pain, palpitations, orthopnea, paroxysmal noc. dyspnea, edema, light headedness, other Gastrointestinal: reports: nausea, abdominal pain, diarrhea. denies: vomiting, constipation, melena, hematochezia Genitourinary: reports: dysuria, frequency, incontinence. denies: hematuria Musculoskeletal: denies: neck pain, shoulder pain, arm pain, back pain, hand pain, leg pain, foot pain, other Skin: denies: rash, bruising Neurological: denies: weakness, numbness, incoordination, change in speech, confusion, seizures, other Hospitalist History - Past Medical History Source: patient Cardiac: reports: CAD (stents x 2), CHF, HTN, VA, Hyperlipidemia Pulmonary: reports: COPD (home oxygen) DIRECTOR PLANS: reports: CVA, Peripheral neuropathy (CAD) Gastrointestinal: reports: GERD, Other (barretts esophagus) Musculoskeletal: reports: Osteoarthritis Endocrine: reports: Diabetes, Hypothyroidism - Past Surgical History Past Surgical History: reports: Tubal Ligation, Other (cardiac cath, carpel tunnel, stomach and leg tumor) - Family History Family History: reports: no pertinent history (non contributory for this case, colitis) - Social History Smoking Status: Current every day smoker Tobacco Type: cigarettes (1ppd) Alcohol: reports: Rare Drugs: reports: none Living Situation: Friends Occupation: Lives with significant other, in [place], she is disabled Activity level: uses cane/walker - Exam General Appearance: NAD, awake alert Eye: anicteric sclera ENT: normocephalic atraumatic Neck: no JVD Heart: RRR, no gallops, no rubs, normal peripheral pulses, II/IV Respiratory: no wheezes, no rales, no ronchi, no tachypnea Respiratory - other findings: diminished throughout Gastrointestinal: soft, non-distended, normal bowel sounds, no guarding, no rigidity (mild tenderness, generalized) Extremities: no cyanosis, no edema Skin: no rashes Neurological: no new deficit Psychiatric: normal affect, A&O x 3 Hospitalist Results - Labs Result Diagrams: 09/20/19 17:41 09/20/19 17:41 Lab results: WBC 8.9 thou/uL (4.8-10.8) 09/20/19 17:41 Hgb 11.5 g/dL (12.0-16.0) L 09/20/19 17:41 Hct 32.1 % (36.0-47.0) L 09/20/19 17:41 MCV 89.7 fL (78.0-98.0) 09/20/19 17:41 Plt Count 226 thou/uL (130-400) 09/20/19 17:41 Neutrophils % 76.3 % (42.0-75.0) H 09/20/19 17:41 Sodium 131 mmol/L (136-145) L 09/20/19 17:41 Potassium 3.9 mmol/L (3.5-5.1) 09/20/19 17:41 Chloride 89 mmol/L (98-107) L 09/20/19 17:41 Carbon Dioxide 30 mmol/L (22-29) H 09/20/19 17:41 BUN 54 mg/dL (9.8-20.1) H 09/20/19 17:41 Creatinine 1.72 mg/dL (0.6-1.1) H 09/20/19 17:41 Glucose 418 mg/dL (70-105) H 09/20/19 17:41 Calcium 9.1 mg/dL (7.8-10.44) 09/20/19 17:41 Total Bilirubin 0.8 mg/dL (0.2-1.2) 09/20/19 17:41 AST 7 U/L (5-34) 09/20/19 17:41 ALT 7 U/L (8-55) L 09/20/19 17:41 Alkaline Phosphatase 71 U/L (40-110) 09/20/19 17:41 Serum Total Protein 6.7 g/dL (6.0-8.3) 09/20/19 17:41 Albumin 3.4 g/dL (3.5-5.0) L 09/20/19 17:41 Urine Ketones Negative mg/dL (Negative) 09/20/19 17:53 Urine Blood 1+ (Negative) A 09/20/19 17:53 Urine Nitrite Negative (Negative) 09/20/19 17:53 Ur Leukocyte Esterase 500 Danny/uL (Negative) A 09/20/19 17:53 Urine RBC 0-3 HPF (0-3) 09/20/19 17:53 Urine WBC Greater than 50 HPF (0-3) A 09/20/19 17:53 Ur Squamous Epith Cells 0-3 HPF (0-3) 09/20/19 17:53 Urine Bacteria 2+ HPF (None Seen) A 09/20/19 17:53 - Radiology Interpretation CT scan - abdomen Status: report reviewed by wa Hospitalist H&P A/P - Problem (1) REDD (acute kidney injury) Code(s): N17.9 - ACUTE KIDNEY FAILURE, UNSPECIFIED Status: Acute Assessment and Plan: Admit to medical, inpatient status Expected stay at least 2 midnights Creatinine 1.08 and GFR 52 on 09/05/2019 Likely secondary to fluid volume loss dehydration Will start IVF hydration Hold home lasix medication Get baseline BNP Will recheck levels in am (2) UTI (urinary tract infection) Status: Acute Assessment and Plan: Culture and sensitivity + for Ecoli, susceptible to rocephin on 08/12/2019 Will start rocephin IVPB Urine cultures pending. (3) Colitis Code(s): K52.9 - NONINFECTIVE GASTROENTERITIS AND COLITIS, UNSPECIFIED Status : Acute Assessment and Plan: Given recent hospitalization and antibiotic therapy Will rule out C diff. Start Flagyl IVPB IVF hydration CL diet (4) Hyponatremia Code(s): E87.1 - HYPO-OSMOLALITY AND HYPONATREMIA Status: Acute Assessment and Plan: Mild, 131 IVF hydration Will recheck level in am (5) Diabetes type 2, uncontrolled Code(s): E11.65 - TYPE 2 DIABETES MELLITUS WITH HYPERGLYCEMIA Status: Chronic Assessment and Plan: Uncontrolled Will start moderate sliding scale AC/HS accucheck Will restart lantus when home medications are reconciled. CL diet for now. (6) Hypertension Code(s): I10 - ESSENTIAL (PRIMARY) HYPERTENSION Status: Chronic Qualifiers: Hypertension type: essential hypertension Qualified Code(s): I10 - Essential (primary) hypertension Assessment and Plan: Asymptomatic Will restart home medications when reconciled. (7) CHF (congestive heart failure) Code(s): I50.9 - HEART FAILURE, UNSPECIFIED Status: Chronic Assessment and Plan: Stable Will get baseline BNP (8) COPD without exacerbation Code(s): J44.9 - CHRONIC OBSTRUCTIVE PULMONARY DISEASE, UNSPECIFIED Status: Chronic Assessment and Plan: Stable, no respiratory distress Will restart home medications when reconciled Duonebs prn Oxygen prn (9) CVA (cerebral vascular accident) Code(s): I63.9 - CEREBRAL INFARCTION, UNSPECIFIED Status: Chronic Qualifiers: Laterality of affected vessel: left Assessment and Plan: Up with assistance Consult PT (10) GERD (gastroesophageal reflux disease) Code(s): K21.9 - GASTRO-ESOPHAGEAL REFLUX DISEASE WITHOUT ESOPHAGITIS Status: Chronic Assessment and Plan: Start protonix (11) Tobacco abuse Code(s): Z72.0 - TOBACCO USE Status: Chronic Assessment and Plan: 1 ppd smoker Tobacco cessation counseling Will start NRT (12) Morbid obesity with BMI of 40.0-44.9, adult Code(s): E66.01 - MORBID (SEVERE) OBESITY DUE TO EXCESS CALORIES; Z68.41 - BODY MASS INDEX (BMI) 40.0-44.9, ADULT Status: Chronic (13) Hypothyroidism Code(s): E03.9 - HYPOTHYROIDISM, UNSPECIFIED Status: Chronic Assessment and Plan: Will restart levothyroxine when home medications reconciled. - Plan Plan: Consult PT GI and DVT prophlaxis Full Code DPOA Blaire Kingsley at [phone] Joyce
[2019-09-20] MEDS: Sodium Chloride 0.9% 1,000 ML IV SCH (22:25)
[2019-09-20] MEDS ORDERED: cefTRIAXone\\ROCEPHIN 1 GM in Sodium Chloride 0.9% 100 ML IVPB SCH (23:00)
[2019-09-20] MEDS: metroNIDAZOLE 500 MG in Premix Bag 1 BAG IVPB SCH (23:07)
[2019-09-20] MEDS: Heparin 5,000 UNITS/ML VIAL SC SCH (23:08)
[2019-09-20] MEDS: Ondansetron PF 4 MG/2 ML Vial IVP PRN (23:08)
[2019-09-21] MEDS: HYDROcodone/Acetaminophen 10/325 mg Tablet PO PRN ×3 (00:37→22:39)
[2019-09-21 05:29] LABS: #Basophils 0.1 thou/uL (0.0-0.2); #Eosinphils 0.2 thou/uL (0.0-0.7); #Lymphocytes 1.2 thou/uL (1.20-3.40); #Monocytes 0.5 thou/uL (0.11-0.59); #Neutrophils 6.2 thou/uL (1.40-6.50); %Basophils 0.8 % (0.0-1.0); %Eosinophils 1.9 % (0.0-10.0); %Lymphocytes 14.1 % (21.0-51.0); %Monocytes 6.4 % (0.0-10.0); %Neutrophils 76.8 % (42.0-75.0); Hemoglobin 11.2 g/dL (12.0-16.0); Mean Corpuscular HGB CONC 34.8 g/dL (32.0-36.0); Mean Corpuscular Volume 89.1 fL (78.0-98.0); Mean Platelet Volume 8.4 fL (7.4-10.4); Platelet Count 209 thou/uL (130-400); RBC Distribution Width 12.4 % (11.5-14.5); White Blood Cell (WBC) Count 8.1 thou/uL (4.8-10.8)
[2019-09-21] MEDS: metroNIDAZOLE 500 MG in Premix Bag 1 BAG IVPB SCH ×3 (05:42→22:27)
[2019-09-21] MEDS: Levothyroxine Sodium 125 MCG TAB PO SCH (05:42)
[2019-09-21 05:51] LABS: Anion Gap 13 mmol/L (10-20); BUN (Urea Nitrogen) 42 mg/dL (9.8-20.1); Calc. Creatinine Clearance 68 mL/min (70-130); Calcium 8.7 mg/dL (7.8-10.44); Carbon Dioxide 30 mmol/L (22-29); Chloride 97 mmol/L (98-107); Estimated GFR-MDRD 43; Glucose 272 mg/dL (70-105); Potassium 3.6 mmol/L (3.5-5.1); Sodium 136 mmol/L (136-145)
[2019-09-21] MEDS: Mometasone 200 MCG/Formoterol 5 MCG 120 PUFF INHALER INH SCH ×2 (06:52→18:49)
[2019-09-21] MEDS ORDERED: HumaLOG 300 UNITS/3 ML VIAL SC PRN (08:35)
[2019-09-21] MEDS ORDERED: Nicotine 14 MG PATCH TD PRN (08:36)
[2019-09-21] MEDS: Heparin 5,000 UNITS/ML VIAL SC SCH ×2 (08:48→22:04)
[2019-09-21] MEDS: hydrALAZINE 25 MG TAB PO SCH ×2 (08:48→22:09)
[2019-09-21] MEDS: tiZANidine HCl 4 MG TAB PO SCH ×2 (08:48→22:05)
[2019-09-21] MEDS: Aspirin 81 mg Enteric Coated Tablet PO SCH (08:48)
[2019-09-21] MEDS: Gabapentin 400 MG CAP PO SCH ×2 (08:49→22:05)
[2019-09-21] MEDS: Lorazepam 1 MG TAB PO SCH (08:50)
[2019-09-21] MEDS: Montelukast Sodium 10 mg Tablet PO SCH (08:50)
[2019-09-21] MEDS: Metoprolol Tartrate 25 MG TAB PO SCH ×2 (08:54→22:05)
[2019-09-21] MEDS ORDERED: INSULIN GLARGINE HUM REC ANLOG 72 UNIT SQ SCH (09:00)
[2019-09-21] MEDS ORDERED: Senokot S 8.6-50 MG TAB PO SCH ×2 (09:00)
[2019-09-21] MEDS ORDERED: Insulin Glargine 30 UNITS in Pre-Filled Syringe 1 EACH SC SCH ×2 (09:00→21:00)
[2019-09-21] MEDS ORDERED: PRE FILLED SC SCH (09:00)
[2019-09-21] MEDS ORDERED: INSULIN GLARGINE SC SCH (09:00)
[2019-09-21] MEDS ORDERED: Baclofen 10 MG TAB PO SCH (09:00)
[2019-09-21] MEDS ORDERED: Polyethylene Glycol 3350 17 GM Packet PO SCH (09:00)
[2019-09-21] MEDS: Sodium Chloride 0.9% 1,000 ML IV SCH ×2 (11:06→22:15)
[2019-09-21] MEDS: Vancomycin HCl 25 MG/ML Oral PO SCH ×3 (11:06→22:04)
[2019-09-21] MEDS: Saccharomyces boulardii 250 MG CAP PO SCH ×2 (11:09→22:28)
[2019-09-21] MEDS: Ondansetron PF 4 MG/2 ML Vial IVP PRN ×2 (11:29→22:33)
--- NOTE | 2019-09-21 13:22 | PDOC.HOSPP ---
- Subjective Encounter Date: 09/21/19 Encounter Time: 10:30 Subjective: Patient seen and examined for REDD/Colitis. N/V/D/Abd cramps +. Feels gen weak. No overnight events - Objective Vital Signs & Weight: Vital Signs (12 hours) Temp Pulse Resp BP BP BP Pulse Ox 09/21/19 11:18 97.3 F L 68 20 91/61 96 09/21/19 10:38 98.7 F 69 18 126/65 96 09/21/19 08:48 69 119/69 09/21/19 08:08 98.3 F 69 16 119/69 93 L 09/21/19 04:14 97 F L 65 16 110/65 98 Weight Admit Weight 201 lb 14.4 oz Weight 201 lb 14.4 oz Result Diagrams: 09/21/19 05:16 09/21/19 05:16 Additional Labs: Accuchecks 09/21/19 09/21/19 05:55 00:04 POC Glucose 299 H 345 H EKG Reviewed by me: Yes (Tele SR) Hospitalist ROS - Review of Systems Respiratory: denies: cough, dry, shortness of breath, hemoptysis, SOB with excertion, pleuritic pain, sputum, wheezing, other Cardiovascular: denies: chest pain, palpitations, orthopnea, paroxysmal noc. dyspnea, edema, light headedness, other Genitourinary: denies: dysuria, frequency, incontinence, hematuria, retention, other - Medication Medications: Active Medications Generic Name Dose Route Start Last Admin Trade Name Freq PRN Reason Stop Dose Admin Hydrocodone Bitart/Acetaminophen 1 tab 09/20/19 23:57 09/21/19 07:56 [place] 10/325 PO 1 tab Q4H PRN Administration Moderate Pain (4-6) Aspirin 81 mg 09/21/19 09:00 09/21/19 08:48 Ecotrin PO 81 mg DAILY VALE Administration Baclofen 10 mg 09/21/19 09:00 09/21/19 08:50 Lioresal PO Not Given DAILY VALE Gabapentin 1,600 mg 09/21/19 09:00 09/21/19 08:49 Neurontin PO 1,600 mg BID VALE Administration Heparin Sodium (Porcine) 5,000 units 09/20/19 21:00 09/21/19 08:48 Heparin SC 5,000 units BID VALE Administration Hydralazine HCl 50 mg 09/21/19 09:00 09/21/19 08:48 Apresoline PO 50 mg BID VALE Administration Sodium Chloride 1,000 mls @ 100 mls/hr 09/20/19 21:00 09/21/19 11:06 Normal Saline 0.9% IV 1,000 mls .Q10H VALE Administration Metronidazole 500 mg/ Device 100 mls @ 100 mls/hr 09/20/19 22:00 09/21/19 05: 42 IVPB 100 mls Q8HR VALE Administration Insulin Glargine 30 units/ 0.3 mls @ 0 mls/hr 09/21/19 09:00 09/21/19 08:52 Miscellaneous Medication SC 0.3 mls QAM VALE Administration Insulin Human Lispro 0 units 09/20/19 21:04 09/21/19 00:36 Humalog SC 4 unit .BEDTIME SLIDING SC PRN Administration Bedtime Correctional Scale Insulin Human Lispro 0 units 09/21/19 08:35 09/21/19 11:27 Humalog SC 11 unit .AGGRESSIVE SLIDING PRN Administration Aggressive Correctional Scale Levothyroxine Sodium 125 mcg 09/21/19 06:00 09/21/19 05:42 Synthroid PO 125 mcg 0600 VALE Administration Lorazepam 1 mg 09/21/19 09:00 09/21/19 08:50 Ativan PO Not Given QAM VALE Metoprolol Tartrate 25 mg 09/21/19 09:00 09/21/19 08:54 Lopressor PO 25 mg BID VALE Administration Mometasone Furoate/Formoterol Fumar 2 puff 09/21/19 06:30 09/21/19 06:52 Dulera 200 Mcg/5 Mcg Inhaler INH Not Given BID-RT VALE Montelukast Sodium 10 mg 09/21/19 09:00 09/21/19 08:50 Singulair PO 10 mg DAILY VALE Administration Ondansetron HCl 4 mg 09/20/19 20:58 09/21/19 11:29 Zofran IVP 4 mg Q6H PRN Administration Nausea/Vomiting Pantoprazole Sodium 40 mg 09/21/19 09:00 09/21/19 08:49 Protonix PO 40 mg DAILY VALE Administration Saccharomyces Boulardii 250 mg 09/21/19 09:00 09/21/19 11:09 Florastor PO 250 mg BID VALE Administration Tizanidine HCl 4 mg 09/21/19 09:00 09/21/19 08:48 Zanaflex PO Not Given BID [facility] Vancomycin HCl 125 mg 09/21/19 09:00 09/21/19 11:06 First Vancomycin PO 125 mg Q6H VALE Administration - Exam General Appearance: NAD Neck: supple, no JVD Heart: RRR, no gallops, no rubs, normal peripheral pulses Respiratory: no wheezes, no rales, no ronchi, normal chest expansion Gastrointestinal: soft, non-distended, no guarding, no rigidity, tender to palpation (mild gen tendernss) Extremities: no cyanosis, no clubbing, no edema Psychiatric: normal affect, A&O x 3 Hosp A/P - Plan DVT proph w/heparin, DVT proph w/SCDs Gen weakness C diff and Stercoral colitis UTI REDD on CKD Hyponatremia Obesity BMI 31.7 CAD (stents x 2) HTN HLD COPD (on home oxygen) DM2 Hypothyroidism Anxiety PLAN: Cont IV Ceftriaxone for UTI Cont IV Flagyl Add PO Vancomycin Probiotics Reduce Insulin to 30 units BID Check Post void x 1 AM labs Cont IVF
[2019-09-21] MEDS: Atorvastatin Calcium 20 MG TAB PO SCH (22:08)
[2019-09-21] MEDS: Famotidine 20 MG TAB PO SCH (22:09)
[2019-09-21] MEDS: cefTRIAXone\\ROCEPHIN 1 GM in Sodium Chloride 0.9% 100 ML IVPB SCH (22:40)
[2019-09-22] MEDS: Sodium Chloride 0.9% 1,000 ML IV SCH (03:24)
[2019-09-22] MEDS: Vancomycin HCl 25 MG/ML Oral PO SCH ×4 (03:28→22:48)
[2019-09-22 05:46] LABS: #Eosinphils 0.2 thou/uL (0.0-0.7); #Lymphocytes 1.4 thou/uL (1.20-3.40); #Monocytes 0.3 thou/uL (0.11-0.59); #Neutrophils 5.3 thou/uL (1.40-6.50); %Basophils 0.4 % (0.0-1.0); %Eosinophils 3.2 % (0.0-10.0); %Lymphocytes 19.5 % (21.0-51.0); %Monocytes 3.6 % (0.0-10.0); %Neutrophils 73.3 % (42.0-75.0); Hemoglobin 10.5 g/dL (12.0-16.0); Mean Corpuscular HGB CONC 34.7 g/dL (32.0-36.0); Mean Corpuscular Hemoglobin 31.7 pg (27.0-31.0); Mean Corpuscular Volume 91.2 fL (78.0-98.0); Mean Platelet Volume 8.7 fL (7.4-10.4); Platelet Count 206 thou/uL (130-400); RBC Distribution Width 12.4 % (11.5-14.5); White Blood Cell (WBC) Count 7.3 thou/uL (4.8-10.8)
[2019-09-22 06:09] LABS: ALT (SGPT) Less than 7 U/L (8-55); AST (SGOT) 7 U/L (5-34); Albumin 2.8 g/dL (3.5-5.0); Alkaline Phosphatase 56 U/L (40-110); Anion Gap 10 mmol/L (10-20); BUN (Urea Nitrogen) 32 mg/dL (9.8-20.1); Bilirubin, Total 0.5 mg/dL (0.2-1.2); Calc. Creatinine Clearance 79 mL/min (70-130); Calcium 8.2 mg/dL (7.8-10.44); Carbon Dioxide 28 mmol/L (22-29); Chloride 101 mmol/L (98-107); Estimated GFR-MDRD 51; Globulin 2.8 g/dL (2.4-3.5); Glucose 109 mg/dL (70-105); Magnesium 2.2 mg/dL (1.6-2.6); Phosphorus 3.3 mg/dL (2.3-4.7); Potassium 3.2 mmol/L (3.5-5.1); Protein, Total 5.6 g/dL (6.0-8.3); Sodium 136 mmol/L (136-145)
[2019-09-22] MEDS: Mometasone 200 MCG/Formoterol 5 MCG 120 PUFF INHALER INH SCH ×2 (06:20→18:26)
[2019-09-22] MEDS: metroNIDAZOLE 500 MG in Premix Bag 1 BAG IVPB SCH ×3 (06:27→21:35)
[2019-09-22] MEDS: Levothyroxine Sodium 125 MCG TAB PO SCH (06:27)
[2019-09-22] MEDS ORDERED: NS 0.9% w/ 20 MEQ KCL 1,000 ML/1,000 ML BAG IV SCH (08:00)
[2019-09-22] MEDS: Heparin 5,000 UNITS/ML VIAL SC SCH ×2 (09:49→21:36)
[2019-09-22] MEDS: Saccharomyces boulardii 250 MG CAP PO SCH ×2 (09:50→21:37)
[2019-09-22] MEDS: Montelukast Sodium 10 mg Tablet PO SCH (09:50)
[2019-09-22] MEDS: Metoprolol Tartrate 25 MG TAB PO SCH ×2 (09:50→21:36)
[2019-09-22] MEDS: Gabapentin 400 MG CAP PO SCH ×2 (09:50→21:36)
[2019-09-22] MEDS: tiZANidine HCl 4 MG TAB PO SCH ×2 (09:50→21:37)
[2019-09-22] MEDS: Aspirin 81 mg Enteric Coated Tablet PO SCH (09:50)
[2019-09-22] MEDS: hydrALAZINE 25 MG TAB PO SCH ×2 (09:51→21:36)
[2019-09-22] MEDS: Lorazepam 1 MG TAB PO SCH (09:51)
[2019-09-22] MEDS: Famotidine 20 MG TAB PO SCH ×2 (09:55→21:36)
[2019-09-22] MEDS: Potassium Chloride 10 MEQ TAB PO SCH ×2 (12:47→16:38)
[2019-09-22] MEDS: HumaLOG 300 UNITS/3 ML VIAL SC PRN ×2 (12:52→16:39)
--- NOTE | 2019-09-22 16:08 | PDOC.HOSPP ---
- Subjective Encounter Date: 09/22/19 Encounter Time: 10:30 Subjective: Patient seen and examined for REDD/Cdiff. Feels slightly better. Diarrhea improving. No fever/chills. No new complaints. No overnight events - Objective Vital Signs & Weight: Vital Signs (12 hours) Temp Pulse Resp BP Pulse Ox 09/22/19 15:33 98.4 F 60 16 131/63 97 09/22/19 12:00 94 L 09/22/19 11:39 98.3 F 59 L 16 106/66 94 L 09/22/19 09:51 61 09/22/19 08:00 92 L 09/22/19 07:56 98.1 F 65 16 92/59 L 92 L Weight Admit Weight 201 lb 14.4 oz Weight 202 lb 9 oz I&O: 09/21/19 09/22/19 09/23/19 06:59 06:59 06:59 Intake Total 2100 Output Total 2 Balance 2097 Result Diagrams: 09/22/19 04:41 09/22/19 04:41 Additional Labs: Accuchecks 09/22/19 09/21/19 11:47 20:31 POC Glucose 181 H 228 H Microbiology 09/21/19 03:20 Stool C. difficile GDH Antigen & Toxins - Final 09/21/19 03:20 Stool Clostridioides difficile Toxins A&B (PCR) - Final 09/20/19 17:53 Urine Straight Catheter Urine Culture - Preliminary Gram Negative [place]il[place] 09/20/19 17:53 Urine Straight Catheter Urine Culture - Preliminary Enterobacter cloacae complex Gram Negative Denilson#2 Hospitalist ROS - Review of Systems Respiratory: denies: cough, dry, shortness of breath, hemoptysis, SOB with excertion, pleuritic pain, sputum, wheezing, other Cardiovascular: denies: chest pain, palpitations, orthopnea, paroxysmal noc. dyspnea, edema, light headedness, other - Medication Medications: Active Medications Generic Name Dose Route Start Last Admin Trade Name Freq PRN Reason Stop Dose Admin Hydrocodone Bitart/Acetaminophen 1 tab 09/20/19 23:57 09/21/19 22:39 [place] 10/325 PO 1 tab Q4H PRN Administration Moderate Pain (4-6) Aspirin 81 mg 09/21/19 09:00 09/22/19 09:50 Ecotrin PO 81 mg DAILY VALE Administration Atorvastatin Calcium 20 mg 04/04/20 21:00 09/21/19 22:08 Lipitor PO 20 mg HS VALE Administration Famotidine 20 mg 09/21/19 21:00 09/22/19 09:55 Pepcid PO 20 mg BID VALE Administration Gabapentin 1,600 mg 09/21/19 09:00 09/22/19 09:50 Neurontin PO 1,600 mg BID VALE Administration Heparin Sodium (Porcine) 5,000 units 09/20/19 21:00 09/22/19 09:49 Heparin SC 5,000 units BID VALE Administration Hydralazine HCl 50 mg 09/21/19 09:00 09/22/19 09:51 Apresoline PO 50 mg BID VALE Administration Metronidazole 500 mg/ Device 100 mls @ 100 mls/hr 09/20/19 22:00 09/22/19 12: 48 IVPB 100 mls Q8HR VALE Administration Ceftriaxone Sodium 1 gm/ 100 mls @ 200 mls/hr 09/21/19 23:00 09/21/19 22:40 Sodium Chloride IVPB 100 mls 2300 VALE Administration Insulin Human Lispro 0 units 09/20/19 21:04 09/21/19 00:36 Humalog SC 4 unit .BEDTIME SLIDING SC PRN Administration Bedtime Correctional Scale Insulin Human Lispro 0 units 09/22/19 07:58 09/22/19 12:52 Humalog SC 2 unit .MILD SLIDING SCALE PRN Administration Mild Correctional Scale Levothyroxine Sodium 125 mcg 09/21/19 06:00 09/22/19 06:27 Synthroid PO 125 mcg 0600 VALE Administration Lorazepam 1 mg 09/21/19 09:00 09/22/19 09:51 Ativan PO 1 mg QAM VALE Administration Metoprolol Tartrate 25 mg 09/21/19 09:00 09/22/19 09:50 Lopressor PO 25 mg BID VALE Administration Mometasone Furoate/Formoterol Fumar 2 puff 09/21/19 06:30 09/22/19 06:20 Dulera 200 Mcg/5 Mcg Inhaler INH Not Given BID-RT VALE Montelukast Sodium 10 mg 09/21/19 09:00 09/22/19 09:50 Singulair PO 10 mg DAILY VALE Administration Ondansetron HCl 4 mg 09/20/19 20:58 09/21/19 22:33 Zofran IVP 4 mg Q6H PRN Administration Nausea/Vomiting Potassium Chloride 20 meq 09/22/19 12:00 09/22/19 12:47 Klor-Con 10 PO 20 meq TID-WM VALE Administration Quetiapine Fumarate 100 mg 09/21/19 21:00 09/21/19 22:10 Seroquel PO 100 mg HS VALE Administration Saccharomyces Boulardii 250 mg 09/21/19 09:00 09/22/19 09:50 Florastor PO 250 mg BID VALE Administration Tizanidine HCl 4 mg 09/21/19 09:00 09/22/19 09:50 Zanaflex PO 4 mg BID VALE Administration Vancomycin HCl 125 mg 09/21/19 09:00 09/22/19 12:48 First Vancomycin PO 125 mg Q6H VALE Administration - Exam General Appearance: NAD Heart: RRR, no gallops Respiratory: no wheezes, no ronchi Gastrointestinal: non-tender, normal bowel sounds Extremities: no cyanosis Neurological: no new deficit Hosp A/P - Plan DVT proph w/SCDs Gen weakness C diff with Stercoral colitis UTI REDD on CKD 3 Hyponatremia/Hypokalemia Obesity BMI 31.7 CAD (stents x 2) HTN HLD COPD (on home oxygen) DM2 Hypothyroidism Anxiety PLAN: Cont IV Ceftriaxone/IV Flagyl Cont PO Vancomycin Cont Probiotics Replace Potassium Reduce Insulin dose DC IVF AM labs Cont other meds as above Advance diet
[2019-09-22] MEDS: Insulin Glargine 20 UNITS in Pre-Filled Syringe 1 EACH SC SCH (21:35)
[2019-09-22] MEDS: Atorvastatin Calcium 20 MG TAB PO SCH (21:37)
[2019-09-22] MEDS: HYDROcodone/Acetaminophen 10/325 mg Tablet PO PRN (22:47)
[2019-09-22] MEDS: cefTRIAXone\\ROCEPHIN 1 GM in Sodium Chloride 0.9% 100 ML IVPB SCH (23:03)
[2019-09-23] MEDS: Vancomycin HCl 25 MG/ML Oral PO SCH ×4 (03:44→21:40)
[2019-09-23 03:49] VITALS: BMI 33.1
[2019-09-23 05:18] LABS: #Eosinphils 0.2 thou/uL (0.0-0.7); #Lymphocytes 1.1 thou/uL (1.20-3.40); #Monocytes 0.4 thou/uL (0.11-0.59); #Neutrophils 4.2 thou/uL (1.40-6.50); %Basophils 0.7 % (0.0-1.0); %Eosinophils 3.7 % (0.0-10.0); %Lymphocytes 18.4 % (21.0-51.0); %Monocytes 7.2 % (0.0-10.0); Hemoglobin 10.3 g/dL (12.0-16.0); Mean Corpuscular Hemoglobin 30.8 pg (27.0-31.0); Mean Corpuscular Volume 90.7 fL (78.0-98.0); Mean Platelet Volume 8.7 fL (7.4-10.4); Platelet Count 201 thou/uL (130-400); RBC Distribution Width 12.4 % (11.5-14.5); Red Blood Cell (RBC) Count 3.32 mill/uL (4.20-5.40); White Blood Cell (WBC) Count 6.1 thou/uL (4.8-10.8)
[2019-09-23 05:38] LABS: ALT (SGPT) Less than 7 U/L (8-55); AST (SGOT) 7 U/L (5-34); Albumin 2.8 g/dL (3.5-5.0); Alkaline Phosphatase 55 U/L (40-110); Anion Gap 11 mmol/L (10-20); BUN (Urea Nitrogen) 24 mg/dL (9.8-20.1); Bilirubin, Total 0.4 mg/dL (0.2-1.2); Calc. Creatinine Clearance 79 mL/min (70-130); Calcium 8.2 mg/dL (7.8-10.44); Carbon Dioxide 26 mmol/L (22-29); Chloride 104 mmol/L (98-107); Estimated GFR-MDRD 49; Globulin 2.8 g/dL (2.4-3.5); Glucose 215 mg/dL (70-105); Magnesium 2.1 mg/dL (1.6-2.6); Phosphorus 3.3 mg/dL (2.3-4.7); Potassium 3.8 mmol/L (3.5-5.1); Protein, Total 5.6 g/dL (6.0-8.3); Sodium 137 mmol/L (136-145)
[2019-09-23] MEDS: metroNIDAZOLE 500 MG in Premix Bag 1 BAG IVPB SCH (06:17)
[2019-09-23] MEDS: HumaLOG 300 UNITS/3 ML VIAL SC PRN ×3 (06:17→17:38)
[2019-09-23] MEDS: Levothyroxine Sodium 125 MCG TAB PO SCH (06:17)
[2019-09-23] MEDS: Mometasone 200 MCG/Formoterol 5 MCG 120 PUFF INHALER INH SCH ×2 (06:59→18:34)
[2019-09-23] MEDS ORDERED: Lorazepam 0.5 MG TAB PO PRN (09:52)
[2019-09-23] MEDS ORDERED: tiZANidine HCl 4 MG TAB PO PRN (09:54)
[2019-09-23] MEDS: Potassium Chloride 10 MEQ TAB PO SCH ×3 (10:51→17:36)
[2019-09-23] MEDS: Montelukast Sodium 10 mg Tablet PO SCH (10:52)
[2019-09-23] MEDS: Gabapentin 400 MG CAP PO SCH ×2 (10:53→21:36)
[2019-09-23] MEDS: Saccharomyces boulardii 250 MG CAP PO SCH ×2 (10:53→21:37)
[2019-09-23] MEDS: Heparin 5,000 UNITS/ML VIAL SC SCH ×2 (10:54→21:37)
[2019-09-23] MEDS: Famotidine 20 MG TAB PO SCH ×2 (10:54→21:37)
[2019-09-23] MEDS: Aspirin 81 mg Enteric Coated Tablet PO SCH (10:54)
[2019-09-23] MEDS: Metoprolol Tartrate 25 MG TAB PO SCH ×2 (10:54→21:37)
[2019-09-23] MEDS ORDERED: Insulin Glargine 20 UNITS in Pre-Filled Syringe 1 EACH SC SCH (11:15)
[2019-09-23] MEDS: tiZANidine HCl 4 MG TAB PO SCH (11:55)
[2019-09-23] MEDS: Lorazepam 1 MG TAB PO SCH (11:56)
[2019-09-23] MEDS: hydrALAZINE 25 MG TAB PO SCH (11:56)
[2019-09-23] MEDS: HYDROcodone/Acetaminophen 10/325 mg Tablet PO PRN ×2 (12:28→22:46)
--- NOTE | 2019-09-23 13:21 | PDOC.HOSPP ---
- Subjective Encounter Date: 09/23/19 Encounter Time: 13:19 Subjective: Patient seen and examined for C diff/UTI. Abd pain worse with GI soft diet. Still has diarrhea. No fever or chills. No other complaints. No overnight events - Objective Vital Signs & Weight: Vital Signs (12 hours) Temp Pulse Resp BP Pulse Ox 09/23/19 11:56 68 09/23/19 07:49 98.1 F 68 16 116/69 97 09/23/19 03:25 98.0 F 68 18 131/73 93 L Weight Admit Weight 201 lb 14.4 oz Weight 211 lb 1.6 oz I&O: 09/22/19 09/23/19 09/24/19 06:59 06:59 06:59 Intake Total 2099 2139 Output Total 2 Balance 2097 2139 Result Diagrams: 09/23/19 04:43 09/23/19 04:43 Additional Labs: Accuchecks 09/23/19 09/23/19 09/22/19 10:51 05:18 21:02 POC Glucose 255 H 254 H 204 H 09/22/19 15:41 POC Glucose 237 H Hospitalist ROS - Review of Systems Cardiovascular: denies: chest pain, palpitations, orthopnea, paroxysmal noc. dyspnea, edema, light headedness, other Gastrointestinal: denies: nausea, vomiting, abdominal pain, diarrhea, constipation, melena, hematochezia, other - Medication Medications: Active Medications Generic Name Dose Route Start Last Admin Trade Name Freq PRN Reason Stop Dose Admin Hydrocodone Bitart/Acetaminophen 1 tab 09/20/19 23:57 09/23/19 12:28 [place] 10/325 PO 1 tab Q4H PRN Administration Moderate Pain (4-6) Aspirin 81 mg 09/21/19 09:00 09/23/19 10:54 Ecotrin PO 81 mg DAILY VALE Administration Atorvastatin Calcium 20 mg 09/21/19 21:00 09/22/19 21:37 Lipitor PO 20 mg HS VALE Administration Famotidine 20 mg 09/21/19 21:00 09/23/19 10:54 Pepcid PO 20 mg BID VALE Administration Gabapentin 1,600 mg 09/21/19 09:00 09/23/19 10:53 Neurontin PO 1,600 mg BID VALE Administration Heparin Sodium (Porcine) 5,000 units 09/20/19 21:00 09/23/19 10:54 Heparin SC 5,000 units BID VALE Administration Metronidazole 500 mg/ Device 100 mls @ 100 mls/hr 09/20/19 22:00 09/23/19 06: 17 IVPB 100 mls Q8HR VALE Administration Ceftriaxone Sodium 1 gm/ 100 mls @ 200 mls/hr 09/21/19 23:00 09/22/19 23:03 Sodium Chloride IVPB 100 mls 2300 VALE Administration Insulin Glargine 20 units/ 0.2 mls @ 0 mls/hr 09/22/19 21:00 09/22/19 21:35 Miscellaneous Medication SC 0.2 mls HS VALE Administration Insulin Human Lispro 0 units 09/20/19 21:04 09/21/19 00:36 Humalog SC 4 unit .BEDTIME SLIDING SC PRN Administration Bedtime Correctional Scale Insulin Human Lispro 0 units 09/22/19 07:58 09/23/19 10:59 Humalog SC 4 unit .MILD SLIDING SCALE PRN Administration Mild Correctional Scale Levothyroxine Sodium 125 mcg 09/21/19 06:00 09/23/19 06:17 Synthroid PO 125 mcg 0600 VALE Administration Metoprolol Tartrate 25 mg 09/21/19 09:00 09/23/19 10:54 Lopressor PO 25 mg BID VALE Administration Mometasone Furoate/Formoterol Fumar 2 puff 09/21/19 06:30 09/23/19 06:59 Dulera 200 Mcg/5 Mcg Inhaler INH 2 puff BID-RT VALE Administration Montelukast Sodium 10 mg 09/21/19 09:00 09/23/19 10:52 Singulair PO 10 mg DAILY VALE Administration Ondansetron HCl 4 mg 09/20/19 20:58 09/22/19 21:37 Zofran Odt PO 4 mg Q6H PRN Administration Nausea/Vomiting Ondansetron HCl 4 mg 09/20/19 20:58 09/21/19 22:33 Zofran IVP 4 mg Q6H PRN Administration Nausea/Vomiting Potassium Chloride 20 meq 09/22/19 12:00 09/23/19 12:19 Klor-Con 10 PO 20 meq TID-WM VALE Administration Quetiapine Fumarate 100 mg 09/21/19 21:00 09/22/19 21:38 Seroquel PO 100 mg HS VALE Administration Saccharomyces Boulardii 250 mg 09/21/19 09:00 09/23/19 10:53 Florastor PO 250 mg BID VALE Administration Vancomycin HCl 125 mg 09/21/19 09:00 09/23/19 10:53 First Vancomycin PO 125 mg Q6H VALE Administration - Exam General Appearance: NAD Heart: RRR, no gallops Respiratory: CTAB, no rales Gastrointestinal: normal bowel sounds, no guarding, no rigidity, tender to palpation (in lower quadrants) Extremities: no cyanosis, no clubbing Neurological: no new deficit Psychiatric: normal affect, A&O x 3 Hosp A/P - Plan DVT proph w/heparin, DVT proph w/SCDs Gen weakness C diff Stercoral colitis due to chronic constipation Enterobacter UTI REDD on CKD 3 Hyponatremia/Hypokalemia Obesity BMI 31.7 CAD (stents x 2) HTN HLD COPD (on home oxygen) DM2 Hypothyroidism Anxiety PLAN: DC IV Ceftriaxone after todays dose DC IV Flagyl Cont PO Vancomycin with Probiotics Change diet back to full liqd diet GI consultation Change Insulin to 20 units BID Cont other meds as above AM labs Refusing IVF
--- NOTE | 2019-09-23 18:32 | CON ---
DATE OF CONSULTATION: 09/23/2019 REQUESTING PHYSICIAN: Dr. Mir. REASON FOR CONSULTATION: Clostridium difficile colitis. HISTORY OF PRESENT ILLNESS: Raina Rodriguez is a 59-year-old woman, seen in the past by my GI colleague, Dr. Pradeep Dudley. Per his notes, she had a normal colonoscopy in 2015 in [place]. He performed EGD in 2016 for complaint of dysphagia and history of Viera esophagus, but it appears this was a normal exam, there was no evidence of Viera's endoscopically or on biopsies, with empiric esophageal dilation performed at that time. She has significant comorbidities including COPD, on home oxygen; history of CVA and CHF. She abuses tobacco. She also has diabetes. She was recently admitted a couple of weeks ago for several days with acute kidney injury and dehydration, which were felt to be secondary to constipation and stool impaction. After multiple manual disimpactions and finally air-contrast barium enema, the fecal impaction was felt to be resolved. She was discharged home on laxatives. There is some question as to her compliance with medications, but she says basically over the past couple of weeks since that time, she has had a dramatic shift toward diarrhea. She complains of daily nearly constant abdominal pain in the lower abdomen, associated with multiple loose bowel movements anywhere from 5 to 10 urgent watery bowel movements per day. There is no melena or hematochezia or mucus appears to the stool. There has been no fever. She has been nauseated and has had several episodes of vomiting. She was admitted here 3 days ago with these symptoms, found to have some degree of acute kidney injury with creatinine up to 1.72. No leukocytosis. She was found to have urine culture positive for Enterobacter as well as stool assay positive for C difficile antigen and toxin. She was treated with IV ceftriaxone, initially also with IV Flagyl, vancomycin added 2 days ago orally as well as a probiotic. The ceftriaxone was completed today. She says she has continued to have significant diarrhea, 5 loose bowel movements so far today. There is some report from nursing that she has been impulsive and noncompliant with their recommendations while here, but she has been afebrile with stable vitals. She is on a liquid diet, not tolerating it very well at this point, but no emesis today. REVIEW OF SYSTEMS: Full review of systems including constitutional, head, eyes, ears, nose, throat, GI, , cardiovascular, respiratory, musculoskeletal, neurologic systems is negative except as noted in the HPI. PAST MEDICAL HISTORY: CHF; coronary artery disease with stents; history of CVA; COPD, on home oxygen; diabetes; hypertension; tobacco abuse, 1 pack of cigarettes per day; obesity; and hypothyroidism. SOCIAL HISTORY: The patient smokes 1 pack of cigarettes per day. Alcohol use is rare. No drug use. She is disabled, lives with a significant other in [place]. FAMILY HISTORY: Noncontributory. ALLERGIES: IBUPROFEN AND SULFA. OUTPATIENT MEDICATIONS: Per report included: 1. Furosemide 40 mg twice daily. 2. Seroquel. 3. Montelukast. 4. Hydrocodone p.r.n. 5. Insulin Lantus 72 units subcu b.i.d. 6. DuoNebs. 7. Lipitor. 8. Aspirin 81 mg daily. 9. Metoprolol. 10. Hydralazine. 11. Zofran p.r.n. 12. Atrovent p.r.n. 13. Levothyroxine. 14. Omeprazole 40 mg daily. 15. Gabapentin 1600 mg b.i.d. INPATIENT MEDICATIONS: 1. [place] p.r.n. 2. Aspirin 81 mg daily. 3. Lipitor. 4. IV ceftriaxone, completed last night. 5. Pepcid 20 mg b.i.d. 6. Gabapentin. 7. Heparin subcu 5000 units b.i.d. 8. Sliding scale insulin. 9. Levothyroxine. 10. Metoprolol. 11. Dulera inhaler. 12. Montelukast. 13. Seroquel. 14. Florastor 250 mg p.o. b.i.d. 15. Vancomycin 125 mg p.o. every 6 hours. PHYSICAL EXAMINATION: VITAL SIGNS: Temperature 98.4, pulse 63, blood pressure 146/78, 97% oxygen saturation on room air. GENERAL: A 59-year-old obese woman, sitting up in bed comfortably, in no distress. MENTAL STATUS: She is alert and oriented, pleasant, conversational. SKIN: Wound to the right knee and sacral decubitus ulcer. Photo documentation reviewed. No other visible rashes. No jaundice. EYES: No scleral icterus. Extraocular movements intact. ENT: Mucous membranes moist. No oral lesions. LYMPH: No submandibular, supraclavicular lymphadenopathy. Thyroid nontender to palpation. HEART: Regular rate and rhythm. LUNGS: Clear to auscultation bilaterally. ABDOMEN: Nondistended. Bowel sounds are present. Soft. Tender to palpation throughout the abdomen. No guarding or rebound tenderness. EXTREMITIES: No peripheral edema. VESSELS: Radial pulses 2+ bilaterally. NEUROLOGIC: Cranial nerves 2 through 12 intact bilaterally. No focal deficits. LABORATORY STUDIES: WBC 6.1, hemoglobin 10.3, and platelets 201. Sodium 137, potassium 3.8, BUN 24, creatinine 1.14, and glucose 288. BNP 61.9. TSH 0.06. Total bilirubin 0.4, alkaline phosphatase 55, AST 7, ALT less than 7, and albumin 2.8. Urine culture growing Enterobacter. Stool assay positive for C difficile antigen and toxin. IMAGING STUDIES: CT of the abdomen and pelvis demonstrates some stool in the rectum with thickening and stranding in the area suggestive of stercoral colitis, stable finding since prior scan on 08/31/2019. Notably, lung bases are clear. There is punctate nonobstructing nephrolithiasis. The scan is otherwise unremarkable. ASSESSMENT AND PLAN: 1. Clostridium difficile colitis. 2. Diarrhea, secondary to Clostridium difficile colitis. 3. Generalized abdominal pain, likely secondary to Clostridium difficile colitis. 4. Recent fecal impaction. The patient's presentation is indeed consistent with [id number] Clostridium difficile colitis. I discussed principles of treatment with the patient. Recent antibiotic administration likely led to this presentation. I note she was treated with IV ceftriaxone which finished last night. We would advise continuing treatment with oral vancomycin 125 mg by mouth every 6 hours for a 2-week course, starting today. Also continue the probiotic. Expect continued gradual symptomatic improvement. Advance diet as tolerated. GI can follow along tomorrow. There is no indication for any colonoscopy at this time. Thank you for the consultation. Please call anytime with questions or concerns. Job ID: [id number]
[2019-09-23] MEDS: Atorvastatin Calcium 20 MG TAB PO SCH (21:35)
[2019-09-23] MEDS: Insulin Glargine 20 UNITS in Pre-Filled Syringe 1 EACH SC SCH (21:51)
[2019-09-23] MEDS: Ondansetron PF 4 MG/2 ML Vial IVP PRN (22:52)
[2019-09-23] MEDS: cefTRIAXone\\ROCEPHIN 1 GM in Sodium Chloride 0.9% 100 ML IVPB SCH (22:52)
[2019-09-24] MEDS: Vancomycin HCl 25 MG/ML Oral PO SCH ×4 (03:30→20:41)
[2019-09-24 05:12] LABS: #Eosinphils 0.2 thou/uL (0.0-0.7); #Lymphocytes 1.3 thou/uL (1.20-3.40); #Monocytes 0.4 thou/uL (0.11-0.59); #Neutrophils 3.9 thou/uL (1.40-6.50); %Basophils 0.7 % (0.0-1.0); %Eosinophils 3.4 % (0.0-10.0); %Lymphocytes 22.9 % (21.0-51.0); %Monocytes 6.6 % (0.0-10.0); %Neutrophils 66.3 % (42.0-75.0); Hemoglobin 9.9 g/dL (12.0-16.0); Mean Corpuscular Hemoglobin 32.1 pg (27.0-31.0); Mean Corpuscular Volume 91.7 fL (78.0-98.0); Mean Platelet Volume 8.8 fL (7.4-10.4); Platelet Count 196 thou/uL (130-400); RBC Distribution Width 12.4 % (11.5-14.5); Red Blood Cell (RBC) Count 3.08 mill/uL (4.20-5.40); White Blood Cell (WBC) Count 5.8 thou/uL (4.8-10.8)
[2019-09-24 05:32] LABS: ALT (SGPT) 7 U/L (8-55); AST (SGOT) 12 U/L (5-34); Albumin 2.7 g/dL (3.5-5.0); Alkaline Phosphatase 53 U/L (40-110); Anion Gap 11 mmol/L (10-20); BUN (Urea Nitrogen) 19 mg/dL (9.8-20.1); Bilirubin, Total 0.3 mg/dL (0.2-1.2); Calc. Creatinine Clearance 102 mL/min (70-130); Calcium 8.2 mg/dL (7.8-10.44); Carbon Dioxide 24 mmol/L (22-29); Chloride 107 mmol/L (98-107); Estimated GFR-MDRD 65; Globulin 2.6 g/dL (2.4-3.5); Glucose 156 mg/dL (70-105); Potassium 4.3 mmol/L (3.5-5.1); Protein, Total 5.3 g/dL (6.0-8.3); Sodium 138 mmol/L (136-145)
[2019-09-24] MEDS: HumaLOG 300 UNITS/3 ML VIAL SC PRN (05:54)
[2019-09-24] MEDS: Levothyroxine Sodium 125 MCG TAB PO SCH (05:54)
[2019-09-24] MEDS: Mometasone 200 MCG/Formoterol 5 MCG 120 PUFF INHALER INH SCH ×2 (07:19→18:22)
[2019-09-24] MEDS: Aspirin 81 mg Enteric Coated Tablet PO SCH (10:19)
[2019-09-24] MEDS: Potassium Chloride 10 MEQ TAB PO SCH ×3 (10:19→16:06)
[2019-09-24] MEDS: Gabapentin 400 MG CAP PO SCH ×2 (10:19→20:42)
[2019-09-24] MEDS: Saccharomyces boulardii 250 MG CAP PO SCH ×2 (10:19→20:42)
[2019-09-24] MEDS: Metoprolol Tartrate 25 MG TAB PO SCH ×2 (10:20→20:42)
[2019-09-24] MEDS: Heparin 5,000 UNITS/ML VIAL SC SCH ×2 (10:20→20:43)
[2019-09-24] MEDS: Montelukast Sodium 10 mg Tablet PO SCH (10:20)
[2019-09-24] MEDS: Famotidine 20 MG TAB PO SCH ×2 (10:20→20:42)
[2019-09-24] MEDS: Insulin Glargine 20 UNITS in Pre-Filled Syringe 1 EACH SC SCH ×2 (10:21→20:42)
[2019-09-24] MEDS ORDERED: Mag-Al 1200 mg/1200 mg/30 ML UDCUP PO PRN (16:34)
[2019-09-24] MEDS ORDERED: Calcium Carbonate 500 MG ChewTAB PO PRN (16:34)
--- NOTE | 2019-09-24 16:56 | PRG ---
DATE OF SERVICE: 09/24/2019 REASON FOR CONSULTATION: Diarrhea/clostridium difficile colitis. SUBJECTIVE: The patient states that she continues to have generalized abdominal pain, but it is slightly improved from previous. She also states that she did have increased nausea and approximately 2 to 3 diarrhea type bowel movements this morning, characterized as more liquid stools with no difficulty with defecation. She denied any hematochezia or melena with the passage of stool, but rather the coloration of stool was more light brown. Otherwise, she denies any fevers, chills, hematemesis, dysphagia, or odynophagia. OBJECTIVE: VITAL SIGNS: Temperature 98.6, pulse 53, blood pressure 132/68, respiratory rate 16, and saturating 97% on room air. GENERAL: The patient was lying in bed, in no acute distress. Alert and oriented x4. CARDIOVASCULAR: Regular rate and rhythm. RESPIRATORY: Clear to auscultation bilaterally. ABDOMEN: Normoactive bowel sounds. Soft. Mild abdominal distention. Tenderness to palpation in all abdominal quadrants to both light and deep palpation. No guarding or rebound tenderness noted. EXTREMITIES: No cyanosis, clubbing, or edema. LABORATORY DATA: CBC with a white blood cell count of 5.8, hemoglobin 9.9, hematocrit 28.2, and platelets are 196. Chemistry with a sodium of 138, potassium 4.3, chloride 107, CO2 of 24, BUN 19, creatinine 0.89, glucose 156, AST 12, ALT 7, alkaline phosphatase 53, and total bilirubin 0.3. IMAGING DATA: No current GI imaging is available for review. ASSESSMENT AND PLAN: The patient is a 59-year-old female with past medical history of congestive heart failure; coronary artery disease, status post stent placement; history of cerebrovascular accident; chronic obstructive pulmonary disease, on home oxygen; diabetes, hypertension, obesity, hypothyroidism, and tobacco abuse, presenting with Clostridium difficile colitis. The patient was seen in the [facility] ER for fecal impaction and discharged to home on laxatives, but also had mention of recent antibiotic use within the last 3 to 6 months. Over the last few weeks, the patient had been having increasing episodes of diarrhea as well as nausea and diffuse abdominal pain that prompted her to come back to the hospital for further evaluation. On initial evaluation here in the hospital, the patient had infectious stool studies that were noted to be positive for Clostridium difficile antigen and toxin consistent with Clostridium difficile colitis. Currently, she is on oral vancomycin as part of appropriate antibiotic management of this condition in addition to probiotic administration daily. At this time, she continues to have significant abdominal pain and diarrhea, although the frequency of her diarrhea has improved somewhat during the course of this admission. RECOMMENDATIONS: 1. We will continue patient on oral vancomycin 125 mg every 6 hours as part of antibiotic treatment for Clostridium difficile colitis. 2. Continue with probiotic administration daily. 3. Can advance the patient's diet as tolerated. 4. Pain control per Primary Team. 5. Given her active C diff colitis as the causative etiology for diarrhea, a colonoscopy is not indicated at this time. We will sign off at this time. Please call if any questions. Job ID: [id number]
[2019-09-24] MEDS: HYDROcodone/Acetaminophen 10/325 mg Tablet PO PRN (17:05)
--- NOTE | 2019-09-24 17:55 | PDOC.HOSPP ---
- Subjective Encounter Date: 09/24/19 Encounter Time: 12:30 Subjective: Patient seen and examined for C diff colitis. Abd pain improving. Toleratign full liqd diet. No new complaints. No overnight events - Objective Vital Signs & Weight: Vital Signs (12 hours) Temp Pulse Resp BP Pulse Ox 09/24/19 15:24 98.6 F 53 L 16 132/68 97 09/24/19 11:31 98.2 F 57 L 16 130/80 96 09/24/19 07:24 98.3 F 57 L 16 129/75 96 Weight Admit Weight 201 lb 14.4 oz Weight 211 lb 1.6 oz I&O: 09/23/19 09/24/19 09/25/19 06:59 06:59 06:59 Intake Total 2140 900 1500 Balance 2140 900 1500 Result Diagrams: 09/25/19 04:44 09/25/19 04:44 Additional Labs: Accuchecks 09/24/19 09/24/19 09/24/19 15:44 10:57 05:31 POC Glucose 109 121 H 184 H 09/23/19 20:16 POC Glucose 194 H Hospitalist ROS - Review of Systems Respiratory: denies: cough, dry, shortness of breath, hemoptysis, SOB with excertion, pleuritic pain, sputum, wheezing, other Cardiovascular: denies: chest pain, palpitations, orthopnea, paroxysmal noc. dyspnea, edema, light headedness, other - Medication Medications: Active Medications Generic Name Dose Route Start Last Admin Trade Name Freq PRN Reason Stop Dose Admin Hydrocodone Bitart/Acetaminophen 1 tab 09/20/19 23:57 09/24/19 17:05 [place] 10/325 PO 1 tab Q4H PRN Administration Moderate Pain (4-6) Aspirin 81 mg 09/21/19 09:00 09/24/19 10:19 Ecotrin PO 81 mg DAILY VALE Administration Atorvastatin Calcium 20 mg 09/21/19 21:00 09/23/19 21:35 Lipitor PO 20 mg HS VALE Administration Famotidine 20 mg 09/21/19 21:00 09/24/19 10:20 Pepcid PO 20 mg BID VALE Administration Gabapentin 1,600 mg 09/21/19 09:00 09/24/19 10:19 Neurontin PO 1,600 mg BID VALE Administration Heparin Sodium (Porcine) 5,000 units 09/20/19 21:00 09/24/19 10:20 Heparin SC 5,000 units BID VALE Administration Insulin Glargine 20 units/ 0.2 mls @ 0 mls/hr 09/22/19 21:00 09/23/19 21:51 Miscellaneous Medication SC 0.2 mls HS VALE Administration Insulin Glargine 20 units/ 0.2 mls @ 0 mls/hr 09/24/19 09:00 09/24/19 10:21 Miscellaneous Medication SC 0.2 mls QAM VALE Administration Insulin Human Lispro 0 units 09/20/19 21:04 09/21/19 00:36 Humalog SC 4 unit .BEDTIME SLIDING SC PRN Administration Bedtime Correctional Scale Insulin Human Lispro 0 units 09/22/19 07:58 09/24/19 05:54 Humalog SC 2 unit .MILD SLIDING SCALE PRN Administration Mild Correctional Scale Levothyroxine Sodium 125 mcg 09/21/19 06:00 09/24/19 05:54 Synthroid PO 125 mcg 0600 VALE Administration Metoprolol Tartrate 25 mg 09/21/19 09:00 09/24/19 10:20 Lopressor PO 25 mg BID VALE Administration Mometasone Furoate/Formoterol Fumar 2 puff 09/21/19 06:30 09/24/19 07:19 Dulera 200 Mcg/5 Mcg Inhaler INH 2 puff BID-RT VALE Administration Montelukast Sodium 10 mg 09/21/19 09:00 09/24/19 10:20 Singulair PO 10 mg DAILY VALE Administration Ondansetron HCl 4 mg 09/20/19 20:58 09/22/19 21:37 Zofran Odt PO 4 mg Q6H PRN Administration Nausea/Vomiting Ondansetron HCl 4 mg 09/20/19 20:58 09/23/19 22:52 Zofran IVP 4 mg Q6H PRN Administration Nausea/Vomiting Potassium Chloride 20 meq 09/22/19 12:00 09/24/19 16:06 Klor-Con 10 PO 20 meq TID-WM VALE Administration Quetiapine Fumarate 100 mg 09/21/19 21:00 09/23/19 21:35 Seroquel PO 100 mg HS VALE Administration Saccharomyces Boulardii 250 mg 09/21/19 09:00 09/24/19 10:19 Florastor PO 250 mg BID VALE Administration Vancomycin HCl 125 mg 09/21/19 09:00 09/24/19 16:07 First Vancomycin PO 125 mg Q6H VALE Administration - Exam General Appearance: NAD Neck: supple, no JVD Heart: RRR, no gallops Respiratory: no wheezes, no ronchi Gastrointestinal: non-distended, no guarding, no rigidity, tender to palpation ( generalized) Extremities: no cyanosis Hosp A/P - Plan DVT proph w/SCDs Gen weakness C diff colitis Stercoral colitis due to chronic constipation Enterobacter UTI - completed Atbx REDD on CKD 3 Hyponatremia/Hypokalemia Obesity BMI 31.7 CAD (stents x 2) HTN HLD COPD (on home oxygen) DM2 Hypothyroidism Anxiety PLAN: Cont PO Vancomycin with Probiotics Cont full liqd diet GI input appreciated Reduce Potassium to daily Cont Insulin and other meds as above AM labs Still refusing IVF
[2019-09-24] MEDS: Atorvastatin Calcium 20 MG TAB PO SCH (20:43)
[2019-09-25] MEDS: Vancomycin HCl 25 MG/ML Oral PO SCH ×2 (03:28→08:26)
[2019-09-25] MEDS: Levothyroxine Sodium 125 MCG TAB PO SCH (03:28)
[2019-09-25 05:02] LABS: #Eosinphils 0.2 thou/uL (0.0-0.7); #Lymphocytes 1.7 thou/uL (1.20-3.40); #Monocytes 0.4 thou/uL (0.11-0.59); #Neutrophils 3.7 thou/uL (1.40-6.50); %Basophils 0.8 % (0.0-1.0); %Eosinophils 4.1 % (0.0-10.0); %Lymphocytes 27.7 % (21.0-51.0); %Monocytes 7.2 % (0.0-10.0); %Neutrophils 60.3 % (42.0-75.0); Hemoglobin 10.1 g/dL (12.0-16.0); Mean Corpuscular HGB CONC 36.4 g/dL (32.0-36.0); Mean Corpuscular Hemoglobin 33.6 pg (27.0-31.0); Mean Corpuscular Volume 92.3 fL (78.0-98.0); Mean Platelet Volume 8.7 fL (7.4-10.4); Platelet Count 199 thou/uL (130-400); RBC Distribution Width 12.7 % (11.5-14.5); Red Blood Cell (RBC) Count 3.01 mill/uL (4.20-5.40); White Blood Cell (WBC) Count 6.1 thou/uL (4.8-10.8)
[2019-09-25 05:22] LABS: ALT (SGPT) 11 U/L (8-55); AST (SGOT) 16 U/L (5-34); Albumin 2.7 g/dL (3.5-5.0); Alkaline Phosphatase 47 U/L (40-110); Anion Gap 8 mmol/L (10-20); BUN (Urea Nitrogen) 15 mg/dL (9.8-20.1); Bilirubin, Total 0.3 mg/dL (0.2-1.2); Calc. Creatinine Clearance 113 mL/min (70-130); Calcium 8.2 mg/dL (7.8-10.44); Carbon Dioxide 25 mmol/L (22-29); Chloride 108 mmol/L (98-107); Estimated GFR-MDRD 73; Globulin 2.6 g/dL (2.4-3.5); Glucose 90 mg/dL (70-105); Potassium 4.3 mmol/L (3.5-5.1); Protein, Total 5.3 g/dL (6.0-8.3); Sodium 137 mmol/L (136-145)
[2019-09-25] MEDS: Mometasone 200 MCG/Formoterol 5 MCG 120 PUFF INHALER INH SCH (07:33)
[2019-09-25] MEDS ORDERED: Potassium Chloride 20 MEQ TAB PO SCH (08:00)
[2019-09-25] MEDS: Gabapentin 400 MG CAP PO SCH (08:00)
[2019-09-25] MEDS: Famotidine 20 MG TAB PO SCH (08:00)
[2019-09-25] MEDS: Metoprolol Tartrate 25 MG TAB PO SCH (08:01)
[2019-09-25] MEDS: Aspirin 81 mg Enteric Coated Tablet PO SCH (08:01)
[2019-09-25] MEDS: Saccharomyces boulardii 250 MG CAP PO SCH (08:01)
[2019-09-25] MEDS: Montelukast Sodium 10 mg Tablet PO SCH (08:01)
[2019-09-25] MEDS: Heparin 5,000 UNITS/ML VIAL SC SCH (08:02)
[2019-09-25] MEDS: Insulin Glargine 20 UNITS in Pre-Filled Syringe 1 EACH SC SCH (08:26)
--- NOTE | 2019-09-25 10:13 | DIS ---
DATE OF ADMISSION: 09/20/2019 DATE OF DISCHARGE: 09/25/2019 DISCHARGE DISPOSITION: Home. FOLLOWUP: 1. Follow up with Dr. Adames in 1 week. 2. Follow up with Gastroenterology Clinic in 2 weeks. 3. Basic metabolic profile after 1 week is recommended. Primary care physician advised to follow. 4. The patient was advised to continue C diff isolation at home. 5. The patient was seen and examined on the day of discharge. Denies any new complaints. No chest pain, shortness of breath, palpitations reported. Diarrhea has significantly improved. She denies any new abdominal pain. 6. Vital signs on the day of discharge showed temperature 98, pulse rate of 84, respirations of 16, blood pressure of 143/72, O2 saturation 96% on room air. BRIEF HOSPITAL COURSE: The patient is a 59-year-old female with recent hospitalization for fecal impaction, presented to the emergency room with abdominal discomfort. Workup was consistent with acute kidney injury with C diff colitis. C diff studies were positive including the toxins. She was also found to have enterobacter UTI. She completed three days of IV antibiotics for UTI. She is currently on oral vancomycin for C diff. Abdominal discomfort has significantly improved. The patient was evaluated by Gastroenterology Service as well. They recommended to continue vancomycin along with probiotics. Abdominal pain has significantly improved. She appears stable for discharge. [facility] facility was recommended, however, the patient declined. The patient was advised to follow up with Gastroenterology Clinic as scheduled. DISCHARGE MEDICATIONS: 1. Oral vancomycin 125 mg every 6 hourly for next 13 days. 2. Florastor 250 mg daily. 3. All other home medications were left unchanged. The patient was advised to adjust the insulin dosing based on a diet. Repeat basic metabolic profile after 1 week is recommended. Primary care physician is advised to follow. FINAL DIAGNOSES: 1. Generalized weakness, multifactorial. 2. Clostridium difficile colitis. 3. Enterobacter urinary tract infection, completed antibiotic. 4. Recent hospitalization for fecal impaction with stercoral colitis. 5. Chronic constipation. 6. Acute kidney injury on chronic kidney disease stage 3 secondary to diarrhea, resolved. 7. Hypokalemia. 8. Hyponatremia. 9. Obesity with a BMI of 31.7. 10. History of coronary artery disease status post stents. 11. Hypertension. 12. Hyperlipidemia. 13. Chronic obstructive pulmonary disease, on home oxygen. 14. Diabetes mellitus, type 2. 15. Hypothyroidism. 16. Anxiety. 17. The patient was extensively counseled on Clostridium difficile isolation. She appears stable for discharge. Job ID: [id number]
[2019-09-25 11:36] VITALS: BP 174/81; TEMP 98.6
--- NOTE | 2019-09-27 20:37 | PQF ---
[employer] Supervisor Crystal Reports Winform Viewer DARSHAN RIVAS JILLIAN RODRIGUEZ MD [phone] [facility] [id number] CLINICAL DOCUMENTATION CLARIFICATION FORM: POST DISCHARGE Addendum to original discharge summary date: ____ Late entry note date: __ DATE: 09/27/19 ATTN: Jillian Mir Please exercise your independent, professional judgment in responding to the clarification form. Clinical indicators are provided on the bottom of this form for your review Can you please further clarify the diagnosis of the patient? Please check appropriate box(es): [x ] Sepsis due to UTI/Cdiff colitis [ ] Localized infection without sepsis [ ] Other diagnosis [ ] Unable to determine In addition, please specify: Present on Admission (POA): [ x ] Yes [ ] No [ ] Unable to determine For continuity of documentation, please document condition throughout progress notes and discharge summary. Thank You. CLINICAL INDICATORS - SIGNS / SYMPTOMS / LABS ED Provider pg.5- Rectal colitis H and P pg.1- Generalized abdominal pain for 2 weeks H and P pg.4- UTI culture and sensitivity + fo E coli Hospitalist PN pg.7- Stercoral colitis Hospitalist PN pg.7- Enterobacter UTI Consult pg.3- Diarrhea 2/2 clostridium difficile colitis RISK FACTORS Acute kidney injury- ED Provider pg.5 UTI- H and P pg.4 Colitis- H and P pg.4 Obesity- Hospitalist PN pg.7 CKD3- Hospitalist PN Generalized weakness- Hopitalist PN pg.7 TREATMENTS: Abdomen/Pelvis CT 09/19 GI Consult Case 09/22 IV Fluids- MAR Antibiotics- MAR Urine Culture- Microbiology Stool culture- Microbiology (This form is maintained as a part of the permanent medical record) 2014 [employer]. All Rights Reserved [email or web address]
== END 2019-09-25 14:59 | disposition home or self-care (01) | DRG 872 ==
LOC: ERS 15:58 → SURG A 20:25
PROVIDERS: ADMIT Internal Medicine; ATTEND Internal Medicine
DX: A41.4 Sepsis due to anaerobes (principal); A04.72 Enterocolitis due to Clostridium difficile, not specified as recurrent; N39.0 Urinary tract infection, site not specified; N17.9 Acute kidney failure, unspecified; E87.1 Hypo-osmolality and hyponatremia; I13.0 Hypertensive heart and chronic kidney disease with heart failure and stage 1 through stage 4 chronic kidney disease, or unspecified chronic kidney disease; A41.89 Other specified sepsis; I50.9 Heart failure, unspecified; E11.40 Type 2 diabetes mellitus with diabetic neuropathy, unspecified; E03.9 Hypothyroidism, unspecified; K21.9 Gastro-esophageal reflux disease without esophagitis; E78.5 Hyperlipidemia, unspecified; E78.00 Pure hypercholesterolemia, unspecified; K22.70 Barrett's esophagus without dysplasia; J44.9 Chronic obstructive pulmonary disease, unspecified; F17.210 Nicotine dependence, cigarettes, uncomplicated; M19.90 Unspecified osteoarthritis, unspecified site; E11.65 Type 2 diabetes mellitus with hyperglycemia; E66.01 Morbid (severe) obesity due to excess calories; E11.22 Type 2 diabetes mellitus with diabetic chronic kidney disease; F41.9 Anxiety disorder, unspecified; N18.3 Chronic kidney disease, stage 3 (moderate); E87.6 Hypokalemia; I25.10 Atherosclerotic heart disease of native coronary artery without angina pectoris; L89.159 Pressure ulcer of sacral region, unspecified stage; K59.09 Other constipation; I25.2 Old myocardial infarction; Z99.81 Dependence on supplemental oxygen; Z68.31 Body mass index [BMI] 31.0-31.9, adult; Z98.51 Tubal ligation status; Z95.5 Presence of coronary angioplasty implant and graft; Z88.2 Allergy status to sulfonamides; Z88.6 Allergy status to analgesic agent; Z88.8 Allergy status to other drugs, medicaments and biological substances; Z79.890 Hormone replacement therapy; Z79.4 Long term (current) use of insulin; Z79.51 Long term (current) use of inhaled steroids; Z79.899 Other long term (current) drug therapy; Z86.73 Personal history of transient ischemic attack (TIA), and cerebral infarction without residual deficits
CPT/HCPCS: 36415; 36416; 51701; 74177; 80048; 80053; 81003; 81015; 83735; 83880; 84100; 84443; 85025; 87077; 87086; 87186; 87324; 87449; 87493; 96361; 96374; 96375; A4353; J0696; J1644; J1815; J2270; J2405; J3480; J3490; Q0162; Q9967

== ENCOUNTER 2019-10-15 14:49 | Inpatient (IN) | payer MEDICARE, MEDICAID ==
[2019-10-15] MEDS ORDERED: Ondansetron PF 4 MG/2 ML Vial ONE (15:36)
[2019-10-15 16:11] LABS: #Eosinphils 0.2 thou/uL (0.0-0.7); #Monocytes 0.5 thou/uL (0.11-0.59); #Neutrophils 6.9 thou/uL (1.40-6.50); %Basophils 0.1 % (0.0-1.0); %Eosinophils 1.8 % (0.0-10.0); %Lymphocytes 11.6 % (21.0-51.0); %Monocytes 5.9 % (0.0-10.0); %Neutrophils 80.5 % (42.0-75.0); Hemoglobin 12.1 g/dL (12.0-16.0); Mean Corpuscular HGB CONC 35.2 g/dL (32.0-36.0); Mean Corpuscular Hemoglobin 32.3 pg (27.0-31.0); Mean Corpuscular Volume 91.9 fL (78.0-98.0); Mean Platelet Volume 8.6 fL (7.4-10.4); Platelet Count 240 thou/uL (130-400); RBC Distribution Width 11.9 % (11.5-14.5); Red Blood Cell (RBC) Count 3.74 mill/uL (4.20-5.40); White Blood Cell (WBC) Count 8.6 thou/uL (4.8-10.8)
[2019-10-15 16:37] LABS: ALT (SGPT) 7 U/L (8-55); AST (SGOT) 7 U/L (5-34); Albumin 3.6 g/dL (3.5-5.0); Alkaline Phosphatase 78 U/L (40-110); Anion Gap 20 mmol/L (10-20); BUN (Urea Nitrogen) 56 mg/dL (9.8-20.1); Bilirubin, Total 0.6 mg/dL (0.2-1.2); Calc. Creatinine Clearance 0 mL/min (70-130); Calcium 9.5 mg/dL (7.8-10.44); Carbon Dioxide 29 mmol/L (22-29); Chloride 85 mmol/L (98-107); Estimated GFR-MDRD 23; Globulin 3.5 g/dL (2.4-3.5); Glucose 525 mg/dL (70-105); Lipase 23 U/L (8-78); Potassium 4.6 mmol/L (3.5-5.1); Protein, Total 7.1 g/dL (6.0-8.3); Sodium 129 mmol/L (136-145)
--- NOTE | 2019-10-15 17:28 | CT ---
CT ABDOMEN AND PELVIS WITH IV CONTRAST: 10/15/19 HISTORY: Constant abdominal pain for three days. No bowel movement for three days. Patient reports nausea and vomiting. COMPARISON: 09/20/2019. FINDINGS: Minimal linear scarring versus atelectasis is present at each lung base. The spleen is mildly enlarged measuring 14 cm in craniocaudal dimensions. The liver, pancreas, bilateral adrenal glands, and kidneys demonstrate a normal CT appearance. The pr eviously seen right renal calculus is not identified on this exam. No calculus is seen along the cour se of the right ureter and there is no hydronephrosis. Urinary bladder and reproductive structures demonstrate a normal CT appearance. Previously seen moderate amount of retained fecal material in the rectum with rectal wall thickening and adjacent inflammatory changes have now resolved. Loops of small bowel are normal in caliber. The appendix is visualized and normal in caliber and filled with gas. Duodenal diverticula are again seen at the junction of the second and third portion of the duodenum. Vascular calcifications are again present. Degenerative changes are seen in the spine with bilateral hip osteoarthritis. No free fluid, fluid collection, or lymphadenopathy is seen in the abdomen or pelvis. No other interv al changes. IMPRESSION: 1. No acute findings are seen in the abdomen or pelvis. 2. Mild splenomegaly. 3. Previously seen right renal calculus is no longer visualized. There is no right hydronephrosi s or hydroureter, and no calcification is seen in the right ureter or within the urinary bladder. POS: [facility]
[2019-10-15 17:45] LABS: Bilirubin Negative (Negative); Blood, Urine Trace (Negative); Glucose, Urine (Dipstick) >=1000 mg/dL (Negative); Leukocyte Moderate (Negative); Nitrite Negative (Negative); Protein, Urine (Dipstick) Trace mg/dL (Neg-Trace); Urobilinogen 0.2 mg/dL (Less than 2)
[2019-10-15 17:47] LABS: Clarity Clear (Clear)
[2019-10-15 17:49] LABS: Bacteria/HPF None Seen HPF (None Seen); RBC/HPF 0-3 HPF (0-3); Squamous Epithelial 0-3 HPF (0-3); WBC/HPF 0-3 HPF (0-3)
[2019-10-15 19:01] LABS: Bicarbonate (HCO3v) 26.8 mmol/L (22.0-28.0); CO2 Tension (PvCO2) 37.2 mmHg (40.0-50.0); Chloride 91 mmol/L (98-107); Hemoglobin - Calc 10.8 g/dL (12.0-16.0); Potassium 3.9 mmol/L (3.5-5.1); Sodium 131 mmol/L (138-145); T. Carbon Dioxide 27.9 mmol/L (22.0-28.0); vO2 Saturation-calc 88.9 % (60.0-85.0)
--- NOTE | 2019-10-15 21:24 | HP ---
PRIMARY CARE PROVIDER: Valdemar Adames MD CHIEF COMPLAINT: Nausea, vomiting, and abdominal pain. HISTORY OF PRESENT ILLNESS: This is a 59-year-old female, who presents to [facility] Emergency Department complaining of 3-day history of increasing abdominal pain, cramping, diffuse in nature without a bowel movement according to ER reports. The patient states she has had multiple episodes of diarrhea, as well as several episodes of nausea and vomiting. The patient denied any blood in her stool or emesis, but does states she is under current treatment for Clostridium difficile colitis after recent admission to [facility] from 09/20/2019 to 09/25/2019 being discharged home on oral vancomycin. The patient states she has a few more days to complete her course of antibiotic therapy and has been compliant. The patient denies any travel history, known sick contacts, family members with similar symptoms. The patient denied any shortness of breath, increased cough, or congestion. The patient denied chest pain, unilateral weakness. The patient does admit she receives assistance through [facility] as well as [facility] for general hygiene, as well as home care and meal preparation. The patient ambulates with a rolling walker, but denies any recent fall or injury. In the emergency room, the patient underwent general evaluation with CT of the abdomen and pelvis performed showing no evidence of bowel obstruction. Metabolic screening showed hyperglycemia with hyponatremia at which point patient received intravenous normal saline x2 liters in addition to Bentyl intramuscularly and Zofran IV x1. PAST MEDICAL HISTORY: 1. Clostridium difficile colitis, currently treated with oral vancomycin since 09/25/2019. 2. History of constipation with rectal impaction. 3. Chronic kidney disease, stage 3. 4. Tobacco abuse. 5. Hypertension. 6. Coronary artery disease, status post cardiac stent placement x2. 7. History of myocardial infarction. 8. Hyperlipidemia. 9. Chronic obstructive pulmonary disease, on intermittent oxygen supplementation. 10. Congestive heart failure with unknown ejection fraction. 11. History of cerebrovascular accident. 12. Deconditioning with use of a rolling walker. 13. Gastroesophageal reflux disease. 14. Osteoarthritis. 15. Diabetes mellitus type 2, insulin requiring. 16. Hypothyroidism. PAST SURGICAL HISTORY: 1. Status post bilateral tubal ligation. 2. Status post cardiac catheterization with cardiac stent placement x2. 3. Status post carpal tunnel release. 4. Status post removal of lower extremity tumor. CURRENT MEDICATIONS: Based on discharge summary 09/25/2019: 1. Vancomycin 125 mg p.o. q.6 hours. 2. Florastor 250 mg p.o. daily. 3. Lasix 40 mg p.o. b.i.d. 4. Gabapentin 1600 mg p.o. b.i.d. 5. Hydralazine 50 mg p.o. b.i.d. 6. Glargine insulin 17 units subcutaneously b.i.d. 7. DuoNeb 3 mL nebulized q.4 hours p.r.n. 8. Levothyroxine 125 mcg p.o. daily. 9. Lopressor 25 mg p.o. b.i.d. 10. Enteric-coated aspirin 81 mg p.o. daily. 11. Singulair 10 mg p.o. b.i.d. 12. Lipitor 20 mg p.o. at bedtime. ALLERGIES: SULFA AND IBUPROFEN. FAMILY HISTORY: Positive for diabetes mellitus and hypertension. SOCIAL HISTORY: Resides in [place], [place], living alone. Ambulates with a rolling walker. Receives home health care with [facility] as well as [facility]. Smokes up to a pack of cigarettes daily. No alcohol or illicit drug use. REVIEW OF SYSTEMS: CONSTITUTIONAL: Negative for weight loss or gain, ability to conduct usual activities. SKIN: Negative for rash, itching. EYES: Negative for double vision, pain. ENT/MOUTH: Negative for nose bleeding, neck stiffness, pain, tenderness. CARDIOVASCULAR: Negative for palpitations, dyspnea on exertion, orthopnea. RESPIRATORY: Negative for shortness of breath, wheezing, cough, hemoptysis, fever or night sweats. GASTROINTESTINAL: Negative for poor appetite, abdominal pain, heartburn, nausea, vomiting, constipation, or diarrhea. GENITOURINARY: Negative for urgency, frequency, dysuria, nocturia. MUSCULOSKELETAL: Negative for pain, swelling. NEUROLOGIC/PSYCHIATRIC: Negative for anxiety, depression. ALLERGY/IMMUNOLOGIC: Negative for skin rash, bleeding tendency. Otherwise negative except as stated per HPI. PHYSICAL EXAMINATION: VITAL SIGNS: On admission, blood pressure 147/81, pulse 71, respiratory rate 18, temperature 98.6 degrees Fahrenheit, and O2 saturation 95% on room air. GENERAL APPEARANCE: This is a 59-year-old female, appearing older than stated age. Alert, responsive, in no acute distress. HEENT: Pupils are equal, round, reactive to light and accommodation. Extraocular muscles are intact. No scleral icterus. No conjunctival injection. Nares patent. OP is clear. Oral mucosa dry. NECK: Supple. No cervical adenopathy. No thyromegaly. No carotid bruits. No JVD appreciated. Cervical spine with full active and passive range of motion. No meningeal signs noted. CHEST: Lungs are clear to auscultation bilaterally. Diminished in the bases. CARDIOVASCULAR EXAM: S1, S2 without noted murmur, rub, or gallop. ABDOMEN: Obese, soft, nontender, and nondistended. Bowel sounds are positive in all 4 quadrants. There is no palpable mass. No rebound or guarding appreciated. EXTREMITIES: Warm and dry with fair turgor. No clubbing, cyanosis, or asymmetric edema appreciated. Pulses palpable distally at the dorsalis pedis, posterior tibial, and popliteal arteries bilaterally. Capillary refill less than 2 seconds. NEUROLOGIC: Cranial nerves 2 through 12 are grossly intact. No focal or lateralizing signs appreciated. The patient not observed ambulatory during this exam. PERTINENT LABORATORY AND X-RAY FINDINGS: Sodium 129, potassium 4.6, chloride 85 with CO2 of 29, BUN 56, creatinine 2.16, estimated GFR of 23, glucose 525, calcium 9.5, total bilirubin 0.6, AST 7, ALT 7, alkaline phosphatase 78, lipase 23. CBC showed a white blood cell count of 8.6, hemoglobin 12, hematocrit 34, and platelet count 240 with 81% neutrophils. Venous blood gas dated 10/15/2019 showed a pH of 7.47, pCO2 of 37, PO2 of 53, bicarb 27. Urinalysis showed greater than 1000 glucose with moderate leukocyte esterase. CT of the abdomen and pelvis dated 10/15/2019, showed no acute intraabdominal process. ASSESSMENT AND PLAN: 1. Nausea, vomiting, and abdominal pain. The patient will be observed on the medical floor. Suspect multifactorial process including hyperglycemia and history of Clostridium difficile colitis. Continue supportive management with intravenous normal saline at 75 mL/h. Serial abdominal exams. No evidence of bowel obstruction on CT imaging. Zofran 4 mg IV q.6 hours p.r.n. 2. Acute kidney injury on chronic kidney disease stage 3. Continue intravenous normal saline 75 mL/h. Avoid nephrotoxic agents and limit contrast exposure. Repeat creatinine in the a.m. 3. Urinary tract infection, suspected. Initiate Rocephin 1 g IV q.24 hours pending urine culture results. 4. Diabetes mellitus type 2, uncontrolled. Resume home insulin regimen. Serial Accu-Cheks before meals and at bedtime. ADA diet. 5. Hyponatremia. Suspect secondary to hyperglycemia. We will continue intravenous normal saline at 75 mL/h. Repeat sodium level in the a.m. 6. History of Clostridium difficile colitis. Repeat Clostridium difficile toxin and antigen. Continue vancomycin 125 mg p.o. q.6 hours. Florastor 250 mg p.o. daily. 7. Prophylaxis. SCDs while in bed. Pepcid 20 mg p.o. b.i.d. 8. Code status is full. Surrogate medical decision maker not identified. The patient did not wish to name a surrogate. Job ID: [id number]
[2019-10-15] MEDS ORDERED: Ipratropium Oral Inhaler INH PRN (23:29)
[2019-10-15] MEDS ORDERED: Ondansetron ODT 4 MG TAB PO PRN (23:29)
[2019-10-15] MEDS ORDERED: Ondansetron PF 4 MG/2 ML Vial IVP PRN (23:29)
[2019-10-15] MEDS ORDERED: Dextrose 5% in Water 1,000 ML IV PRN (23:29)
[2019-10-15] MEDS ORDERED: VANCOMYCIN HCL 125 MG PO SCH (23:29)
[2019-10-15] MEDS ORDERED: Acetaminophen 500 MG TAB PO PRN (23:29)
[2019-10-15] MEDS ORDERED: Dextrose 50% Abboject 50 ML SYRINGE SLOW IVP PRN (23:29)
[2019-10-15] MEDS ORDERED: hydrALAZINE 20 MG/ML VIAL SLOW IVP PRN (23:29)
[2019-10-15] MEDS ORDERED: HumaLOG 300 UNITS/3 ML VIAL SC PRN (23:29)
[2019-10-15] MEDS ORDERED: Famotidine 20 MG TAB PO SCH (23:45)
[2019-10-15] MEDS ORDERED: hydrALAZINE 25 MG TAB PO SCH (23:45)
[2019-10-15] MEDS ORDERED: Metoprolol Tartrate 25 MG TAB PO SCH (23:45)
[2019-10-15] MEDS ORDERED: Montelukast Sodium 10 mg Tablet PO SCH (23:45)
[2019-10-15] MEDS ORDERED: Gabapentin 400 MG CAP PO SCH (23:59)
[2019-10-16] MEDS: cefTRIAXone\\ROCEPHIN 1 GM in Sodium Chloride 0.9% 100 ML IVPB SCH (00:55)
[2019-10-16] MEDS: Vancomycin HCl 25 MG/ML Oral PO SCH ×4 (00:55→17:30)
[2019-10-16] MEDS: Sodium Chloride 0.9% 1,000 ML IV SCH ×2 (00:55→17:46)
[2019-10-16 02:10] VITALS: BMI 28.8
[2019-10-16] MEDS: HumaLOG 300 UNITS/3 ML VIAL SC PRN ×3 (06:17→17:41)
[2019-10-16] MEDS: Levothyroxine Sodium 125 MCG TAB PO SCH (06:17)
[2019-10-16 06:21] LABS: ALT (SGPT) Less than 7 U/L (8-55); AST (SGOT) 6 U/L (5-34); Albumin 3.1 g/dL (3.5-5.0); Alkaline Phosphatase 73 U/L (40-110); Anion Gap 14 mmol/L (10-20); BUN (Urea Nitrogen) 47 mg/dL (9.8-20.1); Bilirubin, Total 0.5 mg/dL (0.2-1.2); Calc. Creatinine Clearance 42 mL/min (70-130); Calcium 8.7 mg/dL (7.8-10.44); Carbon Dioxide 28 mmol/L (22-29); Chloride 97 mmol/L (98-107); Estimated GFR-MDRD 28; Globulin 3.2 g/dL (2.4-3.5); Glucose 340 mg/dL (70-105); Potassium 4.4 mmol/L (3.5-5.1); Protein, Total 6.3 g/dL (6.0-8.3); Sodium 135 mmol/L (136-145)
[2019-10-16 06:23] LABS: Hemoglobin 11.4 g/dL (12.0-16.0); Mean Corpuscular HGB CONC 34.3 g/dL (32.0-36.0); Mean Corpuscular Hemoglobin 31.7 pg (27.0-31.0); Mean Corpuscular Volume 92.3 fL (78.0-98.0); Mean Platelet Volume 8.5 fL (7.4-10.4); Platelet Count 245 thou/uL (130-400); RBC Distribution Width 11.7 % (11.5-14.5); Red Blood Cell (RBC) Count 3.61 mill/uL (4.20-5.40); White Blood Cell (WBC) Count 7.1 thou/uL (4.8-10.8)
[2019-10-16 06:49] LABS: Band 12 % (5-11); Eosinophils 2 % (0-10); Lymphocytes 16 % (21-51); MDiff Complete? YES; Monocytes 3 % (0-10); Neutrophil 67 % (42-75)
[2019-10-16] MEDS: Saccharomyces boulardii 250 MG CAP PO SCH (08:42)
[2019-10-16] MEDS: hydrALAZINE 25 MG TAB PO SCH ×2 (08:42→20:58)
[2019-10-16] MEDS: Gabapentin 400 MG CAP PO SCH ×2 (08:42→20:59)
[2019-10-16] MEDS: Metoprolol Tartrate 25 MG TAB PO SCH ×2 (08:43→20:59)
[2019-10-16] MEDS: Montelukast Sodium 10 mg Tablet PO SCH ×2 (08:43→20:58)
--- NOTE | 2019-10-16 11:42 | PDOC.HOSPP ---
- Subjective Encounter Date: 10/16/19 Encounter Time: 11:41 Subjective: Ms. Rodriguez was seen today in follow-up of nausea and vomiting. she says she feels better, and wants to go home. She is a bit drowsy however. - Objective Vital Signs & Weight: Vital Signs (12 hours) Temp Pulse Resp BP BP Pulse Ox 10/16/19 08:42 72 151/77 H 10/16/19 04:00 98.2 F 72 20 151/77 H 92 L 10/16/19 00:53 72 147/62 H Weight Weight 178 lb 9.191 oz I&O: 10/15/19 10/16/19 10/17/19 06:59 06:59 06:59 Intake Total 1025 Balance 1025 Result Diagrams: 10/16/19 05:43 10/16/19 05:43 Additional Labs: Accuchecks 10/16/19 10/15/19 05:55 18:51 POC Glucose 339 H 417 H Hospitalist ROS - Medication Medications: Active Medications Generic Name Dose Route Start Last Admin Trade Name Freq PRN Reason Stop Dose Admin Gabapentin 1,600 mg 10/16/19 09:00 10/16/19 08:42 Neurontin PO 1,600 mg BID VALE Administration Hydralazine HCl 50 mg 10/16/19 09:00 10/16/19 08:42 Apresoline PO 50 mg BID VALE Administration Ceftriaxone Sodium 1 gm/ 100 mls @ 200 mls/hr 10/15/19 23:59 10/16/19 00:55 Sodium Chloride IVPB 100 mls 2359 VALE Administration Sodium Chloride 1,000 mls @ 75 mls/hr 10/15/19 23:59 10/16/19 00:55 Normal Saline 0.9% IV 1,000 mls .[id number] VALE Administration Insulin Human Lispro 0 units 10/15/19 23:29 10/16/19 06:17 Humalog SC 11 unit .AGGRESSIVE SLIDING PRN Administration Aggressive Correctional Scale Levothyroxine Sodium 125 mcg 10/16/19 06:00 10/16/19 06:17 Synthroid PO 125 mcg 0600 VALE Administration Metoprolol Tartrate 25 mg 10/16/19 09:00 10/16/19 08:43 Lopressor PO 25 mg BID VALE Administration Montelukast Sodium 10 mg 10/16/19 09:00 10/16/19 08:43 Singulair PO 10 mg BID VALE Administration Quetiapine Fumarate 100 mg 10/16/19 09:00 10/16/19 08:43 Seroquel PO 100 mg BID VALE Administration Saccharomyces Boulardii 250 mg 10/16/19 09:00 10/16/19 08:42 Florastor PO 250 mg DAILY VALE Administration Vancomycin HCl 125 mg 10/15/19 23:59 10/16/19 06:17 First Vancomycin PO 125 mg Q6HR VALE Administration - Exam Eye: PERRL ENT: no oropharyngeal lesions, dry oral mucosa Heart: RRR, no murmur, no gallops, no rubs, normal peripheral pulses Respiratory: CTAB, no wheezes, no rales, no ronchi, normal chest expansion Gastrointestinal: soft, non-distended, normal bowel sounds, no palpable masses, no hepatomegaly Extremities: no cyanosis, no edema Hosp A/P (1) Nausea & vomiting Code(s): R11.2 - NAUSEA WITH VOMITING, UNSPECIFIED Status: Acute (2) REDD (acute kidney injury) Code(s): N17.9 - ACUTE KIDNEY FAILURE, UNSPECIFIED Status: Acute (3) Diabetes type 2, uncontrolled Code(s): E11.65 - TYPE 2 DIABETES MELLITUS WITH HYPERGLYCEMIA Status: Chronic (4) Hypertension Code(s): I10 - ESSENTIAL (PRIMARY) HYPERTENSION Status: Chronic Qualifiers: Hypertension type: essential hypertension Qualified Code(s): I10 - Essential (primary) hypertension (5) Hypothyroidism Code(s): E03.9 - HYPOTHYROIDISM, UNSPECIFIED Status: Chronic - Plan * Nausea and vomiting- ? etiology, but appears this is resolving * Acute kidney injury- improving as well continue IV hydration * HTN - blood pressure is slightly elevated- continue Hydralazine, and Metropolol * DM- blood glucose is elevated- will continue SSI, and add about 2/3 her regular long acting dose, until she is consistently taking in p.o. * Recent C. Diff infection- continue oral Vancomycin, and contact isolation, She has not reported any diarrhea this admission * Hypothyroidism- will check TFT's with her new blood draw.
[2019-10-16] MEDS ORDERED: Insulin Glargine 50 UNITS in Pre-Filled Syringe 1 EACH SC SCH (21:00)
[2019-10-16] MEDS ORDERED: Famotidine 20 MG TAB PO SCH (21:00)
[2019-10-17] MEDS: Vancomycin HCl 25 MG/ML Oral PO SCH ×2 (01:01→05:27)
[2019-10-17] MEDS: cefTRIAXone\\ROCEPHIN 1 GM in Sodium Chloride 0.9% 100 ML IVPB SCH (01:01)
[2019-10-17] MEDS: Sodium Chloride 0.9% 1,000 ML IV SCH (03:52)
[2019-10-17] MEDS: Levothyroxine Sodium 125 MCG TAB PO SCH (05:27)
[2019-10-17 05:59] LABS: #Eosinphils 0.2 thou/uL (0.0-0.7); #Lymphocytes 1.2 thou/uL (1.20-3.40); #Monocytes 0.6 thou/uL (0.11-0.59); #Neutrophils 5.9 thou/uL (1.40-6.50); %Basophils 0.5 % (0.0-1.0); %Eosinophils 2.1 % (0.0-10.0); %Lymphocytes 15.4 % (21.0-51.0); %Monocytes 7.3 % (0.0-10.0); %Neutrophils 74.7 % (42.0-75.0); Hemoglobin 10.9 g/dL (12.0-16.0); Mean Corpuscular Hemoglobin 30.8 pg (27.0-31.0); Mean Corpuscular Volume 93.2 fL (78.0-98.0); Mean Platelet Volume 8.5 fL (7.4-10.4); Platelet Count 231 thou/uL (130-400); RBC Distribution Width 11.7 % (11.5-14.5); Red Blood Cell (RBC) Count 3.55 mill/uL (4.20-5.40); White Blood Cell (WBC) Count 7.8 thou/uL (4.8-10.8)
[2019-10-17 06:22] LABS: Anion Gap 12 mmol/L (10-20); BUN (Urea Nitrogen) 39 mg/dL (9.8-20.1); Calc. Creatinine Clearance 52 mL/min (70-130); Calcium 8.7 mg/dL (7.8-10.44); Carbon Dioxide 27 mmol/L (22-29); Chloride 102 mmol/L (98-107); Estimated GFR-MDRD 36; Glucose 214 mg/dL (70-105); Potassium 4.1 mmol/L (3.5-5.1); Sodium 137 mmol/L (136-145)
[2019-10-17 06:40] LABS: Free T4 (Free Thyroxine) 1.49 ng/dL (0.70-1.48)
[2019-10-17 07:17] VITALS: BP 142/66; TEMP 98.1
[2019-10-17] MEDS: Montelukast Sodium 10 mg Tablet PO SCH (08:12)
[2019-10-17] MEDS: Gabapentin 400 MG CAP PO SCH (08:12)
[2019-10-17] MEDS: Saccharomyces boulardii 250 MG CAP PO SCH (08:12)
[2019-10-17] MEDS: hydrALAZINE 25 MG TAB PO SCH (08:12)
[2019-10-17] MEDS: Metoprolol Tartrate 25 MG TAB PO SCH (08:12)
[2019-10-17] MEDS ORDERED: Insulin Glargine 50 UNITS in Pre-Filled Syringe 1 EACH SC SCH (09:00)
--- NOTE | 2019-10-17 10:02 | PDOC.HOSPP ---
- Subjective Encounter Date: 10/17/19 Encounter Time: 10:00 Subjective: Ms. Rodriguez was seen today in follow-up of nausea and vomiting. She tells me as I am walking in the room " I am going home today ". She says she feels better. She tolerated a solid diet. - Objective Vital Signs & Weight: Vital Signs (12 hours) Temp Pulse Resp BP BP Pulse Ox 10/17/19 08:12 76 142/66 H 10/17/19 07:13 98.1 F 76 19 142/66 H 96 Weight Admit Weight 178 lb 9.191 oz Weight 178 lb 9.191 oz I&O: 10/16/19 10/17/19 10/18/19 06:59 06:59 06:59 Intake Total 1025 1650 Balance 1025 1650 Result Diagrams: 10/17/19 05:43 10/17/19 05:42 Additional Labs: Accuchecks 10/17/19 10/16/19 10/16/19 04:20 22:05 16:42 POC Glucose 268 H 363 H 235 H 10/16/19 11:59 POC Glucose 291 H Hospitalist ROS - Medication Medications: Active Medications Generic Name Dose Route Start Last Admin Trade Name Freq PRN Reason Stop Dose Admin Famotidine 20 mg 10/16/19 21:00 10/16/19 20:58 Pepcid PO 20 mg HS VALE Administration Gabapentin 1,600 mg 10/16/19 09:00 10/17/19 08:12 Neurontin PO 1,600 mg BID VALE Administration Hydralazine HCl 50 mg 10/16/19 09:00 10/17/19 08:12 Apresoline PO 50 mg BID VALE Administration Ceftriaxone Sodium 1 gm/ 100 mls @ 200 mls/hr 10/15/19 23:59 10/17/19 01:01 Sodium Chloride IVPB 100 mls 2359 VALE Administration Sodium Chloride 1,000 mls @ 75 mls/hr 10/15/19 23:59 10/17/19 03:52 Normal Saline 0.9% IV Not Given .[id number] VALE Insulin Glargine 50 units/ 0.5 mls @ 0 mls/hr 10/16/19 21:00 10/16/19 20:59 Miscellaneous Medication SC 0.5 mls HS VALE Administration Insulin Glargine 50 units/ 0.5 mls @ 0 mls/hr 10/17/19 09:00 10/17/19 08:13 Miscellaneous Medication SC 0.5 mls QAM VALE Administration Insulin Human Lispro 0 units 10/15/19 23:29 10/16/19 17:41 Humalog SC 6 unit .AGGRESSIVE SLIDING PRN Administration Aggressive Correctional Scale Metoprolol Tartrate 25 mg 10/16/19 09:00 10/17/19 08:12 Lopressor PO 25 mg BID VALE Administration Montelukast Sodium 10 mg 10/16/19 09:00 10/17/19 08:12 Singulair PO 10 mg BID VALE Administration Quetiapine Fumarate 100 mg 10/16/19 09:00 10/17/19 08:11 Seroquel PO 100 mg BID VALE Administration Saccharomyces Boulardii 250 mg 10/16/19 09:00 10/17/19 08:12 Florastor PO 250 mg DAILY VALE Administration Vancomycin HCl 125 mg 10/15/19 23:59 10/17/19 05:27 First Vancomycin PO 125 mg Q6HR VALE Administration - Exam Eye: PERRL Heart: RRR, no murmur, no gallops, no rubs, normal peripheral pulses Respiratory: CTAB, no wheezes, no rales, no ronchi, normal chest expansion Gastrointestinal: soft, non-tender, non-distended, normal bowel sounds, no palpable masses, no hepatomegaly Extremities: no cyanosis, no edema Hosp A/P (1) Nausea & vomiting Code(s): R11.2 - NAUSEA WITH VOMITING, UNSPECIFIED Status: Acute (2) REDD (acute kidney injury) Code(s): N17.9 - ACUTE KIDNEY FAILURE, UNSPECIFIED Status: Acute (3) Diabetes type 2, uncontrolled Code(s): E11.65 - TYPE 2 DIABETES MELLITUS WITH HYPERGLYCEMIA Status: Chronic (4) Hypertension Code(s): I10 - ESSENTIAL (PRIMARY) HYPERTENSION Status: Chronic Qualifiers: Hypertension type: essential hypertension Qualified Code(s): I10 - Essential (primary) hypertension (5) Hypothyroidism Code(s): E03.9 - HYPOTHYROIDISM, UNSPECIFIED Status: Chronic - Plan * Nausea and vomiting- ? etiology,resolved * Acute kidney injury- improved * C. Diff colitis- improving- no diarrhea * Stable for discharge home.
--- NOTE | 2019-10-17 10:24 | DIS ---
DATE OF ADMISSION: 10/16/2019 DATE OF DISCHARGE: 10/17/2019 PRIMARY CARE PHYSICIAN: Valdemar Adames MD DISCHARGE DIAGNOSES: 1. Acute kidney injury. 2. Nausea and vomiting, likely viral gastroenteritis. 3. Recent Clostridium difficile infection, currently on oral vancomycin. 4. Diabetes mellitus, type 2. 5. Hypothyroidism. DISCHARGE MEDICATIONS: Include; 1. Oral vancomycin 125 mg p.o. four times a day to continue till completion. 2. Levothyroxine was decreased to 112 mcg p.o. daily. 3. Florastor 250 mg daily. 4. Aspirin 81 mg daily. 5. Seroquel 100 mg at bedtime. 6. Pravastatin 80 mg at bedtime. 7. Zofran 4 mg q.6 as needed. 8. Omeprazole 40 mg daily. 9. Nitrostat 0.4 sublingual daily. 10. Singulair 10 mg twice a day. 11. Lopressor 25 mg twice daily. 12. Lorazepam 1 mg at bedtime. 13. Albuterol and Atrovent nebs q.4 hours as needed. 14. Atrovent inhaler 2 puffs q.4 hours as needed. 15. Lantus insulin 72 units twice a day. 16. Apresoline 50 mg twice daily. 17. Gabapentin 1600 mg twice daily. 18. Lasix 40 mg a day. IMAGING DONE DURING HOSPITAL STAY: The patient had a CT scan of the abdomen and pelvis demonstrating no acute findings. There was some mild splenomegaly. CODE STATUS: Full code. ALLERGIES: TO IBUPROFEN AND SULFA. HOSPITAL COURSE: Ms. Rodriguez is a pleasant 59-year-old female, who presented to the emergency room, complaining of nausea, vomiting, and abdominal pain. She was also noted to be dehydrated and in acute kidney injury, with her creatinine was as high as 2.16. She was also found to have elevated blood glucose. She was started on IV fluids and a sliding scale was added to help improve her glycemic control. Thyroid function tests were done and it appears as if she is slightly over replaced and for this reason, her dose of levothyroxine is slightly decreased to 112 mcg daily. At the time of discharge, the patient was asking to go home. Her creatinine had improved. She was tolerating a solid diet and as such, she will be discharged home with close outpatient followup. Job ID: [id number]
[2019-10-18] MEDS ORDERED: Levothyroxine Sodium 112 MCG TAB PO SCH (06:00)
== END 2019-10-17 11:32 | disposition home or self-care (01) | DRG 683 ==
LOC: ERS 14:49 → T4-A 20:06 → OBSVTOIN 10-16 17:52
PROVIDERS: ADMIT Family Medicine; ATTEND Internal Medicine
DX: N17.9 Acute kidney failure, unspecified (principal); E87.1 Hypo-osmolality and hyponatremia; I13.0 Hypertensive heart and chronic kidney disease with heart failure and stage 1 through stage 4 chronic kidney disease, or unspecified chronic kidney disease; A04.72 Enterocolitis due to Clostridium difficile, not specified as recurrent; A08.4 Viral intestinal infection, unspecified; N18.3 Chronic kidney disease, stage 3 (moderate); F17.210 Nicotine dependence, cigarettes, uncomplicated; I25.10 Atherosclerotic heart disease of native coronary artery without angina pectoris; E78.5 Hyperlipidemia, unspecified; J44.9 Chronic obstructive pulmonary disease, unspecified; I50.9 Heart failure, unspecified; K21.9 Gastro-esophageal reflux disease without esophagitis; M19.90 Unspecified osteoarthritis, unspecified site; E11.65 Type 2 diabetes mellitus with hyperglycemia; E11.22 Type 2 diabetes mellitus with diabetic chronic kidney disease; E03.9 Hypothyroidism, unspecified; E86.0 Dehydration; Z95.5 Presence of coronary angioplasty implant and graft; Z99.81 Dependence on supplemental oxygen; Z79.4 Long term (current) use of insulin; Z86.73 Personal history of transient ischemic attack (TIA), and cerebral infarction without residual deficits; Z98.51 Tubal ligation status; Z88.2 Allergy status to sulfonamides; Z88.6 Allergy status to analgesic agent; Z79.890 Hormone replacement therapy
CPT/HCPCS: 36415; 36416; 74177; 80048; 80053; 81003; 81015; 82330; 82803; 83690; 84439; 84443; 85007; 85025; 85027; 96361; 96372; 96374; J0500; J0696; J1815; J2405; J3490; Q9967

== ENCOUNTER 2019-10-29 10:50 | Inpatient (IN) | payer MEDICARE, MEDICAID ==
[2019-10-29 11:26] LABS: #Lymphocytes 1.1 thou/uL (1.20-3.40); #Monocytes 1.3 thou/uL (0.11-0.59); #Neutrophils 14.7 thou/uL (1.40-6.50); %Basophils 0.1 % (0.0-1.0); %Eosinophils 0.1 % (0.0-10.0); %Lymphocytes 6.6 % (21.0-51.0); %Monocytes 7.7 % (0.0-10.0); %Neutrophils 85.5 % (42.0-75.0); Hemoglobin 12.8 g/dL (12.0-16.0); Mean Corpuscular HGB CONC 34.3 g/dL (32.0-36.0); Mean Corpuscular Hemoglobin 30.8 pg (27.0-31.0); Mean Corpuscular Volume 89.6 fL (78.0-98.0); Platelet Count 311 thou/uL (130-400); RBC Distribution Width 11.5 % (11.5-14.5); Red Blood Cell (RBC) Count 4.15 mill/uL (4.20-5.40); White Blood Cell (WBC) Count 17.2 thou/uL (4.8-10.8)
[2019-10-29] MEDS ORDERED: Lorazepam 2 MG/ML VIAL ONE (11:27)
[2019-10-29 11:33] LABS: Base Excess-Venous -1.2 mmol/L (-2.0 to 3.0); Bicarbonate (HCO3v) 21.5 mmol/L (22.0-28.0); CO2 Tension (PvCO2) 29.1 mmHg (40.0-50.0); Chloride 100 mmol/L (98-107); Hemoglobin - Calc 12.3 g/dL (12.0-16.0); Potassium 3.8 mmol/L (3.5-5.1); Sodium 134 mmol/L (138-145); T. Carbon Dioxide 22.3 mmol/L (22.0-28.0); vO2 Saturation-calc 91.9 % (60.0-85.0)
[2019-10-29 11:54] LABS: ALT (SGPT) 11 U/L (8-55); AST (SGOT) 8 U/L (5-34); Albumin 3.5 g/dL (3.5-5.0); Alkaline Phosphatase 78 U/L (40-110); Anion Gap 18 mmol/L (10-20); BUN (Urea Nitrogen) 51 mg/dL (9.8-20.1); Calc. Creatinine Clearance 0 mL/min (70-130); Calcium 9.2 mg/dL (7.8-10.44); Carbon Dioxide 22 mmol/L (22-29); Chloride 99 mmol/L (98-107); Estimated GFR-MDRD 32; Potassium 4.1 mmol/L (3.5-5.1); Protein, Total 6.5 g/dL (6.0-8.3); Sodium 135 mmol/L (136-145)
[2019-10-29 11:58] LABS: Glucose 642 mg/dL (70-105)
--- NOTE | 2019-10-29 12:02 | CT ---
CT BRAIN NONCONTRAST: DATE: 10/29/2019 HISTORY: 59-year-old female with altered mental status FINDINGS: There is no evidence of acute intra-axial or extra-axial hemorrhage. There is no midline shift or any other mass effect. There is no extra-axial fluid collection. There is no evidence of obstructive hydrocephalus. Calvarium is intact. IMPRESSION: No acute intracranial findings.
[2019-10-29] MEDS ORDERED: Cefepime 2 GM VIAL ONE (12:45)
[2019-10-29] MEDS ORDERED: Metoclopramide HCl 10 MG/2 ML VIAL ONE (12:45)
[2019-10-29] MEDS ORDERED: Insulin Regular 100 units/100 ml in NS IVPB SCH (13:00)
[2019-10-29 13:19] LABS: Acetaminophen Less than 6.0 mcg/mL (10.0-30.0); Alcohol Less than 10 mg/dL (Less than 10); Salicylate Less than 8.0 mg/dL (15.0-30.0)
[2019-10-29 14:10] LABS: Bacteria/HPF 3+ HPF (None Seen); Bilirubin Negative (Negative); Blood, Urine 2+ (Negative); Clarity Clear (Clear); Glucose, Urine (Dipstick) Greater than 1000 mg/dL (Negative); Leukocyte Negative Leu/uL (Negative); Nitrite Negative (Negative); Protein, Urine (Dipstick) 300 mg/dL (Neg-Trace); Squamous Epithelial 0-3 HPF (0-3); Urobilinogen Normal mg/dL (Less than 2); WBC/HPF 0-3 HPF (0-3)
[2019-10-29 14:19] LABS: Amphetamine Not Detected (NotDetected); Barbiturates Screen Not Detected (NotDetected); Benzodiazepine Screen Not Detected (NotDetected); Cocaine Metabolite Screen Not Detected (NotDetected); Medtox Control Line Valid? VALID (VALID); Medtox Reader # READER 1; Methadone Not Detected (NotDetected); Methamphetamine Not Detected (NotDetected); Opiate Screen Detected (NotDetected); Oxycodone Screen Not Detected (NotDetected); Phencyclidine (PCP) Not Detected (NotDetected); THC/Cannabinoid Screen Not Detected (NotDetected); Tricyclic Screen Not Detected (NotDetected)
[2019-10-29] MEDS ORDERED: Haloperidol Lactate 5 MG/ML VIAL ONE (14:23)
[2019-10-29 14:44] LABS: Lactic Acid 2.6 mmol/L (0.5-2.2)
--- NOTE | 2019-10-29 14:58 | RAD ---
RADIOGRAPH CHEST 1 VIEW: DATE: 10/29/2019 HISTORY: 59-year-old female with altered mental status. Concern for aspiration FINDINGS: There are no airspace densities, pulmonary edema, pneumothorax, or cardiomegaly. The lateral costophr enic angles are sharp. IMPRESSION: No acute cardiopulmonary findings.
[2019-10-29] MEDS ORDERED: diphenhydrAMINE 50 MG/ML VIAL ONE (15:52)
[2019-10-29] MEDS ORDERED: Acetaminophen 325 MG TAB PO PRN (17:29)
[2019-10-29] MEDS ORDERED: Sodium Chloride 0.9% 1,000 ML IV SCH (17:29)
[2019-10-29] MEDS ORDERED: Ondansetron ODT 4 MG TAB SL PRN (17:29)
[2019-10-29] MEDS ORDERED: Ondansetron PF 4 MG/2 ML Vial IVP PRN (17:29)
[2019-10-29] MEDS ORDERED: Dextrose 50% Abboject 50 ML SYRINGE SLOW IVP PRN (17:45)
[2019-10-29] MEDS ORDERED: Ondansetron ODT 4 MG TAB PO PRN (17:45)
[2019-10-29] MEDS ORDERED: Dextrose 5% in Water 1,000 ML IV PRN (17:45)
[2019-10-29] MEDS: Famotidine/PF 20 mg/2ml Vial SLOW IVP SCH (20:10)
[2019-10-29] MEDS: Lorazepam 2 MG/ML VIAL SLOW IVP PRN (20:10)
[2019-10-29] MEDS: Sodium Chloride 0.9% 1,000 ML IV SCH (20:11)
--- NOTE | 2019-10-29 20:20 | RAD ---
CHEST ONE VIEW: 10/29/19 HISTORY: Central line placement. COMPARISON: Radiograph same day. FINDINGS: There is a right IJ central venous catheter with tip at the mid SVC. No pneumothorax. Remainder of th e findings are unchanged. IMPRESSION: Uncomplicated placement of the right IJ central venous catheter with tip at the mid SVC. POS: HOME
--- NOTE | 2019-10-29 21:00 | HP ---
PRIMARY CARE PROVIDER: Valdemar Adames MD CHIEF COMPLAINT: Confusion, general weakness. HISTORY OF PRESENT ILLNESS: This is a 59-year-old female, who presents to [facility] in transfer by EMS personnel after they were alerted to the patient's residence due to altered mental status, urinating on herself, and hypertensive with an initial blood glucose of 510. The history is obtained after review of the electronic medical record in the emergency room, as well as discussions with the emergency room attending physician as patient is unable to provide any coherent history due to altered mental status, due to encephalopathy and apparent sepsis. Review of the electronic medical record shows five prior admissions in 2019 for a variety of presentations including acute kidney injury, Clostridium difficile colitis, altered mental status, and CVA. The patient presented agitated with hyperglycemia, initially managed in the emergency room with the initiation of IV fluids x2 L. The patient also received IV cefepime and vancomycin in addition to Ativan, Haldol, Benadryl, and initiation of insulin infusion at 6 units/hour. The patient also was placed in wrist restraints due to agitation and pulling out IV lines and cardiac monitors. Workup in the emergency room did show evidence of sepsis with a lactic acidosis of 4.6 and glucose of 642. Venous blood gas showed a pH of 7.48, and elevated white blood cell count of 17,000. The patient was transferred to the intermediate care unit for further evaluation and IV fluids. PAST MEDICAL HISTORY: 1. Diabetes mellitus type 2 insulin requiring, poorly controlled. 2. Chronic kidney disease, stage 3. 3. Clostridium difficile colitis, completed oral vancomycin therapy. 4. Hypothyroidism. 5. Multiple hospitalizations, 2019. 6. History of constipation with rectal impaction. 7. Tobacco abuse. 8. Hypertension. 9. Coronary artery disease, status post cardiac stent placement x2. 10. History of myocardial infarction. 11. Hyperlipidemia. 12. Chronic obstructive pulmonary disease, on intermittent oxygen supplementation. 13. Congestive heart failure with unknown ejection fraction. 14. History of cerebrovascular accident. 15. Deconditioning with use of a rolling walker. 16. Gastroesophageal reflux disease. 17. Osteoarthritis. PAST SURGICAL HISTORY: 1. Status post bilateral tubal ligation. 2. Status post cardiac catheterization with stent placement x2. 3. Status post carpal tunnel release. 4. Status post removal of lower extremity tumor. CURRENT MEDICATIONS: 1. Florastor 250 mg p.o. daily. 2. Lasix 40 mg p.o. daily. 3. Levothyroxine 112 mcg p.o. daily. 4. Aspirin 81 mg p.o. daily. 5. Seroquel 100 mg p.o. at bedtime. 6. Pravachol 80 mg p.o. at bedtime. 7. Omeprazole 40 mg p.o. daily. 8. Nitrostat 0.4 mg sublingually p.r.n. chest pain. 9. Singulair 10 mg p.o. b.i.d. 10. Lopressor 25 mg p.o. b.i.d. 11. Lorazepam 1 mg p.o. at bedtime. 12. Albuterol and Atrovent nebulized solution q.4 hours p.r.n. 13. Atrovent inhaler 2 puffs inhaled q.4 hours p.r.n. 14. Lantus insulin 72 units subcutaneously b.i.d. 15. Apresoline 50 mg p.o. b.i.d. 16. Gabapentin 1600 mg p.o. b.i.d. ALLERGIES: SULFA AND IBUPROFEN. FAMILY HISTORY: Positive for diabetes mellitus and hypertension. SOCIAL HISTORY: Resides in [place], [place], living independently. Ambulates with a rolling walker. [facility] health services with [facility] [place] and [facility]. Smokes up to a pack of cigarettes daily. No alcohol or illicit drug use. REVIEW OF SYSTEMS: Unobtainable with altered mental status and encephalopathy. PHYSICAL EXAMINATION: VITAL SIGNS: On admission; blood pressure 222/108, pulse 86, respiratory rate 18, temperature 98.2 degrees Fahrenheit, and O2 saturation 96% on room air. GENERAL APPEARANCE: This is a 59-year-old female, agitated, lethargic, in wrist restraints. HEENT: Pupils are equal, round, reactive to light and accommodation. Extraocular muscles are intact. No scleral icterus. No conjunctival injection. Nares patent. OP is clear. Teeth in poor repair. Oral mucosa dry. NECK: Supple. No cervical adenopathy. No thyromegaly. No carotid bruits. No JVD appreciated. Cervical spine with full active and passive range of motion. No meningeal signs noted. CHEST: Lungs are clear to auscultation bilaterally. CARDIOVASCULAR EXAM: S1, S2 without noted murmur, rub, or gallop. ABDOMEN: Obese with mild tenderness to palpation in the mid epigastric region. No rebound or guarding noted. No palpable mass. EXTREMITIES: Warm and dry with poor skin turgor. No asymmetric edema noted. Pulses diminished bilaterally at the dorsalis pedis, posterior tibial, and popliteal arteries bilaterally. Capillary refill less than 2 seconds. NEUROLOGIC: Lethargic, agitated, alert and oriented to person. Moves extremities randomly. Does not follow commands. PERTINENT LABORATORY AND X-RAY FINDINGS: Sodium 135, potassium 4.1, chloride 99, CO2 of 22, BUN 51, creatinine 1.62, estimated GFR 32, glucose 642. Lactic acid level ranged between 2.6 to 4.6, calcium 9.2. LFTs within normal limits. Ammonia level 19. TSH 0.46. Albumin 3.5. CBC showed a white blood cell count of 17.2, hemoglobin 12.8, hematocrit 37.2, platelet count 311 with 86% neutrophils. Venous blood gas dated 10/29/2019, showed a pH 7.48, CO2 of 29.1, PO2 of 58, bicarbonate 21.5. Urinalysis positive for protein and glucose, 2+ blood with 11-20 rbc's per high-power field and 3+ bacteria. Urine drug screen dated 10/29/2019, positive for opiates. Beta-hydroxybutyrate level 0.14. Plasma alcohol level less than 10. CT of the brain without contrast dated 10/29/2019, showed no acute intracranial process. Portable chest x-ray dated 10/29/2019, showed no acute cardiopulmonary process. EKG dated 10/29/2019 by my interpretation shows sinus mechanism with heart rates in the 90s. Baseline artifact noted. Right bundle-branch block pattern noted. No acute ST-T wave changes appreciated. Otherwise poor quality EKG. ASSESSMENT AND PLAN: 1. Sepsis with acute metabolic encephalopathy and acute kidney injury. The patient will be admitted to the intermediate care unit. Exact source of sepsis is unclear with potential urinary source. Continue cefepime 2 g IV q.12 hours with additional vancomycin 1 g IV q.12 hours. Urine and blood cultures pending. Continue IV fluids with normal saline at 100 mL/h. Serial lactic acid monitoring. Continue general sepsis protocol. 2. Acute kidney injury on chronic kidney disease stage 3. Continue IV fluids as outlined previously. Avoid nephrotoxic agents and limit contrast exposure. Repeat creatinine in the a.m. 3. Acute toxic metabolic encephalopathy. Suspect multifactorial process in conjunction with sepsis. Limit psychotropic and sedating medications. Ativan 1 mg IV q.4 hours p.r.n. agitation and combativeness. 4. Hyperglycemia. No evidence to suggest diabetic ketoacidosis. We will continue insulin infusion due to patient's altered mentation and inability to cooperate with medication regimen. Continue IV fluids and serial Accu-Cheks. Confirm home insulin regimen. 5. Hypertensive urgency. We will continue to monitor serial blood pressures. Hydralazine 10 mg IV q.4 hours p.r.n. systolic greater than 170. 6. Prophylaxis. SCDs while in bed. Pepcid 20 mg IV b.i.d. Case management consult for disposition planning. PT evaluation for functional assessment. 7. Code status is full. Surrogate medical decision maker not identified. The patient did not wish to name a surrogate. Job ID: [id number]
[2019-10-29] MEDS: hydrALAZINE 20 MG/ML VIAL SLOW IVP PRN (21:07)
[2019-10-29 21:53] VITALS: BMI 32.5
[2019-10-29] MEDS: HumaLOG 300 UNITS/3 ML VIAL SC PRN (22:57)
[2019-10-30] MEDS: hydrALAZINE 20 MG/ML VIAL SLOW IVP PRN ×2 (00:47→11:42)
[2019-10-30] MEDS: HumaLOG 300 UNITS/3 ML VIAL SC PRN ×6 (00:48→20:46)
[2019-10-30] MEDS ORDERED: Cefepime 2 GM in Sodium Chloride 0.9% 100 ML IVPB SCH ×2 (01:00)
[2019-10-30] MEDS: Lorazepam 2 MG/ML VIAL SLOW IVP PRN (01:41)
[2019-10-30] MEDS ORDERED: Vancomycin HCl 1.25 GM in Sodium Chloride 0.9% 250 ML 250 ML IVPB SCH (02:00)
--- NOTE | 2019-10-30 02:23 | OP ---
DATE OF PROCEDURE: 10/29/2019 Indication for internal jugular central line is IV access. Emergency consent was implied due to unable to consent the patient due to altered mental status and unable to reach family. TAP PULLER: Wilfredo Tirado DO. CONSENTS: As discussed above. Procedure performed emergently and the permission was applied, because of the emergent nature and unable to reach family. PROCEDURE SUMMARY: Started with handwashing, procedure took place. Time-out was performed. My hands were washed immediately prior to the procedure. I wore a surgical cap, mask, protective eye wear, gown and sterile gloves throughout the procedure. The patient was placed in Trendelenburg. Right chest region was prepped with chlorhexidine scrub and draped in a sterile fashion using full drape and sterile probe cover employed. The medial and lateral heads of the sternocleidomastoid muscle were identified as was the carotid pulse. The internal jugular vein was identified using ultrasound. Anesthesia was achieved over the vein using 1% lidocaine and real-time ultrasound guidance. An introducer needle was inserted into the internal jugular vein under direct ultrasound visualization. Venous blood was withdrawn. The syringe was removed and a guidewire was advanced into the introducer needle. The guidewire was visualized in an internal jugular vein using ultrasound. A small incision was made in the surface with a scalpel. An introducer needle was exchanged for dilator over the wire guidewire. After appropriate dilation was obtained, the dilator was exchanged over the wire for a three-lumen central venous catheter. The wire was removed and the catheter was sutured in place at 15 cm. Sterile dressing was placed over the catheter at the insertion site. The patient tolerated the procedure without any hemodynamic compromise. At the time of procedure completion, all ports were aspirated and flushed properly. Postprocedure chest x-ray is pending at this time. Estimated blood loss is less than 5 mL. Ultrasound shows lung sliding and no signs of pneumothorax. Job ID: [id number] Attending addendum: I was present for the entire procedure. [facility] HOSPITALEsther
[2019-10-30 04:40] LABS: Band 1 % (5-11); Eosinophils 1 % (0-10); Hemoglobin 12.6 g/dL (12.0-16.0); Lymphocytes 13 % (21-51); MDiff Complete? YES; Mean Corpuscular HGB CONC 33.9 g/dL (32.0-36.0); Mean Corpuscular Hemoglobin 30.5 pg (27.0-31.0); Mean Corpuscular Volume 90.1 fL (78.0-98.0); Mean Platelet Volume 7.7 fL (7.4-10.4); Monocytes 6 % (0-10); Neutrophil 79 % (42-75); Platelet Count 284 thou/uL (130-400); RBC Distribution Width 11.4 % (11.5-14.5); Red Blood Cell (RBC) Count 4.11 mill/uL (4.20-5.40)
[2019-10-30 04:44] LABS: ALT (SGPT) 8 U/L (8-55); AST (SGOT) 7 U/L (5-34); Albumin 3.1 g/dL (3.5-5.0); Alkaline Phosphatase 67 U/L (40-110); Anion Gap 12 mmol/L (10-20); BUN (Urea Nitrogen) 39 mg/dL (9.8-20.1); Bilirubin, Total 0.9 mg/dL (0.2-1.2); Calc. Creatinine Clearance 75 mL/min (70-130); Calcium 8.3 mg/dL (7.8-10.44); Carbon Dioxide 24 mmol/L (22-29); Chloride 109 mmol/L (98-107); Estimated GFR-MDRD 50; Globulin 3.1 g/dL (2.4-3.5); Glucose 302 mg/dL (70-105); Potassium 3.5 mmol/L (3.5-5.1); Protein, Total 6.2 g/dL (6.0-8.3); Sodium 141 mmol/L (136-145)
[2019-10-30] MEDS: Levothyroxine Sodium 112 MCG TAB PO SCH (07:39)
[2019-10-30] MEDS: Sodium Chloride 0.9% 1,000 ML IV SCH (08:15)
[2019-10-30] MEDS: Famotidine/PF 20 mg/2ml Vial SLOW IVP SCH ×3 (08:16→20:51)
--- NOTE | 2019-10-30 12:40 | PDOC.HOSPP ---
- Subjective Encounter Date: 10/30/19 Encounter Time: 12:35 Subjective: f/u for AMS, sepsis of unclear source with REDD. Nursing reports pt more alert and wrist restraints were removed and pt pulled out her IJ CVC. - Objective Vital Signs & Weight: Vital Signs (12 hours) Temp Pulse BP Pulse Ox 10/30/19 11:42 83 191/94 H 10/30/19 11:03 98.1 F 10/30/19 08:00 100 10/30/19 07:03 98.0 F 10/30/19 05:00 98.6 F 10/30/19 01:00 98.7 F 10/30/19 00:47 83 189/89 H Weight Weight 195 lb 9.6 oz Most Recent Monitor Data Heart Rate from ECG 79 NIBP 155/60 NIBP BP-Mean 91 Respiration from ECG 23 SpO2 100 I&O: 10/29/19 10/30/19 10/31/19 06:59 06:59 06:59 Intake Total 996 Output Total 300 Balance 696 Result Diagrams: 10/30/19 03:50 10/30/19 03:50 Additional Labs: Accuchecks 10/30/19 10/30/19 10/30/19 12:12 10:05 08:15 POC Glucose 116 H 159 H 292 H 10/30/19 10/30/19 10/30/19 06:13 04:08 00:49 POC Glucose 317 H 293 H 321 H 10/29/19 10/29/19 10/29/19 22:23 19:30 16:52 POC Glucose 315 H 411 H 442 H 10/29/19 10/29/19 15:09 11:04 POC Glucose 393 H Greater than 550 H* Microbiology 10/04/17 16:55 Urine valdez catheter Urine Culture - Final NO GROWTH AT 36 HOURS 10/29/19 13:42 Urine Straight Catheter Urine Culture - Preliminary Presumptive Enterococcus sp. 10/29/19 11:37 Venous blood - Right Hand Blood Culture - Preliminary Specimen has been received and culture in progress. No Growth to date. 10/29/19 11:37 Venous blood - Left Arm Blood Culture - Preliminary Specimen has been received and culture in progress. No Growth to date. 10/04/17 19:40 Venous blood - Left Arm Blood Culture - Preliminary Specimen has been received and culture in progress. No Growth to date. 10/04/17 19:40 Venous blood - Left Arm Blood Culture - Preliminary NO GROWTH AT 48 HOURS 10/04/17 18:53 Venous blood - Left Arm Blood Culture - Preliminary Specimen has been received and culture in progress. No Growth to date. 10/04/17 18:53 Venous blood - Left Arm Blood Culture - Preliminary NO GROWTH AT 48 HOURS 10/04/17 16:55 Urine valdez catheter Urine Culture - Preliminary NO GROWTH AT 12 HOURS Laboratory Tests 10/04/17 10/04/17 10/05/17 18:53 18:53 05:01 WBC Neutrophils % Neutrophils % (Manual) Potassium 3.7 Creatinine 1.05 Estimated GFR (MDRD) 54 Phosphorus 4.1 Magnesium 2.2 B-Natriuretic Peptide 76.4 Vitamin B12 Folate Free T4 TSH 3rd Generation Urine Opiates Screen Ur Tricyclics Screen Plasma Alcohol 06/18/18 06/29/18 06/29/18 03:25 21:27 21:27 WBC Neutrophils % Neutrophils % (Manual) Potassium 3.4 L Creatinine 1.54 H 1.58 H Estimated GFR (MDRD) Phosphorus Magnesium B-Natriuretic Peptide Vitamin B12 Folate Free T4 TSH 3rd Generation 15.4796 H Urine Opiates Screen Ur Tricyclics Screen Plasma Alcohol Less than 10 06/29/18 06/29/18 07/01/18 21:27 23:15 04:18 WBC Neutrophils % Neutrophils % (Manual) Potassium Creatinine Estimated GFR (MDRD) Phosphorus Magnesium B-Natriuretic Peptide Vitamin B12 350 Folate 5.90 L Free T4 0.75 TSH 3rd Generation Urine Opiates Screen Detected H Ur Tricyclics Screen Detected H Plasma Alcohol 10/29/19 10/29/19 10/30/19 11:17 11:17 03:50 WBC 17.2 H Neutrophils % 85.5 H Neutrophils % (Manual) 79 H Potassium Creatinine 1.62 H Estimated GFR (MDRD) Phosphorus Magnesium B-Natriuretic Peptide Vitamin B12 Folate Free T4 TSH 3rd Generation Urine Opiates Screen Ur Tricyclics Screen Plasma Alcohol EKG Reviewed by me: Yes (Tele - SR with PAC's) Hospitalist ROS - Medication Medications: Active Medications Generic Name Dose Route Start Last Admin Trade Name Freq PRN Reason Stop Dose Admin Famotidine 20 mg 10/29/19 21:00 10/30/19 08:16 Pepcid SLOW IVP 20 mg Q12HR VALE Administration Hydralazine HCl 10 mg 05/12/20 17:45 10/30/19 11:42 Apresoline SLOW IVP 10 mg Q4H PRN Administration SBP > 180 and HR < 70 Cefepime HCl 2 gm/ Sodium 100 mls @ 200 mls/hr 10/30/19 01:00 10/30/19 00:47 Chloride IVPB 100 mls 0100,1300 VALE Administration Sodium Chloride 1,000 mls @ 100 mls/hr 10/29/19 18:15 10/30/19 08:15 Normal Saline 0.9% IV 1,000 mls .Q10H VALE Administration Insulin Human Lispro 0 units 10/29/19 17:45 10/30/19 08:59 Humalog SC 9 unit .AGGRESSIVE SLIDING PRN Administration Aggressive Correctional Scale Insulin Human Lispro 0 units 10/29/19 17:45 10/30/19 00:48 Humalog SC 4 unit .BEDTIME SLIDING SC PRN Administration Bedtime Correctional Scale Levothyroxine Sodium 112 mcg 10/30/19 06:00 10/30/19 07:39 Synthroid PO Not Given 0600 [facility] Lorazepam 1 mg 10/29/19 17:46 10/30/19 01:41 Ativan SLOW IVP 1 mg Q4H PRN Administration Anxiety/Agitation - Exam General Appearance: NAD, awake alert General - other findings: responsive and alert Eye: PERRL, anicteric sclera ENT: normocephalic atraumatic, no oropharyngeal lesions Neck: supple, symmetric, no JVD, no thyromegaly Heart: RRR, no murmur, no gallops, no rubs, normal peripheral pulses Heart - other findings: S1, S2 Respiratory: CTAB, no wheezes, no rales, no ronchi, normal chest expansion Gastrointestinal: soft, non-tender, non-distended, normal bowel sounds Extremities: no cyanosis, no clubbing, no edema Skin: normal turgor Neurological: cranial nerve grossly intact, no new deficit Musculoskeletal: normal tone, generalized weakness Psychiatric: A&O x 3, flat affect Hosp A/P (1) Sepsis Code(s): A41.9 - SEPSIS, UNSPECIFIED ORGANISM Status: Acute Plan: Suspected UTI source, continue current IV Cefepime/Vanc another 24h then de- escalate (2) Acute metabolic encephalopathy Code(s): G93.41 - METABOLIC ENCEPHALOPATHY Status: Acute Plan: Improved, likely multifactorial process, supportive mgmt (3) Acute renal failure superimposed on stage 3 chronic kidney disease Code(s): N17.9 - ACUTE KIDNEY FAILURE, UNSPECIFIED; N18.3 - CHRONIC KIDNEY DISEASE, STAGE 3 (MODERATE) Status: Acute Plan: Improved, continue to encourage increased po free-H2O intake as IV was lost after pt pulled out CVC (4) UTI (urinary tract infection) Status: Acute Plan: Suspected with Entercoccus spp, continue IV abx until final cx available (5) DM type 2 (diabetes mellitus, type 2) Status: Chronic Qualifiers: Diabetes mellitus [facility] insulin use: with [facility] use Diabetes mellitus complication status: with neurologic complications Diabetes mellitus complication detail: with polyneuropathy Qualified Code(s): E11.42 - Type 2 diabetes mellitus with diabetic polyneuropathy; Z79.4 - senior living (current) use of insulin; Z79.4 - senior living (current) use of insulin; Z79.4 - senior living ( current) use of insulin; 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
[2019-10-30] MEDS ORDERED: Vancomycin HCl 1.75 GM in Sodium Chloride 0.9% 500 ML IVPB SCH (14:00)
[2019-10-31 03:45] LABS: Anion Gap 13 mmol/L (10-20); BUN (Urea Nitrogen) 27 mg/dL (9.8-20.1); Calc. Creatinine Clearance 96 mL/min (70-130); Calcium 7.8 mg/dL (7.8-10.44); Carbon Dioxide 20 mmol/L (22-29); Chloride 108 mmol/L (98-107); Estimated GFR-MDRD 66; Glucose 191 mg/dL (70-105); Potassium 3.6 mmol/L (3.5-5.1); Sodium 137 mmol/L (136-145)
[2019-10-31 03:46] LABS: Hemoglobin A1c 9.5 % (4.0-6.0)
[2019-10-31 04:26] LABS: Band 10 % (5-11); Eosinophils 4 % (0-10); Hemoglobin 11.9 g/dL (12.0-16.0); Lymphocytes 17 % (21-51); MDiff Complete? YES; Mean Corpuscular HGB CONC 34.6 g/dL (32.0-36.0); Mean Corpuscular Hemoglobin 31.2 pg (27.0-31.0); Mean Corpuscular Volume 90.4 fL (78.0-98.0); Mean Platelet Volume 7.8 fL (7.4-10.4); Neutrophil 69 % (42-75); Platelet Count 235 thou/uL (130-400); RBC Distribution Width 11.2 % (11.5-14.5); Red Blood Cell (RBC) Count 3.81 mill/uL (4.20-5.40); White Blood Cell (WBC) Count 10.1 thou/uL (4.8-10.8)
[2019-10-31] MEDS: Levothyroxine Sodium 112 MCG TAB PO SCH ×2 (05:41→05:48)
[2019-10-31] MEDS: HumaLOG 300 UNITS/3 ML VIAL SC PRN ×2 (05:41→19:58)
[2019-10-31] MEDS: Famotidine/PF 20 mg/2ml Vial SLOW IVP SCH ×2 (08:24→19:55)
[2019-10-31] MEDS: Lorazepam 2 MG/ML VIAL SLOW IVP PRN ×2 (13:56→21:32)
[2019-10-31] MEDS: Ondansetron PF 4 MG/2 ML Vial IVP PRN ×2 (13:56→19:51)
--- NOTE | 2019-10-31 14:27 | PDOC.HOSPP ---
- Subjective Encounter Date: 10/31/19 Encounter Time: 14:25 Subjective: f/u for AMS and suspected sepsis with inner thigh abscess. Lost IV site last 24h but nursing able to place peripheral IV today. Received Levaquin po. - Objective Vital Signs & Weight: Vital Signs (12 hours) Temp Pulse Ox 10/31/19 11:23 97.5 F L 10/31/19 08:00 98 10/31/19 07:44 100 10/31/19 07:09 97.8 F 10/31/19 03:44 98.4 F Weight Weight 195 lb 9.6 oz Most Recent Monitor Data Heart Rate from ECG 83 NIBP 196/94 NIBP BP-Mean 128 Respiration from ECG 24 SpO2 97 I&O: 10/30/19 10/31/19 11/01/19 06:59 06:59 06:59 Intake Total 996 2366 Output Total 300 1250 Balance 696 1116 Result Diagrams: 10/31/19 03:12 10/31/19 03:12 Additional Labs: Accuchecks 10/31/19 10/31/19 10/30/19 10:41 05:43 20:26 POC Glucose 214 H 241 H 203 H 10/30/19 10/30/19 18:15 16:31 POC Glucose 291 H 231 H Microbiology 10/29/19 13:42 Urine Straight Catheter Urine Culture - Final Enterococcus faecium 10/04/17 16:55 Urine valdez catheter Urine Culture - Final NO GROWTH AT 36 HOURS 10/29/19 13:42 Urine Straight Catheter Urine Culture - Preliminary Presumptive Enterococcus sp. 10/29/19 11:37 Venous blood - Right Hand Blood Culture - Preliminary Specimen has been received and culture in progress. No Growth to date. 10/29/19 11:37 Venous blood - Right Hand Blood Culture - Preliminary NO GROWTH AT 48 HOURS 10/29/19 11:37 Venous blood - Left Arm Blood Culture - Preliminary Specimen has been received and culture in progress. No Growth to date. 10/29/19 11:37 Venous blood - Left Arm Blood Culture - Preliminary NO GROWTH AT 48 HOURS 10/04/17 19:40 Venous blood - Left Arm Blood Culture - Preliminary Specimen has been received and culture in progress. No Growth to date. 10/04/17 19:40 Venous blood - Left Arm Blood Culture - Preliminary NO GROWTH AT 48 HOURS 10/04/17 18:53 Venous blood - Left Arm Blood Culture - Preliminary Specimen has been received and culture in progress. No Growth to date. 10/04/17 18:53 Venous blood - Left Arm Blood Culture - Preliminary NO GROWTH AT 48 HOURS 10/04/17 16:55 Urine valdez catheter Urine Culture - Preliminary NO GROWTH AT 12 HOURS Laboratory Tests 10/04/17 10/04/17 10/05/17 18:53 18:53 05:01 WBC Neutrophils % Neutrophils % (Manual) Potassium 3.7 Creatinine 1.05 Estimated GFR (MDRD) 54 Phosphorus 4.1 Magnesium 2.2 B-Natriuretic Peptide 76.4 Vitamin B12 Folate Free T4 TSH 3rd Generation Urine Opiates Screen Ur Tricyclics Screen Plasma Alcohol 06/18/18 06/29/18 06/29/18 03:25 21:27 21:27 WBC Neutrophils % Neutrophils % (Manual) Potassium 3.4 L Creatinine 1.54 H 1.58 H Estimated GFR (MDRD) Phosphorus Magnesium B-Natriuretic Peptide Vitamin B12 Folate Free T4 TSH 3rd Generation 15.4796 H Urine Opiates Screen Ur Tricyclics Screen Plasma Alcohol Less than 10 06/29/18 06/29/18 07/01/18 21:27 23:15 04:18 WBC Neutrophils % Neutrophils % (Manual) Potassium Creatinine Estimated GFR (MDRD) Phosphorus Magnesium B-Natriuretic Peptide Vitamin B12 350 Folate 5.90 L Free T4 0.75 TSH 3rd Generation Urine Opiates Screen Detected H Ur Tricyclics Screen Detected H Plasma Alcohol 10/29/19 10/29/19 10/30/19 11:17 11:17 03:50 WBC 17.2 H Neutrophils % 85.5 H Neutrophils % (Manual) 79 H Potassium Creatinine 1.62 H Estimated GFR (MDRD) Phosphorus Magnesium B-Natriuretic Peptide Vitamin B12 Folate Free T4 TSH 3rd Generation Urine Opiates Screen Ur Tricyclics Screen Plasma Alcohol EKG Reviewed by me: Yes (Tele - SR) Hospitalist ROS - Medication Medications: Active Medications Generic Name Dose Route Start Last Admin Trade Name Freq PRN Reason Stop Dose Admin Famotidine 20 mg 10/29/19 21:00 10/31/19 08:24 Pepcid SLOW IVP Not Given Q12HR [facility] Hydralazine HCl 10 mg 10/29/19 17:45 10/30/19 11:42 Apresoline SLOW IVP 10 mg Q4H PRN Administration SBP > 180 and HR < 70 Insulin Human Lispro 0 units 10/29/19 17:45 10/31/19 05:41 Humalog SC 6 unit .AGGRESSIVE SLIDING PRN Administration Aggressive Correctional Scale Insulin Human Lispro 0 units 10/29/19 17:45 10/30/19 20:46 Humalog SC 2 unit .BEDTIME SLIDING SC PRN Administration Bedtime Correctional Scale Levofloxacin 500 mg 10/31/19 06:00 10/31/19 05:48 Levaquin PO Not Given 0600 [facility] Levothyroxine Sodium 112 mcg 10/30/19 06:00 10/31/19 05:48 Synthroid PO Not Given 0600 [facility] Lorazepam 1 mg 10/29/19 17:46 10/31/19 13:56 Ativan SLOW IVP 1 mg Q4H PRN Administration Anxiety/Agitation Ondansetron HCl 4 mg 10/29/19 17:45 10/31/19 11:31 Zofran Odt PO 4 mg Q6H PRN Administration Nausea/Vomiting Ondansetron HCl 4 mg 10/29/19 17:45 10/31/19 13:56 Zofran IVP 4 mg Q6H PRN Administration Nausea/Vomiting - Exam General Appearance: NAD General - other findings: somnolent Eye: PERRL, anicteric sclera ENT: normocephalic atraumatic Neck: supple, symmetric, no JVD, no thyromegaly Heart: RRR, no murmur, no gallops, no rubs, normal peripheral pulses Heart - other findings: S1, S2 Respiratory: CTAB, no wheezes, no rales, no ronchi, normal chest expansion Gastrointestinal: soft, non-tender, non-distended, normal bowel sounds Extremities: no cyanosis Skin: normal turgor Neurological: cranial nerve grossly intact, no new deficit Musculoskeletal: normal tone, generalized weakness Psychiatric: oriented to person, oriented to place, somnolent Hosp A/P (1) Sepsis Code(s): A41.9 - SEPSIS, UNSPECIFIED ORGANISM Status: Acute Plan: Likely due to LE abscess, start Vancomycin/Rocephin today, d/c Levaquin (2) Acute metabolic encephalopathy Code(s): G93.41 - METABOLIC ENCEPHALOPATHY Status: Acute Plan: Improved slightly, continue supportive mgmt, Ativan for agitation (3) Acute renal failure superimposed on stage 3 chronic kidney disease Code(s): N17.9 - ACUTE KIDNEY FAILURE, UNSPECIFIED; N18.3 - CHRONIC KIDNEY DISEASE, STAGE 3 (MODERATE) Status: Acute Plan: Improving with IVF's, avoid nephrotoxic meds and limit contrast (4) UTI (urinary tract infection) Status: Acute Plan: Suspected initially but UCx showing Enterococcus in low population likely contaminant/chronic carrier (5) DM type 2 (diabetes mellitus, type 2) Status: Chronic Qualifiers: Diabetes mellitus long-term insulin use: with long term care phlebotomist use Diabetes mellitus complication status: with neurologic complications Diabetes mellitus complication detail: with polyneuropathy Qualified Code(s): E11.42 - Type 2 diabetes mellitus with diabetic polyneuropathy; Z79.4 - [facility] (current) use of insulin; Z79.4 - oil heaterman (current) use of insulin; Z79.4 - [facility] ( current) use of insulin; Z79.4 - oil heaterman (current) use of insulin Plan: A1C - 9.5, ISS, serial accuchecks, ADA (6) Hypothyroidism Code(s): E03.9 - HYPOTHYROIDISM, UNSPECIFIED Status: Chronic - Plan continue antibiotics, PT/OT, social professionals, out of bed/ambulate, DVT proph w/ SCDs Stable currently Continue to encourage increased free-H2O intake D/C Levaquin Start Vancomycin/Rocephin today WCT consult Consider surgical evaluation for potential I&D Start ADA diet CM for dispo planning AM lab: BMP, CBC
[2019-10-31] MEDS ORDERED: Vancomycin HCl 1 GM in Sodium Chloride 0.9% 250 ML 250 ML IVPB SCH (15:00)
[2019-10-31] MEDS ORDERED: Vancomycin 1 GM in Premix Bag 1 BAG IVPB SCH (16:00)
[2019-10-31] MEDS: cefTRIAXone\\ROCEPHIN 2 GM in Sodium Chloride 0.9% 100 ML IVPB SCH (16:17)
[2019-10-31] MEDS: Vancomycin 1 GM in Premix Bag 1 BAG IVPB SCH (19:54)
[2019-10-31] MEDS: hydrALAZINE 20 MG/ML VIAL SLOW IVP PRN (20:39)
[2019-11-01 04:11] LABS: Band 2 % (5-11); Eosinophils 3 % (0-10); Hemoglobin 12.5 g/dL (12.0-16.0); Lymphocytes 9 % (21-51); MDiff Complete? YES; Mean Corpuscular HGB CONC 35.5 g/dL (32.0-36.0); Mean Corpuscular Hemoglobin 31.8 pg (27.0-31.0); Mean Corpuscular Volume 89.6 fL (78.0-98.0); Monocytes 1 % (0-10); Neutrophil 85 % (42-75); Platelet Count 235 thou/uL (130-400); Platelet Morphology Comment Appears Adequate; RBC Distribution Width 11.1 % (11.5-14.5); RBC Morphology Normal; Red Blood Cell (RBC) Count 3.93 mill/uL (4.20-5.40); White Blood Cell (WBC) Count 10.4 thou/uL (4.8-10.8)
[2019-11-01 04:15] LABS: Anion Gap 13 mmol/L (10-20); BUN (Urea Nitrogen) 21 mg/dL (9.8-20.1); Calc. Creatinine Clearance 92 mL/min (70-130); Calcium 7.9 mg/dL (7.8-10.44); Carbon Dioxide 20 mmol/L (22-29); Chloride 103 mmol/L (98-107); Estimated GFR-MDRD 63; Glucose 243 mg/dL (70-105); Potassium 3.4 mmol/L (3.5-5.1); Sodium 133 mmol/L (136-145)
[2019-11-01] MEDS: HumaLOG 300 UNITS/3 ML VIAL SC PRN ×3 (06:27→20:17)
[2019-11-01] MEDS: Levothyroxine Sodium 112 MCG TAB PO SCH ×2 (06:27→06:40)
[2019-11-01] MEDS: Famotidine/PF 20 mg/2ml Vial SLOW IVP SCH ×2 (08:13→20:13)
[2019-11-01] MEDS: Vancomycin 1 GM in Premix Bag 1 BAG IVPB SCH ×2 (08:13→20:15)
[2019-11-01] MEDS: Ondansetron PF 4 MG/2 ML Vial IVP PRN ×2 (14:10→20:11)
[2019-11-01] MEDS: cefTRIAXone\\ROCEPHIN 2 GM in Sodium Chloride 0.9% 100 ML IVPB SCH (14:11)
--- NOTE | 2019-11-01 17:35 | PDOC.HOSPP ---
- Subjective Encounter Date: 11/01/19 Encounter Time: 17:25 Subjective: f/u for sepsis likely due to thigh abscess and UTI. Receiving Rocephin/ Vancomycin. Feels better overall. Refused PT mainly but stood at bedside. - Objective Vital Signs & Weight: Vital Signs (12 hours) Temp Pulse Ox 11/01/19 15:18 97.2 F L 11/01/19 11:18 97.4 F L 11/01/19 07:34 94 L 11/01/19 07:12 98.0 F Weight Admit Weight 195 lb 9.6 oz Weight 195 lb 9.6 oz Most Recent Monitor Data Heart Rate from ECG 86 NIBP 180/99 NIBP BP-Mean 126 Respiration from ECG 18 SpO2 97 I&O: 10/31/19 11/01/19 11/02/19 06:59 06:59 06:59 Intake Total 2366 260 Output Total 1250 400 Balance 1116 -140 Result Diagrams: 11/01/19 03:09 11/01/19 03:09 Additional Labs: Accuchecks 11/01/19 11/01/19 10/31/19 17:02 06:30 20:02 POC Glucose 262 H 252 H 319 H Microbiology 10/29/19 13:42 Urine Straight Catheter Urine Culture - Final Enterococcus faecium 10/04/17 16:55 Urine valdez catheter Urine Culture - Final NO GROWTH AT 36 HOURS 10/29/19 13:42 Urine Straight Catheter Urine Culture - Preliminary Presumptive Enterococcus sp. 10/29/19 11:37 Venous blood - Right Hand Blood Culture - Preliminary Specimen has been received and culture in progress. No Growth to date. 10/29/19 11:37 Venous blood - Right Hand Blood Culture - Preliminary NO GROWTH AT 48 HOURS 10/29/19 11:37 Venous blood - Left Arm Blood Culture - Preliminary Specimen has been received and culture in progress. No Growth to date. 10/29/19 11:37 Venous blood - Left Arm Blood Culture - Preliminary NO GROWTH AT 48 HOURS 10/04/17 19:40 Venous blood - Left Arm Blood Culture - Preliminary Specimen has been received and culture in progress. No Growth to date. 10/04/17 19:40 Venous blood - Left Arm Blood Culture - Preliminary NO GROWTH AT 48 HOURS 10/04/17 18:53 Venous blood - Left Arm Blood Culture - Preliminary Specimen has been received and culture in progress. No Growth to date. 10/04/17 18:53 Venous blood - Left Arm Blood Culture - Preliminary NO GROWTH AT 48 HOURS 10/04/17 16:55 Urine valdez catheter Urine Culture - Preliminary NO GROWTH AT 12 HOURS Laboratory Tests 10/04/17 10/04/17 10/05/17 18:53 18:53 05:01 WBC Neutrophils % Neutrophils % (Manual) Potassium 3.7 Creatinine 1.05 Estimated GFR (MDRD) 54 Hemoglobin A1c Phosphorus 4.1 Magnesium 2.2 B-Natriuretic Peptide 76.4 Vitamin B12 Folate Free T4 TSH 3rd Generation Urine Opiates Screen Ur Tricyclics Screen Plasma Alcohol 06/18/18 06/29/18 06/29/18 03:25 21:27 21:27 WBC Neutrophils % Neutrophils % (Manual) Potassium 3.4 L Creatinine 1.54 H 1.58 H Estimated GFR (MDRD) Hemoglobin A1c Phosphorus Magnesium B-Natriuretic Peptide Vitamin B12 Folate Free T4 TSH 3rd Generation 15.4796 H Urine Opiates Screen Ur Tricyclics Screen Plasma Alcohol Less than 10 06/29/18 06/29/18 07/01/18 21:27 23:15 04:18 WBC Neutrophils % Neutrophils % (Manual) Potassium Creatinine Estimated GFR (MDRD) Hemoglobin A1c Phosphorus Magnesium B-Natriuretic Peptide Vitamin B12 350 Folate 5.90 L Free T4 0.75 TSH 3rd Generation Urine Opiates Screen Detected H Ur Tricyclics Screen Detected H Plasma Alcohol 10/29/19 10/29/19 10/30/19 11:17 11:17 03:50 WBC 17.2 H Neutrophils % 85.5 H Neutrophils % (Manual) 79 H Potassium Creatinine 1.62 H Estimated GFR (MDRD) Hemoglobin A1c Phosphorus Magnesium B-Natriuretic Peptide Vitamin B12 Folate Free T4 TSH 3rd Generation Urine Opiates Screen Ur Tricyclics Screen Plasma Alcohol 10/31/19 03:12 WBC Neutrophils % Neutrophils % (Manual) Potassium Creatinine Estimated GFR (MDRD) Hemoglobin A1c 9.5 H Phosphorus Magnesium B-Natriuretic Peptide Vitamin B12 Folate Free T4 TSH 3rd Generation Urine Opiates Screen Ur Tricyclics Screen Plasma Alcohol EKG Reviewed by me: Yes (Tele - SR with PAC's) Hospitalist ROS - Medication Medications: Active Medications Generic Name Dose Route Start Last Admin Trade Name Freq PRN Reason Stop Dose Admin Famotidine 20 mg 10/29/19 21:00 05/15/20 08:13 Pepcid SLOW IVP 20 mg Q12HR VALE Administration Hydralazine HCl 10 mg 10/29/19 17:45 10/31/19 20:39 Apresoline SLOW IVP 10 mg Q4H PRN Administration SBP > 180 and HR < 70 Ceftriaxone Sodium 2 gm/ 100 mls @ 200 mls/hr 10/31/19 15:00 11/01/19 14:11 Sodium Chloride IVPB 100 mls 1500 VALE Administration Vancomycin HCl 1 gm/ Device 200 mls @ 200 mls/hr 10/31/19 20:00 11/01/19 08: 13 IVPB 200 mls 0800,2000 VALE Administration Insulin Human Lispro 0 units 10/29/19 17:45 11/01/19 17:28 Humalog SC 9 unit .AGGRESSIVE SLIDING PRN Administration Aggressive Correctional Scale Insulin Human Lispro 0 units 10/29/19 17:45 10/31/19 19:58 Humalog SC 4 unit .BEDTIME SLIDING SC PRN Administration Bedtime Correctional Scale Levothyroxine Sodium 112 mcg 10/30/19 06:00 11/01/19 06:40 Synthroid PO Not Given 0600 [facility] Lorazepam 1 mg 10/29/19 17:46 10/31/19 21:32 Ativan SLOW IVP 1 mg Q4H PRN Administration Anxiety/Agitation Ondansetron HCl 4 mg 10/29/19 17:45 10/31/19 11:31 Zofran Odt PO 4 mg Q6H PRN Administration Nausea/Vomiting Ondansetron HCl 4 mg 10/29/19 17:45 11/01/19 14:10 Zofran IVP 4 mg Q6H PRN Administration Nausea/Vomiting - Exam General Appearance: NAD, awake alert General - other findings: responsive Eye: PERRL, anicteric sclera ENT: normocephalic atraumatic, no oropharyngeal lesions Neck: supple, symmetric, no JVD, no thyromegaly Heart: RRR, no murmur, no gallops, no rubs, normal peripheral pulses Heart - other findings: S1, S2 Respiratory: CTAB, no wheezes, no rales, no ronchi, normal chest expansion Gastrointestinal: soft, non-tender, non-distended, normal bowel sounds, no palpable masses Extremities: no cyanosis, no edema Skin: normal turgor Neurological: cranial nerve grossly intact, no new deficit Musculoskeletal: normal tone, generalized weakness Psychiatric: A&O x 3, flat affect Hosp A/P (1) Sepsis Code(s): A41.9 - SEPSIS, UNSPECIFIED ORGANISM Status: Acute Plan: Likely due to thigh abscess now draining, UTI with low-population Enterococcus spp but likely carrier, continue Rocephin/Vancomycin another 24h (2) Acute metabolic encephalopathy Code(s): G93.41 - METABOLIC ENCEPHALOPATHY Status: Acute Plan: Improved and resolving, supportive mgmt (3) Acute renal failure superimposed on stage 3 chronic kidney disease Code(s): N17.9 - ACUTE KIDNEY FAILURE, UNSPECIFIED; N18.3 - CHRONIC KIDNEY DISEASE, STAGE 3 (MODERATE) Status: Acute Plan: Near baseline renal function, avoid nephrotoxic meds and limit contrast (4) UTI (urinary tract infection) Status: Acute (5) DM type 2 (diabetes mellitus, type 2) Status: Chronic Qualifiers: Diabetes mellitus retirement insulin use: with remote computer terminal operator use Diabetes mellitus complication status: with neurologic complications Diabetes mellitus complication detail: with polyneuropathy Qualified Code(s): E11.42 - Type 2 diabetes mellitus with diabetic polyneuropathy; Z79.4 - prison (current) use of insulin; Z79.4 - prison (current) use of insulin; Z79.4 - terminal worker ( current) use of insulin; Z79.4 - terminal worker (current) use of insulin (6) Hypothyroidism Code(s): E03.9 - HYPOTHYROIDISM, UNSPECIFIED Status: Chronic - Plan continue antibiotics, PT/OT, social services counselor, out of bed/ambulate, DVT proph w/ SCDs Stable currently Continue to encourage increased free-H2O intake D/C Levaquin Continue Vancomycin/Rocephin another 24h WCT consult Start ADA diet CM for dispo planning AM lab: BMP Transfer to medical floor
[2019-11-01] MEDS ORDERED: Lorazepam 1 MG TAB PO PRN (17:41)
[2019-11-01] MEDS: Gabapentin 400 MG CAP PO SCH (20:15)
[2019-11-01] MEDS: hydrALAZINE 25 MG TAB PO SCH (20:16)
[2019-11-01] MEDS: Montelukast Sodium 10 mg Tablet PO SCH (20:16)
[2019-11-01] MEDS: Metoprolol Tartrate 25 MG TAB PO SCH (20:17)
[2019-11-01] MEDS: PRE FILLED SC SCH (20:22)
[2019-11-01] MEDS: INSULIN GLARGINE SC SCH (20:22)
[2019-11-01] MEDS: Acetaminophen 500 MG TAB PO PRN (20:55)
[2019-11-01] MEDS ORDERED: INSULIN GLARGINE HUM REC ANLOG 72 UNIT SQ SCH (21:00)
[2019-11-02] MEDS: Levothyroxine Sodium 112 MCG TAB PO SCH (06:09)
[2019-11-02] MEDS: HumaLOG 300 UNITS/3 ML VIAL SC PRN ×2 (06:12→11:40)
[2019-11-02 06:22] LABS: Anion Gap 10 mmol/L (10-20); BUN (Urea Nitrogen) 24 mg/dL (9.8-20.1); Calc. Creatinine Clearance 81 mL/min (70-130); Calcium 7.6 mg/dL (7.8-10.44); Carbon Dioxide 24 mmol/L (22-29); Chloride 103 mmol/L (98-107); Estimated GFR-MDRD 55; Glucose 174 mg/dL (70-105); Potassium 3.4 mmol/L (3.5-5.1); Sodium 134 mmol/L (136-145)
[2019-11-02] MEDS: Famotidine/PF 20 mg/2ml Vial SLOW IVP SCH (08:04)
[2019-11-02] MEDS: Vancomycin 1 GM in Premix Bag 1 BAG IVPB SCH ×2 (08:05→21:11)
[2019-11-02] MEDS: Saccharomyces boulardii 250 MG CAP PO SCH (08:05)
[2019-11-02] MEDS: Potassium Chloride 20 MEQ TAB PO SCH ×2 (08:05→16:53)
[2019-11-02] MEDS: Gabapentin 400 MG CAP PO SCH ×2 (08:05→21:12)
[2019-11-02] MEDS: Metoprolol Tartrate 25 MG TAB PO SCH ×2 (08:06→21:11)
[2019-11-02] MEDS: Montelukast Sodium 10 mg Tablet PO SCH ×2 (08:06→21:13)
[2019-11-02] MEDS: hydrALAZINE 25 MG TAB PO SCH ×3 (08:06→21:11)
[2019-11-02] MEDS: PRE FILLED SC SCH (08:06)
[2019-11-02] MEDS: INSULIN GLARGINE SC SCH (08:06)
[2019-11-02] MEDS: Aspirin 81 mg Enteric Coated Tablet PO SCH (08:10)
--- NOTE | 2019-11-02 10:20 | PDOC.HOSPP ---
- Subjective Encounter Date: 11/02/19 Encounter Time: :20 Subjective: Patient seen and examined for Sepsis/Encephalopathy. Mentation improving. No N/V /fever. No other complaints. No overnight events - Objective Vital Signs & Weight: Vital Signs (12 hours) Temp Pulse Resp BP Pulse Ox 11/02/19 08:22 97 11/02/19 07:24 98.1 F 67 18 103/66 97 11/02/19 04:00 97.9 F 65 18 102/68 98 11/01/19 23:43 97.2 F L 62 18 149/68 H 92 L Weight Admit Weight 195 lb 9.6 oz Weight 195 lb 9.6 oz Most Recent Monitor Data Heart Rate from ECG 70 NIBP 180/99 NIBP BP-Mean 126 Respiration from ECG 15 SpO2 97 I&O: 11/01/19 11/02/19 11/03/19 06:59 06:59 06:59 Intake Total 260 Output Total 400 Balance -140 Result Diagrams: 11/01/19 03:09 11/02/19 05:49 Additional Labs: Accuchecks 11/02/19 11/01/19 11/01/19 04:20 20:08 17:02 POC Glucose 212 H 226 H 262 H Radiology Reviewed by me: Yes (CXR - no infiltrate) Hospitalist ROS - Review of Systems Cardiovascular: denies: chest pain, palpitations, orthopnea, paroxysmal noc. dyspnea, edema, light headedness, other Gastrointestinal: denies: nausea, vomiting, abdominal pain, diarrhea, constipation, melena, hematochezia, other - Medication Medications: Active Medications Generic Name Dose Route Start Last Admin Trade Name Freq PRN Reason Stop Dose Admin Acetaminophen 1,000 mg 10/29/19 17:45 11/01/19 20:55 Tylenol PO 1,000 mg Q6H PRN Administration Mild Pain (1-3) Aspirin 81 mg 11/02/19 09:00 11/02/19 08:10 Ecotrin PO 81 mg DAILY VALE Administration Gabapentin 1,600 mg 11/01/19 21:00 11/02/19 08:05 Neurontin PO 1,600 mg BID VALE Administration Hydralazine HCl 10 mg 10/29/19 17:45 10/31/19 20:39 Apresoline SLOW IVP 10 mg Q4H PRN Administration SBP > 180 and HR < 70 Hydralazine HCl 50 mg 11/01/19 21:00 11/02/19 08:06 Apresoline PO Not Given TID [facility] Ceftriaxone Sodium 2 gm/ 100 mls @ 200 mls/hr 10/31/19 15:00 11/01/19 14:11 Sodium Chloride IVPB 100 mls 1500 VALE Administration Vancomycin HCl 1 gm/ Device 200 mls @ 200 mls/hr 10/31/19 20:00 11/02/19 08: 05 IVPB 200 mls 0800,2000 VALE Administration Insulin Human Lispro 0 units 10/29/19 17:45 11/01/19 20:17 Humalog SC 2 unit .BEDTIME SLIDING SC PRN Administration Bedtime Correctional Scale Levothyroxine Sodium 112 mcg 10/30/19 06:00 11/02/19 06:09 Synthroid PO 112 mcg 0600 VALE Administration Lorazepam 1 mg 10/29/19 17:46 10/31/19 21:32 Ativan SLOW IVP 1 mg Q4H PRN Administration Anxiety/Agitation Metoprolol Tartrate 25 mg 11/01/19 21:00 11/02/19 08:06 Lopressor PO 25 mg BID VALE Administration Montelukast Sodium 10 mg 11/01/19 21:00 11/02/19 08:06 Singulair PO 10 mg BID VALE Administration Ondansetron HCl 4 mg 10/29/19 17:45 10/31/19 11:31 Zofran Odt PO 4 mg Q6H PRN Administration Nausea/Vomiting Ondansetron HCl 4 mg 10/29/19 17:45 11/01/19 20:11 Zofran IVP 4 mg Q6H PRN Administration Nausea/Vomiting Potassium Chloride 20 meq 11/02/19 08:00 11/02/19 08:05 K-Dur PO 20 meq BID-WM VALE Administration Quetiapine Fumarate 100 mg 11/01/19 21:00 11/01/19 20:15 Seroquel PO 100 mg HS VALE Administration Saccharomyces Boulardii 250 mg 11/02/19 09:00 11/02/19 08:05 Florastor PO 250 mg DAILY VALE Administration - Exam General Appearance: NAD Heart: RRR, no gallops Respiratory: no wheezes, no ronchi Gastrointestinal: soft, non-tender, normal bowel sounds Extremities: no cyanosis, no clubbing Extremities - other findings: dressing R groin Neurological: no new deficit Psychiatric: A&O x 3, somnolent Hosp A/P - Plan DVT proph w/SCDs Sepsis due to Rt groin abscess - POA ?Enterococcus UTI Gen weakness with Toxic metabolic encephalopathy - POA DM2 with hyperglycemia Recent C diff colitis Recent Enterobacter UTI REDD on CKD 3 Hyponatremia/Hypokalemia Obesity BMI 32.5 CAD (stents x 2) HTN HLD COPD (on home oxygen) Hypothyroidism Anxiety PLAN: Cont IV Vancomycin/Ceftriaxone Cont wound care Consult ID Cont Probiotics Replace Potassium Cont sliding scale Reduce Lantus dose Add Lovenox for DVT prophylaxis SNF eval AM labs
[2019-11-02] MEDS: Acetaminophen 500 MG TAB PO PRN (11:28)
--- NOTE | 2019-11-02 12:03 | EKG ---
Test Reason : Blood Pressure : / mmHG Vent. Rate : 083 BPM Atrial Rate : 084 BPM P-R Int : 158 ms QRS Dur : 122 ms QT Int : 450 ms P-R-T Axes : 085 022 -04 degrees QTc Int : 528 ms Sinus rhythm with Premature atrial complexes Right bundle branch block Abnormal ECG When compared with ECG of 31-AUG-2019 20:05, No significant change was found Confirmed by ZAHRA PHILLIP ([id number]), web editor CASI VASQUEZ ([id number]) on 11/02/2019 12:03:22 PM Referred By: MELISSA Confirmed By:ZAHRA Santana
[2019-11-02] MEDS: cefTRIAXone\\ROCEPHIN 2 GM in Sodium Chloride 0.9% 100 ML IVPB SCH (14:56)
[2019-11-02] MEDS: Senokot S 8.6-50 MG TAB PO SCH (21:12)
[2019-11-02] MEDS: Enoxaparin Sodium 40 MG/0.4 ML SYRINGE SC SCH (21:13)
[2019-11-02] MEDS: Famotidine 20 MG TAB PO SCH (21:13)
[2019-11-02] MEDS: Insulin Glargine 40 UNITS in Pre-Filled Syringe 1 EACH SC SCH (21:14)
[2019-11-02] MEDS: HYDROcodone/Acetaminophen 10/325 mg Tablet PO PRN (21:37)
--- NOTE | 2019-11-03 01:22 | CON ---
DATE OF CONSULTATION: 11/02/2019 REASON FOR CONSULTATION: Sepsis and groin pain. HISTORY OF PRESENT ILLNESS: A 59-year-old with history of type 2 diabetes mellitus, chronic smoking, recent episode of C difficile colitis as well as diagnosed urinary tract infection and treated and prior fecal impaction. 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 At this time, she comes in just about a month after the last admission because of altered mental status and inability to get out of bed. Apparently, she had noticed pain in the right groin and she had similar event about 2 years before and she knew it was likely to represent an inflammatory process and she waited to see if she would get better, but did not. She could not walk to the bathroom. Her had to help her out. Eventually, things got out of hand and EMS was activated. On arrival, her pulse 86 and temperature 98.2. She remained afebrile in the emergency room. Her BP was elevated 200/100, O2 saturations were 96% on room air. She was described as agitated and confused, but oriented to self. The exam was otherwise not described as remarkable except for area of grade 2 breakdown in the sacral region. Initial findings also included white cell count of, hemoglobin 12, platelets 311, with 85% neutrophils, sodium 134, creatinine was 1.62, and glucose was 642 with carbon dioxide 22. Lactic acid 4.6. Urinalysis with 0 to 3 wbc's. She had a chest film on admission, which showed no infiltrates. An IJ central venous catheter was inserted. The brain CT was not particularly remarkable. The patient has been given ceftriaxone and vancomycin. She is feeling better. She still has pain, which is moderate in the right groin region and she reports the drainage from the site, purulent drainage. She denies headaches. No visual symptoms other than the usual blurred vision. She has no teeth. No sore throat, odynophagia, or dysphagia. No neck pain or back pain. No respiratory symptoms. No abdominal symptoms. She is voiding in the diaper. She denies any diarrhea or constipation. PAST MEDICAL HISTORY: Type 2 diabetes, coronary artery disease, UTI, transient renal failure, CVA in left caudate head, constipation associated with fecal impaction, C difficile colitis, obesity, previous abscess in the right groin, which was not treated in a healthcare setting, but drained spontaneously about 2 years ago. 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 SOCIAL HISTORY: She smokes daily. Drinks very rarely. Lives with within a few blocks from the hospital. ALLERGIES: IBUPROFEN, SULFA DRUGS, AND FENTANYL. FAMILY HISTORY: Noncontributory. CURRENT MEDICATIONS: 1. Ceftriaxone. 2. Vancomycin. 3. Inhalers. 4. Aspirin. 5. Lovenox. 6. Pepcid. 7. Neurontin. 8. Apresoline. 9. Insulin. 10. Synthroid. 11. Ativan. 12. Lopressor. 13. Singulair. 14. Zofran. 16. K-Dur. 17. Seroquel. PHYSICAL EXAMINATION: VITAL SIGNS: Since admission, she has been afebrile, T-max 99, which has been lower than that since. Blood pressure is down to 111/66, pulse 66, respirations 18 to 20, and O2 saturation 94% to 96%. SKIN: Shows the right groin with a small orifice about 2 to 3 mm in diameter, somewhat irregular shaped. A little bit of erythema surrounding it. We submitted a swab culture from the orifice to see if we could identify pathogen and the patient has a peripheral IV access. No Smith catheter. No lymphadenopathy. HEENT: Ocular movements conjugate. Sclerae white. Pupils are equal. Oral cavity with no [place] teeth remaining in place. Oral mucosa is normal. NECK: Supple. No jugular vein distention or carotid bruits. LUNGS: Symmetric. Clear breath sounds. HEART: S1 and S2, regular rate without murmurs. No S3 or S4. ABDOMEN: Soft. Not distended or tender. No ascites. No bladder distention. EXTREMITIES: No joint inflammatory activity. Pulses are 1+ in dorsalis pedis. She moves extremities equally. Plantar responses are flexor. She is awake, oriented, follows commands. LABORATORY DATA: White cell count down to 10.4, hemoglobin 12.5, platelets 235 , 85% neutrophils, 2% bands. Chemistry; creatinine has improved to her baseline of 1.03, glucose is down to 174. Microbiology have urine culture of E faecium., only 10, 000 to 25,000 probably contaminant. Two sets of blood culture, no growth for 48 hours. ASSESSMENT: Type 2 diabetes, coronary artery disease with stents, previous abscess in the left groin 2 years ago treated in the home and now recurrence of groin abscess, which seems to have drained spontaneously without evidence of necrotizing features and systemic inflammatory response syndrome manifestations with sepsis. DISCUSSION: The urinary findings are unlikely to be associated with the patient 's presentation. She has had an abdomen and pelvis CT just recently and I do not think we need to repeat, that CT scan showed mild splenomegaly. The renal calculus was no longer visualized. No other findings of significance noted. She most likely had an abscess in the groin and it drained spontaneously, probably staphylococcal, though polymicrobial jocy is possible. I have submitted a swab from the area and see if we can retrieve a pathogen. Continue Rocephin and vancomycin, probably can transition to doxycycline and Augmentin or something of that sort for discharge planning. She did have hyperosmolar syndrome associated with this presentation, which probably led to the altered mental state. Thus far, it does not appear that she was bacteremic, if confirmed, she will not require continuation of intravenous therapy. Staphylococcus aureus is more likely pathogen here. Job ID: [id number] [facility]
[2019-11-03] MEDS: HumaLOG 300 UNITS/3 ML VIAL SC PRN ×2 (01:43→12:28)
[2019-11-03] MEDS: Levothyroxine Sodium 112 MCG TAB PO SCH (05:41)
[2019-11-03] MEDS: HYDROcodone/Acetaminophen 10/325 mg Tablet PO PRN (06:09)
[2019-11-03 07:11] LABS: #Basophils 0.1 thou/uL (0.0-0.2); #Eosinphils 0.3 thou/uL (0.0-0.7); #Lymphocytes 2.3 thou/uL (1.20-3.40); #Monocytes 0.8 thou/uL (0.11-0.59); #Neutrophils 6.5 thou/uL (1.40-6.50); %Basophils 1.1 % (0.0-1.0); %Eosinophils 2.6 % (0.0-10.0); %Lymphocytes 22.8 % (21.0-51.0); %Monocytes 7.7 % (0.0-10.0); %Neutrophils 65.7 % (42.0-75.0); Hemoglobin 11.6 g/dL (12.0-16.0); Mean Corpuscular HGB CONC 35.5 g/dL (32.0-36.0); Mean Corpuscular Hemoglobin 32.5 pg (27.0-31.0); Mean Corpuscular Volume 91.5 fL (78.0-98.0); Mean Platelet Volume 8.1 fL (7.4-10.4); Platelet Count 238 thou/uL (130-400); RBC Distribution Width 11.7 % (11.5-14.5); Red Blood Cell (RBC) Count 3.57 mill/uL (4.20-5.40); White Blood Cell (WBC) Count 9.9 thou/uL (4.8-10.8)
[2019-11-03 07:33] LABS: ALT (SGPT) Less than 7 U/L (8-55); AST (SGOT) 9 U/L (5-34); Albumin 2.4 g/dL (3.5-5.0); Alkaline Phosphatase 55 U/L (40-110); Anion Gap 11 mmol/L (10-20); BUN (Urea Nitrogen) 29 mg/dL (9.8-20.1); Bilirubin, Total 0.2 mg/dL (0.2-1.2); Calc. Creatinine Clearance 60 mL/min (70-130); Calcium 7.6 mg/dL (7.8-10.44); Carbon Dioxide 24 mmol/L (22-29); Chloride 102 mmol/L (98-107); Estimated GFR-MDRD 38; Globulin 2.6 g/dL (2.4-3.5); Glucose 118 mg/dL (70-105); Potassium 3.7 mmol/L (3.5-5.1); Sodium 133 mmol/L (136-145)
[2019-11-03 07:46] LABS: Vancomycin, Trough 31.1 ug/mL
[2019-11-03] MEDS: Famotidine 20 MG TAB PO SCH ×2 (08:30→20:13)
[2019-11-03] MEDS: Aspirin 81 mg Enteric Coated Tablet PO SCH (08:30)
[2019-11-03] MEDS: Polyethylene Glycol 3350 17 GM Packet PO SCH (08:30)
[2019-11-03] MEDS: Gabapentin 400 MG CAP PO SCH ×2 (08:30→20:13)
[2019-11-03] MEDS: Potassium Chloride 20 MEQ TAB PO SCH ×2 (08:30→16:39)
[2019-11-03] MEDS: Metoprolol Tartrate 25 MG TAB PO SCH ×2 (08:30→20:14)
[2019-11-03] MEDS: Senokot S 8.6-50 MG TAB PO SCH ×2 (08:30→20:15)
[2019-11-03] MEDS: Saccharomyces boulardii 250 MG CAP PO SCH (08:30)
[2019-11-03] MEDS: Montelukast Sodium 10 mg Tablet PO SCH ×2 (08:31→20:14)
[2019-11-03] MEDS: Insulin Glargine 40 UNITS in Pre-Filled Syringe 1 EACH SC SCH ×2 (08:31→20:26)
[2019-11-03] MEDS: hydrALAZINE 25 MG TAB PO SCH ×3 (08:31→20:14)
[2019-11-03] MEDS: Sodium Chloride 0.9% 1,000 ML IV SCH ×2 (08:32→20:25)
[2019-11-03] MEDS: Vancomycin 1 GM in Premix Bag 1 BAG IVPB SCH (08:50)
--- NOTE | 2019-11-03 14:53 | PDOC.HOSPP ---
- Subjective Encounter Date: 11/03/19 Encounter Time: 08:45 Subjective: Patient seen and examined for for Sepsis. Feeling better. No fever/chills/N/V. No new complaints. No overnight events - Objective Vital Signs & Weight: Vital Signs (12 hours) Temp Pulse Resp BP BP Pulse Ox 11/03/19 08:31 62 115/73 11/03/19 07:31 97.9 F 62 18 115/73 96 Weight Admit Weight 195 lb 9.6 oz Weight 195 lb 9.6 oz Most Recent Monitor Data Heart Rate from ECG 70 NIBP 180/99 NIBP BP-Mean 126 Respiration from ECG 15 SpO2 97 I&O: 11/02/19 11/03/19 11/04/19 06:59 06:59 06:59 Intake Total 1000 Output Total 870 Balance 130 Result Diagrams: 11/03/19 07:03 11/03/19 07:03 Additional Labs: Accuchecks 11/03/19 11/03/19 11/02/19 11:34 01:43 19:14 POC Glucose 170 H 203 H 175 H 11/02/19 16:21 POC Glucose 119 H Hospitalist ROS - Review of Systems Respiratory: denies: cough, dry, shortness of breath, hemoptysis, SOB with excertion, pleuritic pain, sputum, wheezing, other Cardiovascular: denies: chest pain, palpitations, orthopnea, paroxysmal noc. dyspnea, edema, light headedness, other - Medication Medications: Active Medications Generic Name Dose Route Start Last Admin Trade Name Freq PRN Reason Stop Dose Admin Acetaminophen 1,000 mg 10/29/19 17:45 11/02/19 11:28 Tylenol PO 1,000 mg Q6H PRN Administration Mild Pain (1-3) Hydrocodone Bitart/Acetaminophen 1 tab 11/02/19 21:18 11/03/19 06:09 [place] 10/325 PO 1 tab Q4HR PRN Administration Moderate Pain (4-6) Aspirin 81 mg 11/02/19 09:00 11/03/19 08:30 Ecotrin PO 81 mg DAILY VALE Administration Enoxaparin Sodium 40 mg 11/02/19 21:00 11/02/19 21:13 Lovenox SC 40 mg 2100 VALE Administration Famotidine 20 mg 11/02/19 21:00 11/03/19 08:30 Pepcid PO 20 mg BID VALE Administration Gabapentin 1,600 mg 11/01/19 21:00 11/03/19 08:30 Neurontin PO 1,600 mg BID VALE Administration Hydralazine HCl 10 mg 10/29/19 17:45 10/31/19 20:39 Apresoline SLOW IVP 10 mg Q4H PRN Administration SBP > 180 and HR < 70 Hydralazine HCl 50 mg 11/01/19 21:00 11/03/19 08:31 Apresoline PO 50 mg TID VALE Administration Ceftriaxone Sodium 2 gm/ 100 mls @ 200 mls/hr 10/31/19 15:00 11/02/19 14:56 Sodium Chloride IVPB 100 mls 1500 VALE Administration Insulin Glargine 40 units/ 0.4 mls @ 0 mls/hr 11/03/19 09:00 11/03/19 08:31 Miscellaneous Medication SC 0.4 mls QAM VALE Administration Insulin Glargine 40 units/ 0.4 mls @ 0 mls/hr 11/02/19 21:00 11/02/19 21:14 Miscellaneous Medication SC 0.4 mls HS VALE Administration Sodium Chloride 1,000 mls @ 100 mls/hr 11/03/19 08:15 11/03/19 08:32 Normal Saline 0.9% IV 11/04/19 04:14 1,000 mls .Q10H VALE Administration Insulin Human Lispro 0 units 10/29/19 17:45 11/03/19 01:43 Humalog SC 2 unit .BEDTIME SLIDING SC PRN Administration Bedtime Correctional Scale Insulin Human Lispro 0 units 11/02/19 10:09 11/03/19 12:28 Humalog SC 2 unit .MODERATE SLIDING SC PRN Administration Moderate Correctional Scale Levothyroxine Sodium 112 mcg 10/30/19 06:00 11/03/19 05:41 Synthroid PO 112 mcg 0600 VALE Administration Lorazepam 1 mg 11/01/19 17:41 11/02/19 21:37 Ativan PO 1 mg HS PRN Administration Agitation Metoprolol Tartrate 25 mg 11/01/19 21:00 11/03/19 08:30 Lopressor PO 25 mg BID VALE Administration Montelukast Sodium 10 mg 11/01/19 21:00 11/03/19 08:31 Singulair PO 10 mg BID VALE Administration Ondansetron HCl 4 mg 10/29/19 17:45 10/31/19 11:31 Zofran Odt PO 4 mg Q6H PRN Administration Nausea/Vomiting Ondansetron HCl 4 mg 10/29/19 17:45 11/01/19 20:11 Zofran IVP 4 mg Q6H PRN Administration Nausea/Vomiting Polyethylene Glycol 17 gm 11/03/19 09:00 11/03/19 08:30 Miralax PO 17 gm DAILY VALE Administration Potassium Chloride 20 meq 11/02/19 08:00 11/03/19 08:30 K-Dur PO 11/03/19 23:59 20 meq BID-WM VALE Administration Quetiapine Fumarate 100 mg 11/01/19 21:00 11/02/19 21:11 Seroquel PO 100 mg HS VALE Administration Saccharomyces Boulardii 250 mg 11/02/19 09:00 11/03/19 08:30 Florastor PO 250 mg DAILY VALE Administration Senna/Docusate Sodium 1 tab 11/02/19 21:00 11/03/19 08:30 Senokot S PO 1 tab BID VALE Administration - Exam General Appearance: NAD Neck: supple, no JVD Heart: no murmur, no rubs Respiratory: no wheezes, no ronchi Gastrointestinal: soft, non-tender Extremities: no cyanosis, no clubbing Neurological: no new deficit Hosp A/P - Plan DVT proph w/SCDs Sepsis due to Rt groin abscess ?Enterococcus UTI - ruled out per ID Gen weakness with Toxic metabolic encephalopathy DM2 with hyperglycemia Recent C diff colitis Recent Enterobacter UTI REDD on CKD 3 Hyponatremia/Hypokalemia Obesity BMI 32.5 CAD (stents x 2) HTN HLD COPD (on home oxygen) Hypothyroidism Anxiety PLAN: Cont IV Atbx - Vancomycin/Ceftriaxone Await groin culture Cont wound care ID input appreciated Cont sliding scale with Lantus Cont Lovenox for DVT prophylaxis Await SNF eval AM labs
[2019-11-03] MEDS: cefTRIAXone\\ROCEPHIN 2 GM in Sodium Chloride 0.9% 100 ML IVPB SCH (16:00)
[2019-11-03 19:43] LABS: Vancomycin, Random 21.9 ug/mL (See Comment)
[2019-11-03 19:45] LABS: Anion Gap 13 mmol/L (10-20); BUN (Urea Nitrogen) 26 mg/dL (9.8-20.1); Calc. Creatinine Clearance 59 mL/min (70-130); Calcium 7.9 mg/dL (7.8-10.44); Carbon Dioxide 22 mmol/L (22-29); Chloride 102 mmol/L (98-107); Estimated GFR-MDRD 37; Glucose 147 mg/dL (70-105); Potassium 4.1 mmol/L (3.5-5.1); Sodium 133 mmol/L (136-145)
[2019-11-03] MEDS ORDERED: Vancomycin 1 GM in Premix Bag 1 BAG IVPB SCH (20:00)
[2019-11-03] MEDS: Enoxaparin Sodium 40 MG/0.4 ML SYRINGE SC SCH (20:26)
[2019-11-04] MEDS ORDERED: Vancomycin 1 GM in Premix Bag 1 BAG IVPB SCH (02:00)
[2019-11-04] MEDS: Levothyroxine Sodium 112 MCG TAB PO SCH (05:40)
[2019-11-04] MEDS: Saccharomyces boulardii 250 MG CAP PO SCH (09:13)
[2019-11-04] MEDS: Gabapentin 400 MG CAP PO SCH ×2 (09:13→20:44)
[2019-11-04] MEDS: Senokot S 8.6-50 MG TAB PO SCH ×2 (09:14→20:45)
[2019-11-04] MEDS: Aspirin 81 mg Enteric Coated Tablet PO SCH (09:14)
[2019-11-04] MEDS: hydrALAZINE 25 MG TAB PO SCH ×3 (09:14→20:45)
[2019-11-04] MEDS: Famotidine 20 MG TAB PO SCH ×2 (09:15→20:44)
[2019-11-04] MEDS: Montelukast Sodium 10 mg Tablet PO SCH ×2 (09:15→20:45)
[2019-11-04] MEDS: Metoprolol Tartrate 25 MG TAB PO SCH ×2 (09:15→20:45)
[2019-11-04] MEDS: Polyethylene Glycol 3350 17 GM Packet PO SCH ×2 (09:17→10:15)
[2019-11-04 10:05] LABS: Anion Gap 9 mmol/L (10-20); BUN (Urea Nitrogen) 24 mg/dL (9.8-20.1); Calc. Creatinine Clearance 65 mL/min (70-130); Calcium 7.6 mg/dL (7.8-10.44); Carbon Dioxide 22 mmol/L (22-29); Chloride 106 mmol/L (98-107); Estimated GFR-MDRD 42; Glucose 133 mg/dL (70-105); Potassium 4.3 mmol/L (3.5-5.1); Sodium 133 mmol/L (136-145)
[2019-11-04] MEDS: Insulin Glargine 40 UNITS in Pre-Filled Syringe 1 EACH SC SCH ×2 (10:16→20:52)
--- NOTE | 2019-11-04 14:14 | PRG ---
DATE OF SERVICE: 11/04/2019 SUBJECTIVE: The patient is sitting by the bedside. She is feeling better, oriented. No dyspnea or chest pain. Still uncertain about bearing weight and standing up. The groin has improved markedly. OBJECTIVE: VITAL SIGNS: She has been afebrile. Blood pressure 120/70, pulse 73, respirations 20, and O2 saturation 96. GENERAL: Does not appear in distress. Oriented, follows commands. LUNGS: With a few faint inspiratory crackles on the left side. HEART: S1 and S2, regular rate. No S3 or S4. ABDOMEN: Soft. Not distended. EXTREMITIES: The groin appears to be okay. Still there is a small little orifice, but no drainage. Other joints are okay. LABORATORY DATA: Labs with a white cell count of 9.9, hemoglobin 11.6, and platelets 238. Creatinine is 1.29, which has improved. Microbiology with Enterococcus in the groin abscess and yeast species, could be just colonizing agent rather than a true pathogen. Further isolation efforts are being undertaken of potential pathogens. ASSESSMENT AND DISCUSSION: Type 2 diabetes; coronary artery disease, stents; abscess in left groin 2 years ago, treated at home, and now with recurrence in the groin on the right side, which has drained spontaneously with improvement in the pain, no necrotizing features. The organism isolated could represent contamination of the area, not the true pathogen. At this point, we will transition to oral doxy and rifampin for discharge planning. Job ID: [id number]
[2019-11-04] MEDS: HumaLOG 300 UNITS/3 ML VIAL SC PRN (16:35)
[2019-11-04] MEDS: Doxycycline 100 MG CAP PO SCH (20:44)
[2019-11-04] MEDS: Rifampin 300 MG CAP PO SCH (20:46)
[2019-11-04] MEDS: Enoxaparin Sodium 40 MG/0.4 ML SYRINGE SC SCH (20:51)
--- NOTE | 2019-11-04 21:11 | DIS ---
DATE OF ADMISSION: 10/29/2019 DATE OF DISCHARGE: 11/04/2019 DISCHARGE DISPOSITION: Home. FOLLOWUP: 1. Follow up with primary care physician, Dr. Adames in 1 week. 2. Follow up with Infectious Disease, Dr. Rankin in 2 weeks. The patient was counseled on wound care. DISCHARGE MEDICATIONS: 1. Doxycycline 100 mg b.i.d. for next one week. 2. Rifampin 300 mg b.i.d. for 1 week. All other home medications were left unchanged. BRIEF HOSPITAL COURSE: The patient is a 59-year-old female with diabetes mellitus type 2, presented to the hospital with altered mentation. Please refer to the history and physical dated [address] Eden for further details. The patient was admitted to the intermediate care unit with a diagnosis of sepsis along with acute kidney injury. She was found to have a right groin abscess that spontaneously started draining. Her creatinine on admission was 1.62 that gradually improved. Blood sugars on admission were 642 with WBC of 17.2. Blood culture remained negative. Wound culture showed Enterococcus. The patient was evaluated by Infectious Disease, Dr. Rankin, who recommended changing antibiotics to doxycycline and rifampin. Diabetic ketoacidosis was ruled out. She did not have any pyuria. UTI was ruled out by Infectious Disease. She also had multiple electrolyte abnormalities, which have been replaced. [facility] facility was recommended; however, the patient declined. She had significant lactic acidosis on admission that resolved with IV hydration. FINAL DIAGNOSES: 1. Toxic metabolic encephalopathy, present on admission. 2. Sepsis secondary to right groin abscess, present on admission. 3. Generalized weakness. 4. Diabetes mellitus type 2, uncontrolled with hyperglycemia with blood sugar more than 600. 5. Recent hospitalization for Clostridium difficile colitis. 6. Recent enterobacter urinary tract infection, completed antibiotics. 7. Acute kidney injury on chronic kidney disease, stage 3. 8. Hypokalemia. 9. Hyponatremia. 10. Obesity with a BMI of 32.5. 11. Lactic acidosis on admission, resolved. 12. Coronary artery disease, status post stent placement. 13. Hypertension. 14. Hyperlipidemia. 15. Chronic obstructive pulmonary disease, on home oxygen. 16. Hypothyroidism. 17. Anxiety. The patient was extensively counseled on management of diabetes. Job ID: [id number]
[2019-11-04] MEDS: HYDROcodone/Acetaminophen 10/325 mg Tablet PO PRN (21:41)
[2019-11-05] MEDS: Levothyroxine Sodium 112 MCG TAB PO SCH (06:31)
[2019-11-05 07:44] VITALS: BP 111/61; TEMP 98.1
[2019-11-05] MEDS: HYDROcodone/Acetaminophen 10/325 mg Tablet PO PRN (08:56)
[2019-11-05] MEDS: Saccharomyces boulardii 250 MG CAP PO SCH (08:57)
[2019-11-05] MEDS: Gabapentin 400 MG CAP PO SCH (08:58)
[2019-11-05] MEDS: Aspirin 81 mg Enteric Coated Tablet PO SCH (08:58)
[2019-11-05] MEDS: Montelukast Sodium 10 mg Tablet PO SCH (08:59)
[2019-11-05] MEDS: Doxycycline 100 MG CAP PO SCH (08:59)
[2019-11-05] MEDS: Famotidine 20 MG TAB PO SCH (09:00)
[2019-11-05] MEDS: Senokot S 8.6-50 MG TAB PO SCH (09:01)
[2019-11-05] MEDS: Rifampin 300 MG CAP PO SCH (09:01)
[2019-11-05] MEDS: Insulin Glargine 40 UNITS in Pre-Filled Syringe 1 EACH SC SCH (09:09)
[2019-11-05] MEDS: Metoprolol Tartrate 25 MG TAB PO SCH (09:10)
[2019-11-05] MEDS: hydrALAZINE 25 MG TAB PO SCH (09:10)
[2019-11-05] MEDS: Polyethylene Glycol 3350 17 GM Packet PO SCH (09:16)
--- NOTE | 2019-11-05 11:00 | PDOC.HOSPP ---
- Subjective Encounter Date: 11/04/19 Encounter Time: 12:30 Subjective: Patient seen and examined for Sepsis. Feels better. No new complaints. No overnight events - Objective Vital Signs & Weight: Vital Signs (12 hours) Temp Pulse Resp BP Pulse Ox 11/05/19 09:10 73 11/05/19 08:00 95 11/05/19 07:42 98.1 F 73 18 111/61 95 Weight Admit Weight 195 lb 9.6 oz Weight 195 lb 9.6 oz Most Recent Monitor Data Heart Rate from ECG 70 NIBP 180/99 NIBP BP-Mean 126 Respiration from ECG 15 SpO2 97 I&O: 11/04/19 11/05/19 11/06/19 06:59 06:59 06:59 Intake Total 1700 1400 600 Output Total 850 Balance 1700 550 600 Result Diagrams: 11/03/19 07:03 11/04/19 09:35 Additional Labs: Accuchecks 11/05/19 11/05/19 11/04/19 09:13 04:38 19:46 POC Glucose 148 H 89 193 H 11/04/19 11/04/19 15:25 11:37 POC Glucose 217 H 173 H Hospitalist ROS - Review of Systems Respiratory: denies: cough, dry, shortness of breath, hemoptysis, SOB with excertion, pleuritic pain, sputum, wheezing, other Cardiovascular: denies: chest pain, palpitations, orthopnea, paroxysmal noc. dyspnea, edema, light headedness, other Gastrointestinal: denies: nausea, vomiting, abdominal pain, diarrhea, constipation, melena, hematochezia, other - Medication Medications: Active Medications Generic Name Dose Route Start Last Admin Trade Name Freq PRN Reason Stop Dose Admin Acetaminophen 1,000 mg 10/29/19 17:45 11/02/19 11:28 Tylenol PO 1,000 mg Q6H PRN Administration Mild Pain (1-3) Hydrocodone Bitart/Acetaminophen 1 tab 11/02/19 21:18 11/05/19 08:56 Duncan 10/325 PO 1 tab Q4HR PRN Administration Moderate Pain (4-6) Aspirin 81 mg 11/02/19 09:00 11/05/19 08:58 Ecotrin PO 81 mg DAILY VALE Administration Doxycycline Hyclate 100 mg 11/04/19 21:00 11/05/19 08:59 Vibramycin PO 100 mg BID VALE Administration Enoxaparin Sodium 40 mg 11/02/19 21:00 11/04/19 20:51 Lovenox SC 40 mg 2100 VALE Administration Famotidine 20 mg 11/02/19 21:00 11/05/19 09:00 Pepcid PO 20 mg BID VALE Administration Gabapentin 1,600 mg 11/01/19 21:00 11/05/19 08:58 Neurontin PO 1,600 mg BID VALE Administration Hydralazine HCl 10 mg 10/29/19 17:45 10/31/19 20:39 Apresoline SLOW IVP 10 mg Q4H PRN Administration SBP > 180 and HR < 70 Hydralazine HCl 50 mg 11/01/19 21:00 11/05/19 09:10 Apresoline PO 50 mg TID VALE Administration Insulin Glargine 40 units/ 0.4 mls @ 0 mls/hr 11/03/19 09:00 11/05/19 09:09 Miscellaneous Medication SC 0.4 mls QAM VALE Administration Insulin Human Lispro 0 units 10/29/19 17:45 11/03/19 01:43 Humalog SC 2 unit .BEDTIME SLIDING SC PRN Administration Bedtime Correctional Scale Insulin Human Lispro 0 units 11/02/19 10:09 11/04/19 16:35 Humalog SC 4 unit .MODERATE SLIDING SC PRN Administration Moderate Correctional Scale Levothyroxine Sodium 112 mcg 10/30/19 06:00 11/05/19 06:31 Synthroid PO 112 mcg 0600 VALE Administration Lorazepam 1 mg 11/01/19 17:41 11/02/19 21:37 Ativan PO 1 mg HS PRN Administration Agitation Metoprolol Tartrate 25 mg 11/01/19 21:00 11/05/19 09:10 Lopressor PO 25 mg BID VALE Administration Montelukast Sodium 10 mg 11/01/19 21:00 11/05/19 08:59 Singulair PO 10 mg BID VALE Administration Ondansetron HCl 4 mg 10/29/19 17:45 10/31/19 11:31 Zofran Odt PO 4 mg Q6H PRN Administration Nausea/Vomiting Ondansetron HCl 4 mg 10/29/19 17:45 11/01/19 20:11 Zofran IVP 4 mg Q6H PRN Administration Nausea/Vomiting Polyethylene Glycol 17 gm 11/03/19 09:00 11/05/19 09:16 Miralax PO Not Given DAILY VALE Quetiapine Fumarate 100 mg 11/01/19 21:00 11/04/19 20:46 Seroquel PO 100 mg HS VALE Administration Rifampin 300 mg 11/04/19 22:00 11/05/19 09:01 Rifadin PO 300 mg 1000,2200 VALE Administration Saccharomyces Boulardii 250 mg 11/02/19 09:00 11/05/19 08:57 Florastor PO 250 mg DAILY VALE Administration Senna/Docusate Sodium 1 tab 11/02/19 21:00 11/05/19 09:01 Senokot S PO Not Given BID VALE - Exam General Appearance: NAD Neck: supple, no JVD Heart: RRR, no gallops Respiratory: no wheezes, no ronchi Gastrointestinal: soft, non-tender, normal bowel sounds Extremities: no cyanosis, no clubbing Hosp A/P - Plan DVT proph w/SCDs Sepsis due to Rt groin abscess ?Enterococcus UTI - ruled out per ID Gen weakness with Toxic metabolic encephalopathy DM2 with hyperglycemia Recent C diff colitis Recent Enterobacter UTI REDD on CKD 3 Hyponatremia/Hypokalemia Obesity BMI 32.5 CAD (stents x 2) HTN HLD COPD (on home oxygen) Hypothyroidism Anxiety PLAN: Atbx changed to Doxy/Rifampin Pt refusing SNF Will arrange for HHC Cont wound care Cont sliding scale with Lantus Stable for discharge
--- NOTE | 2019-11-05 13:08 | PDOC.EVN ---
Event Note - Event Note Event Note: Pt was discharged home with [facility] yesterday. She then agreed with SNF. SNF referral was sent. However, today she wants to go home. She understands the consequences not limited to lifethreatening complications/falls. Case d/w ed case manager
--- NOTE | 2019-11-05 13:53 | DIS ---
DATE OF ADMISSION: 10/29/2019 DATE OF DISCHARGE: 11/05/2019 Please refer to the discharge summary dated November 04, 2019. HOSPITAL COURSE: The patient was discharged yesterday home with home health care. However, she changed her mind to [facility] facility. residential facility referral was sent yesterday. This morning, she decided to go back home. She understands the risk associated with going home. She is at risk of falls. I tried convincing her several times with no success. Please refer to discharge summary from yesterday for final diagnosis. Job ID: [id number]
[2019-11-05] MEDS ORDERED: Insulin Glargine 30 UNITS in Pre-Filled Syringe 1 EACH SC SCH (21:00)
== END 2019-11-05 13:32 | disposition home health service (06) | DRG 871 ==
LOC: ERS 10:50 → IMCU/EMU 14:49 → T4-A 11-01 19:28
PROVIDERS: ADMIT Family Medicine; ATTEND Internal Medicine
PROC: 02HV33Z Insertion of Infusion Device into Superior Vena Cava, Percutaneous Approach (ICD-10-PCS; principal; 2019-10-29)
PROC: B548ZZA Ultrasonography of Superior Vena Cava, Guidance (ICD-10-PCS; 2019-10-29)
DX: A41.81 Sepsis due to Enterococcus (principal); G92 Toxic encephalopathy; I13.0 Hypertensive heart and chronic kidney disease with heart failure and stage 1 through stage 4 chronic kidney disease, or unspecified chronic kidney disease; N17.9 Acute kidney failure, unspecified; L02.214 Cutaneous abscess of groin; E87.1 Hypo-osmolality and hyponatremia; E87.2 Acidosis; E11.65 Type 2 diabetes mellitus with hyperglycemia; E11.22 Type 2 diabetes mellitus with diabetic chronic kidney disease; N18.3 Chronic kidney disease, stage 3 (moderate); E03.9 Hypothyroidism, unspecified; K59.00 Constipation, unspecified; F17.210 Nicotine dependence, cigarettes, uncomplicated; I25.10 Atherosclerotic heart disease of native coronary artery without angina pectoris; E78.5 Hyperlipidemia, unspecified; I50.9 Heart failure, unspecified; K21.9 Gastro-esophageal reflux disease without esophagitis; M19.90 Unspecified osteoarthritis, unspecified site; I16.0 Hypertensive urgency; E87.6 Hypokalemia; E66.9 Obesity, unspecified; J44.9 Chronic obstructive pulmonary disease, unspecified; Z95.5 Presence of coronary angioplasty implant and graft; Z78.1 Physical restraint status; Z79.4 Long term (current) use of insulin; I25.2 Old myocardial infarction; Z99.81 Dependence on supplemental oxygen; Z98.51 Tubal ligation status; Z86.73 Personal history of transient ischemic attack (TIA), and cerebral infarction without residual deficits; Z79.82 Long term (current) use of aspirin; Z79.51 Long term (current) use of inhaled steroids; Z79.899 Other long term (current) drug therapy; Z88.2 Allergy status to sulfonamides; Z88.8 Allergy status to other drugs, medicaments and biological substances; Z68.32 Body mass index [BMI] 32.0-32.9, adult
CPT/HCPCS: 36415; 36416; 51701; 70450; 71045; 80048; 80053; 80202; 80306; 80307; 81003; 81015; 82010; 82140; 82330; 82803; 83036; 83605; 83735; 84443; 85007; 85025; 85027; 87040; 87070; 87077; 87086; 87186; 87205; 93005; 96361; 96365; 96366; 96368; 96372; 96375; J0360; J0692; J0696; J1200; J1630; J1650; J1815; J2060; J2405; J2765; J3370; J3490; J7030; Q0162; S0028

== ENCOUNTER 2019-11-07 23:55 | Inpatient (IN) | payer MEDICARE, MEDICAID ==
[2019-11-08] MEDS ORDERED: Ondansetron PF 4 MG/2 ML Vial ONE ×2 (00:04→02:23)
[2019-11-08 00:41] LABS: Hemoglobin 10.7 g/dL (12.0-16.0); Mean Corpuscular HGB CONC 35.1 g/dL (32.0-36.0); Mean Corpuscular Hemoglobin 31.6 pg (27.0-31.0); Mean Corpuscular Volume 89.9 fL (78.0-98.0); Mean Platelet Volume 7.9 fL (7.4-10.4); Platelet Count 354 thou/uL (130-400); RBC Distribution Width 11.5 % (11.5-14.5); Red Blood Cell (RBC) Count 3.37 mill/uL (4.20-5.40); White Blood Cell (WBC) Count 9.2 thou/uL (4.8-10.8)
[2019-11-08 00:46] LABS: ALT (SGPT) Less than 7 U/L (8-55); AST (SGOT) 8 U/L (5-34); Albumin 2.7 g/dL (3.5-5.0); Alkaline Phosphatase 62 U/L (40-110); Anion Gap 13 mmol/L (10-20); BUN (Urea Nitrogen) 24 mg/dL (9.8-20.1); Bilirubin, Total 0.4 mg/dL (0.2-1.2); Calc. Creatinine Clearance 0 mL/min (70-130); Calcium 8.9 mg/dL (7.8-10.44); Carbon Dioxide 26 mmol/L (22-29); Chloride 102 mmol/L (98-107); Estimated GFR-MDRD 57; Glucose 186 mg/dL (70-105); Lipase 61 U/L (8-78); Potassium 4.5 mmol/L (3.5-5.1); Protein, Total 5.7 g/dL (6.0-8.3); Sodium 136 mmol/L (136-145)
[2019-11-08 00:57] LABS: Band 2 % (5-11); Eosinophils 4 % (0-10); Lymphocytes 18 % (21-51); MDiff Complete? YES; Monocytes 8 % (0-10); Neutrophil 68 % (42-75)
[2019-11-08 02:16] LABS: Bacteria/HPF None Seen HPF (None Seen); Bilirubin Negative (Negative); Blood, Urine 1+ (Negative); Clarity Clear (Clear); Glucose, Urine (Dipstick) 70 mg/dL (Negative); Leukocyte Negative Leu/uL (Negative); Nitrite Negative (Negative); Protein, Urine (Dipstick) 200 mg/dL (Neg-Trace); Squamous Epithelial None Seen HPF (0-3); Urobilinogen Normal mg/dL (Less than 2); WBC/HPF 0-3 HPF (0-3)
[2019-11-08] MEDS ORDERED: Acetaminophen 325 MG TAB PO PRN (03:11)
--- NOTE | 2019-11-08 03:37 | PDOC.HHP ---
Hospitalist HPI - History of Present Illness Persistent N/V and abdominal pain History of Present Illness: Patient recently discharged from the hospital on 11/04 at which time she states she did not have any nausea or vomiting. Since arriving home she has developed persistent n/v as well as abdominal discomfort which she states is an 8/10 in severity, diffusely involving her abdomen. Reports not eating or drinking for 24 hours due to vomiting and emesis persists even with her avoiding oral intake. She has noted decreased urinary output. Has not had a bowel movement since she left the hospital which she attributed to not eating. Patient has been afebrile at home. ED Course: Patient given Zofran in ED 4 mg IV X 2 doses. UA done in ED showed 200 protein, 70 glucose, 1+ bacteria, 7-10 RBCs. WCC 9.2, Hgb 10.7, Hct 30.3, Platelets 354 BUN 24, Creat 0.99, GFR 57 K+ 4.5, Glucose 185Lipase 61. She had a CT A/P done in the ED, report pending. Hospitalist ROS - Review of Systems Constitutional: reports: malaise. denies: fever, chills, sweats, weakness, other Eyes: denies: pain, vision change, conjunctivae inflammation, eyelid inflammation, redness, other ENT: denies: ear pain, ear discharge, nose pain, nose discharge, nose congestion , mouth pain, mouth swelling, throat pain, throat swelling, other Respiratory: denies: cough, dry, shortness of breath, hemoptysis, SOB with excertion, pleuritic pain, sputum, wheezing, other Cardiovascular: denies: chest pain, palpitations, orthopnea, paroxysmal noc. dyspnea, edema, light headedness, other Gastrointestinal: reports: nausea, vomiting, abdominal pain. denies: diarrhea, constipation, melena, hematochezia, other Genitourinary: reports: other (decreased urine output). denies: dysuria, frequency, incontinence, hematuria, retention Musculoskeletal: denies: neck pain, shoulder pain, arm pain, back pain, hand pain, leg pain, foot pain, other Skin: denies: rash, lesions, [place], bruising, other - Medication Medications: ALLERGIES: Fentanyl, Ibuprofen and Sulfa. CURRENT MEDICATIONS: metoprolol tartrate oral TABLET : Strength - 25 mg : ORAL Patient Dose: 25 mg Oral 2 times a day. LORazepam oral TABLET : Strength - 1 mg : ORAL Patient Dose: unk mg Oral once a day (in the morning). levothyroxine oral TABLET : Strength - 125 mcg : ORAL Patient Dose: 125 mcg Oral once a day (in the morning). hydrALAZINE oral TABLET : Strength - 50 mg : ORAL Patient Dose: 50 mg Oral 2 times a day. gabapentin TABLET : Strength - 800 mg : ORAL Patient Dose: 2 tab(s) Oral 2 times a day. omeprazole CAPSULE,DELAYED RELEASE (ENTERIC COATED) : Strength - 40 mg : ORAL Patient Dose: 40 mg Oral once a day. nitroglycerin translingual SPRAY, NON-AEROSOL (GRAM) : Strength - 400 mcg/spray : TRANSLINGUAL Patient Dose: 1 spray(s) Sublingual As Needed. Zofran ODT TABLET,DISINTEGRATING : Strength - 4 mg : ORAL Patient Dose: 4 mg Oral As Needed. Singulair TABLET : Strength - 10 mg : ORAL Patient Dose: 10 mg Oral As Needed. SEROquel TABLET : Strength - 100 mg : ORAL Patient Dose: 100 mg Oral once a day (at bedtime). pravastatin TABLET : Strength - 80 mg : ORAL Patient Dose: 80 mg Oral once a day (at bedtime). Lantus VIAL (ML) : Strength - 100 unit/mL : SUBCUTANEOUS Patient Dose: 72 units Subcutaneous 2 times a day. HumaLOG VIAL (ML) : Strength - 100 unit/mL : SUBCUTANEOUS Patient Dose: sliding units Subcutaneous 3 times a day (before meals).and at bedtime. Ririe TABLET : Strength - 10 mg-325 mg : ORAL Patient Dose: 1 tab(s) Oral See Notes.every morning, as needed in the evening. Lasix oral TABLET : Strength - 80 mg : ORAL Patient Dose: 80 mg Oral 2 times a day. Advair Diskus BLISTER, WITH INHALATION DEVICE : Strength - 250 mcg-50 mcg/Dose : INHALATION Patient Dose: 1 puff(s) Inhaler 2 times a day. 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: Peripheral neuropathy Gastrointestinal: reports: GERD Musculoskeletal: reports: Osteoarthritis Renal/: reports: Chronic renal insuff Endocrine: reports: Diabetes, Hypothyroidism - Past Surgical History Past Surgical History: reports: Tubal Ligation, Other (cardiac cath, carpel tunnel, stomach and leg tumor) - Social History Smoking Status: Current every day smoker (1 ppd) Alcohol: reports: Rare Drugs: reports: none Occupation: Lives with significant other, in [place], she is disabled - Exam General Appearance: NAD General - other findings: Patient sitting upright on bed while being changed Eye: PERRL ENT: normocephalic atraumatic, dry oral mucosa Neck: supple Heart: RRR, no murmur, normal peripheral pulses Respiratory: CTAB, no wheezes, no rales, no ronchi, normal chest expansion, no tachypnea Gastrointestinal: soft, tender to palpation, voluntary guarding Extremities: no edema Skin: normal turgor, no lesions, no rashes Psychiatric: normal behavior, A&O x 3 Hospitalist Results - Labs Result Diagrams: 11/08/19 00:15 11/08/19 00:15 Lab results: WBC 9.2 thou/uL (4.8-10.8) 11/08/19 00:15 Hgb 10.7 g/dL (12.0-16.0) L 11/08/19 00:15 Hct 30.3 % (36.0-47.0) L 11/08/19 00:15 MCV 89.9 fL (78.0-98.0) 11/08/19 00:15 Plt Count 354 thou/uL (130-400) 11/08/19 00:15 Band Neuts % (Manual) 2 % (5-11) L 11/08/19 00:15 Sodium 136 mmol/L (136-145) 11/08/19 00:15 Potassium 4.5 mmol/L (3.5-5.1) 11/08/19 00:15 Chloride 102 mmol/L (98-107) 11/08/19 00:15 Carbon Dioxide 26 mmol/L (22-29) 11/08/19 00:15 BUN 24 mg/dL (9.8-20.1) H 11/08/19 00:15 Creatinine 0.99 mg/dL (0.6-1.1) 11/08/19 00:15 Glucose 186 mg/dL (70-105) H 11/08/19 00:15 Calcium 8.9 mg/dL (7.8-10.44) 11/08/19 00:15 Total Bilirubin 0.4 mg/dL (0.2-1.2) 11/08/19 00:15 AST 8 U/L (5-34) 11/08/19 00:15 ALT Less than 7 U/L (8-55) L 11/08/19 00:15 Alkaline Phosphatase 62 U/L (40-110) 11/08/19 00:15 Serum Total Protein 5.7 g/dL (6.0-8.3) L 11/08/19 00:15 Albumin 2.7 g/dL (3.5-5.0) L 11/08/19 00:15 Lipase 61 U/L (8-78) 11/08/19 00:15 Urine Ketones Negative mg/dL (Negative) 11/08/19 02:01 Urine Blood 1+ (Negative) A 11/08/19 02:01 Urine Nitrite Negative (Negative) 11/08/19 02:01 Ur Leukocyte Esterase Negative Danny/uL (Negative) 11/08/19 02:01 Urine RBC 7-10 HPF (0-3) A 11/08/19 02:01 Urine WBC 0-3 HPF (0-3) 11/08/19 02:01 Ur Squamous Epith Cells None Seen HPF (0-3) 11/08/19 02:01 Urine Bacteria None Seen HPF (None Seen) 11/08/19 02:01 - Radiology Interpretation CT scan - abdomen Status: pending Hospitalist H&P A/P - Problem (1) Nausea & vomiting Code(s): R11.2 - NAUSEA WITH VOMITING, UNSPECIFIED Status: Acute (2) Decreased urine output Code(s): R34 - ANURIA AND OLIGURIA Status: Acute (3) Abdominal pain Code(s): R10.9 - UNSPECIFIED ABDOMINAL PAIN Status: Acute (4) Abscess of right groin Code(s): L02.214 - CUTANEOUS ABSCESS OF GROIN Status: Acute (5) CAD (coronary artery disease) Code(s): I25.10 - ATHSCL HEART DISEASE OF [place] CORONARY ARTERY W/O ANG PCTRS Status: Chronic Qualifiers: Coronary Disease-Associated Artery/Lesion type: [place] artery [place] vs. transplanted heart: [place] heart Associated angina: without angina Qualified Code(s): I25.10 - Atherosclerotic heart disease of [place] coronary artery without angina pectoris (6) CHF (congestive heart failure) Code(s): I50.9 - HEART FAILURE, UNSPECIFIED Status: Chronic (7) CKD (chronic kidney disease) stage 3, GFR 30-59 ml/min Code(s): N18.3 - CHRONIC KIDNEY DISEASE, STAGE 3 (MODERATE) Status: Chronic (8) GERD (gastroesophageal reflux disease) Code(s): K21.9 - GASTRO-ESOPHAGEAL REFLUX DISEASE WITHOUT ESOPHAGITIS Status: Chronic (9) Hypertension Code(s): I10 - ESSENTIAL (PRIMARY) HYPERTENSION Status: Chronic Qualifiers: Hypertension type: essential hypertension Qualified Code(s): I10 - Essential (primary) hypertension (10) Hypothyroidism Code(s): E03.9 - HYPOTHYROIDISM, UNSPECIFIED Status: Chronic - Plan Plan: CT imaging with final report pending. Patient recently on IV Antibiotics for right groin abscess from recent admission. Not tolerating oral antibiotics. Per discussion with Dr. Mitchell, will start Unasyn and continue rifampin. Consult ID for further management. Phenergan ordered for persistent n/v. Will give gentle IV fluids. Given abdominal pain with hx of DM and GERD/Viera's, will place consulted to GI (has been seen in recent past). Keep patient NPO. Monitor BP. Reconcile home meds once verified. CODE STATUS: FULL Surrogate decision maker: Damion Tesfaye Case discussed with Dr. Mitchell who advised plan as above.
[2019-11-08] MEDS ORDERED: Promethazine HCl 25 MG/ML VIAL IM/IV PRN (03:54)
[2019-11-08] MEDS ORDERED: Sodium Chloride 0.45% 1,000 ML IV SCH (04:00)
[2019-11-08] MEDS ORDERED: Morphine 2 MG/ML SYRINGE SLOW IVP SCH (04:00)
[2019-11-08] MEDS ORDERED: Dextrose 50% Abboject 50 ML SYRINGE SLOW IVP PRN (04:22)
[2019-11-08] MEDS ORDERED: Dextrose 5% in Water 1,000 ML IV PRN (04:22)
[2019-11-08] MEDS ORDERED: HumaLOG 300 UNITS/3 ML VIAL SC PRN (04:22)
[2019-11-08] MEDS ORDERED: Dextrose 5 %-0.45 % NaCl 1,000 ML IV SCH (04:30)
[2019-11-08 04:34] VITALS: BMI 32.3
[2019-11-08 04:42] LABS: #Basophils 0.1 thou/uL (0.0-0.2); #Eosinphils 0.1 thou/uL (0.0-0.7); #Lymphocytes 1.2 thou/uL (1.20-3.40); #Monocytes 0.7 thou/uL (0.11-0.59); %Basophils 0.7 % (0.0-1.0); %Eosinophils 1.3 % (0.0-10.0); %Lymphocytes 11.5 % (21.0-51.0); %Monocytes 6.5 % (0.0-10.0); %Neutrophils 79.9 % (42.0-75.0); Hemoglobin 11.7 g/dL (12.0-16.0); Mean Corpuscular HGB CONC 36.1 g/dL (32.0-36.0); Mean Corpuscular Hemoglobin 32.9 pg (27.0-31.0); Mean Platelet Volume 7.9 fL (7.4-10.4); Platelet Count 359 thou/uL (130-400); RBC Distribution Width 12.6 % (11.5-14.5); Red Blood Cell (RBC) Count 3.56 mill/uL (4.20-5.40)
[2019-11-08] MEDS ORDERED: Promethazine HCl 12.5 MG in Sodium Chloride 0.9% 50 ML IVPB PRN (04:53)
[2019-11-08 05:01] LABS: Lactic Acid 1.1 mmol/L (0.5-2.2)
[2019-11-08 05:04] LABS: Anion Gap 15 mmol/L (10-20); BUN (Urea Nitrogen) 21 mg/dL (9.8-20.1); Calc. Creatinine Clearance 87 mL/min (70-130); Calcium 9.1 mg/dL (7.8-10.44); Carbon Dioxide 24 mmol/L (22-29); Chloride 101 mmol/L (98-107); Estimated GFR-MDRD 55; Glucose 232 mg/dL (70-105); Potassium 4.5 mmol/L (3.5-5.1); Sodium 135 mmol/L (136-145)
[2019-11-08 05:06] LABS: Amphetamine Not Detected (NotDetected); Barbiturates Screen Not Detected (NotDetected); Benzodiazepine Screen Not Detected (NotDetected); Cocaine Metabolite Screen Not Detected (NotDetected); Medtox Control Line Valid? VALID (VALID); Medtox Reader # READER 4; Methadone Not Detected (NotDetected); Methamphetamine Not Detected (NotDetected); Opiate Screen Not Detected (NotDetected); Oxycodone Screen Not Detected (NotDetected); Phencyclidine (PCP) Not Detected (NotDetected); THC/Cannabinoid Screen Not Detected (NotDetected); Tricyclic Screen Not Detected (NotDetected)
[2019-11-08] MEDS: Promethazine HCl 25 MG in Sodium Chloride 0.9% 50 ML IVPB PRN ×2 (05:13→14:40)
[2019-11-08] MEDS ORDERED: Lorazepam 1 MG TAB PO PRN (06:09)
[2019-11-08] MEDS ORDERED: NITROGLYCERIN 4.1 GM TL PRN (06:09)
[2019-11-08] MEDS ORDERED: Ipratropium Oral Inhaler INH PRN (06:09)
[2019-11-08] MEDS ORDERED: cloNIDine 0.1 MG TAB PO PRN (06:13)
[2019-11-08] MEDS ORDERED: hydrALAZINE 20 MG/ML VIAL SLOW IVP PRN (06:13)
[2019-11-08] MEDS ORDERED: Sodium Chloride 0.9% 1,000 ML IV SCH (06:15)
--- NOTE | 2019-11-08 07:30 | CT ---
PRELIMINARY REPORT/[facility]/EMERGENCY AFTER HOURS PROCEDURE EXAM: CT Abdomen and Pelvis with Intravenous Contrast CLINICAL HISTORY: Pt reports that she was discharged from here yesterday. Pt was in CCU for sepsis. Pt reports that she does not know the source. Pt complains of N/V/D and abdominal pain. Pt reports being cold at home. TECHNIQUE: Axial computed tomography images of the abdomen and pelvis with intravenous contrast. CONTRAST: With; ISOVUE 370,60mL COMPARISON: None provided. FINDINGS: LUNG BASES: No basilar airspace consolidation or pleural effusion. LIVER: The liver is enlarged measuring 24.2 cm in length. GALLBLADDER AND BILE DUCTS: Unremarkable. No calcified stone. No ductal dilation. PANCREAS: Unremarkable. SPLEEN: The spleen is enlarged to 12.8 cm in length. ADRENAL GLANDS: Unremarkable. KIDNEYS, URETERS, AND BLADDER: Bilateral perinephric fat stranding. No hydronephrosis or nephrolithiasis. No ureteral or bladder ca lculi. Mild bilateral periureteral fat stranding. Mild diffuse bladder wall thickening. STOMACH AND BOWEL: No obstruction. No wall thickening. No CT evidence of colitis or acute diverticulitis. APPENDIX: No CT evidence for appendicitis. PERITONEUM: No free fluid. No free air. LYMPH NODES: No lymphadenopathy. REPRODUCTIVE: Unremarkable as visualized. VASCULATURE: No aortic aneurysm. Atherosclerosis. BONES: No fracture or suspicious osseous abnormality. Multilevel degenerative disc disease. Osteoarthritis of the bilateral hips and SI joints. ABDOMINAL WALL AND SOFT TISSUES: Unremarkable. IMPRESSION: Bilateral perinephric fat stranding, periureteral fat stranding, and diffuse bladder wall thickening concerning for a urinary tract infection. Correlation with urinalysis is recommended. Hepatosplenomegaly. ELECTRONICALLY SIGNED BY: Papito Gamez MD November 08, 2019 1:09:20 AM CDT This report is intended for review by the ordering physician only, in accordance of law. If you recei ve this report in error, please call [facility] at [phone]. FINAL REPORT EXAM: CT ABDOMEN AND PELVIS HISTORY: Sepsis. Patient was discharged yesterday. COMPARISON: 10/15/2019 Procedure: Multiple contiguous axial images were obtained and a CT of the abdomen and pelvis with IV contrast. C oronal reformats were performed. FINDINGS: Lower Chest: within normal limits. Vessels: Normal caliber aorta Heart: Normal heart size Abdomen: Portal vein:Patent Gallbladder: No calcified gallstones. Normal caliber wall. Liver: within normal limits. Pancreas: within normal limits. Spleen: within normal limits. Adrenals: within normal limits. Kidneys: Bilateral perinephric fat stranding. No obstructive uropathy. Peritoneum: No ascites or free air, no fluid collection. Bowel: Limited evaluation due to the lack of oral contrast administration. No evidence of bowel obstr uction. Ileocecal junction is unremarkable. Normal caliber appendix. Scattered fecal material in a nondistended, nondilated colon. Mesentery and Retroperitoneum: No enlarged mesenteric or retroperitoneal lymph nodes. Abdominal Wall: Mild edema throughout the abdominal wall. Correlate for component of anasarca Pelvis: Reproductive Organs: Reproductive organs are unremarkable. Pelvis: No mass, lymphadenopathy, free air or free fluid. Bladder: Mild mucosal thickening which may in part be due to inadequate distention. Bones: within normal limits. IMPRESSION: 1. This report is in agreement with initial report by [facility]. 2. Bilateral perinephric fat stranding. Mild urinary bladder wall mucosal prominence. Correlate for u rinary tract infection. Transcribed Date/Time: 11/08/2019 7:37 AM
[2019-11-08] MEDS: Ondansetron ODT 4 MG TAB PO PRN (08:04)
[2019-11-08] MEDS: Ampicillin/Sulbactam 3 GM in Sodium Chloride 0.9% 100 ML IVPB SCH ×2 (08:04→11:27)
[2019-11-08] MEDS: HYDROcodone/Acetaminophen 10/325 mg Tablet PO PRN (08:06)
[2019-11-08] MEDS: Montelukast Sodium 10 mg Tablet PO SCH ×3 (08:08→20:16)
[2019-11-08] MEDS: Aspirin 81 mg Enteric Coated Tablet PO SCH ×2 (08:08→15:03)
[2019-11-08] MEDS: hydrALAZINE 25 MG TAB PO SCH ×4 (08:08→20:15)
[2019-11-08] MEDS: Saccharomyces boulardii 250 MG CAP PO SCH ×2 (08:09→15:04)
[2019-11-08] MEDS: Doxycycline 100 MG CAP PO SCH ×2 (08:09→15:03)
[2019-11-08] MEDS: Gabapentin 400 MG CAP PO SCH ×3 (08:09→20:15)
[2019-11-08] MEDS: Pantoprazole 40 MG VIAL IVP SCH ×2 (08:10→20:16)
[2019-11-08] MEDS: Metoprolol Tartrate 50 MG TAB PO SCH ×3 (08:10→20:16)
[2019-11-08] MEDS: Rifampin 300 MG CAP PO SCH ×2 (08:11→15:04)
[2019-11-08] MEDS ORDERED: Insulin Glargine 10 UNITS in Pre-Filled Syringe 1 EACH SC SCH (09:00)
[2019-11-08] MEDS ORDERED: Iopamidol-370 76% 500 ML 1 ML ONE (09:52)
[2019-11-08] MEDS: Labetalol HCl 100 MG/20 ML VIAL SLOW IVP PRN ×2 (11:25→20:14)
[2019-11-08] MEDS: HumaLOG 300 UNITS/3 ML VIAL SC PRN ×2 (11:26→17:03)
[2019-11-08] MEDS: Sodium Chloride 0.9% 1,000 ML IV SCH (11:52)
[2019-11-08] MEDS: Labetalol HCl 100 MG/20 ML VIAL SLOW IVP SCH ×3 (11:53→23:49)
[2019-11-08] MEDS ORDERED: cefTRIAXone\\ROCEPHIN 2 GM in Sodium Chloride 0.9% 100 ML IVPB SCH (12:00)
[2019-11-08] MEDS ORDERED: Pantoprazole 40 MG VIAL IVP SCH (21:15)
--- NOTE | 2019-11-08 23:08 | CON ---
DATE OF CONSULTATION: 11/08/2019 REASON FOR CONSULTATION: Nausea and vomiting. HISTORY OF PRESENT ILLNESS: Raina Rodriguez is a 59-year-old woman, seen in the past by my GI colleague, Dr. Pradeep Dudley. She had a normal colonoscopy in [address] [place] Dudley performed EGD in 2016 for complaint of dysphagia and history of Viera esophagus, but that EGD was normal exam, with no evidence of Viera's endoscopically or on biopsies, with empiric esophageal dilation performed. She has extensive comorbidities including COPD, on home oxygen; history of CVA; and congestive heart failure. She has had recurrent urinary tract infections. She has diabetes and she abuses tobacco. She has had multiple recent hospitalizations for various reasons. In August, she was admitted with acute kidney injury and dehydration and was found to have a stool impaction, which was manually disimpacted at that time. I met her in early September during hospitalization with diarrhea and nausea as well as acute kidney injury. At that time, she was treated for Enterobacter UTI and also C difficile. She has finished out that treatment. More recently, she was hospitalized here for about a week with sepsis, thought to be secondary to a right groin abscess. She was on IV antibiotics for several days, eventually discharged on p.o. antibiotics 3 days ago. However, the patient states that she has not done well at home and so she was readmitted to the hospital today. She says that she has had nausea and multiple episodes of nonbloody emesis, particularly yesterday. She was unable to keep anything down. She says her stools are generally loose a couple of times per day, though her last bowel movement was yesterday morning and she has not had any bowel movement so far today. With all of the vomiting, she has been having generalized abdominal discomfort, but really centered in the mid epigastrium. It is tender to palpation. She reports wide variations and fluctuations in her blood glucose levels. Upon presentation, LFTs and lipase and CBC were all essentially unremarkable. She is hypertensive. She had a CT of the abdomen and pelvis, which demonstrated bilateral perinephric stranding and diffuse bladder thickening, note her urinalysis shows 7 to 10 rbc's. The bowel and gallbladder and common bile duct and pancreas all appeared normal. The patient relates that she thinks she was told she might have gastroparesis at some point in the past. REVIEW OF SYSTEMS: Full review of systems including constitutional, head, eyes, ears, nose, throat, GI, , cardiovascular, respiratory, musculoskeletal, neurologic systems is negative except as noted in the HPI. PAST MEDICAL HISTORY: CHF; coronary artery disease with stents; CVA; COPD, on home oxygen; diabetes, on insulin; hypertension; ongoing tobacco abuse; obesity; hypothyroidism; recurrent urinary tract infections; right groin abscess; peripheral neuropathy; GERD; osteoarthritis; chronic renal insufficiency; hypothyroidism; tubal ligation. SOCIAL HISTORY: She smokes 1 pack of cigarettes per day. Alcohol use is rare. No drug use. She is disabled and lives in [place]. FAMILY HISTORY: Noncontributory. ALLERGIES: IBUPROFEN AND SULFA. OUTPATIENT MEDICATIONS: 1. Metoprolol. 2. Lorazepam 1 mg daily. 3. Levothyroxine. 4. Hydralazine. 5. Gabapentin. 6. Omeprazole 40 mg daily. 7. Translingual nitroglycerin spray as needed. 8. Zofran 4 mg as needed. 9. Singulair. 10. Seroquel. 11. Pravastatin. 12. Lantus insulin 72 units subcutaneously twice daily. 13. Humalog sliding scale three times per day and at bedtime. 14. [place] p.r.n. 15. Lasix 80 mg twice daily. 16. Advair twice daily. PHYSICAL EXAMINATION: VITAL SIGNS: Temperature 98.2, pulse 71, blood pressure 199/76, and 97% oxygen saturation on room air. GENERAL: Obese, 59-year-old woman, lying in bed comfortably, in no distress. SKIN: No jaundice. No rashes were palpable. EYES: No scleral icterus. Extraocular movements are intact. ENT: Mucous membranes are moist. No oral lesions. LYMPH: No submandibular or supraclavicular lymphadenopathy. THYROID: Nontender to palpation. HEART: Regular rate and rhythm. LUNGS: Clear to auscultation bilaterally. ABDOMEN: Nondistended. Bowel sounds are present. Soft, but tender to palpation throughout the abdomen, particularly in the epigastric area. No guarding or rebound tenderness. EXTREMITIES: No peripheral edema. VESSELS: Radial pulses 2+ bilaterally. NEUROLOGIC: Cranial nerves 2 through 12 are intact bilaterally. No focal deficits. LABORATORY STUDIES: WBC 10.0, hemoglobin 11.7, platelets 359. Sodium 135, potassium 4.5, BUN 21, creatinine 1.02, glucose 299. Lactic acid 1.1. Lipase only 61. LFTs all normal with total bilirubin 0.4, alkaline phosphatase 62, AST 8, ALT less than 7, albumin 2.7. Urinalysis shows 0 to 3 wbc's, 7 to 10 rbc's. Urine drug screen is negative. IMAGING STUDIES: CT of the abdomen and pelvis demonstrates bilateral perinephric stranding and diffuse bladder thickening suggestive of urinary tract infection. Normal-appearing gallbladder, common bile duct, pancreas, bowel, appendix, and peritoneum. ASSESSMENT AND PLAN: 1. Nausea and vomiting. 2. Epigastric abdominal pain. 3. Diabetes, on insulin. 4. Recurrent urinary tract infections. The patient is not really having diarrhea at this time, and imaging did not suggest any colonic inflammatory changes, so my suspicion for recurrent Clostridium difficile is low. If the patient does start having diarrhea, I think stool should be sent for Clostridium difficile. We discussed further differential for nausea and vomiting. Her CT scan does not suggest any bowel obstruction. Normal LFTs and lipase suggest against any biliary etiology. The CT scan does suggest possible recurrent urinary tract infections. The patient is getting antibiotics, but it would be reasonable to obtain urine culture. This could just be reactive to that. Also consider the possibility of gastroparesis, given her diabetes. Also need to consider upper GI mucosal pathology. Continue with supportive care for now. We are going to plan for diagnostic esophagogastroduodenoscopy tomorrow. If this were normal or unrevealing, then we would consider starting her on Reglan. Thank you for the consultation. Please call anytime with questions or concerns. Job ID: [id number]
[2019-11-09] MEDS: Sodium Chloride 0.9% 1,000 ML IV SCH ×3 (01:11→14:54)
[2019-11-09] MEDS: Metoprolol Tartrate 50 MG TAB PO SCH ×2 (05:38→20:46)
[2019-11-09] MEDS: Labetalol HCl 100 MG/20 ML VIAL SLOW IVP SCH ×3 (05:45→16:58)
[2019-11-09] MEDS: Levothyroxine Sodium 112 MCG TAB PO SCH (05:45)
[2019-11-09 06:11] LABS: #Basophils 0.1 thou/uL (0.0-0.2); #Eosinphils 0.1 thou/uL (0.0-0.7); #Lymphocytes 1.7 thou/uL (1.20-3.40); #Monocytes 0.6 thou/uL (0.11-0.59); #Neutrophils 6.9 thou/uL (1.40-6.50); %Basophils 0.6 % (0.0-1.0); %Lymphocytes 17.8 % (21.0-51.0); %Monocytes 6.8 % (0.0-10.0); %Neutrophils 73.8 % (42.0-75.0); Hemoglobin 10.6 g/dL (12.0-16.0); Mean Corpuscular HGB CONC 34.4 g/dL (32.0-36.0); Mean Corpuscular Hemoglobin 31.3 pg (27.0-31.0); Mean Platelet Volume 7.8 fL (7.4-10.4); Platelet Count 366 thou/uL (130-400); RBC Distribution Width 12.2 % (11.5-14.5); Red Blood Cell (RBC) Count 3.38 mill/uL (4.20-5.40); White Blood Cell (WBC) Count 9.3 thou/uL (4.8-10.8)
[2019-11-09 06:35] LABS: ALT (SGPT) Less than 7 U/L (8-55); AST (SGOT) 7 U/L (5-34); Albumin 2.6 g/dL (3.5-5.0); Alkaline Phosphatase 61 U/L (40-110); Anion Gap 11 mmol/L (10-20); BUN (Urea Nitrogen) 18 mg/dL (9.8-20.1); Bilirubin, Total 0.2 mg/dL (0.2-1.2); CRP (Inflammatory) 1.95 mg/dL (= or < 0.5); Calc. Creatinine Clearance 87 mL/min (70-130); Calcium 7.7 mg/dL (7.8-10.44); Carbon Dioxide 26 mmol/L (22-29); Chloride 103 mmol/L (98-107); Estimated GFR-MDRD 56; Globulin 2.7 g/dL (2.4-3.5); Glucose 185 mg/dL (70-105); Lipase 13 U/L (8-78); Potassium 3.8 mmol/L (3.5-5.1); Protein, Total 5.3 g/dL (6.0-8.3); Sodium 136 mmol/L (136-145)
[2019-11-09] MEDS: Pantoprazole 40 MG VIAL IVP SCH ×2 (08:27→20:56)
[2019-11-09] MEDS: HYDROcodone/Acetaminophen 10/325 mg Tablet PO PRN (08:28)
[2019-11-09] MEDS: Labetalol HCl 100 MG/20 ML VIAL SLOW IVP PRN (08:44)
[2019-11-09] MEDS: Ondansetron ODT 4 MG TAB PO PRN (08:51)
[2019-11-09] MEDS ORDERED: Insulin Glargine 10 UNITS in Pre-Filled Syringe 1 EACH SC SCH (09:00)
[2019-11-09] MEDS: Aspirin 81 mg Enteric Coated Tablet PO SCH (09:02)
[2019-11-09] MEDS: Saccharomyces boulardii 250 MG CAP PO SCH (09:02)
[2019-11-09] MEDS: hydrALAZINE 25 MG TAB PO SCH ×3 (09:02→19:44)
[2019-11-09] MEDS: Gabapentin 400 MG CAP PO SCH ×2 (09:02→19:44)
[2019-11-09] MEDS: Montelukast Sodium 10 mg Tablet PO SCH ×2 (09:02→19:44)
[2019-11-09] MEDS ORDERED: Morphine 2 MG/ML SYRINGE SLOW IVP PRN (10:16)
[2019-11-09] MEDS ORDERED: hydrALAZINE 20 MG/ML VIAL ONE (11:43)
[2019-11-09] MEDS ORDERED: Ondansetron PF 4 MG/2 ML Vial ONE (11:59)
[2019-11-09] MEDS ORDERED: Meperidine HCl/PF 25 MG/ML VIAL ONE (12:02)
[2019-11-09] MEDS ORDERED: Labetalol HCl 100 MG/20 ML VIAL ONE (12:06)
--- NOTE | 2019-11-09 12:38 | OP ---
DATE OF PROCEDURE: 11/09/2019 INSTRUCTIONAL COORDINATOR SURGEON: None. PROCEDURE PERFORMED: Esophagogastroduodenoscopy, diagnostic. INDICATIONS FOR PROCEDURE: Chronic nausea and vomiting and epigastric pain. MEDICATIONS: See Anesthesia record. FINDINGS: After discussion of the risks, benefits, and alternatives of the procedure, informed consent was obtained and witnessed. Pre-endoscopic cardiopulmonary examination was satisfactory. Time-out was performed before sedation was achieved. Sedation was achieved with Anesthesia assistance in the endoscopy unit. A Pentax adult upper endoscope was placed into the oropharynx and passed through the cricopharyngeus under direct visualization. The proximal and mid esophageal mucosa appeared normal. In the distal esophagus, there was erosive esophagitis, LA grade C, with multiple nonbleeding erosions visualized in the distal 5 cm. There was no stricture noted. The endoscope was advanced into the stomach. There was a considerable amount of bilious fluid retained within the gastric fundus. This was all completely suctioned. Forward and retroflexed views of the entire gastric mucosa were obtained. The gastric mucosa appeared normal. The endoscope was then advanced through the pylorus, which was widely patent and into the duodenal bulb. There were some mild erythema and friability in the duodenal bulb, but no erosions or ulcerations. The endoscope was advanced beyond the duodenal sweep and into the second and third portions of the duodenum, which appeared normal. The upper endoscope was then completely withdrawn, and the patient was allowed to recover. The patient tolerated the procedure well. There were no immediate postprocedure complications. IMPRESSION: 1. LA grade C distal reflux esophagitis. 2. Mild duodenitis in the duodenal bulb. 3. Fluid in the gastric fundus, completely suctioned. RECOMMENDATIONS: 1. Continue PPI twice daily. 2. Try adding Reglan 10 mg IV every 8 hours. The mucosal findings would not be expected to cause this degree of symptoms, and I suspect she likely has gastroparesis. 3. Advance diet as tolerated. 4. Stop or minimize opioid medications, as these can exacerbate gastric dysmotility. Job ID: [id number]
[2019-11-09] MEDS ORDERED: PROPOFOL 200 MG/20 ML VIAL ONE (14:54)
[2019-11-09] MEDS ORDERED: Metoprolol Tartrate 5 MG/5 ML VIAL ONE (14:54)
[2019-11-09] MEDS: Metoclopramide HCl 10 MG/2 ML VIAL IVP SCH ×2 (14:54→20:56)
[2019-11-09] MEDS: HumaLOG 300 UNITS/3 ML VIAL SC PRN (17:37)
[2019-11-09] MEDS: Insulin Glargine 15 UNITS in Pre-Filled Syringe 1 EACH SC SCH (20:56)
[2019-11-10] MEDS: Sodium Chloride 0.9% 1,000 ML IV SCH ×2 (01:35→14:14)
[2019-11-10] MEDS: Labetalol HCl 100 MG/20 ML VIAL SLOW IVP SCH ×4 (04:55→17:06)
[2019-11-10] MEDS: Metoclopramide HCl 10 MG/2 ML VIAL IVP SCH ×3 (04:56→21:27)
[2019-11-10] MEDS: Levothyroxine Sodium 112 MCG TAB PO SCH (04:56)
--- NOTE | 2019-11-10 06:45 | PDOC.HOSPP ---
- Subjective Encounter Date: 11/09/19 Encounter Time: 10:00 Subjective: Patient seen and examined for N/V/Abd pain. Unable to tolerate PO. Still has significant abd pain. No new complaints. No overnight events - Objective Vital Signs & Weight: Vital Signs (12 hours) Temp Pulse Resp BP Pulse Ox 11/10/19 04:55 74 11/10/19 02:57 132/66 11/10/19 00:00 74 11/09/19 19:44 74 11/09/19 19:28 99.0 F 74 18 127/63 96 Weight Admit Weight 206 lb Weight 206 lb 3 oz I&O: 11/08/19 11/09/19 11/10/19 06:59 06:59 06:59 Intake Total 50 480 Balance 50 480 Result Diagrams: 11/09/19 05:41 11/09/19 05:41 Additional Labs: Accuchecks 11/10/19 11/09/19 11/09/19 04:38 19:31 16:55 POC Glucose 145 H 243 H 280 H 11/09/19 11/09/19 13:15 07:57 POC Glucose 299 H 236 H Radiology Reviewed by me: Yes (CT abd - reviewed) Hospitalist ROS - Review of Systems Respiratory: denies: cough, dry, shortness of breath, hemoptysis, SOB with excertion, pleuritic pain, sputum, wheezing, other Cardiovascular: denies: chest pain, palpitations, orthopnea, paroxysmal noc. dyspnea, edema, light headedness, other - Medication Medications: Active Medications Generic Name Dose Route Start Last Admin Trade Name Freq PRN Reason Stop Dose Admin Hydrocodone Bitart/Acetaminophen 1 tab 11/08/19 06:09 11/09/19 08:28 Susan 10/325 PO 1 tab Q4HR PRN Administration Pain Aspirin 81 mg 11/08/19 09:00 11/09/19 09:02 Ecotrin PO Not Given DAILY VALE Gabapentin 1,600 mg 11/08/19 09:00 11/09/19 19:44 Neurontin PO Not Given BID VALE Hydralazine HCl 50 mg 11/08/19 09:00 11/09/19 19:44 Apresoline PO Not Given TID VALE Sodium Chloride 1,000 mls @ 75 mls/hr 11/08/19 11:31 11/10/19 01:35 Normal Saline 0.9% IV 1,000 mls .[id number] VALE Administration Insulin Glargine 15 units/ 0.15 mls @ 0 mls/hr 11/09/19 21:00 11/09/19 20:56 Miscellaneous Medication SC 0.15 mls BID VALE Administration Insulin Human Lispro 0 units 11/08/19 04:22 11/08/19 20:19 Humalog SC 3 unit .BEDTIME SLIDING SC PRN Administration Bedtime Correctional Scale Insulin Human Lispro 0 units 11/09/19 17:04 11/09/19 17:37 Humalog SC 6 unit .MODERATE SLIDING SC PRN Administration Moderate Correctional Scale Labetalol HCl 10 mg 11/08/19 06:13 11/09/19 08:44 Normodyne SLOW IVP 10 mg Q4H PRN Administration Systolic BP > 180 Labetalol HCl 10 mg 11/08/19 12:00 11/10/19 04:55 Normodyne SLOW IVP Not Given Q6HR [facility] Levothyroxine Sodium 112 mcg 11/09/19 06:00 11/10/19 04:56 Synthroid PO 112 mcg 0600 VALE Administration Lorazepam 1 mg 11/08/19 06:09 11/08/19 08:07 Ativan PO 1 mg HS PRN Administration Agitation Metoclopramide HCl 10 mg 11/09/19 14:00 11/10/19 04:56 Reglan IVP 10 mg Q8HR VALE Administration Metoprolol Tartrate 25 mg 11/08/19 09:00 11/09/19 20:46 Lopressor PO Not Given BID [facility] Montelukast Sodium 10 mg 11/08/19 09:00 11/09/19 19:44 Singulair PO Not Given BID [facility] Morphine Sulfate 2 mg 11/09/19 10:16 11/09/19 14:54 Morphine SLOW IVP 11/10/19 10:17 2 mg Q6H PRN Administration Severe Pain (7-10) Ondansetron HCl 4 mg 11/08/19 06:09 11/09/19 08:51 Zofran Odt PO 4 mg Q6HR PRN Administration Nausea/Vomiting Pantoprazole Sodium 40 mg 11/08/19 09:00 11/09/19 20:56 Protonix IVP 40 mg Q12HR VALE Administration Quetiapine Fumarate 100 mg 11/08/19 21:00 11/09/19 19:44 Seroquel PO Not Given HS VALE Saccharomyces Boulardii 250 mg 11/08/19 09:00 11/09/19 09:02 Florastor PO Not Given DAILY VALE - Exam General Appearance: NAD Neck: supple, no JVD Heart: RRR, no gallops Respiratory: no wheezes, no rales Gastrointestinal: soft, no guarding, no rigidity, tender to palpation Extremities: no cyanosis, no clubbing Psychiatric: normal affect, A&O x 3 Hosp A/P - Plan PT/OT, DVT proph w/SCDs N/V/Abd pain - ?etio - Gastroparesis vs Atbx side effects Recent hospitalization for Sepsis due to Rt groin abscess DM2 with hyperglycemia Recent C diff colitis/Enterobacter UTI CKD 3 Hyponatremia Obesity BMI 32.5 CAD (stents x 2) HTN HLD COPD (on home oxygen) Hypothyroidism Anxiety PLAN: EGD today IV PPI BID GI input appreciated Case d/w Dr Rankin Cont sliding scale Increase Lantus
[2019-11-10] MEDS: Montelukast Sodium 10 mg Tablet PO SCH ×2 (09:00→22:13)
[2019-11-10] MEDS: Aspirin 81 mg Enteric Coated Tablet PO SCH (09:00)
[2019-11-10] MEDS: Metoprolol Tartrate 50 MG TAB PO SCH ×2 (09:00→22:13)
[2019-11-10] MEDS: Gabapentin 400 MG CAP PO SCH ×2 (09:00→22:13)
[2019-11-10] MEDS: hydrALAZINE 25 MG TAB PO SCH ×3 (09:00→22:13)
[2019-11-10] MEDS: Saccharomyces boulardii 250 MG CAP PO SCH (09:00)
[2019-11-10] MEDS: Pantoprazole 40 MG VIAL IVP SCH ×2 (09:01→21:28)
[2019-11-10] MEDS: Insulin Glargine 15 UNITS in Pre-Filled Syringe 1 EACH SC SCH ×2 (10:20→21:28)
--- NOTE | 2019-11-10 10:46 | PDOC.HOSPP ---
- Subjective Encounter Date: 11/10/19 Subjective: Tolerating clear liquids. - Objective Vital Signs & Weight: Vital Signs (12 hours) Temp Pulse Resp BP BP Pulse Ox 11/10/19 09:07 72 168/73 H 11/10/19 07:37 97.7 F 68 20 172/77 H 96 11/10/19 04:55 74 11/10/19 02:57 132/66 11/10/19 00:00 74 Weight Admit Weight 206 lb Weight 206 lb 3 oz I&O: 11/09/19 11/10/19 11/11/19 06:59 06:59 06:59 Intake Total 480 Balance 480 Result Diagrams: 11/09/19 05:41 11/09/19 05:41 Additional Labs: Accuchecks 11/10/19 11/09/19 11/09/19 04:38 19:31 16:55 POC Glucose 145 H 243 H 280 H 11/09/19 13:15 POC Glucose 299 H Hospitalist ROS - Medication Medications: Active Medications Generic Name Dose Route Start Last Admin Trade Name Freq PRN Reason Stop Dose Admin Hydrocodone Bitart/Acetaminophen 1 tab 11/08/19 06:09 11/09/19 08:28 [place] 10/325 PO 1 tab Q4HR PRN Administration Pain Aspirin 81 mg 11/08/19 09:00 11/10/19 09:00 Ecotrin PO Not Given DAILY VALE Gabapentin 1,600 mg 11/08/19 09:00 11/10/19 09:00 Neurontin PO Not Given BID VALE Hydralazine HCl 50 mg 11/08/19 09:00 11/10/19 09:00 Apresoline PO Not Given TID VALE Sodium Chloride 1,000 mls @ 75 mls/hr 11/08/19 11:31 11/10/19 01:35 Normal Saline 0.9% IV 1,000 mls .[id number] VALE Administration Insulin Glargine 15 units/ 0.15 mls @ 0 mls/hr 11/09/19 21:00 11/10/19 10:20 Miscellaneous Medication SC 0.15 mls BID VALE Administration Insulin Human Lispro 0 units 11/08/19 04:22 11/08/19 20:19 Humalog SC 3 unit .BEDTIME SLIDING SC PRN Administration Bedtime Correctional Scale Insulin Human Lispro 0 units 11/09/19 17:04 11/09/19 17:37 Humalog SC 6 unit .MODERATE SLIDING SC PRN Administration Moderate Correctional Scale Labetalol HCl 10 mg 11/08/19 06:13 11/09/19 08:44 Normodyne SLOW IVP 10 mg Q4H PRN Administration Systolic BP > 180 Labetalol HCl 10 mg 11/08/19 12:00 11/10/19 04:55 Normodyne SLOW IVP Not Given Q6HR VALE Levothyroxine Sodium 112 mcg 11/09/19 06:00 11/10/19 04:56 Synthroid PO 112 mcg 0600 VALE Administration Lorazepam 1 mg 11/08/19 06:09 11/08/19 08:07 Ativan PO 1 mg HS PRN Administration Agitation Metoclopramide HCl 10 mg 11/09/19 14:00 11/10/19 04:56 Reglan IVP 10 mg Q8HR VALE Administration Metoprolol Tartrate 25 mg 11/08/19 09:00 11/10/19 09:00 Lopressor PO Not Given BID VALE Montelukast Sodium 10 mg 11/08/19 09:00 11/10/19 09:00 Singulair PO Not Given BID VALE Ondansetron HCl 4 mg 11/08/19 06:09 11/09/19 08:51 Zofran Odt PO 4 mg Q6HR PRN Administration Nausea/Vomiting Pantoprazole Sodium 40 mg 11/08/19 09:00 11/10/19 09:01 Protonix IVP 40 mg Q12HR VALE Administration Quetiapine Fumarate 100 mg 11/08/19 21:00 11/09/19 19:44 Seroquel PO Not Given HS [facility] Saccharomyces Boulardii 250 mg 11/08/19 09:00 11/10/19 09:00 Florastor PO Not Given DAILY VALE - Exam General Appearance: awake alert ENT: normocephalic atraumatic Neck: supple Heart: RRR Respiratory: normal chest expansion, no tachypnea Gastrointestinal: soft, non-tender, non-distended Neurological: cranial nerve grossly intact Hosp A/P - Plan N/V/Abd pain - ?etio - Gastroparesis vs Atbx side effects Recent hospitalization for Sepsis due to Rt groin abscess DM2 with hyperglycemia Recent C diff colitis/Enterobacter UTI CKD 3 Hyponatremia Obesity BMI 32.5 CAD (stents x 2) HTN HLD COPD (on home oxygen) Hypothyroidism Anxiety PLAN: 11/08: EGD today IV PPI BID GI input appreciated Case d/w Dr Rankin Cont sliding scale Increase Lantus. 11/09: Status post EGD showing duodenitis with no major structural abnormalities that would explain her symptoms. Etiology is likely related to gastroparesis per GI. She was placed on Reglan seems like her symptoms are slowly improving. She is also on PPI. Advance to full liquid diet as tolerated. Since the patient is on multiple medications that decrease the QTC, I will check EKG.
[2019-11-10] MEDS: HumaLOG 300 UNITS/3 ML VIAL SC PRN ×2 (11:40→17:06)
--- NOTE | 2019-11-10 12:45 | PRG ---
DATE OF SERVICE: 11/10/2019 SUBJECTIVE: Ms. Rodriguez reports that she had several episodes of emesis last night and one episode of emesis this morning. Overall, she has been tolerating clear liquids a bit better since that time. The diffuse abdominal pain persists unchanged. Reglan was started yesterday evening. OBJECTIVE: VITAL SIGNS: Temperature 97.5, pulse 69, blood pressure 163/76, 95% oxygen saturation on room air. GENERAL: No acute distress. HEART: Regular rate and rhythm. LUNGS: Clear to auscultation bilaterally. ABDOMEN: Bowel sounds are active. Soft. Some generalized mild tenderness to palpation, but no guarding or rebound tenderness. EXTREMITIES: No peripheral edema. LABORATORY STUDIES: Glucose 204. Urine culture shows no growth at 48 hours. ASSESSMENT AND PLAN: 1. Nausea and vomiting, appear likely related to gastroparesis given the retained fluid seen on esophagogastroduodenoscopy. Otherwise, no significant findings. 2. LA grade C distal reflux esophagitis. This is likely a consequence of her gastroparesis and recurrent recent vomiting. 3. Abdominal pain, secondary to gastroparesis. She had a recent history of Clostridium difficile, which was treated, but no recurrence of diarrhea. At this time, continue current treatment with PPI twice daily and Reglan 10 mg IV every 8 hours. Advance diet as the patient tolerates. Job ID: [id number]
[2019-11-11] MEDS: Ondansetron ODT 4 MG TAB PO PRN (00:26)
[2019-11-11] MEDS: Labetalol HCl 100 MG/20 ML VIAL SLOW IVP SCH ×3 (01:00→11:36)
[2019-11-11] MEDS: Metoclopramide HCl 10 MG/2 ML VIAL IVP SCH (05:39)
[2019-11-11 05:54] LABS: Anion Gap 10 mmol/L (10-20); BUN (Urea Nitrogen) 12 mg/dL (9.8-20.1); Calc. Creatinine Clearance 106 mL/min (70-130); Calcium 7.5 mg/dL (7.8-10.44); Carbon Dioxide 24 mmol/L (22-29); Chloride 105 mmol/L (98-107); Estimated GFR-MDRD 70; Glucose 104 mg/dL (70-105); Potassium 3.3 mmol/L (3.5-5.1); Sodium 136 mmol/L (136-145)
[2019-11-11 06:14] LABS: Hemoglobin 9.8 g/dL (12.0-16.0); Mean Corpuscular HGB CONC 35.2 g/dL (32.0-36.0); Mean Corpuscular Hemoglobin 31.3 pg (27.0-31.0); Mean Platelet Volume 7.5 fL (7.4-10.4); Platelet Count 307 thou/uL (130-400); RBC Distribution Width 11.6 % (11.5-14.5); Red Blood Cell (RBC) Count 3.12 mill/uL (4.20-5.40)
[2019-11-11] MEDS: Sodium Chloride 0.9% 1,000 ML IV SCH (06:17)
[2019-11-11] MEDS: Levothyroxine Sodium 112 MCG TAB PO SCH (06:17)
[2019-11-11 07:41] LABS: Band 1 % (5-11); Eosinophils 2 % (0-10); Lymphocytes 21 % (21-51); MDiff Complete? YES; Monocytes 2 % (0-10); Neutrophil 74 % (42-75)
[2019-11-11] MEDS: Saccharomyces boulardii 250 MG CAP PO SCH (08:31)
[2019-11-11] MEDS: Metoprolol Tartrate 50 MG TAB PO SCH (08:31)
[2019-11-11] MEDS: Aspirin 81 mg Enteric Coated Tablet PO SCH (08:32)
[2019-11-11] MEDS: hydrALAZINE 25 MG TAB PO SCH (08:32)
[2019-11-11] MEDS: Montelukast Sodium 10 mg Tablet PO SCH (08:32)
[2019-11-11] MEDS: Gabapentin 400 MG CAP PO SCH (08:32)
[2019-11-11] MEDS: Pantoprazole 40 MG VIAL IVP SCH (08:33)
[2019-11-11] MEDS: Insulin Glargine 15 UNITS in Pre-Filled Syringe 1 EACH SC SCH (08:33)
[2019-11-11] MEDS: HumaLOG 300 UNITS/3 ML VIAL SC PRN (11:51)
[2019-11-11 12:44] VITALS: TEMP 98.7
[2019-11-11 16:07] VITALS: BP 160/91
--- NOTE | 2019-11-12 10:16 | DIS ---
DATE OF ADMISSION: 11/08/2019 DATE OF DISCHARGE: 11/11/2019 DISCHARGE DIAGNOSES: 1. Nausea and vomiting secondary to gastroparesis. 2. Grade C distal reflux esophagitis. 3. Duodenitis. 4. Abdominal pain. 5. Dehydration. 6. Chronic kidney disease, stage 3. 7. Diabetes mellitus with hyperglycemia. 8. Obesity. 9. Coronary artery disease. 10. Hypertension. 11. Hyperlipidemia. 12. Chronic obstructive pulmonary disease, chronic. 13. Hypothyroidism. 14. Anxiety. DISCHARGE MEDICATIONS: 1. Eliquis 5 mg orally twice daily. 2. Reglan 10 mg orally t.i.d. as needed for nausea and vomiting. 3. Gabapentin 800 mg 2 tablets orally twice daily. 4. Hydralazine 50 mg orally t.i.d. 5. [place] 10 one tablet q.4 hours as needed for pain. 6. Lantus 72 units at bedtime. 7. Atrovent HFA 2 puff inhaled q.4 hours as needed. 8. DuoNeb 3 mL nebulized q.4 hours as needed for shortness of breath or wheezing. 9. Lorazepam 1 mg orally nightly as needed for anxiety. 10. Metoprolol tartrate 25 mg orally twice daily. 11. Singulair 10 mg orally twice daily. 12. Pantoprazole 40 mg orally twice daily. 13. Nitroglycerin 0.4 one gram spray sublingual as needed for chest pain. 14. Zofran 4 mg orally q.6 hours, this has been discontinued. 15. Pravastatin 80 mg orally nightly. 16. Seroquel 100 mg orally nightly. 17. Aspirin 81 mg orally daily. 18. Levothyroxine 112 mcg orally daily. 19. Florastor 250 mg orally daily. HISTORY OF PRESENT ILLNESS AND HOSPITAL COURSE: The patient is a 59-year-old female with past medical history of coronary artery disease, hypertension, COPD, congestive heart failure, CVA, peripheral neuropathy, diabetes mellitus, and hypothyroidism who presented to the hospital with complaints of nausea and vomiting in addition to persistent abdominal discomfort. The patient was not able to tolerate any oral intake. CT scan of the abdomen and pelvis obtained on the day of admission was positive for bilateral perinephric fat stranding suggesting a UTI. A urinalysis was obtained, which did not show any elevated WBC count and was negative for nitrate and leukocyte esterase. In addition, the patient did not have any leukocytosis and did not exhibit any signs of sepsis. A different etiology for her nausea and vomiting had to be entertained. Gastroenterology Service consulted and EGD was performed showing evidence of esophagitis and duodenitis. These findings were not severe enough to explain her symptoms and gastroparesis related to her diabetes was suggested as an etiology. The patient was started on Reglan, which helped improve her symptoms and she was able to tolerate diet prior to discharge. An EKG was performed to monitor her QTc given that she is receiving Reglan and quetiapine at the same time. The results showed an atrial fibrillation that is new to the patient. Atrial fibrillation has been controlled likely by the metoprolol that the patient was taking at home. Given her history of CVA, she has an elevated CHADS-VASc score and will be started on Eliquis for anticoagulation. Job ID: [id number]
--- NOTE | 2019-11-15 23:31 | EKG ---
Test Reason : Blood Pressure : / mmHG Vent. Rate : 061 BPM Atrial Rate : 061 BPM P-R Int : 000 ms QRS Dur : 130 ms QT Int : 452 ms P-R-T Axes : 000 028 -05 degrees QTc Int : 455 ms Atrial fibrillation Right bundle branch block Abnormal ECG When compared with ECG of 29-OCT-2019 11:05, Atrial fibrillation has replaced Sinus rhythm Nonspecific T wave abnormality has replaced inverted T waves in Anterior leads QT has shortened Confirmed by Herminia MENEZES ([id number]) on 11/15/2019 11:30:51 PM Referred By: ROSA M Confirmed By:Herminia MENEZES
== END 2019-11-11 15:51 | disposition home or self-care (01) | DRG 74 ==
LOC: ERS 23:55 → OBSVTOIN 11-08 03:02 → T4-A 11-08 03:02
PROVIDERS: ADMIT Internal Medicine; ATTEND Internal Medicine
PROC: 0DJ08ZZ Inspection of Upper Intestinal Tract, Via Natural or Artificial Opening Endoscopic (ICD-10-PCS; principal; 2019-11-09)
DX: E11.43 Type 2 diabetes mellitus with diabetic autonomic (poly)neuropathy (principal); I13.0 Hypertensive heart and chronic kidney disease with heart failure and stage 1 through stage 4 chronic kidney disease, or unspecified chronic kidney disease; I69.354 Hemiplegia and hemiparesis following cerebral infarction affecting left non-dominant side; E87.1 Hypo-osmolality and hyponatremia; K31.84 Gastroparesis; K29.80 Duodenitis without bleeding; E86.0 Dehydration; K21.0 Gastro-esophageal reflux disease with esophagitis; E11.22 Type 2 diabetes mellitus with diabetic chronic kidney disease; N18.3 Chronic kidney disease, stage 3 (moderate); E66.9 Obesity, unspecified; I25.10 Atherosclerotic heart disease of native coronary artery without angina pectoris; E11.65 Type 2 diabetes mellitus with hyperglycemia; I50.9 Heart failure, unspecified; E11.40 Type 2 diabetes mellitus with diabetic neuropathy, unspecified; F17.210 Nicotine dependence, cigarettes, uncomplicated; E78.00 Pure hypercholesterolemia, unspecified; M19.90 Unspecified osteoarthritis, unspecified site; I48.91 Unspecified atrial fibrillation; E78.5 Hyperlipidemia, unspecified; J44.9 Chronic obstructive pulmonary disease, unspecified; E03.9 Hypothyroidism, unspecified; F41.9 Anxiety disorder, unspecified; Z79.01 Long term (current) use of anticoagulants; I25.2 Old myocardial infarction; Z98.51 Tubal ligation status; Z79.4 Long term (current) use of insulin; Z88.6 Allergy status to analgesic agent; Z88.2 Allergy status to sulfonamides; Z88.8 Allergy status to other drugs, medicaments and biological substances; Z87.440 Personal history of urinary (tract) infections; Z68.32 Body mass index [BMI] 32.0-32.9, adult; Z95.5 Presence of coronary angioplasty implant and graft
CPT/HCPCS: 36415; 36416; 51701; 74177; 80048; 80053; 80306; 81003; 81015; 83605; 83690; 83735; 85007; 85025; 85027; 86140; 87086; 93005; 93010; 96374; 96376; A4353; C9113; J0295; J0360; J0696; J1815; J2175; J2270; J2405; J2550; J2704; J2765; J3490; Q0162; Q9967

== ENCOUNTER 2019-11-23 08:36 | Inpatient (IN) | payer MEDICARE, MEDICAID ==
[2019-11-23] MEDS ORDERED: Metoclopramide HCl 10 MG/2 ML VIAL ONE (08:59)
[2019-11-23 09:33] LABS: #Lymphocytes 0.5 thou/uL (1.20-3.40); #Monocytes 0.4 thou/uL (0.11-0.59); #Neutrophils 9.6 thou/uL (1.40-6.50); %Basophils 0.1 % (0.0-1.0); %Eosinophils 0.1 % (0.0-10.0); %Lymphocytes 5.1 % (21.0-51.0); %Neutrophils 90.8 % (42.0-75.0); Hemoglobin 13.3 g/dL (12.0-16.0); Mean Corpuscular HGB CONC 36.2 g/dL (32.0-36.0); Mean Corpuscular Hemoglobin 31.3 pg (27.0-31.0); Mean Corpuscular Volume 86.4 fL (78.0-98.0); Mean Platelet Volume 8.5 fL (7.4-10.4); Platelet Count 351 thou/uL (130-400); Red Blood Cell (RBC) Count 4.25 mill/uL (4.20-5.40); White Blood Cell (WBC) Count 10.6 thou/uL (4.8-10.8)
[2019-11-23 09:57] LABS: ALT (SGPT) 8 U/L (8-55); AST (SGOT) 7 U/L (5-34); Albumin 3.3 g/dL (3.5-5.0); Alkaline Phosphatase 149 U/L (40-110); Anion Gap 20 mmol/L (10-20); BUN (Urea Nitrogen) 15 mg/dL (9.8-20.1); Bilirubin, Total 1.3 mg/dL (0.2-1.2); CK (CPK) 36 U/L (29-168); Calc. Creatinine Clearance 0 mL/min (70-130); Calcium 8.7 mg/dL (7.8-10.44); Carbon Dioxide 26 mmol/L (22-29); Chloride 96 mmol/L (98-107); Estimated GFR-MDRD 49; Globulin 3.1 g/dL (2.4-3.5); Glucose 523 mg/dL (70-105); Lipase 16 U/L (8-78); Protein, Total 6.4 g/dL (6.0-8.3); Sodium 139 mmol/L (136-145)
[2019-11-23 10:02] LABS: Potassium 2.9 mmol/L (3.5-5.1)
[2019-11-23 10:14] LABS: CKMB 1.9 ng/mL (0-6.6)
[2019-11-23] MEDS ORDERED: Ondansetron PF 4 MG/2 ML Vial ONE ×2 (10:33→10:49)
[2019-11-23] MEDS ORDERED: Metoprolol Tartrate 5 MG/5 ML VIAL ONE (10:33)
[2019-11-23] MEDS ORDERED: Potassium Chloride 40 MEQ in Sodium Chloride 0.9% 500 ML IVPB SCH (10:45)
--- NOTE | 2019-11-23 11:20 | RAD ---
PORTABLE CHEST: Date: 11/23/2019 HISTORY: Epigastric pain. COMPARISON: 08/31/2019 exam. FINDINGS: Heart size within normal limits. There are atherosclerotic changes of the aorta. The lungs are clear of any infiltrative process. No significant bony findings. IMPRESSION: No active intrathoracic disease. POS: [facility]
[2019-11-23] MEDS ORDERED: Acetaminophen 325 MG TAB PO PRN (12:28)
[2019-11-23] MEDS ORDERED: Ondansetron ODT 4 MG TAB SL PRN (12:28)
[2019-11-23] MEDS ORDERED: Ondansetron PF 4 MG/2 ML Vial IVP PRN ×2 (12:28→15:31)
[2019-11-23 13:13] LABS: Troponin I 0.073 ng/mL (< 0.028)
[2019-11-23] MEDS ORDERED: hydrALAZINE 20 MG/ML VIAL SLOW IVP SCH (13:30)
[2019-11-23] MEDS ORDERED: Lorazepam 1 MG TAB PO PRN (15:31)
[2019-11-23] MEDS ORDERED: Acetaminophen 500 MG TAB PO PRN (15:31)
[2019-11-23] MEDS ORDERED: Ipratropium Oral Inhaler INH PRN (15:31)
[2019-11-23] MEDS ORDERED: Dextrose 5% in Water 1,000 ML IV PRN (15:31)
[2019-11-23] MEDS ORDERED: Promethazine HCl 25 MG SUPP PR PRN (15:31)
[2019-11-23] MEDS ORDERED: Ondansetron ODT 8 MG TAB PO PRN (15:31)
[2019-11-23] MEDS ORDERED: HYDROcodone/Acetaminophen 10/325 mg Tablet PO PRN (15:31)
[2019-11-23] MEDS ORDERED: Dextrose 50% Abboject 50 ML SYRINGE SLOW IVP PRN (15:31)
[2019-11-23] MEDS ORDERED: Labetalol HCl 100 MG/20 ML VIAL SLOW IVP PRN (15:31)
[2019-11-23 15:51] LABS: Troponin I 0.084 ng/mL (< 0.028)
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
[2019-11-23] MEDS: Metoclopramide HCl 10 MG/2 ML VIAL IVP SCH ×2 (18:15→22:45)
[2019-11-23] MEDS: Potassium Chloride 40 MEQ in Sodium Chloride 0.45% 1,000 ML IV SCH (18:15)
[2019-11-23] MEDS: HumaLOG 300 UNITS/3 ML VIAL SC PRN ×2 (18:27→22:46)
[2019-11-23] MEDS: hydrALAZINE 25 MG TAB PO SCH (20:42)
[2019-11-23] MEDS: Gabapentin 400 MG CAP PO SCH (20:43)
[2019-11-23] MEDS: Metoprolol Tartrate 25 MG TAB PO SCH (20:44)
[2019-11-23] MEDS: Pantoprazole 40 MG VIAL IVP SCH (20:45)
[2019-11-23] MEDS ORDERED: Montelukast Sodium 10 mg Tablet PO SCH (21:30)
[2019-11-24] MEDS ORDERED: HumaLOG 300 UNITS/3 ML VIAL SC SCH (01:00)
[2019-11-24 03:56] LABS: Base Excess (BEa) 2.6 mEq/L (-2.0 to +3.0); CO2 Tension 35.7 mmHg (35.0-45.0); Calcium, Ionized (arterial) 1.03 mmol/L (1.12-1.30); Carboxyhemoglobin (COHb) 0.8 gm% (0.0-3.0); Hemoglobin (Hb) 10.6 g/dL (12.0-16.0); O2 Tension (PaO2), arterial 74.3 mmHg (> 80.0); Potassium - ABG Lab 3.39 mmol/L (3.70-5.30); pH, Arterial 7.48 (7.35-7.45)
[2019-11-24 03:59] LABS: ALV-art Gradient 30.805 (0-20); Puncture Site RRA
[2019-11-24 04:44] LABS: ALT (SGPT) Less than 7 U/L (8-55); AST (SGOT) 5 U/L (5-34); Albumin 2.5 g/dL (3.5-5.0); Alkaline Phosphatase 107 U/L (40-110); Anion Gap 14 mmol/L (10-20); BUN (Urea Nitrogen) 18 mg/dL (9.8-20.1); Bilirubin, Total 0.6 mg/dL (0.2-1.2); Calc. Creatinine Clearance 54 mL/min (70-130); Calcium 7.3 mg/dL (7.8-10.44); Carbon Dioxide 25 mmol/L (22-29); Chloride 99 mmol/L (98-107); Estimated GFR-MDRD 35; Globulin 2.9 g/dL (2.4-3.5); Glucose 177 mg/dL (70-105); Potassium 3.6 mmol/L (3.5-5.1); Protein, Total 5.4 g/dL (6.0-8.3); Sodium 134 mmol/L (136-145)
[2019-11-24] MEDS: Metoclopramide HCl 10 MG/2 ML VIAL IVP SCH ×2 (05:22→11:02)
[2019-11-24] MEDS: Potassium Chloride 40 MEQ in Sodium Chloride 0.45% 1,000 ML IV SCH ×2 (05:22→16:31)
[2019-11-24 05:27] LABS: Free T4 (Free Thyroxine) 1.1 ng/dL (0.70-1.48); Thyroid Stimulating Hormone 5.9642 uIU/mL (0.35-4.94)
[2019-11-24 05:50] LABS: Hemoglobin 10.2 g/dL (12.0-16.0); Mean Corpuscular HGB CONC 35.9 g/dL (32.0-36.0); Mean Corpuscular Hemoglobin 31.8 pg (27.0-31.0); Mean Corpuscular Volume 88.7 fL (78.0-98.0); Mean Platelet Volume 8.2 fL (7.4-10.4); Platelet Count 311 thou/uL (130-400); RBC Distribution Width 13.1 % (11.5-14.5); Red Blood Cell (RBC) Count 3.21 mill/uL (4.20-5.40); White Blood Cell (WBC) Count 11.5 thou/uL (4.8-10.8)
[2019-11-24 05:54] LABS: Band 5 % (5-11); Eosinophils 1 % (0-10); Lymphocytes 12 % (21-51); MDiff Complete? YES; Monocytes 6 % (0-10); Neutrophil 76 % (42-75); Platelet Morphology Comment Appears Adequate
[2019-11-24] MEDS: Levothyroxine Sodium 112 MCG TAB PO SCH (05:55)
--- NOTE | 2019-11-24 09:39 | PDOC.HOSPP ---
- Subjective Encounter Date: 11/24/19 Encounter Time: 09:30 Subjective: f/u for intractable N/V and DM gastroparesis transferred to [facility] due to AMS overnight. CT brain performed but negative for acute process. - Objective Vital Signs & Weight: Vital Signs (12 hours) Temp Pulse Pulse Pulse Pulse Resp Resp 11/24/19 07:42 11/24/19 07:27 96.9 F L 11/24/19 04:57 78 77 75 21 H 11/24/19 04:40 98.5 F 11/24/19 03:17 98.7 F 77 18 11/23/19 23:00 Resp Resp BP BP BP BP BP 11/24/19 07:42 11/24/19 07:27 11/24/19 04:57 21 H 22 H 104/50 L 91/55 L 94/51 L 101/53 L 11/24/19 04:40 11/24/19 03:17 95/50 L 11/23/19 23:00 167/74 H Pulse Ox Pulse Ox Pulse Ox Pulse Ox 11/24/19 07:42 98 11/24/19 07:27 11/24/19 04:57 96 96 97 11/24/19 04:40 11/24/19 03:17 97 11/23/19 23:00 Weight Weight 192 lb Most Recent Monitor Data Heart Rate from ECG 74 NIBP 167/76 NIBP BP-Mean 106 Respiration from ECG 12 SpO2 100 I&O: 11/23/19 11/24/19 11/25/19 06:59 06:59 06:59 Intake Total 200 Output Total 250 Balance -50 Result Diagrams: 11/24/19 03:51 11/24/19 03:51 Additional Labs: Accuchecks 11/24/19 11/24/19 11/24/19 06:35 03:58 03:50 POC Glucose 160 H 188 H 194 H 11/24/19 11/24/19 11/23/19 03:08 00:43 20:50 POC Glucose 249 H 363 H 470 H 11/23/19 17:46 POC Glucose 501 H Laboratory Tests 11/23/19 11/23/19 11/23/19 09:24 09:24 09:24 WBC 10.6 Hgb 13.3 Neutrophils % 90.8 H Neutrophils % (Manual) Creatinine 1.13 H Troponin I 0.059 H Free T4 TSH 3rd Generation Cortisol 11/23/19 11/23/19 11/24/19 12:35 15:10 03:41 WBC Hgb Neutrophils % Neutrophils % (Manual) Creatinine Troponin I 0.073 H 0.084 H Free T4 TSH 3rd Generation Cortisol 15.80 11/24/19 11/24/19 03:41 03:51 WBC Hgb Neutrophils % Neutrophils % (Manual) 76 H Creatinine Troponin I Free T4 1.10 TSH 3rd Generation 5.9642 H Cortisol Radiology Reviewed by me: Yes (CT brain - no acute changes) EKG Reviewed by me: Yes (Tele - SR) Hospitalist ROS - Medication Medications: Active Medications Generic Name Dose Route Start Last Admin Trade Name Freq PRN Reason Stop Dose Admin Hydrocodone Bitart/Acetaminophen 1 tab 11/23/19 15:31 11/23/19 18:15 Blaine 10/325 PO 1 tab Q4H PRN Administration Pain Gabapentin 1,600 mg 11/23/19 21:00 11/23/19 20:43 Neurontin PO 1,600 mg BID VALE Administration Hydralazine HCl 50 mg 11/23/19 21:00 11/23/19 20:42 Apresoline PO 50 mg TID VALE Administration Potassium Chloride 40 meq/ 1,020 mls @ 100 mls/hr 11/23/19 16:30 11/24/19 05: 22 Sodium Chloride IV 1,020 mls .[id number] VALE Administration Insulin Human Lispro 0 units 11/23/19 15:31 11/23/19 18:27 Humalog SC 6 unit .MILD SLIDING SCALE PRN Administration Mild Correctional Scale Insulin Human Lispro 0 units 11/23/19 15:31 11/23/19 22:46 Humalog SC 5 unit .BEDTIME SLIDING SC PRN Administration Bedtime Correctional Scale Levothyroxine Sodium 112 mcg 11/24/19 06:00 11/24/19 05:55 Synthroid PO Not Given 0600 VALE Metoclopramide HCl 10 mg 11/23/19 16:00 11/24/19 05:22 Reglan IVP 10 mg Q6H VALE Administration Metoprolol Tartrate 25 mg 11/23/19 21:00 11/23/19 20:44 Lopressor PO 25 mg BID VALE Administration Pantoprazole Sodium 40 mg 11/23/19 21:00 11/23/19 20:45 Protonix IVP 40 mg Q12HR VALE Administration Quetiapine Fumarate 100 mg 11/23/19 21:00 11/23/19 20:42 Seroquel PO 100 mg HS VALE Administration - Exam General - other findings: lethargic but responds slowly to questions Eye: PERRL, anicteric sclera ENT: normocephalic atraumatic, no oropharyngeal lesions Neck: supple, symmetric, no JVD, no thyromegaly, no lymphadenopathy Heart: RRR, no murmur, no gallops, no rubs, normal peripheral pulses Heart - other findings: S1, S2 Respiratory: CTAB, no wheezes, no rales, no ronchi, normal chest expansion Gastrointestinal: soft, non-tender, non-distended, normal bowel sounds, no palpable masses Gastrointestinal - other findings: obese Extremities: no cyanosis, no clubbing, no edema Skin: normal turgor Musculoskeletal: generalized weakness Psychiatric: oriented to person, flat affect, somnolent Hosp A/P (1) Nausea & vomiting Code(s): R11.2 - NAUSEA WITH VOMITING, UNSPECIFIED Status: Acute Plan: Resolving, convert Reglan to po option, clear liquids (2) Acute metabolic encephalopathy Code(s): G93.41 - METABOLIC ENCEPHALOPATHY Status: Acute Plan: Likely polypharmacy, decrease Neurontin and Hydrocodone, limit psychotropes and sedating meds (3) Acute renal failure superimposed on stage 3 chronic kidney disease Code(s): N17.9 - ACUTE KIDNEY FAILURE, UNSPECIFIED; N18.3 - CHRONIC KIDNEY DISEASE, STAGE 3 (MODERATE) Status: Acute Plan: Continue IVF's, avoid nephrotoxic meds and limit contrast exposure (4) Abdominal pain Code(s): R10.9 - UNSPECIFIED ABDOMINAL PAIN Status: Chronic Qualifiers: Abdominal location: generalized Qualified Code(s): R10.84 - Generalized abdominal pain Plan: Resolving, likely due to gastroparesis (5) Type 2 myocardial infarction Code(s): I21.A1 - MYOCARDIAL INFARCTION TYPE 2 Status: Acute Plan: Med mgmt, likely due to demand state in context of presentation and N/V and dehydration - Plan PT/OT, psychosocial rehabilitation counselor, out of bed/ambulate, DVT proph w/SCDs Continue supportive mgmt Continue IVF's Change Reglan 10mg po q8h Decrease Neurontin 600mg BID Decrease Hydrocodone q6h PRN PT for mobilization CM for dispo planning, ? SNF options AM lab: CMP, CBC
--- NOTE | 2019-11-24 10:08 | CT ---
EMERGENT AFTER HOURS CT BRAIN WITHOUT CONTRAST ENHANCEMENT: CT HEAD WITHOUT INTRAVENOUS CONTRAST: CLINICAL HISTORY: AMS TECHNIQUE: Axial computed tomography images of the head/brain without intravenous contrast. COMPARISON: None provided. FINDINGS: Brain: No acute intraparenchymal hemorrhage. No mass lesion. No CT evidence for acute territorial inf arct. No midline shift or extra-axial collection. Chronic microvascular ischemic disease is seen. Ventricles: No hydrocephalus. Orbits: The orbits are unremarkable. Sinuses and mastoids: The paranasal sinuses and mastoid air cells are clear. Soft tissues: No significant facial or scalp soft tissue swelling evident. No radiopaque foreign body is seen. Bones: No acute skull fracture. IMPRESSION: No acute intracranial abnormality. ELECTRONICALLY SIGNED BY: Cullen Caicedo MD Nov 24, 2019 4:18:23 AM CDT This report is intended for review by the ordering physician only, in accordance of law. If you recei ve this report in error, please call [facility] at [phone]. FINAL REPORT HISTORY: Altered mental status. COMPARISON: 10/29/19 FINDINGS: There is mild ventricular and sulcal prominence with some decreased attenuation of the periventricula r white matter. No signs of intracerebral hemorrhage of extraaxial fluid collection. The mastoid air cells and the visualized sinuses are clear. IMPRESSION: No acute intracranial abnormalities. This report is in agreement with the temporary report issued by [facility]. CODE QA
[2019-11-24] MEDS: Gabapentin 400 MG CAP PO SCH ×2 (11:01→20:51)
[2019-11-24] MEDS: Pantoprazole 40 MG VIAL IVP SCH ×2 (11:09→19:48)
[2019-11-24] MEDS: Metoprolol Tartrate 25 MG TAB PO SCH ×2 (11:09→19:47)
[2019-11-24] MEDS: Metoclopramide 10 MG/10 ML UDCUP PO SCH ×3 (11:09→19:46)
[2019-11-24] MEDS: hydrALAZINE 25 MG TAB PO SCH ×3 (11:09→19:48)
[2019-11-24] MEDS: Aspirin 81 mg Enteric Coated Tablet PO SCH (11:09)
[2019-11-24] MEDS: HumaLOG 300 UNITS/3 ML VIAL SC PRN ×2 (17:13→20:46)
[2019-11-24] MEDS: HYDROcodone/Acetaminophen 10/325 mg Tablet PO PRN (19:46)
[2019-11-25] MEDS: Potassium Chloride 40 MEQ in Sodium Chloride 0.45% 1,000 ML IV SCH ×3 (01:02→22:50)
[2019-11-25 06:03] LABS: Hemoglobin 10.9 g/dL (12.0-16.0); Mean Corpuscular Hemoglobin 31.8 pg (27.0-31.0); Mean Corpuscular Volume 88.3 fL (78.0-98.0); Mean Platelet Volume 8.2 fL (7.4-10.4); Platelet Count 261 thou/uL (130-400); RBC Distribution Width 12.4 % (11.5-14.5); Red Blood Cell (RBC) Count 3.42 mill/uL (4.20-5.40); White Blood Cell (WBC) Count 11.5 thou/uL (4.8-10.8)
[2019-11-25] MEDS: HumaLOG 300 UNITS/3 ML VIAL SC PRN ×3 (06:11→17:56)
[2019-11-25] MEDS: Levothyroxine Sodium 112 MCG TAB PO SCH (06:11)
[2019-11-25] MEDS: Metoclopramide 10 MG/10 ML UDCUP PO SCH ×2 (06:12→11:24)
[2019-11-25 06:14] LABS: Band 3 % (5-11); Eosinophils 1 % (0-10); Lymphocytes 9 % (21-51); MDiff Complete? YES; Monocytes 6 % (0-10); Myelocyte 1 % (0-0); Neutrophil 80 % (42-75)
[2019-11-25 06:21] LABS: ALT (SGPT) Less than 7 U/L (8-55); AST (SGOT) 7 U/L (5-34); Albumin 2.6 g/dL (3.5-5.0); Alkaline Phosphatase 118 U/L (40-110); Anion Gap 13 mmol/L (10-20); BUN (Urea Nitrogen) 21 mg/dL (9.8-20.1); Bilirubin, Total 0.8 mg/dL (0.2-1.2); Calc. Creatinine Clearance 57 mL/min (70-130); Calcium 7.1 mg/dL (7.8-10.44); Carbon Dioxide 24 mmol/L (22-29); Chloride 101 mmol/L (98-107); Estimated GFR-MDRD 36; Globulin 2.8 g/dL (2.4-3.5); Glucose 229 mg/dL (70-105); Potassium 4.6 mmol/L (3.5-5.1); Protein, Total 5.4 g/dL (6.0-8.3); Sodium 133 mmol/L (136-145)
[2019-11-25] MEDS: Aspirin 81 mg Enteric Coated Tablet PO SCH (11:24)
[2019-11-25] MEDS: Gabapentin 400 MG CAP PO SCH ×2 (11:24→21:35)
[2019-11-25] MEDS: Metoprolol Tartrate 25 MG TAB PO SCH ×2 (11:24→21:35)
[2019-11-25] MEDS: hydrALAZINE 25 MG TAB PO SCH ×3 (11:24→21:35)
[2019-11-25] MEDS: Pantoprazole 40 MG VIAL IVP SCH ×2 (11:58→21:36)
[2019-11-25] MEDS: Ondansetron HCl/PF 8 MG in Sodium Chloride 0.9% 50 ML IVPB PRN (11:59)
[2019-11-25] MEDS: hydrALAZINE 20 MG/ML VIAL SLOW IVP PRN (11:59)
--- NOTE | 2019-11-25 16:01 | PDOC.HOSPP ---
- Subjective Encounter Date: 11/25/19 Encounter Time: 16:00 Subjective: f/u for N/V and abd pain with AMS. Overall improved but some nausea this pm. Refused po meds per nursing report. - Objective Vital Signs & Weight: Vital Signs (12 hours) Temp Pulse Pulse Pulse Pulse BP BP 11/25/19 15:24 99.0 F 11/25/19 15:14 77 173/69 H 11/25/19 11:59 77 173/69 H 11/25/19 11:24 77 11/25/19 11:06 98.9 F 11/25/19 10:31 81 85 80 191/72 H 11/25/19 08:00 11/25/19 07:22 99.0 F BP BP Pulse Ox Pulse Ox Pulse Ox Pulse Ox 11/25/19 15:24 11/25/19 15:14 11/25/19 11:59 11/25/19 11:24 11/25/19 11:06 11/25/19 10:31 180/115 H 183/73 H 96 95 94 L 11/25/19 08:00 98 11/25/19 07:22 Weight Admit Weight 190 lb 14.4 oz Weight 199 lb 1.6 oz Most Recent Monitor Data Heart Rate from ECG 85 NIBP 154/91 NIBP BP-Mean 112 Respiration from ECG 18 SpO2 96 I&O: 11/24/19 11/25/19 11/26/19 06:59 06:59 06:59 Intake Total 200 1440 Output Total 250 450 Balance -50 990 Result Diagrams: 11/25/19 05:43 11/25/19 05:43 Additional Labs: Accuchecks 11/25/19 11/25/19 11/24/19 10:38 05:57 19:50 POC Glucose 255 H 237 H 266 H 11/24/19 17:15 POC Glucose 285 H Laboratory Tests 11/23/19 11/23/19 11/23/19 09:24 09:24 09:24 WBC 10.6 Hgb 13.3 Neutrophils % 90.8 H Neutrophils % (Manual) Creatinine 1.13 H Troponin I 0.059 H Free T4 TSH 3rd Generation Cortisol 11/23/19 11/23/19 11/24/19 12:35 15:10 03:41 WBC Hgb Neutrophils % Neutrophils % (Manual) Creatinine Troponin I 0.073 H 0.084 H Free T4 TSH 3rd Generation Cortisol 15.80 11/24/19 11/24/19 03:41 03:51 WBC Hgb Neutrophils % Neutrophils % (Manual) 76 H Creatinine Troponin I Free T4 1.10 TSH 3rd Generation 5.9642 H Cortisol EKG Reviewed by me: Yes (Tele - SR) Hospitalist ROS - Medication Medications: Active Medications Generic Name Dose Route Start Last Admin Trade Name Freq PRN Reason Stop Dose Admin Hydrocodone Bitart/Acetaminophen 1 tab 11/24/19 09:51 11/24/19 19:46 Cameron 10/325 PO 1 tab Q6H PRN Administration Moderate to Severe Pain (6-10) Aspirin 81 mg 11/24/19 09:00 11/25/19 11:24 Ecotrin PO Not Given DAILY VALE Gabapentin 600 mg 11/24/19 21:00 11/25/19 11:24 Neurontin PO Not Given BID VALE Hydralazine HCl 20 mg 11/23/19 13:25 11/25/19 11:59 Apresoline SLOW IVP 20 mg Q4H PRN Administration SYSTOLIC >170 Hydralazine HCl 50 mg 11/23/19 21:00 11/25/19 15:14 Apresoline PO Not Given TID VALE Potassium Chloride 40 meq/ 1,020 mls @ 100 mls/hr 11/23/19 16:30 11/25/19 11: 58 Sodium Chloride IV 1,020 mls .[id number] VALE Administration Ondansetron HCl 8 mg/ Sodium 54 mls @ 216 mls/hr 11/23/19 16:02 11/25/19 11: 59 Chloride IVPB 54 mls Q6H PRN Administration Nausea/Vomiting Insulin Human Lispro 0 units 11/23/19 15:31 11/25/19 11:59 Humalog SC 4 unit .MILD SLIDING SCALE PRN Administration Mild Correctional Scale Insulin Human Lispro 0 units 11/23/19 15:31 11/24/19 20:46 Humalog SC 3 unit .BEDTIME SLIDING SC PRN Administration Bedtime Correctional Scale Levothyroxine Sodium 112 mcg 11/24/19 06:00 11/25/19 06:11 Synthroid PO 112 mcg 0600 VALE Administration Metoprolol Tartrate 25 mg 11/23/19 21:00 11/25/19 11:24 Lopressor PO Not Given BID VALE Pantoprazole Sodium 40 mg 11/23/19 21:00 11/25/19 11:58 Protonix IVP 40 mg Q12HR VALE Administration Quetiapine Fumarate 100 mg 11/23/19 21:00 11/24/19 19:47 Seroquel PO 100 mg HS VALE Administration - Exam General Appearance: NAD Eye: PERRL, anicteric sclera ENT: normocephalic atraumatic, no oropharyngeal lesions Neck: supple, symmetric, no JVD, no thyromegaly, no lymphadenopathy Heart: RRR, no gallops, no rubs, normal peripheral pulses Heart - other findings: S1, S2 Respiratory: CTAB, no wheezes, no rales, no ronchi, normal chest expansion Gastrointestinal: soft, non-tender, non-distended, normal bowel sounds, no palpable masses Extremities: no cyanosis, no clubbing, no edema Skin: normal turgor Neurological: cranial nerve grossly intact, no new deficit Musculoskeletal: normal tone, generalized weakness Psychiatric: normal affect, A&O x 3 Hosp A/P (1) Nausea & vomiting Code(s): R11.2 - NAUSEA WITH VOMITING, UNSPECIFIED Status: Acute Plan: Continue Zofran/Reglan/IVF's, clear liquids as tolerated (2) Acute metabolic encephalopathy Code(s): G93.41 - METABOLIC ENCEPHALOPATHY Status: Acute Plan: Improved, likely due to polypharmacy (3) Acute renal failure superimposed on stage 3 chronic kidney disease Code(s): N17.9 - ACUTE KIDNEY FAILURE, UNSPECIFIED; N18.3 - CHRONIC KIDNEY DISEASE, STAGE 3 (MODERATE) Status: Acute (4) Abdominal pain Code(s): R10.9 - UNSPECIFIED ABDOMINAL PAIN Status: Chronic Qualifiers: Abdominal location: generalized Qualified Code(s): R10.84 - Generalized abdominal pain (5) Type 2 myocardial infarction Code(s): I21.A1 - MYOCARDIAL INFARCTION TYPE 2 Status: Acute - Plan PT/OT, social director, 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 SNF options AM lab: CMP, CBC
[2019-11-25] MEDS ORDERED: Mag-Al Plus 1200 MG/1200 MG/120 MG/30 ML UDCUP PO PRN (16:18)
[2019-11-25] MEDS: Metoclopramide HCl 10 MG/2 ML VIAL IVP SCH ×2 (17:55→21:35)
[2019-11-26] MEDS: Potassium Chloride 40 MEQ in Sodium Chloride 0.45% 1,000 ML IV SCH ×3 (02:00→21:41)
[2019-11-26 04:24] LABS: Anion Gap 12 mmol/L (10-20); BUN (Urea Nitrogen) 17 mg/dL (9.8-20.1); Calc. Creatinine Clearance 84 mL/min (70-130); Calcium 7.1 mg/dL (7.8-10.44); Carbon Dioxide 22 mmol/L (22-29); Chloride 100 mmol/L (98-107); Estimated GFR-MDRD 56; Glucose 212 mg/dL (70-105); Potassium 4.8 mmol/L (3.5-5.1); Sodium 129 mmol/L (136-145)
[2019-11-26 04:51] LABS: Band 5 % (5-11); Eosinophils 2 % (0-10); Hemoglobin 9.7 g/dL (12.0-16.0); Lymphocytes 13 % (21-51); MDiff Complete? YES; Mean Corpuscular HGB CONC 35.5 g/dL (32.0-36.0); Mean Corpuscular Hemoglobin 31.3 pg (27.0-31.0); Mean Corpuscular Volume 88.1 fL (78.0-98.0); Mean Platelet Volume 8.4 fL (7.4-10.4); Monocytes 3 % (0-10); Myelocyte 1 % (0-0); Neutrophil 75 % (42-75); Platelet Count 224 thou/uL (130-400); RBC Distribution Width 12.2 % (11.5-14.5); Red Blood Cell (RBC) Count 3.08 mill/uL (4.20-5.40); White Blood Cell (WBC) Count 9.3 thou/uL (4.8-10.8)
[2019-11-26] MEDS: Levothyroxine Sodium 112 MCG TAB PO SCH (06:45)
[2019-11-26] MEDS: HumaLOG 300 UNITS/3 ML VIAL SC PRN ×3 (06:45→16:55)
[2019-11-26] MEDS: Metoclopramide HCl 10 MG/2 ML VIAL IVP SCH ×4 (08:36→21:48)
[2019-11-26] MEDS: Pantoprazole 40 MG VIAL IVP SCH ×2 (08:36→21:48)
[2019-11-26] MEDS: hydrALAZINE 20 MG/ML VIAL SLOW IVP PRN (08:38)
[2019-11-26] MEDS: Montelukast Sodium 10 mg Tablet PO SCH (08:42)
[2019-11-26] MEDS: Gabapentin 400 MG CAP PO SCH ×2 (08:42→21:49)
[2019-11-26] MEDS: Metoprolol Tartrate 25 MG TAB PO SCH ×2 (08:42→21:48)
[2019-11-26] MEDS: Aspirin 81 mg Enteric Coated Tablet PO SCH (08:42)
[2019-11-26] MEDS: hydrALAZINE 25 MG TAB PO SCH ×3 (08:42→21:48)
--- NOTE | 2019-11-26 13:31 | PDOC.HOSPP ---
- Subjective Encounter Date: 11/26/19 Encounter Time: 13:20 Subjective: f/u for DM gastroparesis with overall improvement. Tolerating clear liquids currently. - Objective Vital Signs & Weight: Vital Signs (12 hours) Temp Pulse Resp BP BP Pulse Ox 11/26/19 12:00 18 172/77 H 97 11/26/19 11:43 98.3 F 11/26/19 08:42 77 210/97 H 11/26/19 08:38 77 210/97 H 11/26/19 08:00 97 11/26/19 07:24 98.3 F 11/26/19 01:34 99.5 F Weight Admit Weight 190 lb 14.4 oz Weight 202 lb 9.6 oz Most Recent Monitor Data Heart Rate from ECG 85 NIBP 210/97 NIBP BP-Mean 134 Respiration from ECG 19 SpO2 95 I&O: 11/25/19 11/26/19 11/27/19 06:59 06:59 06:59 Intake Total 1440 2766 Output Total 450 850 Balance 990 1916 Result Diagrams: 11/26/19 03:16 11/26/19 03:16 Additional Labs: Accuchecks 11/26/19 11/26/19 11/25/19 11:04 05:29 21:39 POC Glucose 310 H 237 H 193 H 11/25/19 17:33 POC Glucose 261 H Laboratory Tests 11/23/19 11/23/19 11/23/19 09:24 09:24 09:24 WBC 10.6 Hgb 13.3 Neutrophils % 90.8 H Neutrophils % (Manual) Creatinine 1.13 H Troponin I 0.059 H Free T4 TSH 3rd Generation Cortisol 11/23/19 11/23/19 11/24/19 12:35 15:10 03:41 WBC Hgb Neutrophils % Neutrophils % (Manual) Creatinine Troponin I 0.073 H 0.084 H Free T4 TSH 3rd Generation Cortisol 15.80 11/24/19 11/24/19 03:41 03:51 WBC Hgb Neutrophils % Neutrophils % (Manual) 76 H Creatinine Troponin I Free T4 1.10 TSH 3rd Generation 5.9642 H Cortisol EKG Reviewed by me: Yes (Tele - SR) Hospitalist ROS - Medication Medications: Active Medications Generic Name Dose Route Start Last Admin Trade Name Freq PRN Reason Stop Dose Admin Hydrocodone Bitart/Acetaminophen 1 tab 11/24/19 09:51 11/24/19 19:46 [place] 10/325 PO 1 tab Q6H PRN Administration Moderate to Severe Pain (6-10) Aspirin 81 mg 11/24/19 09:00 11/26/19 08:42 Ecotrin PO Not Given DAILY VALE Gabapentin 600 mg 11/24/19 21:00 11/26/19 08:42 Neurontin PO Not Given BID VALE Hydralazine HCl 20 mg 11/23/19 13:25 11/26/19 08:38 Apresoline SLOW IVP 20 mg Q4H PRN Administration SYSTOLIC >170 Hydralazine HCl 50 mg 11/23/19 21:00 11/26/19 08:42 Apresoline PO Not Given TID VALE Potassium Chloride 40 meq/ 1,020 mls @ 100 mls/hr 11/23/19 16:30 11/26/19 10: 05 Sodium Chloride IV 1,020 mls .[id number] VALE Administration Ondansetron HCl 8 mg/ Sodium 54 mls @ 216 mls/hr 11/23/19 16:02 11/25/19 11: 59 Chloride IVPB 54 mls Q6H PRN Administration Nausea/Vomiting Insulin Human Lispro 0 units 11/23/19 15:31 11/26/19 11:41 Humalog SC 5 unit .MILD SLIDING SCALE PRN Administration Mild Correctional Scale Insulin Human Lispro 0 units 11/23/19 15:31 11/24/19 20:46 Humalog SC 3 unit .BEDTIME SLIDING SC PRN Administration Bedtime Correctional Scale Labetalol HCl 20 mg 11/23/19 15:31 11/25/19 17:55 Normodyne SLOW IVP 20 mg Q4H PRN Administration SBP > 180 and HR >/= 70 Levothyroxine Sodium 112 mcg 11/24/19 06:00 11/26/19 06:45 Synthroid PO Not Given 0600 [facility] [place] Metoclopramide HCl 10 mg 11/25/19 17:00 11/26/19 11:41 Reglan IVP 10 mg ACHS VALE Administration Metoprolol Tartrate 25 mg 11/23/19 21:00 11/26/19 08:42 Lopressor PO Not Given BID [facility] Montelukast Sodium 10 mg 11/26/19 09:00 11/26/19 08:42 Singulair PO Not Given DAILY VALE Pantoprazole Sodium 40 mg 11/23/19 21:00 11/26/19 08:36 Protonix IVP 40 mg Q12HR VALE Administration Quetiapine Fumarate 100 mg 11/23/19 21:00 11/25/19 21:35 Seroquel PO Not Given HS VALE - Exam General Appearance: NAD, awake alert Eye: PERRL, anicteric sclera ENT: normocephalic atraumatic, no oropharyngeal lesions Neck: supple, symmetric, no JVD, no thyromegaly, no lymphadenopathy Heart: RRR, no murmur, no gallops, no rubs, normal peripheral pulses Heart - other findings: S1, S2 Respiratory: CTAB, no wheezes, no rales, no ronchi, normal chest expansion, no tachypnea Gastrointestinal: soft, non-tender, non-distended, normal bowel sounds, no palpable masses Extremities: no cyanosis, no clubbing, no edema Skin: normal turgor, no lesions Neurological: cranial nerve grossly intact, no new deficit Musculoskeletal: normal tone, generalized weakness Psychiatric: normal affect, A&O x 3 Hosp A/P (1) Nausea & vomiting Code(s): R11.2 - NAUSEA WITH VOMITING, UNSPECIFIED Status: Acute Plan: Improved, continue IVF's, antiemetics, Reglan, advance to soft diet (2) Acute metabolic encephalopathy Code(s): G93.41 - METABOLIC ENCEPHALOPATHY Status: Acute (3) Acute renal failure superimposed on stage 3 chronic kidney disease Code(s): N17.9 - ACUTE KIDNEY FAILURE, UNSPECIFIED; N18.3 - CHRONIC KIDNEY DISEASE, STAGE 3 (MODERATE) Status: Acute Plan: Improved, continue IVF's (4) Abdominal pain Code(s): R10.9 - UNSPECIFIED ABDOMINAL PAIN Status: Chronic Qualifiers: Abdominal location: generalized Qualified Code(s): R10.84 - Generalized abdominal pain Plan: Likely due to gastroparesis, Reglan, supportive (5) Type 2 myocardial infarction Code(s): I21.A1 - MYOCARDIAL INFARCTION TYPE 2 Status: Acute - Plan 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 SNF options Start Lantus 25u sc qhs Transfer to [facility]
[2019-11-26] MEDS ORDERED: Non-Formulary Item 1 EACH (Insulin Glargine,Hum.Rec.Anlog [Lantus Solostar] 25 UNIT) SQ SCH (21:00)
[2019-11-26] MEDS: Ondansetron HCl/PF 8 MG in Sodium Chloride 0.9% 50 ML IVPB PRN (22:55)
[2019-11-26] MEDS: Insulin Glargine 25 UNITS in Pre-Filled Syringe 1 EACH SC SCH (22:56)
[2019-11-27] MEDS: Potassium Chloride 40 MEQ in Sodium Chloride 0.45% 1,000 ML IV SCH ×4 (00:58→22:05)
[2019-11-27] MEDS: Levothyroxine Sodium 112 MCG TAB PO SCH (04:00)
[2019-11-27] MEDS: hydrALAZINE 20 MG/ML VIAL SLOW IVP PRN ×2 (05:26→11:40)
[2019-11-27] MEDS: HumaLOG 300 UNITS/3 ML VIAL SC PRN ×3 (05:26→19:15)
[2019-11-27] MEDS: Metoclopramide HCl 10 MG/2 ML VIAL IVP SCH ×4 (07:57→20:35)
[2019-11-27] MEDS: Aspirin 81 mg Enteric Coated Tablet PO SCH (09:15)
[2019-11-27] MEDS: hydrALAZINE 25 MG TAB PO SCH ×3 (09:15→19:26)
[2019-11-27] MEDS: Gabapentin 400 MG CAP PO SCH ×2 (09:15→19:26)
[2019-11-27] MEDS: Pantoprazole 40 MG VIAL IVP SCH ×2 (09:16→20:35)
[2019-11-27] MEDS: Montelukast Sodium 10 mg Tablet PO SCH (09:16)
[2019-11-27] MEDS: Metoprolol Tartrate 25 MG TAB PO SCH ×2 (09:16→20:17)
[2019-11-27] MEDS: Ondansetron HCl/PF 8 MG in Sodium Chloride 0.9% 50 ML IVPB PRN (09:49)
--- NOTE | 2019-11-27 12:00 | PDOC.HOSPP ---
- Subjective Encounter Date: 11/27/19 Encounter Time: 11:45 Subjective: f/u DM gastroparesis with worsening symptoms today. States intermittent emesis, nausea and poor po intake. Nursing states not taking home meds. - Objective Vital Signs & Weight: Vital Signs (12 hours) Temp Pulse Resp BP BP Pulse Ox 11/27/19 11:40 79 185/73 H 11/27/19 11:18 97.7 F 79 18 185/73 H 93 L 11/27/19 09:15 84 137/83 11/27/19 08:00 98.3 F 11/27/19 07:37 98.3 F 84 18 137/83 97 11/27/19 05:26 75 204/77 H 11/27/19 00:00 152/82 H Weight Admit Weight 190 lb 14.4 oz Weight 202 lb 9.6 oz Most Recent Monitor Data Heart Rate from ECG 80 NIBP 210/97 NIBP BP-Mean 134 Respiration from ECG 19 SpO2 95 I&O: 11/26/19 11/27/19 11/28/19 06:59 06:59 06:59 Intake Total 2766 3440 120 Output Total 850 800 Balance 1916 2640 120 Result Diagrams: 11/26/19 03:16 11/26/19 03:16 Additional Labs: Accuchecks 11/27/19 11/27/19 11/26/19 11:24 03:57 20:35 POC Glucose 246 H 229 H 225 H 11/26/19 16:06 POC Glucose 276 H Laboratory Tests 11/23/19 11/23/19 11/23/19 09:24 09:24 09:24 WBC 10.6 Hgb 13.3 Neutrophils % 90.8 H Neutrophils % (Manual) Creatinine 1.13 H Troponin I 0.059 H Free T4 TSH 3rd Generation Cortisol 11/23/19 11/23/19 11/24/19 12:35 15:10 03:41 WBC Hgb Neutrophils % Neutrophils % (Manual) Creatinine Troponin I 0.073 H 0.084 H Free T4 TSH 3rd Generation Cortisol 15.80 11/24/19 11/24/19 11/24/19 03:41 03:51 03:51 WBC Hgb Neutrophils % Neutrophils % (Manual) 76 H Creatinine 1.52 H Troponin I Free T4 1.10 TSH 3rd Generation 5.9642 H Cortisol 11/25/19 05:43 WBC Hgb Neutrophils % Neutrophils % (Manual) Creatinine 1.49 H Troponin I Free T4 TSH 3rd Generation Cortisol Hospitalist ROS - Medication Medications: Active Medications Generic Name Dose Route Start Last Admin Trade Name Freq PRN Reason Stop Dose Admin Hydrocodone Bitart/Acetaminophen 1 tab 11/24/19 09:51 11/24/19 19:46 [place] 10/325 PO 1 tab Q6H PRN Administration Moderate to Severe Pain (6-10) Aspirin 81 mg 11/24/19 09:00 11/27/19 09:15 Ecotrin PO Not Given DAILY REPLACED BY [facility] Gabapentin 600 mg 11/24/19 21:00 11/27/19 09:15 Neurontin PO Not Given BID REPLACED BY [facility] Hydralazine HCl 20 mg 11/23/19 13:25 11/27/19 11:40 Apresoline SLOW IVP 20 mg Q4H PRN Administration SYSTOLIC >170 Hydralazine HCl 50 mg 11/23/19 21:00 11/27/19 09:15 Apresoline PO Not Given TID REPLACED BY [facility] Ondansetron HCl 8 mg/ Sodium 54 mls @ 216 mls/hr 11/23/19 16:02 11/27/19 09: 49 Chloride IVPB 54 mls Q6H PRN Administration Nausea/Vomiting Insulin Glargine 25 units/ 0.25 mls @ 0 mls/hr 11/26/19 21:00 11/26/19 22:56 Miscellaneous Medication SC 0.25 mls HS VALE Administration Insulin Human Lispro 0 units 11/23/19 15:31 11/27/19 11:26 Humalog SC 3 unit .MILD SLIDING SCALE PRN Administration Mild Correctional Scale Insulin Human Lispro 0 units 11/23/19 15:31 11/24/19 20:46 Humalog SC 3 unit .BEDTIME SLIDING SC PRN Administration Bedtime Correctional Scale Labetalol HCl 20 mg 11/23/19 15:31 11/25/19 17:55 Normodyne SLOW IVP 20 mg Q4H PRN Administration SBP > 180 and HR >/= 70 Levothyroxine Sodium 112 mcg 11/24/19 06:00 11/27/19 04:00 Synthroid PO Not Given 0600 REPLACED BY [facility] Metoclopramide HCl 10 mg 11/25/19 17:00 11/27/19 11:19 Reglan IVP 10 mg ACHS VALE Administration Metoprolol Tartrate 25 mg 11/23/19 21:00 11/27/19 09:16 Lopressor PO Not Given BID VALE Montelukast Sodium 10 mg 11/26/19 09:00 11/27/19 09:16 Singulair PO Not Given DAILY VALE Pantoprazole Sodium 40 mg 11/23/19 21:00 11/27/19 09:16 Protonix IVP 40 mg Q12HR VALE Administration Quetiapine Fumarate 100 mg 11/23/19 21:00 11/26/19 21:48 Seroquel PO Not Given HS VALE - Exam General Appearance: NAD, awake alert Eye: PERRL, anicteric sclera ENT: normocephalic atraumatic, no oropharyngeal lesions Neck: supple, symmetric, no JVD, no thyromegaly, no lymphadenopathy Heart: RRR, no murmur, no gallops, no rubs, normal peripheral pulses Heart - other findings: S1, S2 Respiratory: CTAB, no wheezes, no rales, no ronchi, normal chest expansion Gastrointestinal: soft, non-tender, non-distended, normal bowel sounds, no palpable masses Extremities: no cyanosis, no clubbing Skin: normal turgor, no lesions Neurological: cranial nerve grossly intact, no new deficit Musculoskeletal: normal tone, generalized weakness Psychiatric: A&O x 3, flat affect Hosp A/P (1) Gastroparesis due to DM Code(s): E11.43 - TYPE 2 DIABETES W DIABETIC AUTONOMIC (POLY)NEUROPATHY; K31.84 - GASTROPARESIS Status: Chronic Plan: Persistent, consult GI service for any further recommendations, continue Reglan , consider PPN as poor po intake continues (2) Nausea & vomiting Code(s): R11.2 - NAUSEA WITH VOMITING, UNSPECIFIED Status: Acute Plan: Persistent, due to DM gastroparesis, antiemetics, IVF's (3) Acute metabolic encephalopathy Code(s): G93.41 - METABOLIC ENCEPHALOPATHY Status: Acute Plan: Resolved (4) Acute renal failure superimposed on stage 3 chronic kidney disease Code(s): N17.9 - ACUTE KIDNEY FAILURE, UNSPECIFIED; N18.3 - CHRONIC KIDNEY DISEASE, STAGE 3 (MODERATE) Status: Acute Plan: Improving, continue IVF's, avoid nephrotoxic meds (5) Abdominal pain Code(s): R10.9 - UNSPECIFIED ABDOMINAL PAIN Status: Chronic Qualifiers: Abdominal location: generalized Qualified Code(s): R10.84 - Generalized abdominal pain Plan: Supportive, consult GI service for any further recommendations (6) Type 2 myocardial infarction Code(s): I21.A1 - MYOCARDIAL INFARCTION TYPE 2 Status: Acute - Plan 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 SNF options Start Lantus 25u sc qhs Consult GI service for any further recommendations Decrease IVF's 75ml/h
[2019-11-27 15:05] VITALS: BMI 31.7
--- NOTE | 2019-11-27 19:33 | PDOC.EVN ---
Event Note - Event Note Event Note: Notified by RN, patient refusing evening dose of Metoprolol due to nausea. Refusing to try anti-emetics prior to taking it. HR currently in 60s and BP 169 systolic. She takes it for history of afib. Discussed with Dr. Tena who advised one time dose of Labetalol 5 mg IV. Day team will be notified by RN.
[2019-11-27] MEDS ORDERED: Labetalol HCl 100 MG/20 ML VIAL SLOW IVP SCH (19:45)
[2019-11-27] MEDS ORDERED: Metoprolol Tartrate 5 MG/5 ML VIAL IVP SCH (19:45)
[2019-11-27] MEDS: Insulin Glargine 25 UNITS in Pre-Filled Syringe 1 EACH SC SCH (20:36)
[2019-11-28] MEDS: Levothyroxine Sodium 112 MCG TAB PO SCH ×2 (04:38→10:47)
[2019-11-28] MEDS: Metoclopramide HCl 10 MG/2 ML VIAL IVP SCH ×4 (08:02→22:40)
[2019-11-28] MEDS: Aspirin 81 mg Enteric Coated Tablet PO SCH (08:11)
[2019-11-28] MEDS: hydrALAZINE 25 MG TAB PO SCH ×3 (08:11→22:47)
[2019-11-28] MEDS: Metoprolol Tartrate 25 MG TAB PO SCH ×2 (08:11→22:47)
[2019-11-28] MEDS: Montelukast Sodium 10 mg Tablet PO SCH (08:12)
[2019-11-28] MEDS: Gabapentin 400 MG CAP PO SCH ×2 (08:13→22:47)
[2019-11-28] MEDS: Pantoprazole 40 MG VIAL IVP SCH ×2 (08:15→22:39)
--- NOTE | 2019-11-28 11:11 | PDOC.HOSPP ---
- Subjective Encounter Date: 11/28/19 Encounter Time: 11:05 Subjective: f/u for DM gastroparesis with improving in sx's. Tolerated some food this am without emesis. States sat in a chair earlier. - Objective Vital Signs & Weight: Vital Signs (12 hours) Temp Pulse Resp BP BP Pulse Ox 11/28/19 08:11 78 160/84 H 11/28/19 07:25 98.0 F 78 16 160/84 H 97 11/28/19 04:00 97.7 F 80 18 123/76 96 Weight Admit Weight 190 lb 14.4 oz Weight 202 lb 9.6 oz Most Recent Monitor Data Heart Rate from ECG 80 NIBP 210/97 NIBP BP-Mean 134 Respiration from ECG 19 SpO2 95 I&O: 11/27/19 11/28/19 11/29/19 06:59 06:59 06:59 Intake Total 3440 1690 Output Total 800 1400 Balance 2640 290 Result Diagrams: 11/26/19 03:16 11/26/19 03:16 Additional Labs: Accuchecks 11/28/19 11/27/19 11/27/19 05:34 20:15 16:14 POC Glucose 149 H 233 H 224 H 11/27/19 11:24 POC Glucose 246 H Laboratory Tests 11/23/19 11/23/19 11/23/19 09:24 09:24 09:24 WBC 10.6 Hgb 13.3 Neutrophils % 90.8 H Neutrophils % (Manual) Creatinine 1.13 H Troponin I 0.059 H Free T4 TSH 3rd Generation Cortisol 11/23/19 11/23/19 11/24/19 12:35 15:10 03:41 WBC Hgb Neutrophils % Neutrophils % (Manual) Creatinine Troponin I 0.073 H 0.084 H Free T4 TSH 3rd Generation Cortisol 15.80 11/24/19 11/24/19 11/24/19 03:41 03:51 03:51 WBC Hgb Neutrophils % Neutrophils % (Manual) 76 H Creatinine 1.52 H Troponin I Free T4 1.10 TSH 3rd Generation 5.9642 H Cortisol 11/25/19 05:43 WBC Hgb Neutrophils % Neutrophils % (Manual) Creatinine 1.49 H Troponin I Free T4 TSH 3rd Generation Cortisol Hospitalist ROS - Medication Medications: Active Medications Generic Name Dose Route Start Last Admin Trade Name Freq PRN Reason Stop Dose Admin Hydrocodone Bitart/Acetaminophen 1 tab 11/24/19 09:51 11/24/19 19:46 [place] 10/325 PO 1 tab Q6H PRN Administration Moderate to Severe Pain (6-10) Aspirin 81 mg 11/24/19 09:00 11/28/19 08:11 Ecotrin PO 81 mg DAILY VALE Administration Gabapentin 600 mg 11/24/19 21:00 11/28/19 08:13 Neurontin PO 600 mg BID VALE Administration Hydralazine HCl 20 mg 11/23/19 13:25 11/27/19 11:40 Apresoline SLOW IVP 20 mg Q4H PRN Administration SYSTOLIC >170 Hydralazine HCl 50 mg 11/23/19 21:00 11/28/19 08:11 Apresoline PO 50 mg TID VALE Administration Ondansetron HCl 8 mg/ Sodium 54 mls @ 216 mls/hr 11/23/19 16:02 11/27/19 09: 49 Chloride IVPB 54 mls Q6H PRN Administration Nausea/Vomiting Insulin Glargine 25 units/ 0.25 mls @ 0 mls/hr 11/26/19 21:00 11/27/19 20:36 Miscellaneous Medication SC 0.25 mls HS VALE Administration Potassium Chloride 40 meq/ 1,020 mls @ 75 mls/hr 11/27/19 11:52 11/27/19 22: 05 Sodium Chloride IV Not Given .[id number] VALE Insulin Human Lispro 0 units 11/23/19 15:31 11/27/19 19:15 Humalog SC 3 unit .MILD SLIDING SCALE PRN Administration Mild Correctional Scale Insulin Human Lispro 0 units 11/23/19 15:31 11/24/19 20:46 Humalog SC 3 unit .BEDTIME SLIDING SC PRN Administration Bedtime Correctional Scale Labetalol HCl 20 mg 11/23/19 15:31 11/25/19 17:55 Normodyne SLOW IVP 20 mg Q4H PRN Administration SBP > 180 and HR >/= 70 Levothyroxine Sodium 112 mcg 11/24/19 06:00 11/28/19 10:47 Synthroid PO 112 mcg 0600 VALE Administration Lorazepam 1 mg 11/23/19 15:31 11/27/19 20:40 Ativan PO 1 mg HS PRN Administration Agitation Metoclopramide HCl 10 mg 11/25/19 17:00 11/28/19 08:02 Reglan IVP 10 mg ACHS VALE Administration Metoprolol Tartrate 25 mg 11/23/19 21:00 11/28/19 08:11 Lopressor PO 25 mg BID VALE Administration Montelukast Sodium 10 mg 11/26/19 09:00 11/28/19 08:12 Singulair PO 10 mg DAILY VALE Administration Pantoprazole Sodium 40 mg 11/23/19 21:00 11/28/19 08:15 Protonix IVP 40 mg Q12HR VALE Administration Quetiapine Fumarate 100 mg 11/23/19 21:00 11/26/19 21:48 Seroquel PO Not Given HS VALE - Exam General Appearance: NAD, awake alert Eye: PERRL, anicteric sclera ENT: normocephalic atraumatic, no oropharyngeal lesions Neck: supple, symmetric, no JVD, no thyromegaly, no lymphadenopathy Heart: RRR, no murmur, no gallops, no rubs, normal peripheral pulses Heart - other findings: S1, S2 Respiratory: CTAB, no wheezes, no rales, no ronchi, normal chest expansion, no tachypnea Gastrointestinal: soft, non-tender, non-distended, normal bowel sounds, no palpable masses, no guarding Extremities: no cyanosis, no clubbing Skin: normal turgor, no lesions Neurological: cranial nerve grossly intact, no new deficit Musculoskeletal: normal tone, generalized weakness Psychiatric: A&O x 3, flat affect Hosp A/P (1) Gastroparesis due to DM Code(s): E11.43 - TYPE 2 DIABETES W DIABETIC AUTONOMIC (POLY)NEUROPATHY; K31.84 - GASTROPARESIS Status: Chronic Plan: Improvement in symptoms, continue Reglan with plans to transition to po option in am (2) Nausea & vomiting Code(s): R11.2 - NAUSEA WITH VOMITING, UNSPECIFIED Status: Acute Plan: Improved, antiemetics PRN (3) Acute metabolic encephalopathy Code(s): G93.41 - METABOLIC ENCEPHALOPATHY Status: Acute Plan: Improved, limit psychotropes and sedating medications (4) Acute renal failure superimposed on stage 3 chronic kidney disease Code(s): N17.9 - ACUTE KIDNEY FAILURE, UNSPECIFIED; N18.3 - CHRONIC KIDNEY DISEASE, STAGE 3 (MODERATE) Status: Acute (5) Abdominal pain Code(s): R10.9 - UNSPECIFIED ABDOMINAL PAIN Status: Chronic Qualifiers: Abdominal location: generalized Qualified Code(s): R10.84 - Generalized abdominal pain (6) Type 2 myocardial infarction Code(s): I21.A1 - MYOCARDIAL INFARCTION TYPE 2 Status: Acute - Plan 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 SNF options Start Lantus 25u sc qhs Consult GI service for any further recommendations Decrease IVF's 75ml/h Dispo planning for home in next 24-48h
[2019-11-28] MEDS: Potassium Chloride 40 MEQ in Sodium Chloride 0.45% 1,000 ML IV SCH (12:12)
[2019-11-28] MEDS: HumaLOG 300 UNITS/3 ML VIAL SC PRN ×2 (12:12→17:34)
[2019-11-28] MEDS: Ondansetron HCl/PF 8 MG in Sodium Chloride 0.9% 50 ML IVPB PRN (17:37)
[2019-11-28] MEDS: Insulin Glargine 25 UNITS in Pre-Filled Syringe 1 EACH SC SCH (22:47)
[2019-11-29] MEDS: Potassium Chloride 40 MEQ in Sodium Chloride 0.45% 1,000 ML IV SCH (06:11)
--- NOTE | 2019-11-29 07:47 | CON ---
DATE OF CONSULTATION: 11/28/2019 REQUESTING PHYSICIAN: Dr. Chepe Eden. REASON FOR CONSULTATION: Gastroparesis. HISTORY OF PRESENT ILLNESS: Raina Rodriguez is a 59-year-old woman with a lot of comorbidities including COPD, on home oxygen; diabetes; chronic kidney disease; and coronary artery disease. She reports a prior diagnosis of gastroparesis, which was treated with some sort of medication years ago. She evidently had a normal colonoscopy in [place] in 2014. She saw my partner, Dr. Dudley, and had a normal EGD in 2015 complaining of some dysphagia at that time. In more recent months, she has had multiple hospitalizations here for various reasons, but nausea and vomiting have been a common complaint across all of these presentations. She was treated for a groin abscess with IV antibiotics. Subsequently, developed C difficile and was treated successfully for that. She has had recurrent urinary tract infections, which have been treated as well. During August hospitalization, she was found to have a stool impaction, which had to be manually disimpacted. During her most recent hospitalization in October, she had presented with intractable nausea and vomiting and a CT scan had shown some bilateral perinephric stranding. However, urinalysis and urine culture were unremarkable and she never had a leukocytosis. I performed diagnostic EGD on 11/09/2019, and this showed LA grade C erosive esophagitis, mild duodenitis in the bulb, and a lot of fluid within the gastric fundus. My impression was that this was an exacerbation of her gastroparesis and so she was started back on Reglan. She was discharged to home health at that point. It is unclear, but the patient states that she really was not receiving her medications appropriately over the past several weeks including her acid suppression or her Reglan or her Eliquis. However, she does state she continued to get her insulin. At any rate, she was readmitted here on 11/23/2019 with several weeks of worsening nausea and vomiting and associated epigastric discomfort. She was found to be hypokalemic on presentation with potassium of 2.9 and had some degree of acute on chronic kidney injury as well as demand ischemia and hypertensive urgency. Over the past few days since admission, she has had some waxing and waning altered mental status with negative CT imaging. Her Neurontin dose was decreased as well as her hydrocodone dose. She had persistent nausea with intermittent vomiting and she has been getting Reglan 10 mg every 6 hours as well as Zofran 8 mg every 6 hours p.r.n. Despite this, she had a bad day yesterday and had multiple episodes of emesis. Through all of this, she has been afebrile. This morning, she actually states she is doing a lot better, she had some [place] toast and some sausage and has been drinking a lot of fluid and keeping it down well, actually not having any nausea right now. I asked her why this was and she said she simply decided she was going to do better. She does not complain of any other abdominal pain or rectal pain or blood in the stool. REVIEW OF SYSTEMS: Full review of systems including constitutional, head, eyes, ears, nose, throat, GI, , cardiovascular, respiratory, musculoskeletal, neurologic systems is negative except as noted in the HPI. PAST MEDICAL HISTORY: CHF; coronary artery disease with stents; CVA; COPD, on home oxygen; diabetes, on insulin; hypertension; ongoing tobacco abuse; obesity; hypothyroidism; recurrent urinary tract infections; right groin abscess; peripheral neuropathy; gastroesophageal reflux disease with reflux esophagitis seen on EGD, 11/09/2019; osteoarthritis; chronic renal insufficiency; and tubal ligation. SOCIAL HISTORY: She smokes 1 pack of cigarettes per day. Alcohol use is rare. No drug use. She is disabled. FAMILY HISTORY: Noncontributory. ALLERGIES: IBUPROFEN AND SULFA. ADMISSION MEDICATIONS: (It is unclear which of these she was actually receiving prior to admission). 1. Gabapentin. 2. Hydralazine. 3. Hydrocodone 10 mg q.6 hours p.r.n. 4. Insulin glargine 72 units subcutaneously at bedtime. 5. Atrovent p.r.n. 6. DuoNebs p.r.n. 7. Lorazepam 1 mg at bedtime p.r.n. 8. Metoprolol 25 mg b.i.d. 9. Singulair. 10. Nitroglycerin spray p.r.n. 11. Pravachol. 12. Seroquel. 13. Eliquis 5 mg b.i.d. 14. Aspirin 81 mg daily. 15. Levothyroxine 112 mcg daily. 16. Reglan 10 mg p.o. t.i.d. p.r.n. 17. Protonix 40 mg b.i.d. PHYSICAL EXAMINATION: VITAL SIGNS: Temperature 98.0, pulse 78, blood pressure 160/84, 97% oxygen saturation on room air. GENERAL: A 59-year-old woman, lying in bed comfortably, in no distress. SKIN: She is a bit pale. No jaundice. No rashes were palpable. EYES: No scleral icterus. Extraocular movements intact. ENT: Mucous membranes moist. No oral lesions. LYMPH: No submandibular or supraclavicular lymphadenopathy. Thyroid nontender to palpation. MENTAL: She is sleepy, but easily arousable. She can answer directed questions about current and recent symptoms. HEART: Regular rate and rhythm. LUNGS: Clear to auscultation bilaterally. ABDOMEN: Bowel sounds are hypoactive, but present in all 4 quadrants. The abdomen is soft. There is minimal tenderness to palpation in the epigastrium, but no guarding or rebound tenderness. EXTREMITIES: No peripheral edema. VESSELS: Radial pulses 2+ bilaterally. NEUROLOGIC: Cranial nerves 2 through 12 intact bilaterally. No focal deficits. LABORATORY STUDIES: Hemoglobin 9.7, WBC 9.3, and platelets 224. Sodium 129, potassium 4.8, BUN 17, creatinine 1.01. Lipase only 16. LFTs all normal with total bilirubin 0.8, alkaline phosphatase 118, AST 7, ALT less than 7, albumin 2.6. IMAGING STUDIES: CT of the head on admission showed no acute processes. ASSESSMENT AND PLAN: 1. Gastroparesis, with recent exacerbation. 2. Reflux esophagitis, LA grade C, seen on recent EGD. This is a difficult situation in a patient with gastroparesis, who has been taking chronic opioid pain medications which often exacerbate this condition. She has also had multiple recent illnesses, which can all exacerbate her gastroparesis. In addition, it is unclear whether she was actually receiving Reglan prior to admission or not, as well as the pantoprazole. It has taken several days here, but actually this morning she reports she is feeling quite well on the IV Reglan and Protonix. At this point, I would advise simply continuing with supportive care, continuing to advance her diet with a gastroparesis diet as tolerated, switch Reglan over to oral upon hospital discharge. I think there is some discussion of whether she might need placement in a fdc facility. Please call back anytime with questions or concerns. We can have her follow up with Dr. Dudley in the GI Clinic in the next few weeks. Job ID: [id number]
[2019-11-29] MEDS: Levothyroxine Sodium 112 MCG TAB PO SCH (08:36)
[2019-11-29] MEDS: Aspirin 81 mg Enteric Coated Tablet PO SCH (08:36)
[2019-11-29] MEDS: Gabapentin 400 MG CAP PO SCH ×2 (08:36→21:02)
[2019-11-29] MEDS: hydrALAZINE 25 MG TAB PO SCH ×3 (08:37→20:56)
[2019-11-29] MEDS: Pantoprazole 40 MG VIAL IVP SCH ×2 (08:37→20:52)
[2019-11-29] MEDS: Montelukast Sodium 10 mg Tablet PO SCH (08:37)
[2019-11-29] MEDS: Metoprolol Tartrate 25 MG TAB PO SCH ×2 (08:37→20:56)
[2019-11-29] MEDS: Metoclopramide HCl 10 MG/2 ML VIAL IVP SCH ×4 (08:38→20:52)
--- NOTE | 2019-11-29 09:40 | PRG ---
DATE OF SERVICE: 11/29/2019 SUBJECTIVE: Ms. Rodriguez had a bit of a flare of nausea overnight, but is currently feeling a bit better. She has had some juice for breakfast and is currently doing okay. There is no abdominal pain. She has otherwise been stable. OBJECTIVE: VITAL SIGNS: Temperature 97.9, pulse 78, blood pressure 175/78, 94% oxygen saturation on room air. GENERAL: No acute distress, lying in bed comfortably. HEART: Regular rate and rhythm. LUNGS: Clear to auscultation bilaterally. ABDOMEN: Bowel sounds present. Soft. Some tenderness to palpation in the epigastrium, but no guarding, rebound, or tenderness. EXTREMITIES: No peripheral edema. LABORATORY STUDIES: Glucose 137. No other new labs. ASSESSMENT AND PLAN: 1. Gastroparesis. 2. Reflux esophagitis. Overall, she has been doing better the past couple of days. Continue with Reglan and Protonix and Zofran as needed. On discharge, transition to oral Reglan 10 mg t.i.d. with meals. Please call back anytime with questions or concerns. We can have her follow up with Dr. Dudley in the GI Clinic in the next few weeks. Job ID: [id number]
[2019-11-29] MEDS: hydrALAZINE 20 MG/ML VIAL SLOW IVP PRN (14:42)
--- NOTE | 2019-11-29 15:57 | PDOC.HOSPP ---
- Subjective Encounter Date: 11/29/19 Encounter Time: 15:15 Subjective: f/u for DM gastroparesis tx with antiemetics/Reglan and some relief of sx's. Tolerated lunch today and less abd pain. Ambulated with PT. - Objective Vital Signs & Weight: Vital Signs (12 hours) Temp Pulse Resp BP BP Pulse Ox 11/29/19 14:42 81 181/82 H 11/29/19 14:34 81 11/29/19 11:09 98.5 F 81 16 181/82 H 94 L 11/29/19 08:37 78 11/29/19 08:00 94 L 11/29/19 07:27 97.9 F 78 16 175/78 H 94 L Weight Admit Weight 190 lb 14.4 oz Weight 202 lb 9.6 oz Most Recent Monitor Data Heart Rate from ECG 80 NIBP 210/97 NIBP BP-Mean 134 Respiration from ECG 19 SpO2 95 I&O: 11/28/19 11/29/19 11/30/19 06:59 06:59 06:59 Intake Total 1690 2040 1100 Output Total 1400 1100 Balance 378 128 9991 Result Diagrams: 11/26/19 03:16 11/26/19 03:16 Additional Labs: Accuchecks 11/29/19 11/29/19 11/28/19 11:17 04:29 20:00 POC Glucose 263 H 137 H 154 H 11/28/19 15:21 POC Glucose 177 H Laboratory Tests 11/23/19 11/23/19 11/23/19 09:24 09:24 09:24 WBC 10.6 Hgb 13.3 Neutrophils % 90.8 H Neutrophils % (Manual) Creatinine 1.13 H Troponin I 0.059 H Free T4 TSH 3rd Generation Cortisol 11/23/19 11/23/19 11/24/19 12:35 15:10 03:41 WBC Hgb Neutrophils % Neutrophils % (Manual) Creatinine Troponin I 0.073 H 0.084 H Free T4 TSH 3rd Generation Cortisol 15.80 11/24/19 11/24/19 11/24/19 03:41 03:51 03:51 WBC Hgb Neutrophils % Neutrophils % (Manual) 76 H Creatinine 1.52 H Troponin I Free T4 1.10 TSH 3rd Generation 5.9642 H Cortisol 11/25/19 05:43 WBC Hgb Neutrophils % Neutrophils % (Manual) Creatinine 1.49 H Troponin I Free T4 TSH 3rd Generation Cortisol Hospitalist ROS - Medication Medications: Active Medications Generic Name Dose Route Start Last Admin Trade Name Freq PRN Reason Stop Dose Admin Hydrocodone Bitart/Acetaminophen 1 tab 11/24/19 09:51 11/24/19 19:46 Dodson 10/325 PO 1 tab Q6H PRN Administration Moderate to Severe Pain (6-10) Aspirin 81 mg 11/24/19 09:00 11/29/19 08:36 Ecotrin PO Not Given DAILY [facility] Gabapentin 600 mg 11/24/19 21:00 11/29/19 08:36 Neurontin PO Not Given BID VALE Hydralazine HCl 20 mg 11/23/19 13:25 11/29/19 14:42 Apresoline SLOW IVP 20 mg Q4H PRN Administration SYSTOLIC >170 Hydralazine HCl 50 mg 11/23/19 21:00 11/29/19 14:34 Apresoline PO Not Given TID VALE Ondansetron HCl 8 mg/ Sodium 54 mls @ 216 mls/hr 11/23/19 16:02 11/28/19 17: 37 Chloride IVPB 54 mls Q6H PRN Administration Nausea/Vomiting Insulin Glargine 25 units/ 0.25 mls @ 0 mls/hr 11/26/19 21:00 11/28/19 22:47 Miscellaneous Medication SC Not Given HS VALE Insulin Human Lispro 0 units 11/23/19 15:31 11/28/19 17:34 Humalog SC 2 unit .MILD SLIDING SCALE PRN Administration Mild Correctional Scale Insulin Human Lispro 0 units 11/23/19 15:31 11/24/19 20:46 Humalog SC 3 unit .BEDTIME SLIDING SC PRN Administration Bedtime Correctional Scale Labetalol HCl 20 mg 11/23/19 15:31 11/25/19 17:55 Normodyne SLOW IVP 20 mg Q4H PRN Administration SBP > 180 and HR >/= 70 Levothyroxine Sodium 112 mcg 11/24/19 06:00 11/29/19 08:36 Synthroid PO Not Given 0600 [facility] Lorazepam 1 mg 11/23/19 15:31 11/27/19 20:40 Ativan PO 1 mg HS PRN Administration Agitation Metoclopramide HCl 10 mg 11/25/19 17:00 11/29/19 09:45 Reglan IVP Not Given ACHS [facility] Metoprolol Tartrate 25 mg 11/23/19 21:00 11/29/19 08:37 Lopressor PO Not Given BID VALE Montelukast Sodium 10 mg 11/26/19 09:00 11/29/19 08:37 Singulair PO Not Given DAILY VALE Pantoprazole Sodium 40 mg 11/23/19 21:00 11/29/19 08:37 Protonix IVP Not Given Q12HR [facility] Quetiapine Fumarate 100 mg 11/23/19 21:00 11/28/19 22:48 Seroquel PO Not Given HS VALE - Exam General Appearance: NAD, awake alert Eye: PERRL, anicteric sclera ENT: normocephalic atraumatic, no oropharyngeal lesions Neck: supple, symmetric, no JVD, no thyromegaly, no lymphadenopathy Heart: RRR, no murmur, no gallops, no rubs, normal peripheral pulses Heart - other findings: S1, S2 Respiratory: CTAB, no wheezes, no rales, no ronchi, normal chest expansion Gastrointestinal: soft, non-tender, non-distended, normal bowel sounds, no palpable masses Extremities: no cyanosis, no clubbing, no edema Skin: normal turgor, no lesions Neurological: cranial nerve grossly intact, no new deficit Musculoskeletal: normal tone, generalized weakness Psychiatric: normal affect, A&O x 3 Hosp A/P (1) Gastroparesis due to DM Code(s): E11.43 - TYPE 2 DIABETES W DIABETIC AUTONOMIC (POLY)NEUROPATHY; K31.84 - GASTROPARESIS Status: Chronic Plan: Slow improvement, continue PPI/Reglan/Zofran, advance diet as tolerated (2) Nausea & vomiting Code(s): R11.2 - NAUSEA WITH VOMITING, UNSPECIFIED Status: Acute Plan: Improved, continue supportive mgmt, antiemetics (3) Acute metabolic encephalopathy Code(s): G93.41 - METABOLIC ENCEPHALOPATHY Status: Acute Plan: Resolved (4) Acute renal failure superimposed on stage 3 chronic kidney disease Code(s): N17.9 - ACUTE KIDNEY FAILURE, UNSPECIFIED; N18.3 - CHRONIC KIDNEY DISEASE, STAGE 3 (MODERATE) Status: Acute (5) Abdominal pain Code(s): R10.9 - UNSPECIFIED ABDOMINAL PAIN Status: Chronic Qualifiers: Abdominal location: generalized Qualified Code(s): R10.84 - Generalized abdominal pain Plan: Likely DM gastroparesis, supportive (6) Type 2 myocardial infarction Code(s): I21.A1 - MYOCARDIAL INFARCTION TYPE 2 Status: Acute - Plan PT/OT, social worker psychiatric, out of bed/ambulate, DVT proph w/SCDs Continue supportive mgmt Saline lock IVF's Change Reglan 10mg IV q6h, plan to convert to po option in next 24h Decrease Neurontin 600mg BID Decrease Hydrocodone q6h PRN PT for mobilization CM for dispo planning, ? SNF options, pt not interested in going to SNF Start Lantus 25u sc qhs Appreciated GI assistance Dispo planning for home in next 24-48h
[2019-11-29] MEDS: Insulin Glargine 25 UNITS in Pre-Filled Syringe 1 EACH SC SCH (20:56)
[2019-11-29] MEDS: HYDROcodone/Acetaminophen 10/325 mg Tablet PO PRN (21:00)
[2019-11-30] MEDS: Levothyroxine Sodium 112 MCG TAB PO SCH (06:45)
[2019-11-30] MEDS: Metoclopramide HCl 10 MG/2 ML VIAL IVP SCH ×4 (09:00→20:24)
[2019-11-30] MEDS: Metoprolol Tartrate 25 MG TAB PO SCH ×2 (09:01→20:24)
[2019-11-30] MEDS: hydrALAZINE 25 MG TAB PO SCH ×3 (09:01→20:25)
[2019-11-30] MEDS: Pantoprazole 40 MG VIAL IVP SCH ×2 (09:01→20:24)
[2019-11-30] MEDS: Aspirin 81 mg Enteric Coated Tablet PO SCH (09:01)
[2019-11-30] MEDS: Gabapentin 400 MG CAP PO SCH ×2 (09:01→20:25)
[2019-11-30] MEDS: Montelukast Sodium 10 mg Tablet PO SCH (09:01)
--- NOTE | 2019-11-30 18:30 | PDOC.HOSPP ---
- Subjective Encounter Date: 11/30/19 Subjective: No new complains - Objective Vital Signs & Weight: Vital Signs (12 hours) Temp Pulse Resp BP Pulse Ox 11/30/19 14:21 75 11/30/19 09:01 75 11/30/19 07:35 98.2 F 75 20 161/76 H 96 Weight Admit Weight 190 lb 14.4 oz Weight 202 lb 9.6 oz Most Recent Monitor Data Heart Rate from ECG 80 NIBP 210/97 NIBP BP-Mean 134 Respiration from ECG 19 SpO2 95 I&O: 11/29/19 11/30/19 12/01/19 06:59 06:59 06:59 Intake Total 2040 2825 800 Output Total 1100 1800 400 Balance 940 1025 400 Result Diagrams: 11/26/19 03:16 11/26/19 03:16 Additional Labs: Accuchecks 11/30/19 11/30/19 11/30/19 15:33 12:24 06:31 POC Glucose 252 H 267 H 181 H 11/29/19 20:13 POC Glucose 235 H Hospitalist ROS - Medication Medications: Active Medications Generic Name Dose Route Start Last Admin Trade Name Freq PRN Reason Stop Dose Admin Hydrocodone Bitart/Acetaminophen 1 tab 11/24/19 09:51 11/29/19 21:00 [place]wood 10/325 PO 1 tab Q6H PRN Administration Moderate to Severe Pain (6-10) Aspirin 81 mg 11/24/19 09:00 11/30/19 09:01 Ecotrin PO Not Given DAILY VALE Gabapentin 600 mg 11/24/19 21:00 11/30/19 09:01 Neurontin PO Not Given BID [facility] Hydralazine HCl 20 mg 11/23/19 13:25 11/29/19 14:42 Apresoline SLOW IVP 20 mg Q4H PRN Administration SYSTOLIC >170 Hydralazine HCl 50 mg 11/23/19 21:00 11/30/19 14:21 Apresoline PO Not Given TID [facility] Ondansetron HCl 8 mg/ Sodium 54 mls @ 216 mls/hr 11/23/19 16:02 11/28/19 17: 37 Chloride IVPB 54 mls Q6H PRN Administration Nausea/Vomiting Insulin Glargine 25 units/ 0.25 mls @ 0 mls/hr 11/26/19 21:00 11/29/19 20:56 Miscellaneous Medication SC Not Given HS VALE Insulin Human Lispro 0 units 11/23/19 15:31 11/28/19 17:34 Humalog SC 2 unit .MILD SLIDING SCALE PRN Administration Mild Correctional Scale Insulin Human Lispro 0 units 11/23/19 15:31 11/24/19 20:46 Humalog SC 3 unit .BEDTIME SLIDING SC PRN Administration Bedtime Correctional Scale Labetalol HCl 20 mg 11/23/19 15:31 11/25/19 17:55 Normodyne SLOW IVP 20 mg Q4H PRN Administration SBP > 180 and HR >/= 70 Levothyroxine Sodium 112 mcg 11/24/19 06:00 11/30/19 06:45 Synthroid PO 112 mcg 0600 VALE Administration Lorazepam 1 mg 11/23/19 15:31 11/27/19 20:40 Ativan PO 1 mg HS PRN Administration Agitation Metoclopramide HCl 10 mg 11/25/19 17:00 11/30/19 16:18 Reglan IVP Not Given ACHS VALE Metoprolol Tartrate 25 mg 11/23/19 21:00 11/30/19 09:01 Lopressor PO Not Given BID VALE Montelukast Sodium 10 mg 11/26/19 09:00 11/30/19 09:01 Singulair PO Not Given DAILY VALE Pantoprazole Sodium 40 mg 11/23/19 21:00 11/30/19 09:01 Protonix IVP 40 mg Q12HR VALE Administration Quetiapine Fumarate 100 mg 11/23/19 21:00 11/29/19 20:57 Seroquel PO 100 mg HS VALE Administration - Exam General Appearance: awake alert ENT: normocephalic atraumatic Neck: supple Heart: RRR Respiratory: CTAB, normal chest expansion, no tachypnea Gastrointestinal: soft, non-tender, non-distended, normal bowel sounds Neurological: cranial nerve grossly intact, no focal deficits Hosp A/P - Plan Hosp A/P (1) Gastroparesis due to DM Code(s): E11.43 - TYPE 2 DIABETES W DIABETIC AUTONOMIC (POLY)NEUROPATHY; K31.84 - GASTROPARESIS Status: Chronic Plan: Slow improvement, continue PPI/Reglan/Zofran, advance diet as tolerated (2) Nausea & vomiting Code(s): R11.2 - NAUSEA WITH VOMITING, UNSPECIFIED Status: Acute Plan: Improved, continue supportive mgmt, antiemetics (3) Acute metabolic encephalopathy Code(s): G93.41 - METABOLIC ENCEPHALOPATHY Status: Acute Plan: Resolved (4) Acute renal failure superimposed on stage 3 chronic kidney disease Code(s): N17.9 - ACUTE KIDNEY FAILURE, UNSPECIFIED; N18.3 - CHRONIC KIDNEY DISEASE, STAGE 3 (MODERATE) Status: Acute (5) Abdominal pain Code(s): R10.9 - UNSPECIFIED ABDOMINAL PAIN Status: Chronic Qualifiers: Abdominal location: generalized Qualified Code(s): R10.84 - Generalized abdominal pain Plan: Likely DM gastroparesis, supportive (6) Type 2 myocardial infarction Code(s): I21.A1 - MYOCARDIAL INFARCTION TYPE 2 Status: Acute - Plan 11/28: PT/OT, criminal justice social worker, out of bed/ambulate, DVT proph w/SCDs Continue supportive mgmt Saline lock IVF's Change Reglan 10mg IV q6h, plan to convert to po option in next 24h Decrease Neurontin 600mg BID Decrease Hydrocodone q6h PRN PT for mobilization CM for dispo planning, ? SNF options, pt not interested in going to SNF Start Lantus 25u sc qhs Appreciated GI assistance Dispo planning for home in next 24-48h 11/29: The patient is less nauseous today. Tolerating her diet. Plan to DC home with home health tomorrow on Reglan.
[2019-11-30] MEDS: Insulin Glargine 25 UNITS in Pre-Filled Syringe 1 EACH SC SCH (20:30)
[2019-11-30] MEDS: HYDROcodone/Acetaminophen 10/325 mg Tablet PO PRN (20:43)
[2019-12-01 05:59] LABS: Anion Gap 10 mmol/L (10-20); BUN (Urea Nitrogen) 10 mg/dL (9.8-20.1); Calc. Creatinine Clearance 101 mL/min (70-130); Calcium 7.8 mg/dL (7.8-10.44); Carbon Dioxide 25 mmol/L (22-29); Chloride 100 mmol/L (98-107); Estimated GFR-MDRD 67; Glucose 172 mg/dL (70-105); Potassium 4.2 mmol/L (3.5-5.1); Sodium 131 mmol/L (136-145)
[2019-12-01 06:05] LABS: Hemoglobin 9.4 g/dL (12.0-16.0); Mean Corpuscular HGB CONC 34.3 g/dL (32.0-36.0); Mean Corpuscular Hemoglobin 29.8 pg (27.0-31.0); Mean Corpuscular Volume 86.8 fL (78.0-98.0); Mean Platelet Volume 7.8 fL (7.4-10.4); Platelet Count 295 thou/uL (130-400); RBC Distribution Width 12.2 % (11.5-14.5); Red Blood Cell (RBC) Count 3.14 mill/uL (4.20-5.40); White Blood Cell (WBC) Count 7.5 thou/uL (4.8-10.8)
[2019-12-01 06:10] LABS: Band 1 % (5-11); Eosinophils 1 % (0-10); Lymphocytes 15 % (21-51); MDiff Complete? YES; Monocytes 8 % (0-10); Neutrophil 75 % (42-75); Platelet Morphology Comment Appears Adequate; RBC Morphology Normal
[2019-12-01] MEDS: Levothyroxine Sodium 112 MCG TAB PO SCH (06:18)
[2019-12-01 07:36] VITALS: BP 159/77; TEMP 98.7
[2019-12-01] MEDS: Metoclopramide HCl 10 MG/2 ML VIAL IVP SCH ×2 (08:21→11:44)
[2019-12-01] MEDS: Aspirin 81 mg Enteric Coated Tablet PO SCH (08:21)
[2019-12-01] MEDS: hydrALAZINE 25 MG TAB PO SCH (08:21)
[2019-12-01] MEDS: Montelukast Sodium 10 mg Tablet PO SCH (08:21)
[2019-12-01] MEDS: Gabapentin 400 MG CAP PO SCH (08:21)
[2019-12-01] MEDS: Metoprolol Tartrate 25 MG TAB PO SCH (08:22)
[2019-12-01] MEDS: Pantoprazole 40 MG VIAL IVP SCH (08:22)
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
== END 2019-12-01 12:50 | disposition home health service (06) | DRG 682 ==
LOC: ERS 08:36 → OBSVTOIN 12:24 → 2NO 12:24 → IMCU/EMU 11-24 04:55 → T4-A 11-26 15:11
PROVIDERS: ADMIT Family Medicine; ATTEND Family Medicine
DX: N17.9 Acute kidney failure, unspecified (principal); I21.A1 Myocardial infarction type 2; G93.41 Metabolic encephalopathy; I13.0 Hypertensive heart and chronic kidney disease with heart failure and stage 1 through stage 4 chronic kidney disease, or unspecified chronic kidney disease; I69.354 Hemiplegia and hemiparesis following cerebral infarction affecting left non-dominant side; E11.43 Type 2 diabetes mellitus with diabetic autonomic (poly)neuropathy; K21.9 Gastro-esophageal reflux disease without esophagitis; I25.2 Old myocardial infarction; I50.9 Heart failure, unspecified; E78.5 Hyperlipidemia, unspecified; E78.00 Pure hypercholesterolemia, unspecified; K22.70 Barrett's esophagus without dysplasia; J44.9 Chronic obstructive pulmonary disease, unspecified; E11.22 Type 2 diabetes mellitus with diabetic chronic kidney disease; E11.65 Type 2 diabetes mellitus with hyperglycemia; E87.6 Hypokalemia; E11.42 Type 2 diabetes mellitus with diabetic polyneuropathy; I16.0 Hypertensive urgency; K31.84 Gastroparesis; N18.3 Chronic kidney disease, stage 3 (moderate); E86.0 Dehydration; Z88.6 Allergy status to analgesic agent; Z99.81 Dependence on supplemental oxygen; Z88.2 Allergy status to sulfonamides; Z79.899 Other long term (current) drug therapy; Z79.890 Hormone replacement therapy; Z79.4 Long term (current) use of insulin; Z88.8 Allergy status to other drugs, medicaments and biological substances; Z98.51 Tubal ligation status; Z79.01 Long term (current) use of anticoagulants
CPT/HCPCS: 36415; 36416; 51701; 70450; 71045; 80048; 80053; 82533; 82550; 82553; 82805; 83690; 83735; 84439; 84443; 84484; 85007; 85025; 85027; 93005; 96365; 96367; 96375; C9113; J0360; J1815; J2405; J2765; J3480; J7030